=== PATIENT | female | born 1990 | race Caucasian/White ===

== ENCOUNTER → 2017-11-30 15:21 | Outpatient (CLI) | payer OTHER, SELFPAY | PROVIDERS: Family Provider Family Medicine; PCP Family Medicine; Visit Provider Otolaryngology Otolaryngology/Facial Plastic Surgery | DX: J02.9 Acute pharyngitis, unspecified (principal) | CPT/HCPCS: 87070 ==

== ENCOUNTER → 2017-12-07 08:04 | Outpatient (CLI) | payer BC, OTHER, SELFPAY ==
--- NOTE | 2017-12-07 08:15 | RAD_ITS ---
STUDY: X-RAY - ESOPHAGUS (BARIUM SWALLOW) WITH FLUOROSCOPY REASON FOR EXAM: Female, 27 years old. 2 month history of dysphagia. TECHNIQUE: 17 view(s) of the esophagus were obtained following swallowing of barium. FLUOROSCOPY TIME (if supplied): (0:18) minutes/seconds COMPARISON: None. FINDINGS: There is no demonstrated esophageal foreign body. There is no demonstrated stricture or mucosal abnormality. Normal gastroesophageal junction, without a demonstrated hiatal hernia. The patient ingested a 12 mm tablet of barium without any difficulty. Normal visualized aortic arch and descending thoracic aorta. Normal visualized pulmonary parenchyma. Normal visualized osseous structures of the thorax. RAD/Esophagus Only IMPRESSION: Normal plain film x-ray examination (barium swallow) of the esophagus. Electronically Signed: Adelso Kessler MD at 9:23 EDT Tel [phone], Service support ,
== END ==
PROVIDERS: Family Provider Family Medicine; PCP Family Medicine; Visit Provider Otolaryngology Otolaryngology/Facial Plastic Surgery
DX: R13.10 Dysphagia, unspecified (principal); K21.9 Gastro-esophageal reflux disease without esophagitis
CPT/HCPCS: 74220

== ENCOUNTER 2018-07-09 08:29 | Emergency (ER) | payer BC, SELFPAY ==
[2018-07-09 08:30] VITALS: BP 166/114; PULSE 92; RESP 18; TEMP 37; O2SAT 100; BMI 42.3
--- NOTE | 2018-07-09 08:48 | US_ITS ---
STUDY: FIRST TRIMESTER OBSTETRICAL ULTRASOUND REASON FOR EXAM: Female, 28 years old. Bleeding with . LMP: 05/25/2018 TECHNIQUE: Transvaginal TECHNICAL QUALITY: Adequate. PRIOR ULTRASOUND: None. FINDINGS: There is visualization of a single gestational sac demonstrates irregular shape and borders. Fluid is noted within the endometrium. There is no demonstrated yolk sac. The placenta is non-visualized. There is visualization of an embryo with no cardiac activity, consistent with intrauterine demise. [place]-rump length measures 0.2 cm corresponding to 4 weeks and 5 days gestation. The estimated gestation age (EGA) by LMP is 6 weeks, 3 days. The estimated date of delivery (JANEY) by LMP is 03/01/2019. The estimated gestation age (EGA) by US is 4 weeks, 5 days. The estimated date of delivery (JANEY) by US is 03/13/2019. The uterus measures 5.7 x 3.5 x 2.9. There is no demonstrated uterine fibroid. The cervix is closed. The right ovary measures 3.7 x 1.8 x 2.5. There is no right ovarian cyst. There is no visualized right adnexal mass or complex lesion. The left ovary measures 3.6 x 2.7 x 1.6. There is no left ovarian cyst. There is no visualized left adnexal mass or complex lesion. There is no fluid in the cul de sac. US/Transvaginal w/Preg US IMPRESSION: 1. Findings consistent with no heart rate activity consistent with demise. Recommend beta hCG correlation and gynecologic consultation for further assessment and management. Electronically Signed: Adrian Sauceda DO at 11:14 EDT , Service support ,
[2018-07-09 09:39] LABS: hCG Titer Quant., Serum 9 mIU/mL (<9 non-preg)
--- NOTE | 2018-07-09 11:36 | ED.VISSUMM ---
- ER Visit Summary Date of Service: 07/09/18 Chief Complaint: Vaginal bleeding History of Present Illness: The patient is a [address] Briceno. She reports she has vaginal bleeding that began yesterday. 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 She complains of cramping suprapubic pain is 6 out of 10 at worst and 4-10 currently. Is worsened by nothing and relieved by movement. She is a at 6 weeks 3 days by her last menstrual period. She has not had an ultrasound. Physical Examination: Vitals: Stable. Afebrile. General: Well-nourished and well-developed. Head: Normocephalic atraumatic. Neck: Supple, no lymphadenopathy. No JVD. Nontender. Cardiovascular: Regular rate and rhythm. No murmurs. Respiratory: No respiratory distress. Clear to auscultation bilaterally. Abdominal: Soft, nontender, nondistended, normal bowel sounds. No guarding, rebound, or peritoneal signs. Back: Nontender. Extremities: Nontender, no edema. Skin: Normal color, no rash. Neurologic: Alert and oriented ?3. Cranial nerves II through XII are intact. Normal strength and sensation. Psych: Normal affect. Test Results: Ultrasound shows intrauterine demise with a fetus that is 4 weeks 5 days with no heartbeat. Quantitative hCG was 9. Blood type is B+. Emergency Department Course and Treatment: Patient refused nausea pain medications. She is resting comfortably. Treatment Plan: Patient was discussed with Dr. Briceno. She will be discharged instructions to follow-up with her tomorrow for another exam. She is instructed that if she is bleeding through more than 1 pad an hour for more than 4 hours that she should return to the emergency department. Disposition: To home in improved and stable condition. Impression: 1. Intrauterine demise. This note was generated with [employer] dictation software. It may contain incorrect words, spelling, and punctuation that were not noted in review of the chart prior to signing ED Disposition - Plan for ED Patient: Disposition: Home or Assisted Living Instructions: ED Miscarriage Incom Referrals: Reyna Birceno DO [STAFF PHYSICIAN] - 1 Day
[2018-07-09 12:06] VITALS: PULSE 88; RESP 16; O2SAT 98
[2018-07-09 13:10] VITALS: BP 138/101; PULSE 88; RESP 16; O2SAT 100
== END 2018-07-09 13:10 | disposition home or self-care (01) ==
PROVIDERS: Emergency Provider Emergency Medicine; Family Provider Family Medicine; PCP Family Medicine
DX: O02.1 Missed abortion (principal)
CPT/HCPCS: 76817; 84702; 86900; 99282; A4216

== ENCOUNTER 2019-08-02 21:43 | Emergency (ER) | payer BC, SELFPAY ==
[2019-08-02 21:44] VITALS: BP 168/94; PULSE 74; RESP 18; TEMP 36.2; O2SAT 98; BMI 43.0
--- NOTE | 2019-08-02 22:11 | EKG12_ITS ---
Test Reason : CP Blood Pressure : / mmHG Vent. Rate : 075 BPM Atrial Rate : 075 BPM P-R Int : 126 ms QRS Dur : 094 ms QT Int : 384 ms P-R-T Axes : 064 023 027 degrees QTc Int : 428 ms Sinus rhythm with marked sinus arrhythmia Otherwise normal ECG Confirmed by AZEEM MOODY ([id number]), visual effects editor OLIVER WHEELER ([id number]) on 08/06/2019 1:16:47 PM Referred By: MR Confirmed By:AZEEM MOODY
--- NOTE | 2019-08-02 22:17 | ED.VIS.CHEST ---
History of Present Illness Chief Complaint: Chest Pain Informant: Patient Onset: Weeks Timing: Continuous - all day today, once it started seemingly randomly this AM, more than 8 hrs ago, Intermittent - throughout the week, Lasts - brief, less than 1 minute w/ episodes before today Quality: Heaviness, Pressure Location: Substernal - w/ radiation to lower jaw/teeth Current Severity: Moderate Maximum Severity: Moderate Worsened By: Exertion - maybe, - - no change w/ lying supine. Not Worsened By: Movement of Arm, Movement of Torso, Eating, Palpation, Breathing, Coughing Relieved By: Nothing - hasn't tried any medications Associated Symptoms: Dyspnea - occasionally, mild, Palpitations - occasional skips; has felt in past week, today, but not prior. Negative for: Nausea, Vomiting, Diaphoresis, Cough, Fever, Lightheadedness, Acid Reflux Narrative: Hx of PCOS and GERD, for which she takes daily OTC famotidine. No abd symptoms. No tearing sensation, back discomfort, pleuritic sx, leg pain/swelling, recent immobilization, hx of DVT/PE. Prior Similar Symptoms: No Recent Illness/Hospitalization: No PE Risk Factors: Negative for: Recent Travel/Surgery, Recenet Immobilization, Prior DVT or PE, Cancer, OCP + Smoking + >/=35 TAD Risk Factors: Negative for: Marfan's Syndrome, Hypertension, Family History - Past Medical History (1) PCOS (polycystic ovarian syndrome) Status: Chronic (2) GERD (gastroesophageal reflux disease) Status: Chronic Past Medical History - Allergies and Home Meds Allergies/Adverse Reactions: Allergies No Known Allergies Allergy (Verified 08/02/19 21:47) Primary Care Physician: Laila Lima MD [Primary Care Provider] - 3-5 Days Smoking Status: Never smoker Drugs: None Review of Systems General: Denies: Chills, Fever, Sweats Eyes: Denies: Visual changes - bilaterally, Diplopia ENT: Reports: - - lower jaw toothache w/o pain w/ eating. Denies: Bilateral ear pain, Rhinorrhea, Sore throat Cardiovascular: Reports: Chest pain, Palpitations. Denies: Heart racing Respiratory: Reports: Dyspnea. Denies: Cough, Dyspnea on exertion Gastrointestinal: Denies: Abdominal pain, Nausea, Vomiting, Diarrhea, Melena, Hematochezia Genitourinary: Denies: Dysuria, Hematuria, Frequency Musculoskeletal: Denies: Neck pain, Back pain, Swelling, Extremity Pain Skin: Denies: Rash, Wounds Neurological: Denies: Headache, Weakness, Numbness Physical Exam Vital Signs/Narrative: Vital Signs Temp Pulse Resp BP Pulse Ox 08/02/19 21:44 97.1 F L 74 18 168/94 H 98 Inital Vital Signs reviewed: Yes General: Well nourished, Well developed, Obese, No Acute Distress - well-appearing, conversive in full sentences Head: Normocephalic, Atraumatic Eyes: Perrl, EOMI ENT: Moist mucous membranes, No rhinorrhea Neck: Supple, Nontender, No lymphadenopathy Cardiovascular: Regular rate, Regular rhythm, No murmurs, Normal S1, Normal S2, - - equal bilat 2+/4 radial pulses. Negative for: Tachycardia Respiratory: No distress, CTA bilaterally, Chest nontender Abdomen: Soft, Nontender, Nondistended, Normal bowel sounds Back: Nontender, Normal Inspection Extremities: Nontender, No edema. Negative for: Calf Tenderness Skin: Normal color, No rash, No Trauma Neurological: Alert, Oriented x3, Cranial nerves II-XII grossly intact, Normal Strength, Normal Sensation, Normal Gait Psychological: Normal affect, Normal Mood Diagnostic/Tx/Re-eval Impressions Chest X-Ray 08/02/19 22:35 IMPRESSION: Normal x-ray examination of the chest. Electronically Signed: Kevin Welsh MD at 23:01 EDT Tel , Service support , Chest CTA 08/02/19 23:19 IMPRESSION: Normal CTA chest examination, without a demonstrated pulmonary embolism or aortic dissection. Electronically Signed: Kevin Welsh MD at 0:03 EDT Tel , Service support , 08/02/19 22:35 Chest 1 View (Portable) [RAD] Stat 08/02/19 23:19 CTA Chest W/WO Contrast [CT] Stat Laboratory Results 08/02/19 08/02/19 22:30 22:30 WBC 13.9 H RBC 4.99 Hgb 14.0 Hct 43.3 MCV 86.8 MCH 28.1 MCHC 32.3 RDW Std Deviation 41.5 RDW Coeff of Roge 13.3 Plt Count 353 MPV 9.5 Immature Gran % (Auto) 0.400 Neut % (Auto) 56.9 Lymph % (Auto) 32.7 [place] % (Auto) 7.3 Eos % (Auto) 2.4 Baso % (Auto) 0.3 Absolute Neuts (auto) 7.9 H Absolute Lymphs (auto) 4.55 H Nucleated RBC % 0 Sodium 140 Potassium 3.8 Chloride 107 Carbon Dioxide 28.0 Anion Gap 5 BUN 9 Creatinine 0.73 Estim Creat Clear Calc 112.57 Est GFR (MDRD) Af Amer 122 Est GFR (MDRD) Non-Af 101 BUN/Creatinine Ratio 12.3 Glucose 105 Calcium 9.5 Troponin I < 0.015 - Rhythm Strip Rhythm Strip: Sinus Rhythm Rate: 75 Ectopy: None - EKG Initial EKG Interpretation: Sinus Rhythm, No Acute Injury Pattern - normal EKG. No S1Q3T3 pattern. Prior: Unchanged Treatment: GI Cocktail - Brief interval improvement, sx persist ABDELRAHMAN Risk: No Positive ABDELRAHMAN Elements Score: 0 - Medical Decision Making PERC score = 0. EKG is unremarkable, her perc score 0 as above. Chest x-ray shows a narrow mediastinum. A G.I. cocktail did not resolve symptoms. She thinks it resulted in transient improvement it but it was relatively brief. Given her symptoms, I think it is reasonable to perform CT angiography to rule out dissection, given her toothache with no evidence of dental etiology. This was performed and negative, I discussed the pros and cons with the patient she was comfortable with the scan and logic of it. Given all this and with a negative work up otherwise except for a mild non-specific leukocytosis, I suspect this is related to her esophagus. Will give her a dose of Bentyl, advised that she take the H2 mika b.i.d. and follow up with her doctor. She?s comfortable with that plan. Prior to discharge, prior to receiving the dose of oral Bentyl, her symptoms resolved. She states they seem to have gradually gone away. ED Disposition - Plan for ED Patient: Disposition: Home or Assisted Living Diagnosis: Chest pain, unspecified Instructions: ED Chest Pain Atypical Unkn Cause Prescriptions: Dicyclomine HCl [Bentyl] 1 - 2 tab PO Q4H PRN #15 cap PRN Reason: discomfort in chest or abdomen Prescription Printed Referrals: Laila Lima MD [Primary Care Provider] - 3-5 Days Additional Instructions: Take your pepcid twice daily until you follow up, for now.
--- NOTE | 2019-08-02 22:35 | RAD_ITS ---
STUDY: X-RAY CHEST REASON FOR EXAM: Female, 29 years old. chest pain x 1 week TECHNIQUE: Single frontal view of the chest. COMPARISON: None. FINDINGS: The lungs are clear and expanded. There is no demonstrated pleural abnormality. Normal size heart. Normal mediastinum and laura. Normal visualized pulmonary arteries. Normal visualized aortic arch and descending thoracic aorta. Normal visualized thoracic spine. Normal visualized ribs, clavicles, and shoulders. There is no demonstrated abnormality of the visualized soft tissue structures of the upper abdomen. RAD/Chest 1 View (Portable) IMPRESSION: Normal x-ray examination of the chest. Electronically Signed: Kevin Welsh MD at 23:01 EDT Tel , Service support ,
[2019-08-02] MEDS: Mag Hydrox/Al Hydrox/Simeth 30 ML UDC PO (22:38)
[2019-08-02 22:43] LABS: Absolute Lymphocyte Count 4.55 X10^3/uL (0.83-4.51); Absolute Neutrophil Count 7.9 X10^3/uL (2.0-7.7); Basophil# 0.04 X10^3/uL; Basophil% 0.3 % (0-1); Eosinophil# 0.34 X10^3/uL; Eosinophils% 2.4 % (0-5); Hematocrit 43.3 % (37-47); Lymphocyte # 4.55 X10^3/ul (4.0); Lymphocyte % 32.7 % (19-41); Mean Corp Hgb Conc 32.3 g/dL (32-36); Mean Corpuscular Hgb 28.1 pg (27.0-32.0); Mean Corpuscular Volume 86.8 fL (81-99); Mean Platelet Vol. 9.5 fl (6.2-12.0); Monocyte# 1.02 X10^3/uL; Monocyte% 7.3 % (0-10); NRBC Flagged by Analyzer 0 % (0-5); Neutrophil # 7.91 X10^3/uL (2.7-7.7); Neutrophil % 56.9 % (47-70); Platelet Count 353 K/mm3 (150-450); RBC Distribution Width CV 13.3 % (11.6-14.6); RBC Distribution Width SD 41.5 fl (35.1-43.9); Red Blood Count 4.99 M/mm3 (4.2-5.4); White Blood Count 13.9 K/mm3 (4.4-11.0)
[2019-08-02 23:04] VITALS: PULSE 76; RESP 16; O2SAT 96
[2019-08-02 23:04] LABS: Anion Gap 5 (5-15); BUN 9 mg/dL (7-18); BUN/Creat Ratio 12.3 RATIO (10-20); Calcium,Total 9.5 mg/dL (8.5-10.1); Chloride 107 mmol/L (98-107); Creatinine, Serum 0.73 mg/dL (0.55-1.02); EST Glomerular Filtration Rate 101 mL/min (>60); Est Glom Filt Rate - Afr Amer 122 mL/min (>60); Estimated Creatinine Clearance 112.57 ml/min; Glucose 105 mg/dL (74-106); Potassium 3.8 mmol/L (3.5-5.1); Sodium Level 140 mmol/L (136-145)
--- NOTE | 2019-08-02 23:19 | CT_ITS ---
STUDY: CTA CHEST REASON FOR EXAM: Female, 29 years old. CP X 1 WEEK, CONCERN FOR DISSECTION RADIATION DOSAGE (If Supplied By Facility): CTDIvol = ( 21.26 ) mGy, DLP = ( 760.30 ) mGycm TECHNIQUE: The examination was performed with the intravenous administration of IV 100mL Isovue-370. Post-processing of the angiographic images was performed, with multiplanar reformation and 3D reconstruction. Individualized dose optimization techniques were used for this CT. COMPARISON: None. FINDINGS: Normal enhancement of the main pulmonary artery and right and left pulmonary arteries. Normal enhancement of the bilateral peripheral pulmonary arteries. There is no demonstrated pulmonary embolism. Normal thoracic aorta and visualized great vessels. There is no demonstrated aortic dissection. Normal heart and pericardium. Normal mediastinum. Normal hilar regions. Normal visualized trachea and bronchi. The lungs are well expanded. Normal pulmonary parenchyma. Normal pleura. Normal chest wall structures. Normal osseous structures. Normal visualized upper abdomen. CT/CTA Chest W/WO Contrast IMPRESSION: Normal CTA chest examination, without a demonstrated pulmonary embolism or aortic dissection. Electronically Signed: Kevin Welsh MD at 0:03 EDT Tel , Service support ,
[2019-08-03] MEDS: 0.9% Normal Saline 1,000 ML 999 ML IV
[2019-08-03 00:38] VITALS: BP 143/98; PULSE 84; RESP 18; O2SAT 98
[2019-08-03] MEDS: Dicyclomine 10 MG Capsule 20 MG PO (00:44)
== END 2019-08-03 00:53 | disposition home or self-care (01) ==
LOC: ED 08-03 00:48
PROVIDERS: Emergency Provider Emergency Medicine; PCP Family Medicine
DX: R07.9 Chest pain, unspecified (principal); R06.00 Dyspnea, unspecified; K21.9 Gastro-esophageal reflux disease without esophagitis; R00.2 Palpitations; E28.2 Polycystic ovarian syndrome; K08.89 Other specified disorders of teeth and supporting structures; E66.9 Obesity, unspecified
CPT/HCPCS: 71045; 71275; 80048; 84484; 85025; 93005; 96360; 99284; J7030; Q9967; A4216

== ENCOUNTER → 2019-12-13 10:57 | Outpatient (CLI) | payer BC, SELFPAY ==
[2019-12-13 11:31] LABS: Absolute Lymphocyte Count 3.32 X10^3/uL (0.83-4.51); Absolute Neutrophil Count 6.8 X10^3/uL (2.0-7.7); Basophil# 0.04 X10^3/uL; Basophil% 0.4 % (0-1); Eosinophil# 0.27 X10^3/uL; Eosinophils% 2.4 % (0-5); Hematocrit 43.3 % (37-47); Hemoglobin 13.8 g/dL (12.0-15.0); Lymphocyte # 3.32 X10^3/ul (4.0); Lymphocyte % 29.5 % (19-41); Mean Corp Hgb Conc 31.9 g/dL (32-36); Mean Corpuscular Hgb 27.4 pg (27.0-32.0); Mean Corpuscular Volume 85.9 fL (81-99); Mean Platelet Vol. 9.9 fl (6.2-12.0); Monocyte# 0.84 X10^3/uL; Monocyte% 7.5 % (0-10); NRBC Flagged by Analyzer 0 % (0-5); Neutrophil # 6.77 X10^3/uL (2.7-7.7); Neutrophil % 59.9 % (47-70); Platelet Count 411 K/mm3 (150-450); RBC Distribution Width CV 13.6 % (11.6-14.6); RBC Distribution Width SD 42.1 fl (35.1-43.9); Red Blood Count 5.04 M/mm3 (4.2-5.4); White Blood Count 11.3 K/mm3 (4.4-11.0)
[2019-12-13 11:56] LABS: AST(SGOT) 38 U/L (15-37); Alanine Aminotransfer ALT/SGPT 82 U/L (13-56); Albumin, Serum 3.8 g/dL (3.2-5.0); Alkaline Phosphatase 33 U/L (45-117); Bilirubin, Direct 0.22 mg/dL (0.00-0.30); Globulin 3.8 g/dL (2.2-4.2); Protein, Total 7.6 g/dL (6.4-8.2)
[2019-12-13 12:01] LABS: hCG Titer Quant., Serum 777 mIU/mL (1-3)
== END ==
PROVIDERS: PCP Family Medicine; Referring Provider Obstetrics & Gynecology; Visit Provider Obstetrics & Gynecology
DX: O00.90 Unspecified ectopic pregnancy without intrauterine pregnancy (principal); Z3A.00 Weeks of gestation of pregnancy not specified
CPT/HCPCS: 36415; 80076; 84702; 85025

== ENCOUNTER → 2020-02-28 09:14 | Outpatient (CLI) | payer BC, SELFPAY ==
--- NOTE | 2020-02-28 09:30 | RAD_ITS ---
STUDY: HYSTEROSALPINGOGRAM. REASON FOR EXAM: Female, 30 years old. HSG FOR INFERTILITY. HX RECENT ECTOPIC RIGHT SIDE. -- 21 FLUORO SEC, 3 FLUORO IMAGES, 18.81mGy FLUOROSCOPY TIME (if supplied): ( 21 seconds ) minutes/seconds. 3 images were obtained. 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 Imaging was provided. COMPARISON: None. FINDINGS: The uterus is unremarkable. Both fallopian tubes are visualized and are widely patent. RAD/Salpingogram IMPRESSION: Normal hysterosalpingogram. Electronically Signed: Adelso Kessler, at 10:31 EST , Service support ,
== END ==
PROVIDERS: PCP Family Medicine; Referring Provider Obstetrics & Gynecology; Visit Provider Obstetrics & Gynecology
DX: Z31.41 Encounter for fertility testing (principal)
CPT/HCPCS: 58340; 74740; Q9967

== ENCOUNTER 2020-05-30 21:17 | Emergency (ER) | payer BC, SELFPAY ==
[2020-05-30 21:19] VITALS: BP 150/105; PULSE 70; RESP 18; TEMP 35.9; O2SAT 98; BMI 44.6
--- NOTE | 2020-05-30 22:09 | US_ITS ---
STUDY: FIRST TRIMESTER OBSTETRICAL ULTRASOUND REASON FOR EXAM: Female, 30 years old RLQ pain, 5 weeks preg, quant 660 today LMP: 04/25/2020 TECHNIQUE: Transvaginal TECHNICAL QUALITY: Adequate. PRIOR ULTRASOUND: None. FINDINGS: Small amount of fluid in the endometrial cavity. A very early gestational sac is not excluded. There is no demonstrated yolk sac. The placenta is non-visualized. There is no demonstrated embryo ( pole). The estimated gestation age (EGA) by LMP is 5 weeks, 0 days. The estimated date of delivery (JANEY) by LMP is 01/30/2021. The uterus measures 6.6 x 5.6 x 3.4 cm. There is no demonstrated uterine fibroid. The cervix is closed. The right ovary measures 5.0 x 4.3 x 2.9 cm. 1.7 cm hyperechoic structure adjacent to or within the right ovary of uncertain significance, possibly fibroma. The left ovary measures 3.5 x 3.3 x 2.6. There is no left ovarian cyst. There is no visualized left adnexal mass or complex lesion. There is a moderate amount of fluid in the cul de sac. US/Transvaginal w/Preg US IMPRESSION: Small amount of fluid in the endometrial cavity. A very early intrauterine gestation is not excluded. Ectopic however is not excluded either. Recommend follow-up quantitative beta hCGs and short-term interval follow-up ultrasound. Electronically Signed: Troy Dao MD at 23:21 EST , Service support ,
[2020-05-30 22:19] LABS: Absolute Neutrophil Count 10.1 X10^3/uL (2.0-7.7); Basophil# 0.06 X10^3/uL; Basophil% 0.4 % (0-1); Eosinophil# 0.31 X10^3/uL; Eosinophils% 1.9 % (0-5); Hematocrit 44.1 % (37-47); Hemoglobin 14.2 g/dL (12.0-15.0); Lymphocyte % 28.7 % (19-41); Mean Corp Hgb Conc 32.2 g/dL (32-36); Mean Corpuscular Hgb 27.9 pg (27.0-32.0); Mean Corpuscular Volume 86.6 fL (81-99); Mean Platelet Vol. 9.9 fl (6.2-12.0); Monocyte# 1.11 X10^3/uL; Monocyte% 6.8 % (0-10); NRBC Flagged by Analyzer 0 % (0-5); Neutrophil # 10.13 X10^3/uL (2.7-7.7); Neutrophil % 61.9 % (47-70); Platelet Count 433 K/mm3 (150-450); RBC Distribution Width SD 43.9 fl (35.1-43.9); Red Blood Count 5.09 M/mm3 (4.2-5.4); White Blood Count 16.4 K/mm3 (4.4-11.0)
[2020-05-30 22:23] LABS: Internal QC Validated? YES +Cl - CLEAR BKGD; Pregnancy, Serum, hCG Quali. POSITIVE Negative
[2020-05-30] MEDS: Morphine 4 MG/ML Syringe IV (22:25)
[2020-05-30] MEDS: 0.9% Normal Saline 1,000 ML 1000 ML IV (22:25)
[2020-05-30 22:33] LABS: Mucous, Urine 0 SEEN /hpf (<or=2+)
[2020-05-30 22:34] LABS: Color, Urine Yellow (Yellow); Glucose, Dipstick Normal (Normal); Ketone-Dipstick 50 mg/dl (Negative); Leukocyte Esterase-Dipstick 100 /ul (Negative); Nitrite-Dipstick Negative (Negative); Occult Blood-Urine 250 /ul (Negative); Protein-Dipstick 15 mg/dl (Negative); Specific Gravity, Urine 1.025 (1.002-1.030); Urine Bilirubin Dipstick Negative (Negative); Urine Clarity Clear (Clear); Urine Urobilinogen Normal (Normal)
[2020-05-30 22:40] LABS: Red Blood Cells-Urine 10-25 SEEN /hpf (0-5); Squamous Epithelial Cells - UA 0-5 SEEN /hpf (5-10); White Blood Cells 0-5 SEEN /hpf (0-5)
[2020-05-30 22:41] LABS: Bacteria RARE /hpf (None Seen)
[2020-05-30 23:03] VITALS: BP 123/78; PULSE 71; RESP 16; O2SAT 100
--- NOTE | 2020-05-30 23:16 | ED.DCSUM_ITS ---
History of Present Illness Chief Complaint: Vag Bld, Preg Informant: Patient Pain: Pelvic Pain Narrative: Patient is G4, P0 currently 5 weeks with last menstrual period April 25 presenting with pelvic cramping and spotting. Patient started having cramping today that worsened this evening. Also had a small amount of bright red blood around lunchtime with wiping and then more brown spotting this evening. Patient is currently following with fertility at [facility]. She does have a prior right ectopic . It was treated medically. Patient was on oral fertility medications for this . She states she had a quant today with outpatient blood work that was 664.8. She notes her quant has been doubling appropriately. Patient states her blood type is positive. She has no other complaints at this time. Past Medical History - Allergies and Home Meds Allergies/Adverse Reactions: Allergies No Known Allergies Allergy (Verified 05/30/20 21:18) Primary Care Physician: Laila Lima MD [Primary Care Provider] - Past Medical History: - - PCOS Surgical History: noncontributory Lives: Spouse/ Significant Other Smoking Status: Never smoker Review of Systems General: Denies: Chills, Fever, Sweats Eyes: Denies: Visual changes - bilaterally, Diplopia ENT: Denies: Rhinorrhea, Sore throat Cardiovascular: Denies: Chest pain, Palpitations Respiratory: Denies: Dyspnea, Cough, Dyspnea on exertion Gastrointestinal: Reports: Abdominal pain. Denies: Nausea, Vomiting, Diarrhea, Melena, Hematochezia Genitourinary: Reports: - - Vaginal bleeding. Denies: Dysuria, Hematuria, Frequency Musculoskeletal: Denies: Back pain, Extremity Pain Skin: Denies: Rash, Wounds Neurological: Denies: Headache, Weakness, Numbness Physical Exam Vital Signs/Narrative: Vital Signs Temp Pulse Resp BP Pulse Ox 05/30/20 23:03 71 16 123/78 H 100 05/30/20 21:19 96.7 F L 70 18 150/105 H 98 Inital Vital Signs reviewed: Yes General: Well nourished, Well developed Head: Normocephalic, Atraumatic Eyes: Perrl, EOMI ENT: Moist mucous membranes, No rhinorrhea Neck: Supple, Nontender Cardiovascular: Regular rate, Regular rhythm, No murmurs Respiratory: No distress, CTA bilaterally, Chest nontender Abdomen: Soft, Nontender, Nondistended, Normal bowel sounds. Negative for: Guarding, Rebound tenderness Back: Nontender, Normal Inspection Extremities: Nontender, No edema Skin: Normal color, No rash Neurological: Alert, Oriented x3, Cranial nerves II-XII grossly intact, Normal Strength, Normal Sensation Psychological: Normal affect Diagnostic/Tx/Re-eval Clinical Impression(s) from Imaging Studies Obstetrics Ultrasound 05/30/20 22:09 IMPRESSION: Small amount of fluid in the endometrial cavity. A very early intrauterine gestation is not excluded. Ectopic however is not excluded either. Recommend follow-up quantitative beta hCGs and short-term interval follow-up ultrasound. Electronically Signed: Troy Dao MD at 23:21 EST , Service support , Laboratory Data 05/30/20 05/30/20 05/30/20 21:53 21:53 21:53 WBC 16.4 H RBC 5.09 Hgb 14.2 Hct 44.1 MCV 86.6 MCH 27.9 MCHC 32.2 RDW Std Deviation 43.9 RDW Coeff of Roge 14.0 Plt Count 433 MPV 9.9 Immature Gran % (Auto) 0.300 Neut % (Auto) 61.9 Lymph % (Auto) 28.7 [place] % (Auto) 6.8 Eos % (Auto) 1.9 Baso % (Auto) 0.4 Absolute Neuts (auto) 10.1 H Absolute Lymphs (auto) 4.70 H Nucleated RBC % 0 HCG, Quant Serum , Qual POSITIVE H Urine Color Urine Clarity Urine pH Ur Specific [place] Urine Protein Urine Glucose (UA) Urine Ketones Urine Occult Blood Urine Nitrite Urine Bilirubin Urine Urobilinogen Ur Leukocyte Esterase Urine RBC Urine WBC Ur Squamous Epith Cells Urine Bacteria Urine Mucus Blood Type B POSITIVE 05/30/20 05/30/20 21:53 22:25 WBC RBC Hgb Hct MCV MCH MCHC RDW Std Deviation RDW Coeff of Roge Plt Count MPV Immature Gran % (Auto) Neut % (Auto) Lymph % (Auto) [place] % (Auto) Eos % (Auto) Baso % (Auto) Absolute Neuts (auto) Absolute Lymphs (auto) Nucleated RBC % HCG, Quant 562 H Serum , Qual Urine Color Yellow Urine Clarity Clear Urine pH 5.0 Ur Specific [place] 1.025 Urine Protein 15 H Urine Glucose (UA) Normal Urine Ketones 50 H Urine Occult Blood 250 H Urine Nitrite Negative Urine Bilirubin Negative Urine Urobilinogen Normal Ur Leukocyte Esterase 100 H Urine RBC 10-25 SEEN Urine WBC 0-5 SEEN Ur Squamous Epith Cells 0-5 SEEN Urine Bacteria RARE Urine Mucus 0 SEEN Blood Type - Medical Decision/Diagnostic Studies Patient is evaluated for 1 day of vaginal spotting and pelvic discomfort. Patient is proximally 5 weeks by last menstrual period. She is not had a ultrasound to confirm intrauterine gestation secondary to early gestational age. Patient's quant is below the discriminatory zone. She has a leukocytosis however there is no obvious source of infection. Her hemoglobin is normal. She is hemodynamically stable in the emergency room. She is not have a surgical or peritoneal abdomen. Transvaginal ultrasound of obtained which shows some free fluid but no obvious ectopic . There is also possible gestational sac in the uterus. Results including ultrasound reviewed with gynecology on-call, Dr. Ruiz, who is familiar with this patient. Given that this is a desired she does not want to preemptively treat with methotrexate in case this is not an ectopic. She will follow closely outpatient. Patient is given return precautions. She is instructed to follow-up on Tuesday at the office. Patient verbalizes given understand this plan. Counseled to return should she have worsening bleeding, pain or lightheadedness. ED Disposition - Plan for ED Patient: Disposition: Home or Assisted Living Diagnosis: Threatened miscarriage Instructions: ED Possible Miscarriage ... Referrals: Reyna Briceno DO [STAFF PHYSICIAN] - Additional Instructions: Please call your fertility office on Tuesday. Call the on-call line for Dr. Briceno, you have further pain or change in her symptoms. They are not completely able to rule out ectopic today.
[2020-05-30 23:17] LABS: hCG Titer Quant., Serum 562 mIU/mL (1-3)
--- NOTE | 2020-05-31 00:53 | ED.RN ---
pt did not receive all of IV fluids but states she feels good to drink water.
== END 2020-05-31 00:55 | disposition home or self-care (01) ==
PROVIDERS: Emergency Provider Emergency Medicine; PCP Family Medicine
DX: O20.0 Threatened abortion (principal); Z3A.01 Less than 8 weeks gestation of pregnancy
CPT/HCPCS: 76817; 81001; 84702; 84703; 85025; 86900; 86901; 96361; 96374; 99285; J7030; A4216

== ENCOUNTER 2022-04-28 12:00 | Outpatient (RCR) | payer BC, SELFPAY ==
--- NOTE | 2022-04-05 16:30 | HP.PTEVAL_ITS ---
Patient's Visit Information CLAY CRISTINA is a 32 year old F referred to Physical Therapy by Dr. Laila Lima MD with a diagnosis of Cervical- Bilateral neck shoulder pain/stiffness. Date of Evaluation: 04/05/22 Physical Therapist: Estefany Alexander DPT - Visit Plan Frequency: 2x /Week Duration: 4 Weeks Plan: Focus on Scapular strength/stabilization- posture and manual for cervical spine. HEP Given IE: Posture, scapular retractions, chin tucks, levator and UT stretching and contract/relax - Subjective She started having neck pain the day after Julisa- the pain has not gone away. She saw Dr. Lima who gave her muscle relaxers and that did not help and then sent her to PT. Better but not great. She has pain that comes and and goes. The pain is along the left side- starts at the base of the skull 4 fingers down and then sometimes radiates to the shoulder blade. Worst in the last week 09/27 Agg: turning her head mostly to the right but left isn't great, trying to get comfortable. Side sleeper hard to get comfortable but does not wake her up. Eases: Ibuprofen, heat and Biofreeze Best: 0/10. No radiating pain. Describes the pain as constant dull and achy- but every now and then it will have a sharp pain. With movement its sharp and shoot down. No N/T in the fingers- no dec in jukebox coin collector strength. Has had some TRISTAN from it but no blurred vision or dizziness. 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 Hobby: sowing and quilting (mostly on weekends- a few hours) She has never had neck issues before- no trauma to report. Right hand dominate- No imaging. PMHx/Meds: no changes since saw . - Objective Posture: FH, RS- does correct with change of position but does not maintain when stationary in sitting or standing. Gait: no deviation noted- good arm swing and trunk rotation. Palpation: tender along levator from origin to insertion- tender upper trap to AC joint and along medial border of the scapula- suboccipitals. Sensation: WNL. ROM: UE: WNL, Cervical Spine: WFL with the exception of rotation to the right is diminished by 25%- SB to the right also reports mild increase in pain but no restriction. Strength: UE: 5/5 Scap: fair minus. Cervical: 4+/5 with discomfort. Flex: Levator: moderate, Upper Trap: moderate. Special Test: Suboccipital release increase discomfort, Distraction: no change in s/s, Contract/Relax levator and UT: increased ROM - Balance/Special Test Scores Oswestry Neck Score: 15 - Goals Goal 1:: Patient will be I with HEP and progression Goal Time Frame: 4-6 Weeks Goal 2:: Patient will maintain proper posture t/o tx session to increased scap s/s Goal Time Frame: 4-6 Weeks Goal 3:: Patient will report 80% improvement Goal Time Frame: 4-6 Weeks - Rehabilitation Potential Physical Therapy Diagnosis: Patient presents with hypomobility- she has decreased scapular s/s leading, dec rotation of the cervical spine and muscular endurance leading to to poor posture and increased pain with ADL's. Rehabilitation Potential: Good - Anticipated Interventions Patient/Client Instruction: Educate patient on: Benefits of Fitness Program Therapeutic Exercise to Include: Strength training, Endurance training, Coordination, Agility training, Body mechanics, Postural training, Flexibilty training, Neuromotor development, Passive ROM, Active ROM, Dynamic Lumbar Stabilization, Scapular Strength/Stabilization For the Purpose of:: To improve muscle performance and motor function TENS: Yes Cryotherapy (ice pack, ice massage): Yes Thermo therapy (hot pack): Yes Ultrasound (thermal/non thermal): Yes Thank you for the opportunity to evaluate your patient. For Medicare and Medicare HMO plans, please review the plan of care and approve it. It will need to be FAXED BACK to us at [phone] for Medicare purposes. For Medicare only, by signing this I certify the plan of care. Please let me know if there are questions or concerns regarding this plan of care. Physician Signature: Date:
--- NOTE | 2022-04-28 12:51 | HP.PTREVAL ---
Dr. Laila Lima MD, It has been my pleasure to treat CLAY CRISTINA over the last 8 visits for Cervical- Bilateral neck shoulder pain/stiffness. Please see the progress note below for an update on the physical therapy plan of care! Subjective: Patient reports that she is having a good week this week- now if its flared and angry she can figure out why. She feels that she is 80% better and is looking more at ergonomics. She has full ROM and does not hurt to drive and is able to do her work as full. Objective/Function: Posture: fair in sitting and standing Gait: no deviation noted- good arm swing and trunk rotation. Palpation: not tender but does have trigger points throughout. Sensation: WNL. ROM: UE: WNL, Cervical Spine: WFL in all planes Strength: UE: 5/5 Scap: fair . Flex: Levator: mild, Upper Trap: mild Plan Plan: 04/28/22: Discharge to I HEP. Focus on Scapular strength/stabilization- posture and manual for cervical spine. HEP Given IE: Posture, scapular retractions, chin tucks, levator and UT stretching and contract/relax Balance/Gait/Functional tests - Balance/Special Test Scores Oswestry Neck Score: 7 Goals Goal 1:: Patient will be I with HEP and progression Goal Time Frame: 4-6 Weeks Goal Progress: Goal Met Goal 2:: Patient will maintain proper posture t/o tx session to increased scap s/s Goal Time Frame: 4-6 Weeks Goal Progress: Goal Met Goal 3:: Patient will report 80% improvement Goal Time Frame: 4-6 Weeks Goal Progress: Goal Met Anticipated Interventions Patient/Client Instruction: Educate patient on: Benefits of Fitness Program Therapeutic Exercise to Include: Strength training, Endurance training, Coordination, Agility training, Body mechanics, Postural training, Flexibilty training, Neuromotor development, Passive ROM, Active ROM, Dynamic Lumbar Stabilization, Scapular Strength/Stabilization For the Purpose of:: To improve muscle performance and motor function TENS: Yes Cryotherapy (ice pack, ice massage): Yes Thermo therapy (hot pack): Yes Ultrasound (thermal/non thermal): Yes Please do not hesitate to contact me at [phone] by phone or if you have questions or concerns regarding this new plan of care! Sincerely, Estefany Alexander, DPT
--- NOTE | 2022-04-28 12:52 | HP.PTDCSUM ---
It has been my pleasure to treat CLAY CRISTINA referred by Dr. Laila Lima MD, with the diagnosis of Cervical- Bilateral neck shoulder pain/stiffness for a total of 8 visit(s). Discharge Date: Please see the following information for a summary of their discharge status. Subjective: Patient reports that she is having a good week this week- now if its flared and angry she can figure out why. She feels that she is 80% better and is looking more at ergonomics. She has full ROM and does not hurt to drive and is able to do her work as full. Bilateral Shoulder Pain Intensity (Out of 10): 4 % Improvement: 80 Objective/Function: Posture: fair in sitting and standing Gait: no deviation noted- good arm swing and trunk rotation. Palpation: not tender but does have trigger points throughout. Sensation: WNL. ROM: UE: WNL, Cervical Spine: WFL in all planes Strength: UE: 5/5 Scap: fair . Flex: Levator: mild, Upper Trap: mild Goal 1:: Patient will be I with HEP and progression Goal Progress: Goal Met Goal 2:: Patient will maintain proper posture t/o tx session to increased scap s/s Goal Progress: Goal Met Goal 3:: Patient will report 80% improvement Goal Progress: Goal Met Plan: 04/28/22: Discharge to I HEP. Focus on Scapular strength/stabilization- posture and manual for cervical spine. HEP Given IE: Posture, scapular retractions, chin tucks, levator and UT stretching and contract/relax If there are questions or concerns regarding this patient's physical therapy, please feel free to call me at [phone]. Thank you for the referral of this patient. Sincerely, Estefany Alexander, DPT Balance/Gait/Functional tests - Balance/Special Test Scores Oswestry Neck Score: 7
== END 2022-04-28 14:31 | disposition home or self-care (01) ==
LOC: PT 12:00
PROVIDERS: PCP Family Medicine; Referring Provider Family Medicine; Visit Provider Family Medicine
DX: M25.519 Pain in unspecified shoulder (principal); M54.2 Cervicalgia
CPT/HCPCS: 97110; 97140; 97162; 97164

== ENCOUNTER 2023-09-27 07:00 | Outpatient (RCR) | payer BC, SELFPAY ==
--- NOTE | 2023-09-09 07:49 | HP.PTEVAL ---
Patient's Visit Information Visit Information Visit Information: CLAY CRISTINA is a 33 year old F referred to Physical Therapy by Dr. Laila Lima MD with a diagnosis of R knee derangement. Date of Evaluation: 09/09/23 Physical Therapist: ARNULFO Correia Visit Plan Frequency: 2x /Week Duration: 6 Weeks Plan: 2X/ week for 6-8 weeks for R hip and knee strength, core strength, Ice with HEP. Pt has hyperextension of B knees. HEP: SLR, S/L hip abd, Prone hip ext, bridges with green band Subjective Subjective: She has been working on being healthy. She has been doing short bouts of walking and jogging and knee hurt bad. She took a week off and then went to a week of walking. It still hurts but not as bad. It hurts at night while she sleeps. She does not remember if it hurts on stairs. Sitting too long increases pain. No N&T and no back pain. It did swell. It is still swollen. No catching, locking or popping. Pain R knee pain: Pain Intensity (Out of 10): 0 Pain Intensity Range: 7 Objective Objective: Gait: decreased stance time on the R side. Pt has decreased toe raise on the R LE MMT: R hip flex 12.1 and L 13.9 R knee ext 18.3 and L 17.9 R knee flex 14.3 and L 13.3 R hip abd 13.1 and L 12.1 R hip ext 9.8 and L 10.5 Patellar DTR's 2+/3 B R knee AROM -1 to 120 L knee AROM -1 to 130 R tib tib 39.1, Infrapatella 42,2 and supra patella 47.2 L 39, 42.2, 46.6 + pain with valgus Balance/Special Test Scores Lower Extremity Functional Score: 66 Goals Goal 1:: I HEP Goal Time Frame: 6-8 Weeks Goal 2:: Increase B hip strength (at the time of the eval: R hip abd 13.1 and L 12.1 R hip ext 9.8 and L 10.5) Goal Time Frame: 6-8 Weeks Goal 3:: Increase R knee AROM (at the time of the eval: R knee AROM -1 to 120 L knee AROM -1 to 130) Goal Time Frame: 6-8 Weeks Rehabilitation Potential Rehabilitation Potential: Good Anticipated Interventions Patient/Client Instruction: Educate patient on: Condition and Plan of Care For the Purpose of:: To decrease pain, To decrease swelling/inflammation, To increase ROM, To improve nutrient delivery to tissue, To improve muscle performance and motor function, To improve ability to perform ADL's, To increase tolerance to activity/condition/position, To improve performance and independence with ADL's, To decrease level of supervision to perform tasks, To improve ability of physical actions for home/community/work/leisure, To improve gait and locomotor functions, To improve health of tissue and To increase flexibility/ROM Therapeutic Exercise to Include: Strength training, Endurance training, Flexibilty training, Gait and locomotor training, Neuromotor development, Passive ROM and Active ROM For the Purpose of:: To decrease pain, To decrease swelling/inflammation, To increase ROM, To improve nutrient delivery to tissue, To improve muscle performance and motor function, To improve ability to perform ADL's, To increase tolerance to activity/condition/position, To improve performance and independence with ADL's, To decrease level of supervision to perform tasks, To improve ability of physical actions for home/community/work/leisure, To improve gait and locomotor functions, To improve health of tissue, To decrease soft tissue restriction and To increase flexibility/ROM Functional Training to Include: Gait training For the Purpose of:: To improve gait and locomotor functions Text: Thank you for the opportunity to evaluate your patient. For Medicare and Medicare HMO plans, please review the plan of care and approve it. It will need to be FAXED BACK to us at [phone] for Medicare purposes. For Medicare only, by signing this I certify the plan of care. Please let me know if there are questions or concerns regarding this plan of care. Physician Signature: Date:
--- NOTE | 2023-09-27 07:45 | HP.PTDCSUM ---
Discharge Summary D/C summary: It has been my pleasure to treat CLAY CRISTINA referred by Dr. Laila Lima MD, with the diagnosis of R knee derangement for a total of 6 visit(s). Discharge Date: 09/27/23 Please see the following information for a summary of their discharge status. Subjective Subjective: Feels better but has not been running. For the most part it does not hurt but if twists wrong it will hurt. No pain on the stairs. Pain R knee pain: Pain Intensity (Out of 10): 0 Overall Improvement % Improvement: 90 Objective Objective/Function: 0-139 degrees R knee AROM R hip abd 15.3, R hip ext 13.8 R hip flex 15.6 and R knee ext 23.6, and R knee flex 16.5 Goals Goal 1:: I HEP Goal Progress: Goal Met Goal 2:: Increase B hip strength (at the time of the eval: R hip abd 13.1 and L 12.1 R hip ext 9.8 and L 10.5) Goal 3:: Increase R knee AROM (at the time of the eval: R knee AROM -1 to 120 L knee AROM -1 to 130) Plan Plan: DC PT to HEP D/C Information Discharge Comments: DC PT to HEP d/c sentence: If there are questions or concerns regarding this patient's physical therapy, please feel free to call me at [phone]. Thank you for the referral of this patient. Sincerely, Denisse Amezcua, MPT Balance/Gait/Functional tests Balance/Special Test Scores Lower Extremity Functional Score: 76 Improvement % Improvement: 90
== END 2023-09-27 19:00 | disposition home or self-care (01) ==
LOC: PT 07:00
PROVIDERS: PCP Family Medicine; Referring Provider Family Medicine; Visit Provider Family Medicine
DX: M23.91 Unspecified internal derangement of right knee (principal)
CPT/HCPCS: 97110; 97161; 97530

== ENCOUNTER 2024-01-09 09:52 | Emergency (ER) | payer BC, SELFPAY ==
[2024-01-09 09:52] VITALS: BP 164/114; PULSE 80; RESP 16; TEMP 36.7; O2SAT 100; BMI 41.5
--- NOTE | 2024-01-09 11:29 | US_ITS ---
We are attempting to reach an attending provider to discuss findings. An addendum with communication details will be sent when the communication is complete. EXAM: US , TRANSVAGINAL CLINICAL INDICATION: threatened miscarriage vs ectopic (R) TECHNIQUE: Real-time endovaginal obstetrical ultrasound of the maternal pelvis and a first trimester with image documentation. Transvaginal imaging was used for better evaluation of the fetus and adnexa. COMPARISON: No relevant prior studies available. FINDINGS: GESTATION: Uterus measures 6.7 x 5.1 x 3.6 cm with endometrial thickness of 7 mm. No evidence of an intrauterine gestational sac. PLACENTA/AMNIOTIC FLUID: Cannot be adequately evaluated due to the early gestational age. UTERUS/CERVIX: Normal. Anteverted. No uterine mass. OVARIES: Right ovary measures 2.9 x 2.9 x 2.8 cm. There appears to be a rounded 2 cm complex structure adjacent to the right ovary which could represent residuals of tubal ectopic or an exophytic corpus luteum. No identifiable gestational sac or embryo. Left ovary measures 3.2 x 2.8 x 2.1 cm. No evidence of ovarian torsion. FREE FLUID: Small amount of free fluid noted adjacent to the right ovary. US/Transvaginal w/Preg US IMPRESSION: No discrete evidence of an intra or extrauterine gestational sac. Possibility of a right-sided ectopic to BE considered. Electronically Signed: Jean-Claude Desai MD at 13:19 EDT ,
--- NOTE | 2024-01-09 11:34 | ED.VIS.FEGU ---
HPI HPI - Female History of Present Illness Chief Complaint: Vag Bld, Preg Informant: patient and spouse/S.O. Narrative Narrative: 34-year-old female presenting to the emergency room with a chief complaint of possible miscarriage. Patient states that she is G5, P0. She states she has had 2 ectopics and 2 miscarriages. She states she has not required surgery for these. She was working with [facility]. She has a history of PCOS. She shows me her MyChart and I see that that on 01/02 her hCG level was 99.2. 01/04 250.9, 01/06 389. Patient states that she had some very intermittent spotting over the weekend and is now developed some pain in the right pelvis. She is worried that she may have a ectopic. She attempted to reach her fertility doctor today as she has not yet been released to her local community health worker Dr. Briceno. She states that she was on hold and the pain got worse so she came to emergency based on prior recommendations. She believes that she has be positive blood type. PFSH PFSH Home Medications ?Medication ?Instructions ?Recorded ?Last Taken ?Type vit 122-ferrous fumarate 1 ea PO DAILY 05/30/20 Unknown History 27 mg iron-folic acid 800 mcg tablet metformin 500 mg tablet,extended mg PO 01/09/24 Unknown History release 24 hr Allergy/AdvReac Type Severity Reaction Status Date / Time No Known Allergies Allergy Verified 01/09/24 09:52 Social History Smoking Status: Never smoker ROS ROS ED Constitutional Constitutional ED: Denies chills or weight loss Eyes Eyes: Denies change in vision or diplopia ENT ENT ED: Denies ear pain, rhinorrhea or sore throat Cardiovascular Cardiovascular: Denies chest pain, orthopnea, palpitations or racing heartbeat Respiratory/Chest Respiratory/Chest: Denies cough, dyspnea or orthopnea Gastrointestinal Gastrointestinal: Denies abdominal pain, diarrhea, nausea or vomiting Genitourinary Genitourinary ED: Reports other Details: See history of present illness ; Denies dysuria, hematuria or urinary frequency Musculoskeletal Musculoskeletal: Denies arthralgias or myalgias Integumentary Denies abscess or rash Neurologic Neurologic: Denies headache(s) or weakness Psychiatric Psychiatric: Denies anxiety, depression, suicidal ideation or suicidal thoughts Endocrine Endocrinology: Denies polydipsia, polyphagia or polyuria Allergic/Immunologic Allergic/Immunologic ED: Denies mouth swelling, tongue swelling or urticaria EXAM Physical Exam Const Vital Signs: 01/09/24 09:52 01/09/24 11:52 01/09/24 13:28 Temperature 98.0 F Temperature Source Oral Pulse Rate 80 86 Respiratory Rate 16 Blood Pressure 164/114 H 154/94 H 143/78 H Blood Pressure Mean 130 114 99 Pulse Ox 100 99 Oxygen Delivery Method Room Air Room Air 01/09/24 15:00 Temperature Temperature Source Pulse Rate Respiratory Rate Blood Pressure 147/86 H Blood Pressure Mean 106 Pulse Ox 98 Oxygen Delivery Method Room Air Positive well nourished, well developed and obese General Appearance ED: well developed and NAD Nutritional Appearance: obese HEENT Reports normocephalic, head/scalp atraumatic and moist mucous membranes Eyes PERRL and EOMs intact bilaterally Neck no lymphadenopathy, supple and no JVD Resp normal respiratory effort and clear to auscultation bilaterally Cardio regular rate, regular rhythm and no murmurs GI normal to inspection, nondistended, normoactive bowel sounds Auscultation: normoactive bowel sounds Palpation: soft and tender RLQ and suprapubic Narrative: Right pelvis tender to palpation Back/Spine no CVA tenderness and normal ROM Extremity normal to inspection General Extremety ED: Negative for edema General Extremity: Negative for edema Neuro oriented x3 and CN's II-XII intact bilaterally Sensorium / Orientation: alert Motor Exam: strength 5/5 throughout Psych mental status grossly normal Mood & Affect: Negative for depressed or tearful Skin no rashes or lesions noted and no wounds MDM MDM MDM Narrative Medical decision making narrative: Differential diagnosis includes but not limited to miscarriage incomplete miscarriage miscarriage ectopic heterotopic anemia White count 11.7 hemoglobin 13.8 platelet count is 457 she is B+ quantitative hCG is 576. Pelvic ultrasound was obtained read by radiology reviewed by myself. There is no obvious intrauterine sac or extrauterine sac. There is a 2 cm complex structure in the right side of the ovary measuring about 2 cm. There is some mild free fluid. An ectopic cannot be fully ruled out. Please see the radiologist discussion for full details. school attendance secretary was unable to reach anybody at the patient's fertility clinic. I personally tried for over an hour calling multiple numbers and being on hold at times for 40 minutes waiting to see if I can get somebody to fish bait picker and was unsuccessful. Locally the patient has seen Dr. Floyd but not specifically for this yet. She is going to be coming to the hospital and would like to review the patient's images herself. I spoke with the patient and her appreciated their patients in this matter and explained the above results and what has been going on today. They are comfortable waiting for obstetric evaluation. History & Record Review Discussion w/independent historian: Patient Lab Data Attestation: I reviewed the patient's lab results. Labs: Laboratory Results - last 24 hr 01/09/24 10:38 WBC 11.7 H RBC 5.04 Hgb 13.8 Hct 43.4 MCV 86.1 MCH 27.4 MCHC 31.8 L RDW Std Deviation 42.1 RDW Coeff of Roge 13.4 Plt Count 457 H MPV 10.0 Immature Gran % (Auto) 0.500 Neut % (Auto) 60.1 Lymph % (Auto) 31.1 [place] % (Auto) 6.7 Eos % (Auto) 1.3 Baso % (Auto) 0.3 Absolute Neuts (auto) 7.1 Absolute Lymphs (auto) 3.65 Nucleated RBC % 0 HCG, Quant 576 H Blood Type B POSITIVE Radiography Diagnostic Testing: Clinical Impression(s) from Imaging Studies Obstetrics Ultrasound 01/09/24 11:29 IMPRESSION: No discrete evidence of an intra or extrauterine gestational sac. Possibility of a right-sided ectopic to BE considered. Electronically Signed: Jean-Claude Desai MD at 13:19 EDT , ADDENDUM: 01/09/24 1333 IMPRESSION: No discrete evidence of an intra or extrauterine gestational sac. Possibility of a right-sided ectopic to BE considered. N.B. : The above Results were Read Back by Jean-Claude Desai MD to Prashant Sorto DO, and understanding confirmed on 01/09/2024 13:27:03 (ET). Electronically Signed: Jean-Claude Desai MD at 13:19 EDT , Management Discussion w/another healthcare provider: Behavioral Sciences Instructor (Dr Briceno) and Radiologist (Dr. Desai) Discharge Plan Triage Chief Complaint: Vag Bld, Preg ED Provider: Prashant Sorto Dx/Rx/DC Orders Clinical Impression: , Pelvic pain, Vaginal bleeding Prescriptions: No Action [id number] 1 EACH tablet 1 ea PO DAILY metformin 500 mg tablet extended release 24 hr PO Primary Care Provider: Laila Lima Referrals: Laila Lima MD [Primary Care Provider] - Print Language: Jordanian
[2024-01-09 11:44] LABS: Absolute Lymphocyte Count 3.65 X10^3/uL (0.83-4.51); Absolute Neutrophil Count 7.1 X10^3/uL (2.0-7.7); Basophil# 0.03 X10^3/uL; Basophil% 0.3 % (0-1); Eosinophil# 0.15 X10^3/uL; Eosinophils% 1.3 % (0-5); Hematocrit 43.4 % (37-47); Hemoglobin 13.8 g/dL (12.0-15.0); Lymphocyte # 3.65 X10^3/ul (0.83-4.51); Lymphocyte % 31.1 % (19-41); Mean Corp Hgb Conc 31.8 g/dL (32-36); Mean Corpuscular Hgb 27.4 pg (27.0-32.0); Mean Corpuscular Volume 86.1 fL (81-99); Monocyte# 0.79 X10^3/uL; Monocyte% 6.7 % (0-10); NRBC Flagged by Analyzer 0 % (0-5); Neutrophil # 7.05 X10^3/uL (2.7-7.7); Neutrophil % 60.1 % (47-70); Platelet Count 457 K/mm3 (150-450); RBC Distribution Width CV 13.4 % (11.6-14.6); RBC Distribution Width SD 42.1 fl (35.1-43.9); Red Blood Count 5.04 M/mm3 (4.2-5.4); White Blood Count 11.7 K/mm3 (4.4-11.0)
[2024-01-09] MEDS: Ondansetron 4 MG/2 ML Vial IV (11:44)
[2024-01-09] MEDS: Morphine 4 MG/ML Syringe IV (11:44)
[2024-01-09 11:52] VITALS: BP 154/94
[2024-01-09 12:07] LABS: hCG Titer Quant., Serum 576 mIU/mL (1-3)
--- OUTSIDE RECORDS SUMMARY | 2024-01-09 12:24 | XMS RPT_ITS | CCD ---
Author Organization [facility] Care Team Providers Care Salesforce Business Analyst Name Role Phone Clarence, Laila Cole Primary Care Provider [phone] TORI LIANG Referring Unavailable No Family, Physician Primary Care Unavailable Unavailable Primary Care Provider Unavailabl e No Family, Physician Primary Care Unavailable Jolliff, Laila Cole Primary Care Provider Clarence, Laila Cole Primary Care Provider SHAW MONZON Attending Unavailable No Family, Physician Primary Care Unavailable ABED ALWAHAB, DENIS Attending Unavailable JOLLIFF, LAILA COLE Primary Care Unavailable ABED ALWAHAB, DENIS Referring Unavailable JOLLIFF, LAILA COLE Primary Care Unavailable ABED ALWAHAB, DENIS Attending Unavailable JOLLIFF, LAILA COLE Primary Care Unavailable ABED ALWAHAB, DENIS Referring Unavailable JOLLIFF, LAILA COLE Primary Care Unavailable ABED ALWAHAB, DENIS Attending Unavailable JOLLIFF, LAILA COLE Primary Care Unavailable JOLLIFF, LAILA COLE Primary Care Unavailable MINDZORA, PATTIE Referring Unavailable JOLLIFF, LAILA COLE Primary Care Unavailable MINDZORA, PATTIE Referring Unavailable JOLLIFF, LAILA COLE Primary Care Unavailable MINDZORA, PATTIE Referring Unavailable JOLLIFF, LAILA COLE Primary Care Unavailable DIANA EASTMAN Attending Unavailable ANTONIA BRICENO Attending Unavailable JOLLIFF, LAILA COLE Primary Care Unavailable JOLLIFF, LAILA COLE Primary Care Unavailable ABED ALWAHAB, DENIS Attending Unavailable JOLLIFF, LAILA CLOE Primary Care Unavailable ABED ALWAHAB, DENIS Attending Unavailable Allergies Allergy Classification Reported Allergen(s) Allergy Type Date of Onset Reaction(s) Facility (20 sources) Seasonal allergy; Translations: [SEASONAL ALLERGIES] Allergy to substance 07-10-2014 Intolerance [facility] Medications Current Medications Medication Drug Class(es) Dates Sig (Normalized) Sig (Original) Cetirizine (20 sources) Histamine-1 Receptor Antagonist cetirizine HCl (ZYRT EC ORAL) Take by mouth. Active cetirizine HCl ( ZYRTEC ORAL) Take by mouth. 0 Active Comment on above: Take by mouth. Famotidine (20 sources) Histamine-2 Receptor Antagonist famotidine (PEPCID ORAL) Take by mouth. Active famotidine (PEPC ID ORAL) Take by mouth. 0 Active Comment on above: Take by mouth. letrozole 2.5 mg oral tablet (20 sources) Aromatase Inhibitor Start: 10-07-2023 End: 04-04-2024 take 2 tablets by mouth once daily letrozole (FEMARA) 2.5 mg tablet Take 2 tablets by mouth once daily. Take on cycle days 3-7. 10 tablet 5 10/07/2023 04/04/2024 Active Start: 04-13-2021 End: 04-20-2023 take 3 tablets by mouth once daily letrozole (FEMARA) 2.5 mg tablet Take 3 tablets by mouth once daily. Take on cycle days 3-7. 15 tablet 4 10/22/2022 02/08/2023 Discontinued Comment on above: Take 3 tablets by mo uth once daily. Take day 3-7 Take 3 tablets by mo uth once daily for 5 days. Take on cycle days 3-7. Take 3 tablets by mo uth once daily. Take on cycle days 3-7. medroxyPROGESTERone acetate 10 mg oral tablet (20 sources) Progestin Start: 2021 End: 2022 take 1 tablet by mouth once daily medroxyPROGESTERone (PROVERA) 10 mg tablet Indications: PCOS (polycystic ovarian syndrome) Take 1 tablet by mouth once daily. Take if no period for 60 days 7 tablet 3 02/08/2023 Active Comment on above: Take 1 tablet by kira th once daily. Take 1 tablet by kira th once daily. Take if no period for 60 days 24 hr metFORMIN hydrochloride 500 mg extended release oral tablet (20 sources) Biguanide Start: 2023 End: 2024 take 3 tablets by mouth once daily at dinner, then take 1 tablet by mouth once metFORMIN ER (GLUCOPHAGE XR) 500 mg 24 hr tablet Take 3 tablets by mouth daily with dinner. Start with 1 tablet and increase per instructions. 270 tablet 3 10/07/2023 10/06/2024 Active Start: 07-21-2023 End: 10-07-2023 take 1 tablet by mouth once daily at dinner, then take 1 tablet by mouth once daily metFORMIN (GLUCOPHAGE) 500 mg tablet Take 1 tablet by mouth daily with dinner. Start with 1 tablet daily and increase as instructed to tolerance. 180 tablet 3 07/21/2023 10/07/2023 Discontinued Start: 03-08-2023 End: 07-19-2023 take 1 tablet by mouth once daily at dinner, then take 1 tablet by mouth once daily metFORMIN (GLUCOPHAGE) 500 mg tablet Take 1 tablet by mouth daily with dinner. Start with 1 tablet daily and increase as instructed to tolerance. 180 tablet 3 03/08/2023 07/19/2023 Discontinued Start: 10-22-2022 End: 03-08-2023 take 1 tablet by mouth four times daily, then take 1 tablet by mouth once daily metFORMIN (GLUCOPHAGE) 500 mg tablet Take 1 tablet by mouth four times daily. Start with 1 tablet daily and increase as instructed to tolerance. 120 tablet 2 10/22/2022 03/08/2023 Discontinued Comment on above: Take 1 tablet by kira th four times daily. Start with 1 tablet daily and increase as instructed to tolerance. Take 1 tablet by kira th daily with dinner. Start with 1 tablet daily and increase as instructed to tolerance. phentermine hydrochloride 37.5 mg oral tablet (8 sources) Sympathomimetic Amine Anorectic Start: 07-05-2023 End: 08-30-2023 Phentermine HCl 37.5 mg tablet Indications: Obesity, Class III, BMI 40-49.9 (morbid obesity) ([facility]) 1/2 tab daily for 8 weeks 15 tablet 1 07/05/2023 08/30/2023 Active Start: 12-24-2022 End: 06-06-2023 take 1 tablet by mouth once daily Phentermine HCl 37.5 mg tablet Indications: Obesity, Class III, BMI 40-49.9 (morbid obesity) ([facility]) Take 1 tablet by mouth once daily for 90 days. 30 tablet 2 03/08/2023 06/06/2023 Comment on above: Take 1 tablet by kira th once daily for 90 days. Completed/Discontinued Medications Medication Drug Class(es) Dates Sig (Normalized) Sig (Original) progesterone 200 mg oral capsule (8 sources) Progesterone Start: 02-19-2022 End: 02-08-2023 progesterone micronized (PROMETRIUM) 200 mg capsule Use 1 capsule vaginally twice daily for 14 days. Start 3 days after LH surge. 28 capsule 5 02/19/2022 02/08/2023 Discontinued Comment on above: Use 1 capsule vagina lly twice daily for 14 days. Start 3 days after LH surge. Problems Active Problems Problem Classification Problem Date Documented Date Episodic/Chronic Administrative/social admission (2 sources) Treatment plan given; Translations: [Counseling, unspecified] 12-02-2022 Episodic Contraceptive and procreative management (1 source) Fertility problem; Translations: [Encounter for other procreative investigation and testing] 01-06-2024 Episodic Female infertility (3 sources) Anovulation; Translations: [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 Immunizations and screening for infectious disease (5 sources) Patient encounter status; Translations: [Encounter for screening for human papillomavirus (HPV)] Episodic Menstrual disorders (20 sources) Oligomenorrhea; Translations: [Oligomenorrhea, unspecified] Onset: 07-23-2009 07-23-2009 Chronic Other endocrine disorders (20 sources) Polycystic ovary syndrome; Translations: [Polycystic ovarian syndrome] Onset: 07-23-2009 07-23-2009 Chronic Other endocrine disorders (1 source) Polycystic ovarian syndrome; Translations: [PCOS (polycystic ovarian syndrome)] Onset: 07-23-2009 Chronic Other female genital disorders (2 sources) History of recurrent miscarriage - not ; Translations: [Recurrent loss] Episodic Other nutritional; endocrine; and metabolic disorders (11 sources) Severe obesity; Translations: [Morbid (severe) obesity due to excess calories] Onset: 12-09-2022 Chronic Other nutritional; endocrine; and metabolic disorders (13 sources) Body mass index 40+ - severely obese; Translations: [Body mass index (BMI) 45.0-49.9, adult] Onset: 12-09-2022 10-22-2022 Chronic Other nutritional; endocrine; and metabolic disorders (1 source) Morbid (severe) obesity due to excess calories; Translations: [Obesity, Class III, BMI 40-49.9 (morbid obesity) (HCC)] Onset: 12-09-2022 Chronic Other and delivery including normal (9 sources) with uncertain dates; Translations: [Encounter for supervision of normal , unspecified, first trimester] Onset: 10-19-2018 Resolved: 11-27-2018 11-27-2018 Episodic Other screening for suspected conditions (not mental disorders or infectious disease) (2 sources) Cancer cervix screening status; Translations: [Encounter for screening for malignant neoplasm of cervix] Episodic Past or Other Problems Problem Classification Problem Date Documented Da te Episodic/Chronic Ectopic (20 sources) Ectopic ; Translations: [Unspecified ectopic without intrauterine ] Onset: 12-13-2019 12-13-2019 Episodic Other complications of (7 sources) Obesity; Translations: [Obesity complicating , unspecified trimester] Onset: 06-29-2018 Resolved: 11-27-2018 11-27-2018 Chronic Other complications of (7 sources) Uterine leiomyoma; Translations: [Maternal care for benign tumor of corpus uteri, unspecified trimester] Onset: 11-14-2018 Resolved: 11-27-2018 11-27-2018 Episodic Other skin disorders (20 sources) H/O: breast problem; Translations: [Personal history of diseases of the skin and subcutaneous tissue] Onset: 06-29-2018 06-29-2018 Episodic Residual codes; unclassified (20 sources) Family history of cystic fibrosis; Translations: [Family history of other endocrine, nutritional and metabolic diseases] Onset: 06-29-2018 10-19-2018 Episodic Residual codes; unclassified (7 sources) Gestation period, 5 weeks; Translations: [Less than 8 weeks gestation of ] Onset: 06-29-2018 Resolved: 11-27-2018 11-27-2018 Episodic Residual codes; unclassified (2 sources) Bone marrow donor; Translations: [Bone marrow donor] Onset: 05-30-2023 Episodic Results Test Name Value Interpretation Reference Range Facility [facility] HCG.beta subunit Qn 389.0 m[IU]/mL High <5.0 C [facility] Comment on above: Order Comment: Speci men Type: BLOOD SPECIMENOrdering Facility: [facility] Address: [address] [place] [address] Result Comment: ANDREW TITATIVE HCG NORMAL RANGES Weeks of Gestation (Weeks Since LMP) 3 Weeks (5.8-71.2 mIU/mL) 4 Weeks (9.5-750 mIU/mL) 5 Weeks (217-7138 mIU/mL) 6 Weeks (158-88819 mIU/mL) 7 Weeks (3697-693753 mIU/mL) 8 Weeks (75956-800141 mIU/mL) 9 Weeks (11063-903598 mIU/mL) 10 Weeks (47147-481414 mIU/mL) 12 Weeks (56432-646820 mIU/mL) Referenced to 4th IS of NIBSC Performed By: #### 2 1198-7 ####[facility] LABCLIA [id number] [place] [address] [place] B-HCG SerPl-aCncon 4 HCG.beta subunit Qn 250.9 m[IU]/mL High <5.0 C [facility] Comment on above: Order Comment: Speci men Type: BLOOD SPECIMENOrdering Facility: [facility] Address: [address] [place] [address] Result Comment: ANDREW TITATIVE HCG NORMAL RANGES Weeks of Gestation (Weeks Since LMP) 3 Weeks (5.8-71.2 mIU/mL) 4 Weeks (9.5-750 mIU/mL) 5 Weeks (217-7138 mIU/mL) 6 Weeks (158-02136 mIU/mL) 7 Weeks (3697-708101 mIU/mL) 8 Weeks (84249-976674 mIU/mL) 9 Weeks (64920-430371 mIU/mL) 10 Weeks (00178-220063 mIU/mL) 12 Weeks (62430-074379 mIU/mL) Referenced to 4th IS of NIBSC Performed By: #### 2 1198-7 ####[facility] LABCLIA [id number] [place] [address] [place] B-HCG SerPl-aCncon HCG.beta subunit Qn 99.2 m[IU]/mL High <5.0 Cl [facility] Comment on above: Order Comment: Speci men Type: BLOOD SPECIMENOrdering Facility: [facility] Address: [address] [place] [address] Result Comment: ANDREW TITATIVE HCG NORMAL RANGES Weeks of Gestation (Weeks Since LMP) 3 Weeks (5.8-71.2 mIU/mL) 4 Weeks (9.5-750 mIU/mL) 5 Weeks (217-7138 mIU/mL) 6 Weeks (158-75964 mIU/mL) 7 Weeks (3697-116929 mIU/mL) 8 Weeks (52007-874095 mIU/mL) 9 Weeks (54488-816036 mIU/mL) 10 Weeks (23270-171140 mIU/mL) 12 Weeks (08683-760176 mIU/mL) Referenced to 4th IS of [facility] Performed By: #### 2 1198-7 ####[facility] LABCLIA [id number] [address] [place] CNPFlor 2024 CNPN Telephone (REIBD) CLAY CRISTINA ([id number]) 1990 F Date Time Provider Department 01/03/24 DIANA EASTMAN During your visit today, we recorded the following information about you: Rossy Miller 2024 8:27 AM Signed Pos preg test Precious Leone RN 2024 9:31 AM Signed Patient calls with positive urine test. History of ectopic: Yes History of SAB: Yes History of pelvic/abdominal surgeries: Yes LMP 12/07/23, fertility medications used this cycle letrozole, date of LH surge: Unsure, IUI done: No Blood type: B, POS, rubella Immune , varicella Immune Current medications: Current Outpatient Medications on File Prior to Visit Medication Sig metFORMIN ER (GLUCOPHAGE XR) 500 mg 24 hr tablet Take 3 tablets by mouth daily with dinner. Start with 1 tablet and increase per instructions. letrozole (FEMARA) 2.5 mg tablet Take 2 tablets by mouth once daily. Take on cycle days 3-7. medroxyPROGESTERone (PROVERA) 10 mg tablet Take 1 tablet by mouth once daily. Take if no period for 60 days famotidine (PEPCID ORAL) Take by mouth. cetirizine HCl (ZYRTEC ORAL) Take by mouth. No current facility-administered medications on file prior to visit. Advised normal symptoms of and s/s of need for follow up. Labs ordered: hcg Precious Leone RN 2024 9:31 AM Pattie Patino APRN.[facility] NURSE ONCOLOGY 2024 11:09 AM Signed Reviewed history, intake and most recent plan from primary [facility] provider. Plan: # of quants: standing (ectopic) additional meds needed: none schedule VV with [facility] Healthy Guide sent with plan. Pattie Patino APRN.[facility] REGISTERED NURSE ONCOLOGY 2024 11:06 AM Allergies As of Date: 2024 Noted Allergy Reaction SEASONAL ALLERGIES 07/10/2014 5 - Intolerance Date Reviewed: 10/07/2023 Reviewed by: Emiliana Koroma MA - Fully Assessed Reason for Visit: pos preg test [Other] Primary Visit Diagnosis:Positive test [Z32.01] Order(s):HCG QUANTITATIVE [SQHCGQT] Order #: [id number] STANDING Prescriptions as of 2024 - metFORMIN ER (GLUCOPHAGE XR) 500 mg 24 hr tablet Take 3 tablets by mouth daily with dinner. Start with 1 tablet and increase per instructions. - letrozole (FEMARA) 2.5 mg tablet Take 2 tablets by mouth once daily. Take on cycle days 3-7. - medroxyPROGESTERone (PROVERA) 10 mg tablet Take 1 tablet by mouth once daily. Take if no period for 60 days - famotidine (PEPCID ORAL) Take by mouth. - cetirizine HCl (ZYRTEC ORAL) Take by mouth. Problem List As Of Date 2024 Noted Resolved Oligomenorrhea [N91.5] 07/23/2009 PCOS (Polycystic Ovarian Syndrome) [E28.2] 07/23/2009 History of cyst of breast [Z87.2] 06/29/2018 Obesity in [O99.210] 06/29/2018 11/27/2018 Family history of cystic fibrosis [Z83.49] 06/29/2018 5 weeks gestation of [Z3A.01] 06/29/2018 11/27/2018 with uncertain dates in first trimest*10/19/2018 11/27/2018 Patient request for diagnostic testing [Z01.89] 10/19/2018 11/27/2018 Uterine fibroid during , antepartum [O*11/14/2018 11/27/2018 Ectopic [O00.90] 12/13/2019 Class 3 severe obesity due to excess calories w*12/09/2022 Encounter Status:Closed by PATTIE PATINO on 01/03/24 [facility] CNOVon 10-07-2023 CNOV Office Visit (REIBD) CLAY CRISTINA ([id number]) 1990 F Date Time Provider Department 10/07/23 11:30 AM DIANA EASTMAN During your visit today, we recorded the following information about you: Pulse Blood pressure Weight Height 53/minute 147/94 123.3 kg 1.676 m Last Period 10/05/23 Diana Eastman MD 10/17/2023 11:01 AM Signed REPRODUCTIVE ENDOCRINOLOGY AND INFERTILITY RETURN PATIENT CLINIC NOTE SERVICE DATE: 10/07/2023 SERVICE TIME: 12:05 AM NAME: Clay Cristina FERTILITY HISTORY Note copied from prior visit dated 02/19/[address] 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 Eastman Repeat HSG normal SA not done yet Letrozole 7.5 mg x6 month with regular ovulation, did not take it August-September cycle LMPs: 10/17, 09/09, 08/09, 07/09, 06/08 Here to discuss next steps Next Steps: - continue folate supplementation - continue inositols - metformin titrate to 2000 mg daily - weight loss, goal of 15-30 pounds, appointment with Dr. Denis Lagunas for weight loss - ovulation induction plus IUI x 4 cycles LABS/IMAGING: Latest Ref Rng 12/25/2022 Anti Mullerian Hormone 0.58 - 8.13 ng/mL 15.10 (H) Semen Analysis: 12/09/22 Latest Ref Rng 12/09/2022 Abstinence Time Days 2.0 Collection Time 9:13 Receipt Time 10:45 Semen Volume >=1.50 mL 0.40 (L) Concentration >=15.00 M/mL 2.50 (L) Total Count Sperm M 1.00 % Motile Sperm (%OH + %MARINE WATER TENDER) >=40 % 8 (L) Washing Solution Enhance W % Motile Sperm, Post >=50 % 31 (L) Undiff Round Cells Post Wash <1.00 M/mL 0.00 Final Volume mL 0.4 Total Sperm Count Post M 0.6 Total Motile Sperm M 0.2 Comment, Pre Wash Wash only. No gradient used Semen Comment 1 Clay Cristina Sperm Concentration Post M/mL 1.6 TREATMENT COURSE IUI #1: 200,000/31% prog=1-2 INTERVAL UPDATE/PROGRESS Pt completed IUI x 1 cycle so far with no . Letrozole 7.5mg, OPK. Pt then shifted focus to weight loss program with Dr. Bray, pt reports losing 30 pounds on phentermine, stopped taking. PCOS history previously on Metformin (stopped June). Reports 38-60 day cycles; Provera. LMP 10/05/23, 08/28/23 ASSESSMENT AND PLAN Clay Cristina is a 33 year old female Clay was seen today for infertility. Diagnoses and all orders for this visit: PCOS (polycystic ovarian syndrome) Other orders - metFORMIN ER (GLUCOPHAGE XR) 500 mg 24 hr tablet; Take 3 tablets by mouth daily with dinner. Start with 1 tablet and increase per instructions. - letrozole (FEMARA) 2.5 mg tablet; Take 2 tablets by mouth once daily. Take on cycle days 3-7. Counseling: - counseled on diagnosis, risks, and treatment options - counseled on risks and outcomes, including SAB and genetic anomaly rates - discussed restarting metformin to improve insulin resistance, egg quality benefits, and to prevent OHSS in setting of IVF - discussed repeating SA due to most recent SA being abnormal despite normal SA a month prior - discussed re-starting letrozole 7.5 mg plus timed intercourse in meantime until SA results, pt was informed plan will be determined once updated SA results - discussed if SA is normal, continue IUI x 4 cycles with letrozole - discussed if SA is abnormal, consider IVF Next Steps: - continue folate and vit D supplementation - restart letrozole 7.5 mg plus timed intercourse in meantime - restart metformin 500 mg daily for 1 week, increase weekly by 500 mg to reach total dose of 1500 mg daily - restart licha inositol - once SA results, will determine next steps (IUI vs IVF) Dr. Diana Eastman M.D. Reproductive Endocrinology and Infertility I spent 35 minutes in the visit, with more than 50% of the total [id number] time of the visit in counseling / coordination of care. I spent a total of 40 minutes on the date of the service which included preparing to see the patient, [id number] patient care, completing clinical documentation, obtaining and/or reviewing separately obtained history, counseling and educating the patient/family/caregiv er, ordering medications, tests, or procedures, independently interpreting results (not separately reported), communicating results to the patient/family/caregiv er, and care coordination (not separately reported). To patients reading this note: Please be advised the primary purpose of this note is for me to communicate with myself and other members of your medical team. Standard sentence structure is not always used. Medical terminology and medical abbreviati (more content not included)... Normal [facility] CNOVon 08-25-2023 CNOV Office Visit (OBGYWM ) CLAY CRISTINA ([id number]) 1990 F Date Time Provider Department 08/25/23 8:40 AM ANTONIA BRICENO OBGYWM During your visit today, we recorded the following information about you: Blood pressure Weight Height Last Period 120/80 120.9 kg 1.689 m 07/20/23 Antonia Briceno MD 08/25/2023 2:37 PM Signed Senior Project Engineer offered: Patient declinesGurinder Lopez is a 33 year old who presents for an annual gynecologic exam without complaints. Has been working on weight loss. Menses: Induced by Provera. History of PCOS. 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 History Comments: Sexual Activity: Yes; Male Contraception: No contraception data on record PAST MEDICAL HISTORY Diagnosis Date Abnormal Pap smear of cervix AScus breast cyst Cholelithiasis 07/15/14 Ectopic 11/2019 Ectopic 05/2020 Fibroid Hirsutism PCOS Miscarriage PCOS (polycystic ovarian syndrome) PAST SURGICAL HISTORY Procedure Laterality Date EXCISION GANGLION WRIST DORSAL/VOLAR PRIMARY Left EXTRACTION ERUPTED TOOTH wisdom teeth HSG N/A 02/28/2020 [facility], normal shape to uterus, bilateral tubal spill noted INSERTION OF IUD 05/07/2016 removed 04/2018 LAPAROSCOPY SURG CHOLECYSTECTOMY 07/15/2014 PAST SURGICAL HISTORY OF ganglion cyst removal left wrist TONSILLECTOMY AND ADENOIDECTOMY FAMILY HISTORY Problem Relation Age of Onset Hypertension Mother Hypertension Father Stroke Father other (PCOS) Sister other (hypocellular MDS) Sister Diabetes Maternal Grandmother Cancer Maternal Grandmother Diabetes Maternal Grandfather Hypertension Paternal Grandmother Heart Paternal Grandmother Stroke Paternal Grandmother Dementia Paternal Grandmother vascular Heart Attack Paternal Grandfather other (Other) Other SOCIAL HISTORY Social History Tobacco Use Smoking status: Never Smokeless tobacco: Never Vaping Use Vaping Use: Never used Substance Use Topics Alcohol use: No Drug use: No REVIEW OF SYSTEMS Abdomen: No abdominal pain, nausea, vomiting, diarrhea, or constipation. No bloating, early satiety, indigestion, or increased flatulence. Bladder: No dysuria, gross hematuria, urinary frequency, urinary urgency, or incontinence. Breast: No breast lumps, nipple d/c, overlying skin changes, redness or skin retraction. Allergies and current medication updated:Yes EXAM: BP 120/80 Ht 5' 6.5 (1.69m) Wt 266 lb 9.6 oz (120.9kg) LMP 07/20/2023 BMI 42.39 kg/(m2). GENERAL: pleasant, female in no apparent distress HEENT: Normocephalic and atraumatic NECK: full range of motion BREAST: soft, non-tender, symmetric, no dominant mass, normal nipple-areolar complex, no lymphadenopathy, and no nipple discharge CHEST: Normal inspiratory effort ABDOMEN: soft, non-tender, and no masses PELVIC: external genitalia normal, normal Bartholin's glands, urethra, Lisle's glands, no vulvar lesions, no cervical lesions, good vaginal support, physiologic discharge present, normal appearing perineal body and perianal region BIMANUAL: uterus normal size, shape and consistency, no adnexal masses, and non-tender RECTOVAGINAL: deferred. NEURO: exam grossly non-focal EXTREMITIES: normal ASSESSMENT/PLAN: 1) Health maintenance: Pap done with HPV. Nutrition, exercise and routine health maintenance exams reviewed. Has appointment scheduled with [facility]. Continue Provera to induce periods at this time with h/o PCOS. 2) Contraception: none. Contraceptive options reviewed and information provided. 3) STD screening: Declined STD check. 4) Follow up one year or sooner as needed DO Janak Jackman Sara, MD 08/25/2023 9:24 AM Signed Minimizing irritation of the vulva (area around the vagina) Wear white cotton underwear. Avoid synthetic fabrics and tight clothing. Sleep wearing shorts or pajama bottoms without underwear. Shower as soon as possible after exercise. Avoid clothing detergents and soaps with perfumes or dyes. Use warm (not hot) water to wash the vulva and if you use soap use a product designed for sensitive skin (like Dove or Cetaphil). Do not douche or use creams/powders in the vulvar area unless instructed by your physician. If you must douche, use only plain warm water. Make sure the vulva is dry before dressing by patting dry with a towel. Avoid vigorous rubbing with the towel. You may want to use the blow dryer (on the cool setting only!) on the vulva. The most i (more content not included)... Normal [facility] HIGH RISK HUMAN PAPILLOMA BELLA (HPV), PCR FOR DETECTION AND GENOTYPINGon 08-25-2023 HPV 16 Ag Ql (Unsp spec) Not detected Normal Not detec yao [facility] Comment on above: Order Comment: Speci men Type: FLUID SPECIMENOrdering Facility: [facility] Address: [address] [place] [address] Performed By: #### H PVHRT ####[facility] LABCLIA [id number] [place] [address] [place]#### [id number] ####[facility]INO LABORATORYCLIA [id number] [place] [address] [place] [facility] LABCLIA [id number] [place] [address] [place] HPV 18 Ag Ql (Unsp spec) Not detected Normal Not detec yao [facility] Comment on above: Order Comment: Speci men Type: FLUID SPECIMENOrdering Facility: [facility] Address: [address] [place] [address] Performed By: #### H PVHRT ####[facility] LABCLIA [id number] [place] [address] [place]#### [id number] ####NINO LABORATORYCLIA [id number] [place] [address] [place] [facility] LABCLIA [id number] [place] [address] [place] HPV 31+33+35+39+45+51+52+56+ 58+59+66+68 DNA PAULINA+probe Ql (Cvx) Not detected Normal Not detected [facility] Comment on above: Order Comment: Speci men Type: FLUID SPECIMENOrdering Facility: [facility] Address: [address] [place] [address] Performed By: #### H PVHRT ####[facility] LABCLIA [id number] [place] [address] [place]#### [id number] ####NINO LABORATORYCLIA [id number] [address] LABCLIA [id number] [place] [address] [place] PAP TESTon 08-25-2023 ADEQUACY Satisfactory for interpretation. Normal [facility] Comment on above: Order Comment: Speci men Type: FLUID SPECIMENOrdering Facility: [facility] Address: [address] [place] [address] Performed By: #### H PVHRT ####[facility] LABCLIA [id number] [place] [address] [place]#### [id number] ####DAYHOITMAGGI LABORATORYCLIA [id number] [place] [address] [place] [facility] LABCLIA [id number] [place] [address] [place] CASE REPORT Normal [facility] Comment on above: Order Comment: Speci men Type: FLUID SPECIMENOrdering Facility: [facility] Address: [address] [place] [address] Result Comment: Gyne cologic Cytology Report Case: [id number] Authorizing Provider: Antonia Briceno MD Collected: 08/25/2023 09:30 AM Ordering Location: OB/Gynecology Received: 08/25/2023 12:00 PM First Screen: [place], [place], [place], ASCP Specimen: Pap Test, ThinPrep, Cervix Performed By: #### H PVHRT ####[facility] LABCLIA [id number] [place] [address] [place]#### [id number] ####JERRYCRE LABORATORYCLIA [id number] [place] [address] [place] [facility] LABCLIA [id number] [place] [address] [place] CLINICAL HISTORY, CYTOLOGY, MICROBIOLOGY TEACHER Routine Exam Normal [facility] Comment on above: Order Comment: Speci men Type: FLUID SPECIMENOrdering Facility: [facility] Address: [address] [place] [address] Performed By: #### H PVHRT ####[facility] LABCLIA [id number] [place] [address] [place]#### [id number] ####DAYHOITCREST LABORATORYCLIA [id number] [place] [address] [place] [facility] LABCLIA [id number] [place] [address] [place] FINAL PERFORMING LAB Normal [facility] Comment on above: Order Comment: Speci men Type: FLUID SPECIMENOrdering Facility: [facility] Address: [address] [place] [address] Result Comment: Tech nical component, counter waitress/waiter screening performed at [facility], [address] [facility], [place] [address] CLIA# [id number] Diagnostic interpretation performed at [facility], [address] [facility], [place] [id number] CLIA# [id number] Pie Cutter: Alice Arango M.D. Performed By: #### H PVHRT ####[facility] LABCLIA [id number] [place] [address] [place]#### [id number] ####[facility] LABORATORYCLIA [id number] [place] [address] [place] [facility] LABCLIA [id number] [place] [address] [place] HPV REFLEX Yes HPV Normal [facility] Comment on above: Order Comment: Speci men Type: FLUID SPECIMENOrdering Facility: [facility] Address: [address] [place] [address] Performed By: #### H PVHRT ####[facility] LABCLIA [id number] [place] [address] [place]#### [id number] ####[facility] LABORATORYCLIA [id number] [place] [address] [place] [facility] LABCLIA [id number] [place] [address] [place] INTERPRETATION, CYTOLOGY, MICROBIOLOGY TEACHER Normal [facility] Comment on above: Order Comment: Speci men Type: FLUID SPECIMENOrdering Facility: [facility] Address: [address] [place] [address] Result Comment: Nega tive for intraepithelial lesion or malignancy. Performed By: #### H PVHRT ####[facility] LABCLIA [id number] [place] [address] [place]#### [id number] ####JERRYCREST LABORATORYCLIA [id number] [place] [address] [place] [facility] LABCLIA [id number] [place] [address] [place] LMP 07/20/2023 Normal [facility] Comment on above: Order Comment: Speci men Type: FLUID SPECIMENOrdering Facility: [facility] Address: [address] [place] [address] Performed By: #### H PVHRT ####[facility] LABCLIA [id number] [place] [address] [place]#### [id number] ####JERRYCREST LABORATORYIA [id number] [address] STATES [facility] LABCLIA [id number] [place] [address] [place] PAP DISCLAIMER COMMENT The Pap Smear is a screening test for cervical cancer. False negative results occur with all screening tests, emphasizing the need for rescreening at recommended intervals, and clinical correlation. Normal [facility] Comment on above: Order Comment: Speci men Type: FLUID SPECIMENOrdering Facility: [facility] Address: [address] [place] [address] Performed By: #### H PVHRT ####[facility] LABCLIA [id number] [place] [address] [place]#### [id number] ####JERRYCRE LABORATORYCLIA [id number] [place] [address] [place] [facility] LABCLIA [id number] [place] [address] [place] PAP LEARNING AND DEVELOPMENT OFFICER COMMENT This specimen has be en analyzed by the ThinPrep Imaging System, an automated imaging and review system, which assists the laboratory in evaluating cells on ThinPrep Pap tests. Following automated imaging, selected munguia from every slide are reviewed by a counter waitress/waiter. Normal [facility] Comment on above: Order Comment: Speci men Type: FLUID SPECIMENOrdering Facility: [facility] Address: [address] [place] [address] Performed By: #### H PVHRT ####[facility] LABCLIA [id number] [address] [place]#### [id number] ####[facility] LABORATORYCLIA [id number] [address] STATES [facility] LABCLIA [id number] [address] Rejection Notificationon Reason see below [facility] Comment on above: Result Comment: Unab le to perform testing; no specimen received. To perform testing the specimen will need to be recollected. No spec Performed By: #### P TT #### MD JANETH TURNER ([id number]) [facility] [address] [place] [address] Rejected Test sicsc Normal [facility] Comment on above: Performed By: #### P TT #### MD JANETH TURNER ([id number]) [facility] ([facility] [address] [place] [address] Cytomegalovirus Antibody, Ig Mon 06-01-2023 CMV Ab IgM <8.0 Normal <=29.9 [facility] Comment on above: Result Comment: INTE RPRETIVE INFORMATION: Cytomegalovirus Antibody, IgM 29.9 AU/mL or Less ....... Not Detected 30.0-34.9 AU/mL........... Indeterminate-Repeat testing in 10-14 days may be helpful. 35.0 AU/mL or Greater .... Detected-IgM antibody to CMV detected which may indicate a current or recent infection. However, low levels of IgM antibodies may occasionally persist for more than 12 months post-infection. A negative result does not rule out primary infection, please correlate clinically. CMV serology is not useful for the evaluation of active or reactivated infection in immunocompromised patients. Molecular diagnostic tests (i.e. PCR)are preferred in these cases. This test should not be used for blood donor screening, associated re-entry protocols, or for screening Human Cell, Tissues and Cellular and Tissue-Based Products (HCT/P). Performed By: [facility] [address] [place] [address] Pie Cutter: Ray Kennedy MD, PhD CLIA Number: [id number] Performed By: #### P TT #### MD JANETH TURNER ([id number]) [facility] ([facility]) [address] [place] [address] Gwen-Whalen Virus Antibody Panel 06-01-2023 EBV Ab To Early (D) Ag IgG <5.0 Normal 0.0-10.9 [facility] Comment on above: Result Comment: INTE RPRETIVE INFORMATION: Gwen-Whalen Virus Antibody to Early D Antigen (EA-D), IgG 8.9 U/mL or less........Not Detected 9.0-10.9 U/mL...........Indeterminate - Repeat testing in 10-14 days may be helpful. 11.0 U/mL or greater....Detected Performed By: [facility] [address] [place] [address] Pie Cutter: Ray Kennedy MD, PhD CLIA Number: [id number] Performed By: #### P TT #### MD JANETH TURNER ([id number]) [facility] ([facility]) [address] [place] [address] EBV Ab To Nuclear Ag IgG 297.0 U/mL High 0.0-21.9 [facility] Comment on above: Result Comment: INTE RPRETIVE INFORMATION: Gwen-Whalen Virus Antibody to Nuclear Antigen, IgG 17.9 U/mL or less.......Not Detected 18.0-21.9 U/mL..........Indeterminate - Repeat testing in 10-14 days may be helpful. 22.0 U/mL or greater....Detected Performed By: #### P TT #### MD JANETH TURNER ([id number]) [facility] ([facility]) [address] [place] [address] EBV Ab To Viral Capsid Ag IgG 135.0 U/mL High 0.0-21.9 [facility] Comment on above: Result Comment: INTE RPRETIVE INFORMATION: Gwen-Whalen Virus Antibody to Viral Capsid Antigen, IgG 17.9 U/mL or less.......Not Detected 18.0-21.9 U/mL..........Indeterminate - Repeat testing in 10-14 days may be helpful. 22.0 U/mL or greater....Detected Performed By: #### P TT #### MD JANETH TURNER ([id number]) [facility] ([facility]) [address] [place] [address] EBV Ab To Viral Capsid Ag IgM <10.0 Normal 0.0-43.9 [facility] Comment on above: Result Comment: INTE RPRETIVE INFORMATION: Gwen-Whalen Virus Antibody to Viral Capsid Antigen, IgM 35.9 U/mL or less.......Not Detected 36.0-43.9 U/mL..........Indeterminate - Repeat testing in 10-14 days may be helpful. 44.0 U/mL or greater....Detected Performed By: #### P TT #### MD JANETH TURNER ([id number]) [facility] ([facility]) [address] [place] [address] Toxoplasma gondii Ab, IgMon 06-01-2023 Toxoplasma gondii Ab, IgM <3.0 Normal <=7.9 [facility] Comment on above: Result Comment: INTE RPRETIVE INFORMATION: Toxoplasma Ab, IgM 7.9 AU/mL or less .... Not Detected. 8.0-9.9 AU/mL ........ Indeterminate - Repeat testing in 10-14 days may be helpful. 10.0 AU/mL or greater. Detected - Significant level of Toxoplasma gondii IgM antibody detected and may indicate a current or recent infection. However, low levels of IgM antibodies may occasionally persist for more than 12 months post-infection. This test is performed using the [employer] LIAISON. As suggested by the CDC, any indeterminate or detected Toxoplasma gondii IgM result should be retested in parallel with a specimen collected 1-3 weeks later. Further confirmation may be necessary using a different test from another reference laboratory specializing in toxoplasmosis testing where an IgM LISA should be ordered. Caution should be exercised in the use of IgM antibody levels in screening. Any Toxoplasma gondii IgM in patients that have also been confirmed by a second reference laboratory should be evaluated by amniocentesis and PCR testing for Toxoplasma gondii. For male and non- female patients with indeterminate or detected Toxoplasma gondii IgM results, PCR may also be useful if a specimen can be collected from an affected body site. This test should not be used for blood donor screening, associated re-entry protocols, or for screening Human Cell, Tissues and Cellular and Tissue-Based Products (HCT/P). For additional information, refer to the CDC website: www.cdc.gov/parasites/toxoplasmosis/health_professionals/inde x.html. The magnitude of the measured result is not indicative of the amount of antibody present. Performed By: [facility] [address] [place] [address] Pie Cutter: Ray Kennedy MD, PhD CLIA Number: [id number] Performed By: #### P TT #### MD JANETH TURNER ([id number]) [facility] ([facility]) [address] [place] [address] Varicella Zoster Virus Abs, IgG and IgMon 06-01-2023 Varicella-Zoster Virus Ab, IgG 297.5 IV [facility] Comment on above: Result Comment: INTE RPRETIVE INFORMATION: VZV Ab, IgG 134.9 IV or less ....... Negative - No significant level of detectable IgG varicella-zoster antibody. 135.0 - 164.9 IV ....... Equivocal - Repeat testing in 10-14 days may be helpful. 165.0 IV or greater .... Positive - IgG antibody to varicella-zoster detected, which may indicate a current or past varicella-zoster infection. The best evidence for current infection is a significant change on two appropriately timed specimens, where both tests are done in the same laboratory at the same time. Performed By: #### P TT #### MD JANETH TURNER ([id number]) [facility] ([facility]) [address] [place] [address] Varicella-Zoster Virus Ab, IgM 0.17 ISR Normal <=0.90 [facility] Comment on above: Result Comment: INTE RPRETIVE INFORMATION: Varicella-Zoster Virus Antibody, IgM 0.90 ISR or less ........ Negative - No significant level of detectable varicella-zoster virus IgM antibody. 0.91-1.09 ISR ........... Equivocal - Repeat testing in 10-14 days may be helpful. 1.10 ISR or greater ..... Positive - Significant level of detectable varicella-zoster virus IgM antibody. Indicative of current or recent infection. However, low levels of IgM antibodies may occasionally persist for more than 12 months post-infection or immunization. Performed By: [facility] [address] [place] [address] Pie Cutter: Ray Kennedy MD, PhD CLIA Number: [id number] Performed By: #### P TT #### MD JANETH TURNER ([id number]) [facility] ([facility]) [address] [place] [address] Cytomegalovirus Antibody, Ig Bowen 05-31-2023 CMV Ab IgG <0.20 Normal <=0.70 [facility] Comment on above: Result Comment: INTE RPRETIVE INFORMATION: Cytomegalovirus Antibody, IgG 0.59 U/mL or less......... Not Detected 0.6 - 0.69 U/mL........... Indeterminate-Repeat testing in 10-14 days may be helpful. 0.70 U/mL or greater...... Detected In immunocompromised patients, CMV serology (IgG or IgM antibody titers) may not be reliable and may be misleading in the diagnosis of acute or reactivation CMV disease. The preferred method for diagnosis is culture of virus and/or demonstration of viral antigen in peripheral white cells (buffy coat), bronchoalveolar lavage (BAL) cells, or tissue biopsies. This test should not be used for blood donor screening, associated re-entry protocols, or for screening Human Cell, Tissues and Cellular and Tissue-Based Products (HCT/P). The best evidence for current infection is a significant change on two appropriately timed specimens, where both tests are done in the same laboratory at the same time. Performed By: [facility] [address] [place] [id number] Pie Cutter: Ray Kennedy MD, PhD CLIA Number: [id number] Performed By: #### P T #### MD JANETH TURNER ([id number]) [facility] ([facility]) [address] [place] [address] HCV by Quant NAATon 05-31-19 HCV Qnt by NAAT Interp Not detected Normal Not Detecte d [facility] Comment on above: Result Comment: INTE RPRETIVE INFORMATION: HCV by Quantitative NAAT Normal range for this assay is Not Detected . The quantitative range of this assay is 10 - 100,000,000 IU/mL (1.0 - 8.0 log IU/mL). Lower limit of quantitation (LLoQ): 10 IU/mL (1.0 log IU/mL) LLoQ values do not apply to diluted specimens. A result of Not Detected does not rule out the presence of inhibitors in the patient specimen or hepatitis C virus RNA concentrations below the level of detection of the test. Care should be taken when interpreting any single viral load determination. This test should not be used for blood donor screening, associated re-entry protocols, or for screening Human Cell, Tissues and Cellular Tissue-Based Products (HCT/P). Performed By: [facility] [address] [place] [address] Pie Cutter: Ray Kennedy MD, PhD CLIA Number: [id number] Performed By: #### P T #### MD JANETH TURNER ([id number]) [facility] ([facility]) [address] [place] [address] HCV Qnt by NAAT IU/mL Not detected Normal [facility] Comment on above: Performed By: #### P T #### MD JANETH TURNER ([id number]) [facility] ([facility]) [address] [place] [address] HCV Qnt by NAAT log IU/mL Not detected [facility] Comment on above: Performed By: #### P T #### MD JANETH TURNER ([id number]) [facility] ([facility]) [address] HSV 1,2 Abs, IgG, IgMon 05-19 HSV Type 1/2 Combined Ab, IgG 0.27 IV Normal [facility] Comment on above: Result Comment: INTE RPRETIVE INFORMATION: HSV 1/2 COMBINED Ab SCREEN, IgG 0.89 IV or less.........Not Detected 0.90-1.09 IV............Indeterminate- Repeat testing in 10-14 days may be helpful. 1.10 IV or greater......Detected The best evidence for current infection is a significant change on two appropriately timed specimens, where both tests are done in the same laboratory at the same time. Performed By: #### P T #### MD JANETH TURNER ([id number]) [facility] ([facility]) [address] [place] [address] HSV Type 1/2 Combined Ab, IgM by LISA 0.99 IV High <=0.89 [facility] Comment on above: Result Comment: INTE RPRETIVE INFORMATION: Herpes Simplex Virus Type 1 and/or 2 Antibodies, IgM by LISA 0.89 IV or Less .......... Not Detected 0.90 - 1.09 IV ........... Indeterminate- Repeat testing in 10-14 days may be helpful. 1.10 IV or Greater ....... Detected-IgM antibody to HSV detected, which may indicate a current or recent infection. However, low levels of IgM antibodies may occasionally persist for more than 12 months post-infection. Performed By: [facility] [address] [place] [address] Pie Cutter: Ray Kennedy MD, PhD CLIA Number: [id number] Performed By: #### P T #### MD JANETH TURNER ([id number]) [facility] ([facility]) [address] [place] [address] Hepatitis Be Abon 05-31-2023 Hepatitis Be Ab Negative Normal Negative [facility] Comment on above: Result Comment: Perf ormed By: [facility] [address] [place] [address] Pie Cutter: Ray Kennedy MD, PhD CLIA Number: [id number] Performed By: #### P T #### MD JANETH TURNER ([id number]) [facility] ([facility]) [address] [place] [address] Toxoplasma gondii Ab, IgGon 05-31-2023 Toxoplasma gondii Ab, IgG <3.0 Normal <=8.8 [facility] Comment on above: Result Comment: INTE RPRETIVE INFORMATION: Toxoplasma Ab, IgG 7.1 IU/mL or less....... Not Detected 7.2-8.7 IU/mL .......... Indeterminate-Repeat testing in 10-14 days may be helpful. 8.8 IU/mL or greater ... Detected The best evidence for current infection is a significant change on two appropriately timed specimens, where both tests are done in the same laboratory at the same time. This test should not be used for blood donor screening, associated re-entry protocols, or for screening Human Cell, Tissues and Cellular and Tissue-Based Products (HCT/P). The magnitude of the measured result is not indicative of the amount of antibody present. Performed By: [facility] [address] [place] [address] Pie Cutter: Ray Kennedy MD, PhD CLIA Number: [id number] Performed By: #### P TT #### MD JANETH TURNER ([id number]) [facility] ([facility]) [address] [place] [address] APTTon 05-30-2023 aPTT Coag (Bld) [Time] 29.2 s [facility] Comment on above: Therapeutic range: 7 3.0 - 102.0 sec Effective 06-15-23 9:00am EST Please note reference ranges have changed for PTT Testing. Bilirubin Directon 4 Bilirubin.indirect [Mass/Vol] mg/dL Normal 0.0-0.3 [facility] Comment on above: Performed By: #### B ILID #### MD JANETH TURNER ([id number]) [facility] ([facility]) [address] [place] [address] Bilirubin Indirecton 024 Bilirubin Indirect see below Normal 0.0-1.0 [facility] Comment on above: Result Comment: Roxanna rect Bilirubin cannot be calculated since Total Bilirubin and/or Direct Bilirubin is below measurable range. Performed By: #### Joanie SMITH #### MD JANETH TURNER ([id number]) [facility] ([facility]) [address] [place] [address] Bilirubin, Directon 05-30-19 Bilirubin.direct [Mass/Vol] mg/dL 0.0 - 0.3 mg/dL [facility] CBC W Auto Differential pane l (Bld)on 05-30-2023 Basophils (Bld) [#/Vol] 0.1 10*3/uL 0.0 - 0.2 K/uL [facility] Basophils/100 WBC (Bld) 0.7 % [facility] Eosinophils (Bld) [#/Vol] 0.4 10*3/uL 0.0 - 0.6 K/uL [facility] Eosinophils/100 WBC (Bld) 3.3 % [facility] Erythrocyte distribution width (RBC) [Entitic vol] 14.1 % 12.4 - 15.4 % [facility] Hematocrit (Bld) [Volume fraction] 41.5 % 36.0 - 48.0 % [facility] Hemoglobin (Bld) [Mass/Vol] 14.2 g/dL 12.0 - 16.0 g/dL [facility] Lymphocytes (Bld) [#/Vol] 3.6 10*3/uL 1.0 - 5.1 K/uL [facility] Lymphocytes/100 WBC (Bld) 32.2 % [facility] MCH (RBC) [Entitic mass] 28.8 pg 26. 0 - 34.0 pg [facility] MCHC (RBC) [Mass/Vol] 34.1 g/dL 31.0 - 36.0 g/dL [facility] MCV (RBC) [Entitic vol] 84.4 fL 80.0 - 100.0 fL [facility] Monocytes (Bld) [#/Vol] 0.7 10*3/uL 0.0 - 1.3 K/uL [facility] Monocytes/100 WBC (Bld) 6.0 % B [facility] Neutrophils (Bld) [#/Vol] 6.4 10*3/uL 1.7 - 7.7 K/uL [facility] Neutrophils/100 WBC (Bld) 57.8 % [facility] Platelet mean volume (Bld) [Entitic vol] 8.3 fL 5.0 - 10.5 fL [facility] Platelets (Bld) [#/Vol] 342 10*3/uL 135 - 450 K/uL [facility] RBC (Bld) [#/Vol] 4.92 10*6/uL [facility] WBC (Bld) [#/Vol] 11.0 10*3/uL 4.0 - 11.0 K/uL [facility] CBC With Platelet and Differ entialon 05-30-2023 Basophils (Bld) [#/Vol] 0.1 10*3/uL Normal 0.0-0.2 [facility] Comment on above: Performed By: #### C YEISON #### MD JANETH TURNER ([id number]) [facility] ([facility]) [address] [place] [address] Basophils/100 WBC (Bld) 0.7 % Normal [facility] Comment on above: Performed By: #### C BCWD #### MD JANETH TURNER ([id number]) [facility] ([facility]) [address] [place] [address] [place] Eosinophils (Bld) [#/Vol] 0.4 10*3/uL Normal 0.0-0.6 [facility] Comment on above: Performed By: #### C BCWD #### MD JANETH TURNER ([id number]) [facility] ([facility]) [address] [place] [address] [place] Eosinophils/100 WBC (Bld) 3.3 % Normal [facility] Comment on above: Performed By: #### C BCWD #### MD JANETH TURNER ([id number]) [facility] ([address] Erythrocyte distribution width (RBC) [Ratio] 14.1 % Normal 12.4-15.4 [facility] Comment on above: Performed By: #### C BCWD #### MD JANETH TURNER ([id number]) [facility] ([facility]) [address] [place] [address] Hematocrit (Bld) [Volume fraction] 41.5 % Normal 36.0-48.0 [facility] Comment on above: Performed By: #### C BCWD #### MD JANETH TURNER ([id number]) [facility] ([facility]) [address] [place] [address] Hemoglobin (Bld) [Mass/Vol] 14.2 g/dL Normal 12.0-16.0 [facility] Comment on above: Performed By: #### C BCWD #### MD JANETH TURNER ([id number]) [facility] ([facility]) [address] [place] [address] Lymphocytes (Bld) [#/Vol] 3.6 10*3/uL Normal 1.0-5.1 [facility] Comment on above: Performed By: #### C BCWD #### MD JANETH TURNER ([id number]) [facility] ([facility]) [address] [place] [address] Lymphocytes/100 WBC (Bld) 32.2 % Normal [facility] Comment on above: Performed By: #### C BCWD #### MD JANETH TURNER ([id number]) [facility] ([facility]) [address] [place] [address] MCH (RBC) [Entitic mass] 28.8 pg Normal 26.0-34.0 [facility] Comment on above: Performed By: #### C BCWD #### MD JANETH TURNER ([id number]) [facility] ([facility]) [address] [place] [address] MCHC (RBC) [Mass/Vol] 34.1 g/dL Normal 31.0-36.0 [facility] Comment on above: Performed By: #### C BCWD #### MD JANETH TURNER ([id number]) [facility] ([facility]) [address] [place] [address] MCV (RBC) [Entitic vol] 84.4 fL Normal 80.0-100.0 [facility] Comment on above: Performed By: #### C BCWD #### MD JANETH TURNER ([id number]) [facility] ([facility]) [address] [place] [address] Monocytes (Bld) [#/Vol] 0.7 10*3/uL Normal 0.0-1.3 [facility] Comment on above: Performed By: #### C BCWD #### MD JANETH TURNER ([id number]) [facility] ([facility]) [address] [place] [address] Monocytes/100 WBC (Bld) 6.0 % Normal [facility] Comment on above: Performed By: #### C BCWD #### MD JANETH TURNER ([id number]) [facility] ([facility]) [address] [place] [address] Neutrophils (Bld) [#/Vol] 6.4 10*3/uL Normal 1.7-7.7 [facility] Comment on above: Performed By: #### C BCWD #### MD JANETH TURNER ([id number]) [facility] ([facility]) [address] [place] [address] Neutrophils/100 WBC (Bld) 57.8 % Normal [facility] Comment on above: Performed By: #### C BCWD #### MD JANETH TURNER ([id number]) [facility] ([facility]) [address] [place] [address] Platelet mean volume (Bld) [Entitic vol] 8.3 fL Normal 5.0-10.5 [facility] Comment on above: Performed By: #### C BCWD #### MD JANETH TURNER ([id number]) [facility] ([facility]) [address] [place] [address] Platelets (Bld) [#/Vol] 342 10*3/uL Normal 135-450 [facility] Comment on above: Performed By: #### C BCWD #### MD JANETH TURNER ([id number]) [facility] ([facility]) [address] [place] [address] RBC (Bld) [#/Vol] 4.92 10*6/uL Normal 4.00-5.20 [facility] Comment on above: Performed By: #### C BCWD #### MD JANETH TURNER ([id number]) [facility] ([facility]) [address] [place] [address] WBC (Bld) [#/Vol] 11.0 10*3/uL Normal 4.0-11.0 [facility] Comment on above: Performed By: #### C BCWD #### MD JANETH TURNER ([id number]) [facility] ([facility]) [address] [place] [address] Comprehensive Metabolic Pane l reflex Mgon 05-30-2023 Albumin [Mass/Vol] 4.2 g/dL Normal 3.4-5.0 [facility] Comment on above: Performed By: #### C MPX #### MD JANETH TURNER ([id number]) [facility] ([facility]) [address] [place] [address] Albumin/Globulin [Mass ratio] 1.7 {ratio} Normal 1.1-2.2 [facility] Comment on above: Performed By: #### C MPX #### MD JANETH TURNER ([id number]) [facility] ([facility]) [address] [place] [address] ALP [Catalytic activity/Vol] 49 U/L Normal 40-129 [facility] Comment on above: Performed By: #### C MPX #### MD JANETH TURNER ([id number]) [facility] ([facility]) [address] [place] [address] ALT [Catalytic activity/Vol] 38 U/L Normal 10-40 [facility] Comment on above: Performed By: #### C MPX #### MD JANETH TURNER ([id number]) [facility] ([facility] [address] [place], [place] [id number] [place] [address] Anion gap [Moles/Vol] 12 mmol/L Normal 3-16 [facility] Comment on above: Performed By: #### C MPX #### MD JANETH TURNER ([id number]) [facility] ([facility] [address] [place] [address] [place] AST [Catalytic activity/Vol] 21 U/L Normal 15-37 [facility] Comment on above: Performed By: #### C MPX #### MD JANETH TURNER ([id number]) [facility] ([facility]) [facility] [place] [id number] [place] [address] Bilirubin [Mass/Vol] 0.4 mg/dL Normal 0.0-1.0 [facility] Comment on above: Performed By: #### C MPX #### MD JANETH TURNER ([id number]) [facility] ([facility]) [facility] [place] [address] [place] Calcium [Mass/Vol] 9.3 mg/dL Normal 8.3-10.6 [facility] Comment on above: Performed By: #### C MPX #### MD JANETH TURNER ([id number]) [facility] ([facility]) [facility] [place] [address] [place] Chloride [Moles/Vol] 100 mmol/L Normal 99-110 [facility] Comment on above: Performed By: #### C MPX #### MD JANETH TURNER ([id number]) [facility] ([facility]) [address] [place] [address] [place] CO2 [Moles/Vol] 24 mmol/L Normal 21-32 [facility] Comment on above: Performed By: #### C MPX #### MD JANETH TURNER ([id number]) [facility] ([facility]) [address] [place] [address] [place] Creatinine [Mass/Vol] 0.7 mg/dL Normal 0.6-1.1 [facility] Comment on above: Performed By: #### C MPX #### MD JANETH TURNER ([id number]) [facility] ([facility]) [address] [place] [address] [place] GFR >60 Normal >60 [facility] Comment on above: Result Comment: Beena atric calculator link https://www.kidney.org/professionals/kdoqi/gfr_calculatorped Effective Dec 21, 2021 These results are not intended for use in patients <18 years of age. eGFR results are calculated without a race factor using the 2020 CKD-EPI equation. Careful clinical correlation is recommended, particularly when comparing to results calculated using previous equations. The CKD-EPI equation is less accurate in patients with extremes of muscle mass, extra-renal metabolism of creatinine, excessive creatinine ingestion, or following therapy that affects renal tubular secretion. Performed By: #### C MPX #### MD JANETH TURNER ([id number]) [facility] ([facility]) [address] [place] [address] Glucose [Mass/Vol] 120 mg/dL High 70-99 [facility] Comment on above: Performed By: #### C MPX #### MD JANETH TURNER ([id number]) [facility] ([facility]) [address] [place] [address] [place] Magnesium [Moles/Vol] 4.2 mmol/L Normal 3.5-5.1 [facility] Comment on above: Performed By: #### C MPX #### MD JANETH TURNER ([id number]) [facility] ([facility]) [address] [place] [address] [place] Protein [Mass/Vol] 6.7 g/dL Normal 6.4-8.2 [facility] Comment on above: Performed By: #### C MPX #### MD JANETH TURNER ([id number]) [facility] ([facility]) [address] [place] [address] [place] Sodium [Moles/Vol] 136 mmol/L Normal 136-145 [facility] Comment on above: Performed By: #### C MPX #### MD JANETH TURNER ([id number]) [facility] ([facility]) [address] [place] [address] Urea nitrogen [Mass/Vol] 12 mg/dL Normal 7-20 [facility] Comment on above: Performed By: #### C MPX #### MD JANETH TURNER ([id number]) [facility] ([facility]) [address] [place] [address] Comprehensive metabolic 2000 panelon 05-30-2023 Albumin [Mass/Vol] 4.2 g/dL 3.4 - 5.0 g/dL [facility] Albumin/Globulin [Mass ratio] 1.7 {ratio} 1.1 - 2.2 [facility] ALP [Catalytic activity/Vol] 49 U/L 40 - 129 U/L [facility] ALT [Catalytic activity/Vol] 38 U/L 10 - 40 U/L [facility] Anion gap [Moles/Vol] 12 mmol/L 3 - 16 [facility] AST [Catalytic activity/Vol] 21 U/L 15 - 37 U/L [facility] Bilirubin [Mass/Vol] 0.4 mg/dL 0.0 - 1 .0 mg/dL [facility] Calcium [Mass/Vol] 9.3 mg/dL 8.3 - 10. 6 mg/dL [facility] Chloride [Moles/Vol] 100 mmol/L 99 - 11 0 mmol/L [facility] CO2 [Moles/Vol] 24 mmol/L 21 - 32 mmol/L [facility] Creatinine [Mass/Vol] 0.7 mg/dL 0.6 - 1.1 mg/dL [facility] GFR/1.73 sq M.predicted CKD-EPI (S/P/Bld) [Vol rate/Area] 60 - PINF [facility] Comment on above: Pediatric calculator link https://www.kidney.org/professionals/kdoqi/gfr_calculatorped Effective Dec 21, 2021 These results are not intended for use in patients <18 years of age. eGFR results are calculated without a race factor using the 2020 CKD-EPI equation. Careful clinical correlation is recommended, particularly when comparing to results calculated using previous equations. The CKD-EPI equation is less accurate in patients with extremes of muscle mass, extra-renal metabolism of creatinine, excessive creatinine ingestion, or following therapy that affects renal tubular secretion. Glucose [Mass/Vol] 120 mg/dL High 70 - 99 mg/dL [facility] Potassium [Moles/Vol] 4.2 mmol/L 3.5 - 5.1 mmol/L [facility] Protein [Mass/Vol] 6.7 g/dL 6.4 - 8.2 g/dL [facility] Sodium [Moles/Vol] 136 mmol/L 136 - 145 mmol/L [facility] Urea nitrogen [Mass/Vol] 12 mg/dL 7 - 20 mg/d L [facility] HCG Quanton 05-30-2023 HCG Quant <5.0 Normal <5.0 [facility] Comment on above: Result Comment: Male : <5.0 mIU/ml : Note: HCG Interpretation is based on gestational age vs. LMP. Gestational Age Expected HCG values (mIU/ml) 0.2-1 week 5-50 1-2 weeks 50-500 2-3 weeks 100-5000 3-4 weeks 500-10,000 4-5 weeks 1000-50,000 5-6 weeks 10,000-100,000 6-8 weeks 15,000-200,000 2-3 months 10,000-100,000 Performed By: #### H CGQ #### MD JANETH TURNER ([id number]) [facility] ([facility]) [address] [place] [address] HCG.beta subunit IA 3rd IS Q non 05-30-2023 HCG.beta subunit Qn m[IU]/mL [facility] Comment on above: Male: <5.0 mIU/ml : Note: HCG Interpretation is based on gestational age vs. LMP. Gestational Age Expected HCG values (mIU/ml) 0.2-1 week 5-50 1-2 weeks 50-500 2-3 weeks 100-5000 3-4 weeks 500-10,000 4-5 weeks 1000-50,000 5-6 weeks 10,000-100,000 6-8 weeks 15,000-200,000 2-3 months 10,000-100,000 [facility] Hepatitis A Antibody IgMon 0 05-30-2023 Hepatitis A Antibody IgM Non-Reactive Normal Non-react dai [facility] Comment on above: Performed By: #### P T #### MD JANETH TURNER ([id number]) [facility] ([facility]) [address] [place] [address] Hepatitis A Antibody, IgMon 05-30-2023 HAV IgM IA Ql Non-Reactive Non-reactive [facility] Hepatitis B Surface Abon Hepatitis B Surface Ab 29.34 mIU/mL Normal [facility] Comment on above: Result Comment: <8.5 = Negative >=8.5 and <11.5 = Indeterminate >=11.5 = Positive (Immune) Performed By: #### P T #### MD JANETH TURNER ([id number]) [facility] ([facility]) [address] [place] [address] Hepatitis B Surface Antibody on 05-30-2023 HBV surface Ab IA Qn 29.34 m[IU]/mL mIU/mL [facility] Comment on above: <8.5 = Negative >=8.5 and <11.5 = Indeterminate >=11.5 = Positive (Immune) Hepatitis C Antibodyon 05-29 HCV Ab IA Ql Non-Reactive Non-reactive [facility] Hepatitis C Antibody Non-Reactive Normal Non-reactive [facility] Comment on above: Performed By: #### P T #### MD JANETH TURNER ([id number]) [facility] ([facility]) [address] [place] [address] Indirect Bilirubinon 024 Bilirubin.indirect [Mass/Vol] see below 0.0 - 1.0 mg/dL [facility] Comment on above: Indirect Bilirubin c annot be calculated since Total Bilirubin and/or Direct Bilirubin is below measurable range. Lactate Dehydrogenaseon 05-19 LDH Lactate to pyruvate reaction [Catalytic activity/Vol] 193 U/L High 100 - 190 U/L [facility] LDH [Catalytic activity/Vol] 193 U/L High 100-190 [facility] Comment on above: Performed By: #### L DH #### MD JANETH TURNER ([id number]) [facility] ([facility]) [address] [place] [address] No Panel Informationon 05-29 [facility] [employer] Interpretation and review of laboratory results Abnormal [facility] Interpretation and review of laboratory results Abnormal [facility] PT Coag (PPP) [Time]on 05-29 INR Coag (PPP) [Relative time] 0.92 {INR} 0.84 - 1.16 [facility] Comment on above: Effective 06/15/22 at 09:00am EST Normal: 0.84 - 1.16 Therapeutic: 2.0 - 3.0 Pros. Valve: 2.5 - 3.5 AMI: 2.0 - 3.0 Partial Thromboplastin Timeo n 05-30-2023 aPTT Coag (Bld) [Time] 29.2 s Normal 22.7-35.9 [facility] Comment on above: Result Comment: Ther apeutic range: 73.0 - 102.0 sec Effective 06-15-22 9:00am EST Please note reference ranges have changed for PTT Testing. Performed By: #### P TT #### MD JANETH TURNER ([id number]) [facility] ([facility]) [address] [place] [address] Phosphoruson 05-30-2023 Phosphate [Mass/Vol] 3.4 mg/dL 2.5 - 4 .9 mg/dL [facility] Phosphate [Mass/Vol] 3.4 mg/dL Normal 2.5-4.9 [facility] Comment on above: Performed By: #### P HOS #### MD JANETH TURNER ([id number]) [facility] ([facility]) [address] [place] [address] Prothrombin Timeon INR Coag (PPP) [Relative time] 0.92 {INR} Normal 0.84-1.16 [facility] Comment on above: Result Comment: Effe ctive 06/15/22 at 09:00am EST Normal: 0.84 - 1.16 Therapeutic: 2.0 - 3.0 Pros. Valve: 2.5 - 3.5 AMI: 2.0 - 3.0 Performed By: #### P T #### MD JANETH TURNER ([id number]) [facility] ([facility]) [address] [place] [address] PT Coag (PPP) [Time] 12.3 s Normal 11.5-14.8 [facility] Comment on above: Result Comment: Effe ctive 06-15-22 09:00am EST Please note reference ranges have changed for PT and INR Testing. Performed By: #### P T #### MD JANETH TURNER ([id number]) [facility] ([facility]) [address] [place] [address] Protime-INRon 05-30-2023 PT Coag (PPP) [Time] 12.3 s [facility] Comment on above: Effective 06-15-22 09 :00am EST Please note reference ranges have changed for PT and INR Testing. TYPE AND SCREENon 05-30-2023 Blood group antibody screen Ql Negative [facility] Type and Screen Capture 3 sc rn cellon 05-30-2023 ABO and Rh group Nom (Bld) Blood group B Rh(D) positive Normal [facility] Comment on above: Performed By: #### P T #### MD JANETH TURNER ([id number]) [facility] ([facility]) [address] [place] [address] Antibody 3 Cell Scrn Capture Negative Normal [facility] Comment on above: Performed By: #### P T #### MD JANETH TURNER ([id number]) [facility] ([facility]) [address] [place] [address] Uric Acidon 05-30-2023 Urate [Mass/Vol] 5.9 mg/dL 2.6 - 6.0 mg/dL [facility] Urate [Mass/Vol] 5.9 mg/dL Normal 2.6-6.0 [facility] Comment on above: Performed By: #### U GUERO #### MD JANETH TURNER ([id number]) [facility] ([facility]) [address] [place] [address] Urinalysis complete W Reflex Culture panel (U)on 05-30-2023 Bilirubin Ql (U) Negative Negative [facility] Clarity (U) Clear Clear [facility] Color (U) Yellow Straw/Yellow [facility] Glucose Auto test strip (U) [Mass/Vol] Negative Negative mg/dL [facility] Hemoglobin Auto test strip Ql (U) Negative Negative [facility] Ketones (U) [Mass/Vol] Negative Negat dai mg/dL [facility] Leukocyte esterase Auto test strip Ql (U) SMALL Abnormal Negative [facility] Nitrite Auto test strip Ql (U) Negative Negative [facility] pH (U) 6.5 [pH] 5.0 - 8.0 [facility] Protein (U) [Mass/Vol] Negative Negat dai mg/dL [facility] Specific gravity (U) [Rel density] 1.010 1.005 - 1.030 [facility] Urinalysis dipstick W Reflex Microscopic panel (U) YES [facility] Urinalysis specimen collection method Nom (U) Voided [facility] Urobilinogen Qn (U) 0.2 NINF [facility] Urinalysis microscopic panel (Urine sed)on 05-30-2023 Bacteria LM Ql (Urine sed) 3+ Abnormal None Seen /HPF [facility] RBC LM.HPF (Urine sed) [#/Area] 0-2 [facility] WBC LM.HPF (Urine sed) [#/Area] 3-[address] [address] Urinalysis with Reflex to Cu ltureon 05-30-2023 Urinalysis complete W Reflex Culture panel (U) Not Indicated [facility] Urinalysis, reflex to cultur rosemary 05-30-2023 Urine Reflexed to Culture Not Indicated Normal [facility] Comment on above: Performed By: #### P T #### MD JANETH TURNER ([id number]) [facility] ([facility]) [address] [place] [address] Bilirubin Ql (U) Negative Normal Negative [facility] Comment on above: Performed By: #### P T #### MD JANETH TURNER ([id number]) [facility] ([facility]) [address] [place] [address] Clarity (U) Clear Normal Clear [facility] Comment on above: Performed By: #### P T #### MD JANETH TURNER ([id number]) [facility] ([facility]) [address] [place] [address] Color (U) Yellow Normal Straw/Yellow [facility] Comment on above: Performed By: #### P T #### MD JANETH TURNER ([id number]) [facility] ([facility]) [address] [place] [address] Glucose Ql (U) Negative Normal Negative [facility] Comment on above: Performed By: #### P T #### MD JANETH TURNER ([id number]) [facility] ([facility]) [address] [place] [address] Hemoglobin Ql (U) Negative Normal Negative [facility] [facility] Comment on above: Performed By: #### P T #### MD JANETH TURNER ([id number]) [facility] ([facility]) [address] [place] [address] Ketones Ql (U) Negative Normal Negative [facility] Comment on above: Performed By: #### P T #### MD JANETH TURNER ([id number]) [facility] ([facility]) [address] [place] [address] Leukocyte esterase Test strip Ql (U) SMALL Abnormal Negative [facility] Comment on above: Performed By: #### P T #### MD JANETH TURNER ([id number]) [facility] ([facility]) [address] [place] [address] Microscopic Exam Performed YES Normal [facility] Comment on above: Performed By: #### P T #### MD JANETH TURNER ([id number]) [facility] ([facility]) [address] [place] [address] Nitrite Ql (U) Negative Normal Negative [facility] Comment on above: Performed By: #### P T #### MD JANETH TURNER ([id number]) [facility] ([facility]) [address] [place] [address] pH (U) 6.5 [pH] Normal 5.0 - 8.0 [facility] Comment on above: Performed By: #### P T #### MD JANETH TURNER ([id number]) [facility] ([facility]) [address] [place] [address] Protein Ql (U) Negative Normal Negative [facility] Comment on above: Performed By: #### P T #### MD JANETH TURNER ([id number]) [facility] ([facility]) [address] [place] [address] Specific gravity (U) [Rel density] 1.010 Normal 1.005 - 1.030 [facility] Comment on above: Performed By: #### P T #### MD JANETH TURNER ([id number]) [facility] ([facility]) [address] [place] [address] Urobilinogen Qn (U) 0.2 {Pamela'U}/dL Normal <2.0 [facility] Comment on above: Performed By: #### P T #### MD JANETH TURNER ([id number]) [facility] ([facility]) [address] [place] [address] Urine Type Voided Normal [facility] Comment on above: Performed By: #### P T #### MD JANETH TURNER ([id number]) [facility] ([facility]) [address] [place] [address] Urine Microscopicon 05-30-19 24 Urine Bacteria 3+ /HPF Abnormal None Seen [facility] Comment on above: Performed By: #### P T #### MD JANETH TURNER ([id number]) [facility] ([facility]) [address] [place] [address] Urine RBC 0-2 Normal 0-4 [facility] Comment on above: Performed By: #### P T #### MD JANETH TURNER ([id number]) [facility] [place], [place] [address] [place] [address] Urine WBC 3-5 Normal 0-5 [facility] Comment on above: Performed By: #### P T #### MD JANETH TURNER ([id number]) [facility] ([facility]) [address] [place] [address] Comprehensive metabolic 2000 panelon 04-04-2023 Albumin [Mass/Vol] 4.2 g/dL Normal 3.9-4.9 [facility] Comment on above: Order Comment: Speci men Type: BLOOD SPECIMENOrdering Facility: [facility] Address: [address] [place] [address] Performed By: #### 2 4323-8 ####[facility] LABCLIA [id number] [place] [address] [place] ALP [Catalytic activity/Vol] 41 U/L Normal 34-123 [facility] Comment on above: Order Comment: Speci men Type: BLOOD SPECIMENOrdering Facility: [facility] Address: [address] [place] [address] Performed By: #### 2 4323-8 ####[facility] LABCLIA [id number] [place] [address] [place] ALT [Catalytic activity/Vol] 59 U/L High 7-38 [facility] Comment on above: Order Comment: Speci men Type: BLOOD SPECIMENOrdering Facility: [facility] Address: [address] [place] [address] Performed By: #### 2 4323-8 ####[facility] LABCLIA [id number] [place] [address] [place] Anion gap [Moles/Vol] 10 mmol/L Normal 9-18 [facility] Comment on above: Order Comment: Speci men Type: BLOOD SPECIMENOrdering Facility: [facility] Address: [address] [place] [address] Performed By: #### 2 4323-8 ####[facility] LABCLIA [id number] [place] [address] [place] AST [Catalytic activity/Vol] 29 U/L Normal 13-35 [facility] Comment on above: Order Comment: Speci men Type: BLOOD SPECIMENOrdering Facility: [facility] Address: [address] [place] [address] Performed By: #### 2 4323-8 ####[facility] LABCLIA [id number] [place] [address] [place] Bilirubin [Mass/Vol] 0.4 mg/dL Normal 0.2-1.3 [facility] Comment on above: Order Comment: Speci men Type: BLOOD SPECIMENOrdering Facility: [facility] Address: [address] [place] [address] Performed By: #### 2 4323-8 ####[facility] LABCLIA [id number] [place] [address] [place] Calcium [Mass/Vol] 9.4 mg/dL Normal 8.5-10.2 [facility] Comment on above: Order Comment: Speci men Type: BLOOD SPECIMENOrdering Facility: [facility] Address: [address] [place] [address] Performed By: #### 2 4323-8 ####[facility] LABCLIA [id number] [place] [address] [place] Chloride [Moles/Vol] 105 mmol/L Normal 97-105 [facility] Comment on above: Order Comment: Speci men Type: BLOOD SPECIMENOrdering Facility: [facility] Address: [address] [place] [address] Performed By: #### 2 4323-8 ####[facility] LABCLIA [id number] [place] [address] [place] CO2 [Moles/Vol] 25 mmol/L Normal 22-30 [facility] Comment on above: Order Comment: Speci men Type: BLOOD SPECIMENOrdering Facility: [facility] Address: [address] [place] [address] Performed By: #### 2 4323-8 ####[facility] LABCLIA [id number] [place] [address] [place] Creatinine [Mass/Vol] 0.80 mg/dL Normal 0.58-0.96 [facility] Comment on above: Order Comment: Speci men Type: BLOOD SPECIMENOrdering Facility: [facility] Address: [address] [place] [address] Performed By: #### 2 4323-8 ####[facility] LABCLIA [id number] [place] [address] [place] Creatinine and Glomerular filtration rate.predicted panel (S/P/Bld) 101 mL/min/1.73m??? Normal >=60 [facility] Comment on above: Order Comment: Speci men Type: BLOOD SPECIMENOrdering Facility: [facility] Address: [address] [place] [address] Result Comment: Ligia mated Glomerular Filtration Rate (eGFR) is calculated using the 2020 CKD-EPI creatinine equation. This equation utilizes serum creatinine, sex, and age as parameters. The creatinine assay has traceable calibration to isotope dilution-mass spectrometry. Refer to KDIGO guidelines for clinical interpretation. In patients with unstable renal function, e.g. those with acute kidney injury, the eGFR may not accurately reflect actual GFR. Performed By: #### 2 4323-8 ####[facility] LABCLIA [id number] [place] [address] [place] Glucose [Mass/Vol] 102 mg/dL High 74-99 [facility] Comment on above: Order Comment: Speci men Type: BLOOD SPECIMENOrdering Facility: [facility] Address: [address] [place] [address] Result Comment: The [place] Diabetes Association (ADA) provides guidance for cutoff values for fasting glucose and random glucose. The ADA defines fasting as no caloric intake for at least 8 hours. Fasting plasma glucose results between 100 to 125 mg/dL indicate increased risk for diabetes (prediabetes). Fasting plasma glucose results greater than or equal to 126 mg/dL meet the criteria for diagnosis of diabetes. In the absence of unequivocal hyperglycemia, results should be confirmed by repeat testing. In a patient with classic symptoms of hyperglycemia or hyperglycemic crisis, random plasma glucose results greater than or equal to 200 mg/dL meet the criteria for diagnosis of diabetes. Reference: Standards of Medical Care in Diabetes 2016, [place] Diabetes Association. Diabetes Care. 2016.39(Suppl 1). Performed By: #### 2 4323-8 ####[facility] LABCLIA [id number] [place] [address] [place] Potassium [Moles/Vol] 4.2 mmol/L Normal 3.7-5.1 [facility] Comment on above: Order Comment: Speci men Type: BLOOD SPECIMENOrdering Facility: [facility] Address: [address] [place] [address] Performed By: #### 2 4323-8 ####[facility] LABCLIA [id number] [place] [address] [place] Protein [Mass/Vol] 6.8 g/dL Normal 6.3-8.0 [facility] Comment on above: Order Comment: Speci men Type: BLOOD SPECIMENOrdering Facility: [facility] Address: [address] [place] [address] Performed By: #### 2 4323-8 ####[facility] LABCLIA [id number] [place] [address] [place] Sodium [Moles/Vol] 140 mmol/L Normal 136-144 [facility] Comment on above: Order Comment: Speci men Type: BLOOD SPECIMENOrdering Facility: [facility] Address: [address] [place] [address] Performed By: #### 2 4323-8 ####[facility] LABCLIA [id number] [place] [id number] [place] Urea nitrogen [Mass/Vol] 12 mg/dL Normal 7-21 [facility] Comment on above: Order Comment: Speci men Type: BLOOD SPECIMENOrdering Facility: [facility] Address: [address] [place] [address] Performed By: #### 2 4323-8 ####[facility] LABIA [id number] [place] [address] [place] Comprehensive metabolic 2000 panelon 03-07-2023 Albumin [Mass/Vol] 4.2 g/dL Normal 3.9-4.9 [facility] Comment on above: Order Comment: Speci men Type: BLOOD SPECIMENOrdering Facility: [facility] Address: [address] [place] [address] Performed By: #### 2 4323-8 ####[facility] JOSE ANTONIO MILLTOWNCLIA [id number] [place] [address] [place] ALP [Catalytic activity/Vol] 42 U/L Normal 34-123 [facility] Comment on above: Order Comment: Speci men Type: BLOOD SPECIMENOrdering Facility: [facility] Address: [address] [place] [address] Performed By: #### 2 4323-8 ####[facility] JOSE ANTONIO MILLTOWNCLIA [id number] [place] [address] [place] ALT [Catalytic activity/Vol] 73 U/L High 7-38 [facility] Comment on above: Order Comment: Speci men Type: BLOOD SPECIMENOrdering Facility: [facility] Address: [address] [place] [address] Performed By: #### 2 4323-8 ####[facility] JOSE ANTONIO MILLTOWNCLIA [id number] [place] [address] [place] Anion gap [Moles/Vol] 9 mmol/L Normal 9-18 [facility] Comment on above: Order Comment: Speci men Type: BLOOD SPECIMENOrdering Facility: [facility] Address: [address] [place] [address] Performed By: #### 2 4323-8 ####[facility] MACI [id number] [place] [address] [place] AST [Catalytic activity/Vol] 29 U/L Normal 13-35 [facility] Comment on above: Order Comment: Speci men Type: BLOOD SPECIMENOrdering Facility: [facility] Address: [address] [place] [address] Performed By: #### 2 4323-8 ####[facility] DEBRAÁlvaroNCTRACEY [id number] [place] [address] [place] Bilirubin [Mass/Vol] 0.3 mg/dL Normal 0.2-1.3 [facility] Comment on above: Order Comment: Speci men Type: BLOOD SPECIMENOrdering Facility: [facility] Address: [address] [place] [address] Performed By: #### 2 4323-8 ####[facility] [id number] [place] [address] [place] Calcium [Mass/Vol] 9.7 mg/dL Normal 8.5-10.2 [facility] Comment on above: Order Comment: Speci men Type: BLOOD SPECIMENOrdering Facility: [facility] Address: [address] [place] [address] Performed By: #### 2 4323-8 ####[facility] [id number] [place] [address] [place] Chloride [Moles/Vol] 106 mmol/L High 97-105 [facility] Comment on above: Order Comment: Speci men Type: BLOOD SPECIMENOrdering Facility: [facility] Address: [address] [place] [address] Performed By: #### 2 4323-8 ####[facility] MILLTOWNCLIA [id number] [place] [address] [place] CO2 [Moles/Vol] 27 mmol/L Normal 22-30 [facility] Comment on above: Order Comment: Speci men Type: BLOOD SPECIMENOrdering Facility: [facility] Address: [address] [place] [address] Performed By: #### 2 4323-8 ####[facility]SON[facility] [id number] [place] [address] [place] Creatinine [Mass/Vol] 0.83 mg/dL Normal 0.58-0.96 [facility] Comment on above: Order Comment: Speci men Type: BLOOD SPECIMENOrdering Facility: [facility] Address: [address] [place] [address] Performed By: #### 2 4323-8 ####[facility] [id number] [place] [address] [place] Creatinine and Glomerular filtration rate.predicted panel (S/P/Bld) 97 mL/min/1.73m??? Normal >=60 [facility] Comment on above: Order Comment: Speci men Type: BLOOD SPECIMENOrdering Facility: [facility] Address: [address] [place] [address] Result Comment: Ligia mated Glomerular Filtration Rate (eGFR) is calculated using the 2020 CKD-EPI creatinine equation. This equation utilizes serum creatinine, sex, and age as parameters. The creatinine assay has traceable calibration to isotope dilution-mass spectrometry. Refer to KDIGO guidelines for clinical interpretation. In patients with unstable renal function, e.g. those with acute kidney injury, the eGFR may not accurately reflect actual GFR. Performed By: #### 2 4323-8 ####[facility] [id number] [place] [address] [place] Glucose [Mass/Vol] 81 mg/dL Normal 74-99 [facility] Comment on above: Order Comment: Speci men Type: BLOOD SPECIMENOrdering Facility: [facility] Address: [address] [place], [place] [address] Result Comment: The [place] Diabetes Association (ADA) provides guidance for cutoff values for fasting glucose and random glucose. The ADA defines fasting as no caloric intake for at least 8 hours. Fasting plasma glucose results between 100 to 125 mg/dL indicate increased risk for diabetes (prediabetes). Fasting plasma glucose results greater than or equal to 126 mg/dL meet the criteria for diagnosis of diabetes. In the absence of unequivocal hyperglycemia, results should be confirmed by repeat testing. In a patient with classic symptoms of hyperglycemia or hyperglycemic crisis, random plasma glucose results greater than or equal to 200 mg/dL meet the criteria for diagnosis of diabetes. Reference: Standards of Medical Care in Diabetes 2016, [place] Diabetes Association. Diabetes Care. 2016.39(Suppl 1). Performed By: #### 2 4323-8 ####[facility] [id number] [place] [address] [place] Potassium [Moles/Vol] 3.8 mmol/L Normal 3.7-5.1 [facility] Comment on above: Order Comment: Speci men Type: BLOOD SPECIMENOrdering Facility: [facility] Address: [address] [place] [address] Performed By: #### 2 4323-8 ####[facility] [id number] [place] [address] [place] Protein [Mass/Vol] 6.7 g/dL Normal 6.3-8.0 [facility] Comment on above: Order Comment: Speci men Type: BLOOD SPECIMENOrdering Facility: [facility] Address: [address] [place] [address] Performed By: #### 2 4323-8 ####[facility] [id number] [place] [address] [place] Sodium [Moles/Vol] 142 mmol/L Normal 136-144 [facility] Comment on above: Order Comment: Speci men Type: BLOOD SPECIMENOrdering Facility: [facility] Address: [place] [id number] Performed By: #### 2 4323-8 ####[facility] JOSE ANTONIO ASHFORDLIA [id number] [address] Urea nitrogen [Mass/Vol] 13 mg/dL Normal 7-21 [facility] Comment on above: Order Comment: Speci men Type: BLOOD SPECIMENOrdering Facility: [facility] Address: [place] [id number] Performed By: #### 2 4323-8 ####[facility] JOSE ANTONIOELEONORA ASHFORDLIA [id number] [address] [place] XR HYSTEROSALPINGOGRAMon [facility] CNOVon 07-24-2020 CNOV Office Visit (WHREBA ) CLAY CRISTINA ([id number]) 1990 F Date Time Provider Department 07/24/20 10:45 AM LOYDA VALENZUELA WHREBA During your visit today, we recorded the following information about you: Pulse Blood pressure Weight Last Period 74/minute 147/70 131.5 kg 04/25/20 Loyda Valenzuela MD 07/27/2020 12:02 PM Signed Clay Cristina is a 30 year old.G 4 P 0 Ab 4 with losses and one ectopic . Known to have PCOS. Has tried metformin before but is has caused sig stomach upset. SIS normal No evidence of antiphospholipid antibody syndrome 46XX HSG normal per report Ultrasound has shown 2 cm structure on the right not clear if ectopic or slways present. PRL 5.7 TSH is normal OB History 06/2018- SAB at 6 weeks, no DANDC (spontaenous preg) 11/2018- SAB at 9 weeks used misoprostal. Heart beat noted and then loss occurred. (Spon preg) 11/2019- ectopic in right tube and had methorexate X 2. --- highest hcg was 1000. with letrozol 06/2020- letrozol on 5 mg.-- treated as ectopic but location unknown. MENSTRUAL HISTORY: Menarche Age: 13 Length of Cycle: q 30-50 days Days: light Menstrual Flow: Menstrual Symptoms: LMP of 10/30/2019 Past Medical Hx: PAST MEDICAL HISTORY Diagnosis Date - Abnormal Pap smear of cervix AScus - breast cyst - Cholelithiasis 07/15/14 - Ectopic 11/2019 - Ectopic 05/2020 - Fibroid - Hirsutism PCOS - Miscarriage - PCOS (polycystic ovarian syndrome) Past Surgical Hx: PAST SURGICAL HISTORY Procedure Laterality Date - EXTRACTION ERUPTED TOOTH wisdom teeth - HSG N/A 02/28/2020 [facility], normal shape to uterus, bilateral tubal spill noted - INSERTION OF IUD 05/07/2016 removed 04/2018 - LAPAROSCOPIC CHOLEYCYSTECTOMY 07/15/2014 - PAST SURGICAL HISTORY OF ganglion cyst removal left wrist - REMOVE TONSILS/ADENOIDS,<12 Y/O @ 10yrs of age Social History Tobacco Use - Smoking status: Never Smoker - Smokeless tobacco: Never Used Vaping Use - Vaping Use: Never used Substance Use Topics - Alcohol use: No - Drug use: No Assessment- RPL Plan- will get pelvic ultrasound ot see if this 2 mc structure is seen when not . If not seen may need MRI. She is very sad and hopefully can see a counselor. In the mean time will likely see if can exercise and eat healthy. Will return to see me in 3 months and will assess if moving on to ovulation induction again. I spent a total of 30 minutes on the date of the service which included preparing to see the patient, vild-[id number] patient care, completing clinical documentation, counseling and educating the patient/family/caregiv er and ordering medications, tests, or procedures. Loyda Valenzuela MD Referring Provider: SELF [200] Allergies As of Date: 07/24/2020 Noted Allergy Reaction SEASONAL ALLERGIES 07/10/2014 5 - Intolerance Date Reviewed: 07/24/2020 Reviewed by: Rossy Clifford LPN - Fully Assessed Reason for Visit: Follow Up [171] Cmt: RPL Primary Visit Diagnosis:Recurrent loss without current [N96] Other Visit Diagnoses:Adnexal cyst [N94.9] Hirsutism [L68.0] Order(s):PELVIC US WHI [[id number]] Order #: [id number]: 1 TESTOSTERONE TOTAL [SQTESTO] Order #: [id number] FUTURE DHEA-S BLD [SQDHEAS] Order #: [id number] FUTURE Prescriptions as of 07/24/2020 Sig: PEPCID ORAL Take by mouth. ZYRTEC ORAL Take by mouth. MEDROXYPROGESTERONE 10 MG TAB* Take 1 tablet by mouth once d* Problem List As Of Date 07/24/2020 Noted Resolved Oligomenorrhea [N91.5] 07/23/2009 PCOS (Polycystic Ovarian Syndrome) [E28.2] 07/23/2009 History of cyst of breast [Z87.2] 06/29/2018 Obesity in [O99.210] 06/29/2018 11/27/2018 Family history of cystic fibrosis [Z83.49] 06/29/2018 5 weeks gestation of [Z3A.01] 06/29/2018 11/27/2018 with uncertain dates in first trimest*10/19/2018 11/27/2018 Patient request for diagnostic testing [Z01.89] 10/19/2018 11/27/2018 Uterine fibroid during , antepartum [O*11/14/2018 11/27/2018 Ectopic [O00.90] 12/13/2019 Medications Discontinued During This Encounter Prescriptions - letrozole (FEMARA) 2.5 mg tablet (Discontinued) Take 2 tablets by mouth once daily. Days 3-7 - progesterone micronized (PROMETRIUM) 200 mg capsule (Discontinued) Insert one capsule vaginally, twice daily - ranitidine (ZANTAC 75) 75 mg tablet (Discontinued) Take 150 mg by mouth twice daily. Encounter Status:Closed by LOYDA VALENZUELA on 07/27/20 [facility] [place] 06-09-2020 VICKI Telephone (WHREBA) CLAY CRISTINA ([id number]) 1990 F Date Time Provider Department 06/09/20 KATJA TIWARI (PA) During your visit today, we recorded the following information about you: Katja Tiwari PA-C 06/09/2020 8:57 AM Signed oi see desiree lthe different notes. I am in the OR tuesday am. I would recommend that she stop the progesterone as this is clearly an abnormal . if hcg is still in the same range I would recommend methotrexate therapy. i can discuss with pt on Tuesday but not likely before . thanks Called the pt to provide feedback from Dr. Valenzuela. There is 11:30 slot available for MTX injection, with Dr. Avila today at . The Pt is not willing to drive to , as she lives in [place]. Will call the patient back once the labs are resulted, and will go from there. Katja Tiwari PA-C June 09, 2020 8:56 AM Katja Tiwari PA-C 06/09/2020 4:14 PM Signed it does not look like the hcg level is going to return today. ideally I would love to get an endometrial sample from her and send to pathology for chorionic villi. she seemed hesitant about this as she is so sad about this prengnancy. if the hcg has increased I recommend the ipas and then methotrexate injection tomorrow. she wanted methotrexate as opposed to surgery at this time. so if resistant to coming in for ipas then can just get the methotrexate. I ran this by Dr Avila also as we need a second doc to confirm that this is not a viable . ------ Note: Jocelyn, please follow up with this pt. Katja Tiwari PA-C June 09, 2020 3:56 PM Ankita Chaudhari APRN.JALEEL 06/09/2020 5:08 PM Signed Component hCG Quantitative, Blood Latest Ref Rng AND Units <5.0 mU/mL 05/26/2020 134.5 (H) 05/28/2020 303.7 (H) 05/30/2020 664.8 (H) 06/02/2020 413.5 (H) 06/04/2020 501.6 (H) 06/06/2020 668.8 (H) 06/09/2020 565.7 (H) Dr. Valenzuela - confirm MTX for tomorrow? ALT is elevated. Ankita Chaudhari APRN.JALEEL June 09, 2020 5:08 PM Ankita Chaudhari APRN.JALEEL 06/10/2020 9:33 AM Addendum spoke with Dr. Valenzuela - recommendation is for IPAS, then MTX if no chorionic villi found OR MTX. Dr. Valenzuela said she could also go straight to MTX. Patient prefers MTX. Called Kaitlynn at [place] - [phone] - no answer due to the late hour. I will call first thing tomorrow to see if they can arrange for MTX for patient closer to home. Ankita Chaudhari APRN.JALEEL June 09, 2020 5:31 PM Ankita Chaudhari APRN.CNP 06/10/2020 9:33 AM Signed spoke with Merly at [place], she will see if MD there is able to see this patient to administer MTX today. Await further response. Ankita Chaudhari APRN.CNP June 10, 2020 9:33 AM Ankita Chaudhari APRN.CNP 06/10/2020 10:33 AM Signed spoke with Merly, she is working on logistics of timing for mtx today spoke with Clay, she is aware. she can make herself available whenever it's ready. Ankitajaymie Chaudhari APRN.CNP June 10, 2020 10:33 AM Ankita Chaudhari APRN.CNP 06/10/2020 6:43 PM Signed spoke with Clay, she received mtx today will go for labs 06/14, 06/17 Please schedule the patient for the following- Location: [facility] Visit type: televisit with Jocelyn Reason for visit/appointment notes: post mtx hcg test results Date: 06/17 Time (if discussed): pm slot Call to patient needed: no Allergies As of Date: 06/09/2020 Noted Allergy Reaction SEASONAL ALLERGIES 07/10/2014 5 - Intolerance Date Reviewed: 01/25/2020 Reviewed by: Cherelle Laird - Fully Assessed Reason for Visit: MTX plan [Other] Prescriptions as of 06/09/2020 Sig: PROGESTERONE MICRONIZED 200 M* Insert one capsule vaginally,* MEDROXYPROGESTERONE 10 MG TAB* Take 1 tablet by mouth once d* LETROZOLE 2.5 MG TABLET Take 2 tablets by mouth once * PEPCID ORAL Take by mouth. ZYRTEC ORAL Take by mouth. RANITIDINE 75 MG TABLET Take 150 mg by mouth twice da* Problem List As Of Date 06/09/2020 Noted Resolved Oligomenorrhea [N91.5] 07/23/2009 PCOS (Polycystic Ovarian Syndrome) [E28.2] 07/23/2009 History of cyst of breast [Z87.2] 06/29/2018 Obesity in [O99.210] 06/29/2018 11/27/2018 Family history of cystic fibrosis [Z83.49] 06/29/2018 5 weeks gestation of [Z3A.01] 06/29/2018 11/27/2018 with uncertain dates in first trimest*10/19/2018 11/27/2018 Patient request for diagnostic testing [Z01.89] 10/19/2018 11/27/2018 Uterine fibroid during , antepartum [O*11/14/2018 11/27/2018 Ectopic [O00.90] 12/13/2019 Encounter Status:Closed by ANKITA CHAUDHARI CNP on 06/30/20 [facility] [place] 06-05-2020 VICKI Telephone (WHREBA) CLAY CRISTINA ([id number]) 1990 F Date Time Provider Department 06/05/20 KATJA TIWARI (PA) During your visit today, we recorded the following information about you: Katja Tiwari PA-C 06/05/2020 8:20 AM Signed Component Latest Ref Rng AND Units 05/26/2020 05/28/2020 05/30/2020 06/02/2020 06/04/2020 hCG Quantitative, Blood <5.0 mU/mL 134.5 (H) 303.7 (H) 664.8 (H) 413.5 (H) 501.6 (H) Note: Dr. Valenzuela, please review and let me know if she needs an Ultrasound at this point. According to the note from 06/02: Pt went to ED 05/30 due to pelvic pain and spotting. Ultrasound report ad ED showed a possible gestational sac in the uterus as well as something questionable (possible fibroma) near her right ovary. Katja Tiwari PA-C June 05, 2020 8:16 AM Katja Tiwari PA-C 06/05/2020 11:46 AM Signed Clay Briceno; Katja Murrell (Pa), I just had a telephonic visit with the patient. ?She has a history of right ectopic in November of last year and you saw her over the weekend with right lower quadrant pain and a possible gestational sac inside the uterus. ?I think she might have another right ectopic . ?I ordered another ultrasound to follow-up of the 1 performed last Tuesday. ?She would prefer to have it done locally. ?Could you have it uploaded to her chart? Katja Tiwari will also follow-up with the results. Thank you, Clay Called the pt and informed that she has a letter order for a stat OB scan. Since she is going to get it at [facility], they will see the US order from her chart. Katja Tiwari PA-C June 05, 2020 11:45 AM Merly Carcamo RN 06/05/2020 12:19 PM Signed Patient scheduled today at 1:20pm in [place]. Merly Carcamo RN Allergies As of Date: 06/05/2020 Noted Allergy Reaction SEASONAL ALLERGIES 07/10/2014 5 - Intolerance Date Reviewed: 01/25/2020 Reviewed by: Cherelle Laird - Fully Assessed Reason for Visit: Abnormal labs [Other] Visit Diagnoses:Abnormal laboratory test [R89.9] in first trimester with history of ectopic [O09.11] Order(s):OBSTETRIC ULTRASOUND [facility] [[id number]] Order #: [id number]: 1 Prescriptions as of 06/05/2020 Sig: PROGESTERONE MICRONIZED 200 M* Insert one capsule vaginally,* MEDROXYPROGESTERONE 10 MG TAB* Take 1 tablet by mouth once d* LETROZOLE 2.5 MG TABLET Take 2 tablets by mouth once * PEPCID ORAL Take by mouth. ZYRTEC ORAL Take by mouth. RANITIDINE 75 MG TABLET Take 150 mg by mouth twice da* Problem List As Of Date 06/05/2020 Noted Resolved Oligomenorrhea [N91.5] 07/23/2009 PCOS (Polycystic Ovarian Syndrome) [E28.2] 07/23/2009 History of cyst of breast [Z87.2] 06/29/2018 More... Obesity in [O99.210] 06/29/2018 11/27/2018 More... Family history of cystic fibrosis [Z83.49] 06/29/2018 More... 5 weeks gestation of [Z3A.01] 06/29/2018 11/27/2018 More... with uncertain dates in first trimest*10/19/2018 11/27/2018 More... Patient request for diagnostic testing [Z01.89] 10/19/2018 11/27/2018 More... Uterine fibroid during , antepartum [O*11/14/2018 11/27/2018 More... Ectopic [O00.90] 12/13/2019 Letter Text Encounter Status:Closed by KATJA TIWARI PA-C on 06/05/20 [facility] Vital Signs Date Time Vital Sign Value Performing Clinician Clark hook 10-07-2023 11:29-0400 Body height 167.6 cm Diana Eastman MD Work Phone: [facility] 10-07-2023 11:29-0400 Body mass index (BMI) [Ratio] 43.87 kg/m2 Diana Eastman MD Work Phone: [facility] 10-07-2023 11:29-0400 Body weight 123.3 kg Diana Eastman MD Work Phone: [facility] 10-07-2023 11:29-0400 Diastolic blood pressure 94 mm[Hg] Diana Eastman MD Work Phone: [facility] 10-07-2023 11:29-0400 Heart rate 53 /min Diana Eastman MD Work Phone: [facility] 10-07-2023 11:29-0400 Systolic blood pressure 147 mm[Hg] Diana Eastman MD Work Phone: [facility] 08-25-2023 08:55-0400 Body height 168.9 cm Antonia Briceno MD Work Phone: [facility] 08-25-2023 08:55-0400 Body mass index (BMI) [Ratio] 42.39 kg/m2 Antonia Briceno MD Work Phone: [facility] 08-25-2023 08:55-0400 Body weight 120.93 kg Antonia Briceno MD Work Phone: [facility] 08-25-2023 08:55-0400 Diastolic blood pressure 80 mm[Hg] Antonia Briceno MD Work Phone: [facility] 08-25-2023 08:55-0400 Systolic blood pressure 120 mm[Hg] Antonia Briceno MD Work Phone: [facility] 07-05-2023 11:07-0400 Body mass index (BMI) [Ratio] 41.97 kg/m2 Denis Lagunas MD Work Phone: [facility] 07-05-2023 11:07-0400 Body weight 117.94 kg Denis Lagunas MD Work Phone: [facility] 06-07-2023 10:55-0400 Body weight 119.3 kg Denis Lagunas MD Work Phone: [facility] 05-30-2023 10:35-0400 Body height 168.9 cm [facility] 05-30-2023 10:35-0400 Body mass index (BMI) [Ratio] 43.57 kg/m2 [facility] 05-30-2023 10:35-0400 Body temperature 98.1 [degF] [facility] 05-30-2023 10:35-0400 Body weight 124.3 kg [facility] 1 [facility] 05-30-2023 10:35-0400 Diastolic blood pressure 74 mm[Hg] [facility] 05-30-2023 10:35-0400 Heart rate 77 /min [facility] 05-30-2023 10:35-0400 Respiratory rate 18 /min [facility] 05-30-2023 10:35-0400 SaO2% (BldA) [Mass fraction] 100 % [facility]cz [facility] 05-30-2023 10:35-0400 Systolic blood pressure 131 mm[Hg] [facility] 04-05-2023 10:50-0500 Body weight 122.02 kg Denis Lagunas MD Work Phone: [facility] 03-08-2023 10:50-0500 Body weight 124.74 kg Denis Lagunas MD Work Phone: [facility] 02-08-2023 11:00-0500 Body weight 128.82 kg Denis Lagunas MD Work Phone: [facility] 10-22-2022 14:28-0400 Body height 167.6 cm Diana Eastman MD Work Phone: [facility] 10-22-2022 14:28-0400 Body weight 133.81 kg Diana Eastman MD Work Phone: [facility] 10-21-2021 09:52-0400 Body height 172.7 cm Antonia Briceno MD Work Phone: [facility] 10-21-2021 09:52-0400 Body weight 132.72 kg Antonia Briceno MD Work Phone: [facility] 10-21-2021 09:52-0400 Diastolic blood pressure 80 mm[Hg] Antonia Briceno MD Work Phone: [facility] 10-21-2021 09:52-0400 Systolic blood pressure 118 mm[Hg] Antonia Briceno MD Work Phone: [facility] Encounters Encounter Date Encounter Type Care Provider Facility Start: 01-07-2024 End: 01-07-2024 ambulatory LAILA LIMA Facility:[facility] Start: 01-05-2024 End: 01-05-2024 ambulatory LAILA LIMA Facility:[facility] Start: 2024 End: 01-06-2024 ambulatory Diana Eastman MD Work Phone: [facility] Comment on above: Medications and preg bernice Start: 2024 End: 2024 Telephone encounter Diana Eastman MD Work Phone: [facility] Comment on above: pos preg test Start: 01-01-2024 End: 2024 ambulatory Diana Eastman MD Work Phone: [facility] Comment on above: Positive t est Start: 10-07-2023 End: 10-07-2023 ambulatory LAILA ACKERMANDAVID Facility:[facility] Start: 10-07-2023 End: 10-07-2023 Patient encounter procedure Diana Eastman MD Work Phone: [facility] Comment on above: PCOS (polycystic ova giovanni syndrome) (Primary Dx) Start: 08-25-2023 End: 08-25-2023 ambulatory ANTONIA BRICENO Facility:[facility] Start: 08-25-2023 End: 08-25-2023 Patient encounter procedure Antonia Briceno MD Work Phone: OB/Gynecology Comment on above: Encounter for gyneco logical examination (general) (routine) without abnormal findings (Primary Dx); Screening for cervical cancer; Encounter for screening for human papillomavirus (HPV) Start: 08-25-2023 End: 08-25-2023 Patient encounter status Antonia Briceno MD Work Phone: [facility] Start: 07-19-2023 Refill Denis buchanan MD Work Phone: Endocrinology Comment on above: Refill Request Start: 07-05-2023 End: 07-05-2023 Telemedicine consultation with patient Denis Lagunas MD Work Phone: Endocrinology Start: 07-05-2023 End: 07-05-2023 ambulatory Denis Lagunas MD Work Phone: Endocrinology Comment on above: Obesity, Class III, BMI >= 40 Start: 06-07-2023 End: 06-07-2023 ambulatory Denis Lagunas MD Work Phone: Endocrinology Comment on above: PCOS (polycystic ova giovanni syndrome) (Primary Dx); Class 3 severe obesity due to excess calories with body mass index (BMI) of 45.0 to 49.9 in adult, unspecified whether serious comorbidity present (HCC) Start: 06-07-2023 End: 06-07-2023 Telemedicine consultation with patient Denis Lagunas MD Work Phone: [facility] Start: 05-30-2023 End: 05-31-2023 ambulatory Physician Jaki Vázquez [facility] Start: 05-30-2023 End: 05-30-2023 Subsequent hospital visit by physician Leo Cespedes [facility] Start: 05-30-2023 End: 05-30-2023 ambulatory SHAW Márquez [facility] Start: 05-05-2023 End: 05-06-2023 ambulatory TORI LIANG [facility] Start: 04-05-2023 End: 04-05-2023 Telemedicine consultation with patient Denis Lagunas MD Work Phone: [facility] Start: 04-05-2023 End: 04-05-2023 ambulatory Denis Lagunas MD Work Phone: Endocrinology Comment on above: PCOS (polycystic ova giovanni syndrome) (Primary Dx); Obesity, Class III, BMI >= 40 Start: 04-04-2023 End: 04-04-2023 ambulatory DENIS LAGUNAS Facility:[facility] Start: 03-08-2023 End: 03-08-2023 ambulatory Denis Lagunas MD Work Phone: Endocrinology Comment on above: Obesity, Class III, BMI >= 40 Start: 03-08-2023 End: 03-08-2023 Telemedicine consultation with patient Denis Lagunas MD Work Phone: [facility] Start: 03-07-2023 End: 03-07-2023 ambulatory DENIS LAGUNAS Facility:[facility] Start: 02-08-2023 End: 02-08-2023 ambulatory Denis Lagunas MD Work Phone: Endocrinology Comment on above: Obesity, Class III, BMI >= 40 (Primary Dx); PCOS (polycystic ovarian syndrome) Start: 02-08-2023 End: 02-08-2023 Telemedicine consultation with patient Denis Lagunsa MD Work Phone: [facility] Start: 12-24-2022 ambulatory Diana Barakat Work Phone: [facility] Comment on above: IUI hold Endocrine PCOS SMA liza cabrera Start: 12-24-2022 E-mail encounter fro m caregiver [facility] Provider [facility] Start: 12-23-2022 End: 12-23-2022 ambulatory Denis Lagunas MD Work Phone: [facility] Comment on above: PCOS (polycystic ova giovanni syndrome) (Primary Dx); Obesity, Class III, BMI >= 40 Start: 12-23-2022 End: 12-23-2022 Telemedicine consultation with patient Denis Lagunas MD Work Phone: [facility] Start: 12-09-2022 End: 12-09-2022 Patient encounter procedure Jenni Laurent APRN.CNP Work Phone: [facility] Comment on above: Encounter for artifi cial insemination (Primary Dx); Obesity, Class III, BMI >= 40 Start: 12-02-2022 ambulatory Diana Barakat Work Phone: [facility] Comment on above: OPK Testing Start: 10-22-2022 End: 10-22-2022 Patient encounter procedure Diana Eastman MD Work Phone: [facility] Comment on above: PCOS (polycystic ova giovanni syndrome) (Primary Dx); Secondary amenorrhea; BMI 45.0-49.9, adult ([facility]) Start: 03-16-2022 End: 03-16-2022 Patient encounter procedure Jose Luis Avila MD Work Phone: [facility] Comment on above: Encounter for fertil ity testing (Primary Dx); Recurrent loss without current Start: 02-19-2022 End: 02-19-2022 ambulatory Diana Eastman MD Work Phone: [facility] Comment on above: Encounter for fertil ity testing (Primary Dx); Anovulation; Recurrent loss without current ; PCOS (polycystic ovarian syndrome) Start: 02-19-2022 End: 02-19-2022 Telemedicine consultation with patient Diana Eastman MD Work Phone: [facility] Start: 10-21-2021 End: 10-21-2021 Patient encounter procedure Antonia Briceno MD Work Phone: OB/Gynecology Comment on above: Encounter for gyneco logical examination (general) (routine) without abnormal findings (Primary Dx); Screening for cervical cancer; Encounter for screening for human papillomavirus (HPV); Class 3 severe obesity with body mass index (BMI) of 40.0 to 44.9 in adult, unspecified obesity type, unspecified whether serious comorbidity present (HCC); PCOS (polycystic ovarian syndrome); Anovulation Start: 10-21-2021 End: 10-21-2021 Patient encounter status Antonia Briceno MD Work Phone: OB/Gynecology Start: 07-30-2021 Telephone encounter Loyda tripathi MD Work Phone: [facility] Comment on above: Rx Refills Start: 10-19-2018 End: 11-27-2018 Patient requested procedure Denis Lagunas MD Work Phone: [facility] Procedures Date Procedure Procedure Detail Performing Clinician Start: 05-30-2023 Urinalysis microscop ic only Shaw Monzon MD Work Phone: Start: 05-30-2023 Urnls dip stick/tabl et rgnt auto w/o microscopy Shaw Monzon MD Work Phone: Start: 05-30-2023 Bilirubin direct Shaw Monzon MD Work Phone: Start: 05-30-2023 Bilirubin.indirect [Mass/volume] in Serum or Plasma Shaw Monzon MD Work Phone: Start: 05-30-2023 Blood typing serologic abo Shaw Monzon MD Work Phone: Start: 03-16-2022 Cath & saline/contra st sonohyster/hysterosalpi Diana Eastman MD Work Phone: Plan of Treatment Date Care Activity Detail Author Start: 08-24-2028 Screening for malignant neoplasm of cervix Cervical Cancer Screening [facility] Start: 10-21-2026 HPV TESTING HPV TESTING [facility] Start: 10-21-2026 PAP TESTING PAP TESTING [facility] Start: 10-21-2026 Screening for malignant neoplasm of cervix [facility] Start: 08-24-2024 End: 08-24-2024 Patient encounter procedure 08/24/2024 1:40 PM EDT Office Visit OB/Gynecology [address] [place] [address] Antonia Briceno MD [address] [place] [address] Annual OB/Gynecology Comment on above: Annual Start: 03-01-2024 End: 03-01-2024 Patient encounter procedure 03/01/2024 10:20 AM EST Routine Office Visit OB/Gynecology [address] [place] [address] Antonia Briceno MD [address] [place] [address] 1st OB OB/Gynecology Comment on above: 1st OB Start: 02-01-2024 End: 02-01-2024 Patient encounter procedure 02/01/2024 8:15 AM EST Initial Office Visit OB/Gynecology [address] [place] [address] Isis Raines APRN.[facility] NURSE ONCOLOGY [address] [place] [address] 1st OB (Dr. Eastman recommended first appointment be 8 weeks out from LMP) OB/Gynecology Comment on above: 1st OB (Dr. Eastman recommended first hernan ointment be 8 weeks out from LMP) Start: 01-10-2024 End: 01-10-2024 Patient encounter procedure 01/10/2024 8:30 AM EDT [facility] [address] [place] [address] Pattie Patino APRN.[facility] REGISTERED NURSE ONCOLOGY [address] [place] [address] new preg visit [facility] Comment on above: new preg visit Start: 01-07-2024 End: 01-07-2024 ambulatory Jose Antonio [facility] Station Start: 01-05-2024 End: 01-05-2024 ambulatory 01/05/2024 7:30 AM EDT Results Only Jose Antonio [facility] Draw Station [address] [place] [address] Jose Antonio [facility] Draw Station Start: 11-20-2023 Covid-19 Vaccine () Covid-19 Vaccine () [facility] Start: 11-20-2023 Influenza vaccination [facility] Start: 10-07-2023 End: 10-07-2023 Patient encounter procedure [facility] Comment on above: DISCUSS NEW PLAN DISCUSS NEW PLAN lm and sent my chart time changed/js Start: 08-25-2023 End: 08-25-2023 Patient encounter procedure 08/25/2023 8:40 AM EDT Office Visit OB/Gynecology [address] [place] [address] Antonia Briceno MD [address] [place] [address] Annual exam OB/Gynecology Comment on above: Annual exam Start: 03-21-2023 Behavioral Health Screening Behavioral Health Screening [facility] Start: 03-21-2023 Depression Assessment Depression Assessment [facility] Start: 03-08-2023 End: 06-07-2023 Comprehensive metabolic 2000 panel - Serum or Plasma COMP METABOLIC PANEL Lab Routine Obesity, Class III, BMI >= 40 Expected: 03/08/2023, Expires: 06/07/2023 [facility] Work Phone: Comment on above: Expected: 03/08/2023, Expires: Start: 02-08-2023 End: 05-10-2023 Comprehensive metabolic 2000 panel - Serum or Plasma COMP METABOLIC PANEL Lab Routine Obesity, Class III, BMI >= 40 Expected: 02/08/2023, Expires: 05/10/2023 [facility] Work Phone: Comment on above: Expected: 02/08/2023, Expires: 4 Start: 12-23-2022 End: 02-22-2023 ANTI MULLERIAN HORMONE ANTI MULLERIAN HORMONE Lab Routine PCOS (polycystic ovarian syndrome) Expected: 12/23/2022, Expires: 02/22/2023 [facility] Work Phone: Comment on above: Expected: 12/23/2022, Expires: 3 Start: 12-23-2022 End: 02-22-2023 Comprehensive metabolic 2000 panel - Serum or Plasma COMP METABOLIC PANEL Lab Routine PCOS (polycystic ovarian syndrome) Expected: 12/23/2022, Expires: 02/22/2023 [facility] Work Phone: Comment on above: Expected: 12/23/2022, Expires: 3 Start: 12-23-2022 End: 02-22-2023 DHEA-S BLD DHEA-S BLD Lab Routine PCOS (polycystic ovarian syndrome) Expected: 12/23/2022, Expires: 02/22/2023 [facility] Work Phone: Comment on above: Expected: 12/23/2022, Expires: 3 Start: 12-23-2022 End: 02-22-2023 Estradiol (E2) [Mass/volume] in Serum or Plasma ESTRADIOL-17B BLD Lab Routine PCOS (polycystic ovarian syndrome) Expected: 12/23/2022, Expires: 02/22/2023 [facility] Work Phone: Comment on above: Expected: 12/23/2022, Expires: 3 Start: 12-23-2022 End: 02-22-2023 Follitropin [Units/volume] in Serum or Plasma FSH BLD Lab Routine PCOS (polycystic ovarian syndrome) Expected: 12/23/2022, Expires: 02/22/2023 [facility] Work Phone: Comment on above: Expected: 12/23/2022, Expires: 3 Start: 12-23-2022 End: 02-22-2023 Hemoglobin A1c in Blood HGB A1C Lab Routine PCOS (polycystic ovarian syndrome) Expected: 12/23/2022, Expires: 02/22/2023 [facility] Work Phone: Comment on above: Expected: 12/23/2022, Expires: 3 Start: 12-23-2022 End: 02-22-2023 Lipid 1996 panel - Serum or Plasma LIPID PANEL BASIC Lab Routine PCOS (polycystic ovarian syndrome) Expected: 12/23/2022, Expires: 02/22/2023 [facility] Work Phone: Comment on above: Expected: 12/23/2022, Expires: 3 Start: 12-23-2022 End: 02-22-2023 Lutropin [Units/volume] in Serum or Plasma LUTEINIZING HORMONE Lab Routine PCOS (polycystic ovarian syndrome) Expected: 12/23/2022, Expires: 02/22/2023 [facility] Work Phone: Comment on above: Expected: 12/23/2022, Expires: 3 Start: 12-23-2022 End: 02-22-2023 Prolactin [Mass/volume] in Serum or Plasma PROLACTIN BLD Lab Routine PCOS (polycystic ovarian syndrome) Expected: 12/23/2022, Expires: 02/22/2023 [facility] Work Phone: Comment on above: Expected: 12/23/2022, Expires: 3 Start: 12-23-2022 End: 02-22-2023 Thyrotropin [Units/volume] in Serum or Plasma TSH BLD Lab Routine PCOS (polycystic ovarian syndrome) Expected: 12/23/2022, Expires: 02/22/2023 [facility] Work Phone: Comment on above: Expected: 12/23/2022, Expires: 3 Start: 12-23-2022 End: 02-22-2023 Thyroxine (T4) free [Mass/volume] in Serum or Plasma T4 FREE/FREE THYROX Lab Routine PCOS (polycystic ovarian syndrome) Expected: 12/23/2022, Expires: 02/22/2023 [facility] Work Phone: Comment on above: Expected: 12/23/2022, Expires: 3 Start: 11-19-2022 Covid-19 Vaccine ( season) Covid-19 Vaccine () [facility] Start: 11-19-2022 COVID-19 Vaccine () COVID-19 Vaccine () [facility] Start: 11-19-2022 Influenza vaccination [facility] Start: 10-19-2022 Influenza vaccination Flu vaccine (#1) [facility] Start: 03-22-2022 End: 02-19-2023 Cath & saline/contrast sonohyster/hysterosalpi XR HYSTEROSALPINGOGRAM Radiology Routine Encounter for fertility testing Expected: 03/22/2022, Expires: 02/19/2023 [facility] Work Phone: Comment on above: Expected: 03/22/2022, Expires: 3 Start: 03-21-2022 DEPRESSION ASSESSMENT DEPRESSION ASSESSMENT [facility] Start: 01-02-2022 HPV TESTING HPV TESTING [facility] Start: 01-02-2022 Screening for malignant neoplasm of cervix [facility] Start: 11-19-2021 Influenza vaccination [facility] Start: 10-21-2021 End: 12-21-2021 Fasting glucose [Mass/volume] in Serum or Plasma GLUCOSE FASTING BLD Lab Routine Class 3 severe obesity with body mass index (BMI) of 40.0 to 44.9 in adult, unspecified obesity type, unspecified whether serious comorbidity present (HCC) PCOS (polycystic ovarian syndrome) Expected: 10/21/2021, Expires: 12/21/2021 [facility] Work Phone: Comment on above: Expected: 10/21/2021, Expires: 2 Start: 10-21-2021 End: 12-21-2021 Hemoglobin A1c in Blood HGB A1C Lab Routine Class 3 severe obesity with body mass index (BMI) of 40.0 to 44.9 in adult, unspecified obesity type, unspecified whether serious comorbidity present (HCC) PCOS (polycystic ovarian syndrome) Expected: 10/21/2021, Expires: 12/21/2021 [facility] [facility] Work Phone: Comment on above: Expected: 10/21/2021, Expires: 2 Start: 10-21-2021 End: 12-21-2021 Lipid 1996 panel - Serum or Plasma LIPID PANEL BASIC Lab Routine Class 3 severe obesity with body mass index (BMI) of 40.0 to 44.9 in adult, unspecified obesity type, unspecified whether serious comorbidity present (HCC) PCOS (polycystic ovarian syndrome) Expected: 10/21/2021, Expires: 12/21/2021 [facility] Work Phone: Comment on above: Expected: 10/21/2021, Expires: 2 Start: 03-21-2021 DEPRESSION ASSESSMENT DEPRESSION ASSESSMENT [facility] Start: 07-08-2020 COVID-19 VACCINE (4 - Booster) COVID-19 VACCINE (4 - Booster) [facility] Start: 06-04-2020 COVID-19 VACCINE (4 - Booster) COVID-19 VACCINE (4 - Booster) [facility] Start: 06-04-2020 COVID-19 VACCINE (4 - Pfizer series) COVID-19 VACCINE (4 - Pfizer series) [facility] Start: 04-23-2019 PAP TESTING PAP TESTING [facility] Start: 01-02-2013 Screening for malignant neoplasm of cervix Pap smear [facility] Start: 01-02-2011 DTaP/Tdap/Td vaccine (1 - Tdap) DTaP/Tdap/Td vaccine (1 - Tdap) [facility] Start: 01-02-2011 Hepatitis B Vaccine (1 of 3 - 19+ 3-dose series) Hepatitis B Vaccine (1 of 3 - 19+ 3-dose series) [facility] Start: 01-02-2011 SHINGRIX VACCINE (1 of 2) SHINGRIX VACCINE (1 of 2) [facility] Start: 01-02-2011 Urine microalbumin profile [facility] Start: 01-02-2010 Anxiety Screening Anxiety Screening [facility] Start: 01-02-2010 Depression Screening Depression Screening [facility] Start: 01-02-2010 HEPATITIS C SCREENING HEPATITIS C SCREENING [facility] Start: 01-02-2010 Hepatitis C screening [facility] Start: 01-02-2010 HIV SCREENING HIV SCREENING [facility] Start: 01-02-2010 HIV screening HIV Screening [facility] Start: 01-02-2007 [facility]: 2004 Adult depression screening assessment DEPRESSION SCREENING [facility] Start: 2004 Depression Screen Depression Screen [employer] Start: 01-02-1998 PNEUMOCOCCAL (1 - PCV) PNEUMOCOCCAL (1 - PCV) [facility] Start: 01-02-1993 Varicella vaccine (1 of 2 - 2-dose childhood series) Varicella vaccine (1 of 2 - 2-dose childhood series) [facility] [employer] Start: 1992 HEPATITIS B (1 of 3 - 3-dose series) HEPATITIS B (1 of 3 - 3-dose series) [facility] Start: 1992 Hepatitis B Vaccine (1 of 3 - 3-dose series) Hepatitis B Vaccine (1 of 3 - 3-dose series) [facility] End: 01-02-2025 Choriogonadotropin.beta subunit [Units/volume] in Serum or Plasma HCG QUANTITATIVE Lab STAT Positive test 3 Occurrences starting 2024 until 01/02/2025 [facility] Work Phone: Comment on above: 3 Occurrences starting 2024 until 01/02/2025 Choriogonadotropin.b eta subunit [Units/volume] in Serum or Plasma HCG QUANTITATIVE Lab STAT Positive test 2024 4:33 PM EDT [facility] End: 05-30-2023 Cytomegalovirus Antibody, IgG [employer] Comment on above: One Time for 1 Occurrences starting 05/19 until 05/30/2023 End: 05-30-2023 Cytomegalovirus antibody, IgM [employer] Comment on above: One Time for 1 Occurrences starting 05/19 until 05/30/2023 End: 05-30-2023 Gwen whalen virus (EBV) antibody panel I [employer] Comment on above: One Time for 1 Occurrences starting 05/19 until 05/30/2023 End: 05-30-2023 Hepatitis B e antibody [employer] Comment on above: One Time for 1 Occurrences starting 05/19 until 05/30/2023 End: 05-30-2023 Hepatitis C RNA, quantitative, PCR [employer] Comment on above: One Time for 1 Occurrences starting 05/19 until 05/30/2023 End: 05-30-2023 Herpes simplex virus (HSV) I/II antibodies IgG & IgM [employer] Comment on above: One Time for 1 Occurrences starting 05/19 until 05/30/2023 End: 05-30-2023 MISCELLANEOUS SENDOUT 2 lavender and one red top tube. for HLA/CMV and antibody testing at [facility] MISCELLANEOUS SENDOUT 2 lavender and one red top tube. for HLA/CMV and antibody testing at [facility] Lab Routine One Time for 1 Occurrences starting 05/30/2023 until 05/30/2023 [employer] Work Phone: Comment on above: One Time for 1 Occurrences starting 05/19 until 05/30/2023 PAP FLUID CERVICAL SCREENING PAP FLUID CERVICAL SCREENING Lab Routine Encounter for gynecological examination (general) (routine) without abnormal findings Screening for cervical cancer Encounter for screening for human papillomavirus (HPV) 10/21/2021 10:27 AM EDT [facility] Work Phone: PAP TEST PAP TEST Lab Rou emma Encounter for gynecological examination (general) (routine) without abnormal findings Screening for cervical cancer Encounter for screening for human papillomavirus (HPV) 08/25/2023 9:30 AM EDT [facility] Work Phone: End: 05-30-2023 Sickle Cell Screen [employer] Comment on above: One Time for 1 Occurrences starting 05/19 until 05/30/2023 End: 05-30-2023 Toxoplasma gondii antibody, IgG [employer] Comment on above: One Time for 1 Occurrences starting 05/19 until 05/30/2023 End: 05-30-2023 Toxoplasma gondii antibody, IgM [employer] Comment on above: One Time for 1 Occurrences starting 05/19 until 05/30/2023 End: 05-30-2023 Varicella-Zoster virus (VZV) antibodies IgG & IgM [facility] Comment on above: One Time for 1 Occurrences starting 05/19 until 05/30/2023 [facility] Payers Date Payer Category Payer Unknown [id number] 2023 Unknown [id number] 2022 Unknown [id number] 2019 Unknown [employer] PPO OOS [id number] 2019-Present [phone] [address] [place] [address] PPO [id number] 2019 Unknown [id number] 1995 Unknown [id number] 1995 Unknown [id number] 1995 Unknown [id number] Social History Date Type Detail Facility Start: 12-27-2011 End: 08-25-2023 Tobacco smoking status PRIS Never smoked tobacco [facility] Start: 10-31-2020 End: 10-07-2023 Alcohol intake Current non-drinker of alcohol (finding) [facility] Start: 1990 Sex Assigned At Female [facility] Start: 09-19-2021 End: 09-29-2021 Exposure to SARS-CoV-2 (event) Yes [facility] Start: 12-27-2011 End: 08-25-2023 Tobacco use and exposure Smokeless tobacco non-user [facility] Start: 10-22-2022 End: 10-07-2023 History of Social function [facility] Start: 10-22-2022 End: 10-07-2023 Tobacco use panel [facility] National Score (1-10 0), lower number is lower risk 69 [facility] Start: 07-23-2020 Gender identity Identifies as female gender (finding) [facility] Start: 07-23-2020 Sexual orientation Heterosexual (gregg ramsey) [facility] Tobacco smoking stat us NHIS Tobacco smoking consumption unknown [facility] Start: 1990 Sex Assigned At Not on file [facility] Clinical Notes 11-14-2018 to 2024 Telephone Encounter - Pattie Patino APRN.CNP - 2024 11:06 AM EDTTelephone Encounter - Pattie Patino APRN.CNP - 2024 11:06 AM Diana Martinez MD - 10/07/2023 11:30 AM EDT Note Date & Type Note Facility 2024 Telephone encounter Note Reviewed history, intake and most recent plan from primary [facility] provider. Plan: # of quants: standing (ectopic) additional meds needed: none schedule VV with [facility] sent with henrietta. Pattie Patino APRN.CNP 2024 11:06 AM [facility] Work Phone: 2024 Miscellaneous Notes Reviewed history, intake and most recent plan from primary [facility] provider. Plan: # of quants: standing (ectopic) additional meds needed: none schedule VV with [facility] sent with henrietta. Pattie Patino APRN.CNP 2024 11:06 AM Patient calls with positive urine test. History of ectopic: Yes History of SAB: Yes History of pelvic/abdominal surgeries: Yes LMP 9/18/24, fertility medications used this cycle letrozole, date of LH surge: Unsure, IUI done: No Blood type: B, POS, rubella Immune , varicella Immune Current medications: Current Outpatient Medications on File Prior to Visit Medication Sig metFORMIN ER (GLUCOPHAGE XR) 500 mg 24 hr tablet Take 3 tablets by mouth daily with dinner. Start with 1 tablet and increase per instructions. letrozole (FEMARA) 2.5 mg tablet Take 2 tablets by mouth once daily. Take on cycle days 3-7. medroxyPROGESTERone (PROVERA) 10 mg tablet Take 1 tablet by mouth once daily. Take if no period for 60 days famotidine (PEPCID ORAL) Take by mouth. cetirizine HCl (ZYRTEC ORAL) Take by mouth. No current facility-administered medications on file prior to visit. Advised normal symptoms of and s/s of need for follow up. Labs ordered: hcg Precious Leone RN 2024 9:31 AM Pos preg test documented in this encounter [facility] 2024 Telephone encounter Note See TE for 01/02 Precious Leone RN 2024 9:31 AM [facility] 2024 Miscellaneous Notes See TE for 01/02 Precious Leone RN 2024 9:31 AM documented in this encounter [facility] 2024 Telephone encounter Note Patient calls with positive urine test. History of ectopic: Yes History of SAB: Yes History of pelvic/abdominal surgeries: Yes LMP 12/07/23, fertility medications used this cycle letrozole, date of LH surge: Unsure, IUI done: No Blood type: B, POS, rubella Immune , varicella Immune Current medications: Current Outpatient Medications on File Prior to Visit Medication Sig metFORMIN ER (GLUCOPHAGE XR) 500 mg 24 hr tablet Take 3 tablets by mouth daily with dinner. Start with 1 tablet and increase per instructions. letrozole (FEMARA) 2.5 mg tablet Take 2 tablets by mouth once daily. Take on cycle days 3-7. medroxyPROGESTERone (PROVERA) 10 mg tablet Take 1 tablet by mouth once daily. Take if no period for 60 days famotidine (PEPCID ORAL) Take by mouth. cetirizine HCl (ZYRTEC ORAL) Take by mouth. No current facility-administered medications on file prior to visit. Advised normal symptoms of and s/s of need for follow up. Labs ordered: hcg Precious Leone RN 2024 9:31 AM T [facility] 2024 Telephone encounter Note Pos preg test [facility] 10-07-2023 History of Presen t illness Narrative Images from the original note were not included. REPRODUCTIVE ENDOCRINOLOGY AND INFERTILITY RETURN PATIENT CLINIC NOTE SERVICE DATE: 10/07/2023 SERVICE TIME: 12:05 AM NAME: Clay Cristina FERTILITY HISTORY Note copied from prior visit dated 02/19/[address] 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 Eastman Repeat HSG normal SA not done yet Letrozole 7.5 mg x6 month with regular ovulation, did not take it August-September cycle LMPs: 10/17, 09/09, 08/09, 07/09, 06/08 Here to discuss next steps Next Steps: - continue folate supplementation - continue inositols - metformin titrate to 2000 mg daily - weight loss, goal of 15-30 pounds, appointment with Dr. Denis Lagunas for weight loss - ovulation induction plus IUI x 4 cycles LABS/IMAGING: Latest Ref Rng 12/25/2022 Anti Mullerian Hormone 0.58 - 8.13 ng/mL 15.10 (H) Semen Analysis: 12/09/22 Latest Ref Rng 12/09/2022 Abstinence Time Days 2.0 Collection Time 9:13 Receipt Time 10:45 Semen Volume >=1.50 mL 0.40 (L) Concentration >=15.00 M/mL 2.50 (L) Total Count Sperm M 1.00 % Motile Sperm (%OH + %MARINE WATER TENDER) >=40 % 8 (L) Washing Solution Enhance W % Motile Sperm, Post >=50 % 31 (L) Undiff Round Cells Post Wash <1.00 M/mL 0.00 Final Volume mL 0.4 Total Sperm Count Post M 0.6 Total Motile Sperm M 0.2 Comment, Pre Wash Wash only. No gradient used Semen Comment 1 Clay Cristina Sperm Concentration Post M/mL 1.6 TREATMENT COURSE IUI #1: 200,000/31% prog=1-2 INTERVAL UPDATE/PROGRESS Pt completed IUI x 1 cycle so far with no . Letrozole 7.5mg, OPK. Pt then shifted focus to weight loss program with Dr. Bray, pt reports losing 30 pounds on phentermine, stopped taking. PCOS history previously on Metformin (stopped June). Reports 38-60 day cycles; Provera. LMP 10/05/23, 08/28/23 ASSESSMENT AND PLAN Clay Cristina is a 33 year old female Clay was seen today for infertility. Diagnoses and all orders for this visit: PCOS (polycystic ovarian syndrome) Other orders - metFORMIN ER (GLUCOPHAGE XR) 500 mg 24 hr tablet; Take 3 tablets by mouth daily with dinner. Start with 1 tablet and increase per instructions. - letrozole (FEMARA) 2.5 mg tablet; Take 2 tablets by mouth once daily. Take on cycle days 3-7. Counseling: - counseled on diagnosis, risks, and treatment options - counseled on risks and outcomes, including SAB and genetic anomaly rates - discussed restarting metformin to improve insulin resistance, egg quality benefits, and to prevent OHSS in setting of IVF - discussed repeating SA due to most recent SA being abnormal despite normal SA a month prior - discussed re-starting letrozole 7.5 mg plus timed intercourse in meantime until SA results, pt was informed plan will be determined once updated SA results - discussed if SA is normal, continue IUI x 4 cycles with letrozole - discussed if SA is abnormal, consider IVF Next Steps: - continue folate and vit D supplementation - restart letrozole 7.5 mg plus timed intercourse in meantime - restart metformin 500 mg daily for 1 week, increase weekly by 500 mg to reach total dose of 1500 mg daily - restart licha inositol - once SA results, will determine next steps (IUI vs IVF) Dr. Diana Eastman M.D. Reproductive Endocrinology and Infertility I spent 35 minutes in the visit, with more than 50% of the total [id number] time of the visit in counseling / coordination of care. I spent a total of 40 minutes on the date of the service which included preparing to see the patient, [id number] patient care, completing clinical documentation, obtaining and/or reviewing separately obtained history, counseling and educating the patient/family/caregiver, ordering medications, tests, or procedures, independently interpreting results (not separately reported), communicating results to the patient/family/caregiver, and care coordination (not separately reported). To patients reading this note: Please be advised the primary purpose of this note is for me to communicate with myself and other members of your medical team. Standard sentence structure is not always used. Medical terminology and medical abbreviations may be used. There may be grammatical and typographical errors missed in proofreading. By signing my name below, I, Francine De Los Santos, attest that this documentation has been prepared under the direction and in the presence of Dr. Diana Eastman. Electronically signedFrancine Scribe October 07, 2023 12:20 PM documented in this encounter [facility] 10-07-2023 Note HNO ID: [id number] Author: DIANA EASTMAN MD Service: ? Author Type: Physician Type: Progress Notes Filed: 10/17/2023 11:01 Note Text: REPRODUCTIVE ENDOCRINOLOGY AND INFERTILITY RETURN PATIENT CLINIC NOTE SERVICE DATE: 10/07/2023 SERVICE TIME: 12:05 AM NAME: Clay Cristina FERTILITY HISTORY Note copied from prior visit dated 02/19/[address] 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 Eastman Repeat HSG normal SA not done yet Letrozole 7.5 mg x6 month with regular ovulation, did not take it August-September cycle LMPs: 10/17, 09/09, 08/09, 07/09, 06/08 Here to discuss next steps Next Steps: - continue folate supplementation - continue inositols - metformin titrate to 2000 mg daily - weight loss, goal of 15-30 pounds, appointment with Dr. Denis Lagunas for weight loss - ovulation induction plus IUI x 4 cycles LABS/IMAGING: Latest Ref Rng 12/25/2022 Anti Mullerian Hormone 0.58 - 8.13 ng/mL 15.10 (H) Semen Analysis: 12/09/22 Latest Ref Rng 12/09/2022 Abstinence Time Days 2.0 Collection Time 9:13 Receipt Time 10:45 Semen Volume >=1.50 mL 0.40 (L) Concentration >=15.00 M/mL 2.50 (L) Total Count Sperm M 1.00 % Motile Sperm (%OH + %MARINE WATER TENDER) >=40 % 8 (L) Washing Solution Enhance W % Motile Sperm, Post >=50 % 31 (L) Undiff Round Cells Post Wash <1.00 M/mL 0.00 Final Volume mL 0.4 Total Sperm Count Post M 0.6 Total Motile Sperm M 0.2 Comment, Pre Wash Wash only. No gradient used Semen Comment 1 Clay Cristina Sperm Concentration Post M/mL 1.6 TREATMENT COURSE IUI #1: 200,000/31% prog=1-2 INTERVAL UPDATE/PROGRESS Pt completed IUI x 1 cycle so far with no . Letrozole 7.5mg, OPK. Pt then shifted focus to weight loss program with Dr. Bray, pt reports losing 30 pounds on phentermine, stopped taking. PCOS history previously on Metformin (stopped June). Reports 38-60 day cycles; Provera. LMP 10/05/23, 08/28/23 ASSESSMENT AND PLAN Clay Cristina is a 33 year old female Clay was seen today for infertility. Diagnoses and all orders for this visit: PCOS (polycystic ovarian syndrome) Other orders - metFORMIN ER (GLUCOPHAGE XR) 500 mg 24 hr tablet; Take 3 tablets by mouth daily with dinner. Start with 1 tablet and increase per instructions. - letrozole (FEMARA) 2.5 mg tablet; Take 2 tablets by mouth once daily. Take on cycle days 3-7. Counseling: - counseled on diagnosis, risks, and treatment options - counseled on risks and outcomes, including SAB and genetic anomaly rates - discussed restarting metformin to improve insulin resistance, egg quality benefits, and to prevent OHSS in setting of IVF - discussed repeating SA due to most recent SA being abnormal despite normal SA a month prior - discussed re-starting letrozole 7.5 mg plus timed intercourse in meantime until SA results, pt was informed plan will be determined once updated SA results - discussed if SA is normal, continue IUI x 4 cycles with letrozole - discussed if SA is abnormal, consider IVF Next Steps: - continue folate and vit D supplementation - restart letrozole 7.5 mg plus timed intercourse in meantime - restart metformin 500 mg daily for 1 week, increase weekly by 500 mg to reach total dose of 1500 mg daily - restart licha inositol - once SA results, will determine next steps (IUI vs IVF) Dr. Diana Eastman M.D. Reproductive Endocrinology and Infertility I spent 35 minutes in the visit, with more than 50% of the total [id number] time of the visit in counseling / coordination of care. I spent a total of 40 minutes on the date of the service which included preparing to see the patient, [id number] patient care, completing clinical documentation, obtaining and/or reviewing separately obtained history, counseling and educating the patient/family/caregiver, ordering medications, tests, or procedures, independently interpreting results (not separately reported), communicating results to the patient/family/caregiver, and care coordination (not separately reported). To patients reading this note: Please be advised the primary purpose of this note is for me to communicate with myself and other members of your medical team. Standard sentence structure is not always used. Medical terminology and medical abbreviations may be used. There may be grammatical and typographical errors missed in proofreading. By signing my name below, I, Francine Gui De Los Santos, attest that this documentation has been prepared under the direction and in the presence of Dr. Diana Eastman. Electronically signed, (more content not included)... [facility] 08-25-2023 Instructions Antonia Briceno MD - 08/25/2023 9:24 AM EDT Minimizing irritation of the vulva (area around the vagina) Wear white cotton underwear. Avoid synthetic fabrics and tight clothing. Sleep wearing shorts or pajama bottoms without underwear. Shower as soon as possible after exercise. Avoid clothing detergents and soaps with perfumes or dyes. Use warm (not hot) water to wash the vulva and if you use soap use a product designed for sensitive skin (like Dove or Cetaphil). Do not douche or use creams/powders in the vulvar area unless instructed by your physician. If you must douche, use only plain warm water. Make sure the vulva is dry before dressing by patting dry with a towel. Avoid vigorous rubbing with the towel. You may want to use the blow dryer (on the cool setting only!) on the vulva. The most important way to let your body heal is by avoiding scratching. Many patients find it difficult to avoid scratching at night when they are most aware of the itchiness. You can try taking Benadryl just before bedtime. Some women find it helpful to wear cotton gloves to bed to avoid scratching at night. documented in this encounter [facility] 08-25-2023 Note HNO ID: [id number] Author: ANTONIA BRICENO MD Service: ? Author Type: Physician Type: Progress Notes Filed: 08/25/2023 14:37 Note Text: Senior Project Engineer offered: Patient declines. Clay is a 33 year old who presents for an annual gynecologic exam without complaints. Has been working on weight loss. Menses: Induced by Provera. History of PCOS. 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 History Comments: Sexual Activity: Yes; Male Contraception: No contraception data on record PAST MEDICAL HISTORY Diagnosis Date Abnormal Pap smear of cervix AScus breast cyst Cholelithiasis 07/15/14 Ectopic 11/2019 Ectopic 05/2020 Fibroid Hirsutism PCOS Miscarriage PCOS (polycystic ovarian syndrome) PAST SURGICAL HISTORY Procedure Laterality Date EXCISION GANGLION WRIST DORSAL/VOLAR PRIMARY Left EXTRACTION ERUPTED TOOTH wisdom teeth HSG N/A 02/28/2020 [facility], normal shape to uterus, bilateral tubal spill noted INSERTION OF IUD 05/07/2016 removed 04/2018 LAPAROSCOPY SURG CHOLECYSTECTOMY 07/15/2014 PAST SURGICAL HISTORY OF ganglion cyst removal left wrist TONSILLECTOMY AND ADENOIDECTOMY FAMILY HISTORY Problem Relation Age of Onset Hypertension Mother Hypertension Father Stroke Father other (PCOS) Sister other (hypocellular MDS) Sister Diabetes Maternal Grandmother Cancer Maternal Grandmother Diabetes Maternal Grandfather Hypertension Paternal Grandmother Heart Paternal Grandmother Stroke Paternal Grandmother Dementia Paternal Grandmother vascular Heart Attack Paternal Grandfather other (Other) Other SOCIAL HISTORY Social History Tobacco Use Smoking status: Never Smokeless tobacco: Never Vaping Use Vaping Use: Never used Substance Use Topics Alcohol use: No Drug use: No REVIEW OF SYSTEMS Abdomen: No abdominal pain, nausea, vomiting, diarrhea, or constipation. No bloating, early satiety, indigestion, or increased flatulence. Bladder: No dysuria, gross hematuria, urinary frequency, urinary urgency, or incontinence. Breast: No breast lumps, nipple d/c, overlying skin changes, redness or skin retraction. Allergies and current medication updated:Yes EXAM: BP 120/80 Ht 5' 6.5 (1.69m) Wt 266 lb 9.6 oz (120.9kg) LMP 07/20/2023 BMI 42.39 kg/(m2). GENERAL: pleasant, female in no apparent distress HEENT: Normocephalic and atraumatic NECK: full range of motion BREAST: soft, non-tender, symmetric, no dominant mass, normal nipple-areolar complex, no lymphadenopathy, and no nipple discharge CHEST: Normal inspiratory effort ABDOMEN: soft, non-tender, and no masses PELVIC: external genitalia normal, normal Bartholin's glands, urethra, Lisle's glands, no vulvar lesions, no cervical lesions, good vaginal support, physiologic discharge present, normal appearing perineal body and perianal region BIMANUAL: uterus normal size, shape and consistency, no adnexal masses, and non-tender RECTOVAGINAL: deferred. NEURO: exam grossly non-focal EXTREMITIES: normal ASSESSMENT/PLAN: 1) Health maintenance: Pap done with HPV. Nutrition, exercise and routine health maintenance exams reviewed. Has appointment scheduled with [facility]. Continue Provera to induce periods at this time with h/o PCOS. 2) Contraception: none. Contraceptive options reviewed and information provided. 3) STD screening: Declined STD check. 4) Follow up one year or sooner as needed Antonia Briceno DO [facility] 08-25-2023 History of Presen t illness Narrative Senior Project Engineer offered: Patient declines. Clay is a 33 year old who presents for an annual gynecologic exam without complaints. Has been working on weight loss. Menses: Induced by Provera. History of PCOS. 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 [employer] History Comments: Sexual Activity: Yes; Male Contraception: No contraception data on record PAST MEDICAL HISTORY Diagnosis Date Abnormal Pap smear of cervix AScus breast cyst Cholelithiasis 07/15/14 Ectopic 11/2019 Ectopic 05/2020 Fibroid Hirsutism PCOS Miscarriage PCOS (polycystic ovarian syndrome) PAST SURGICAL HISTORY Procedure Laterality Date EXCISION GANGLION WRIST DORSAL/VOLAR PRIMARY Left EXTRACTION ERUPTED TOOTH wisdom teeth [facility]G N/A 02/28/2020 [facility], normal shape to uterus, bilateral tubal spill noted INSERTION OF IUD 05/07/2016 removed 04/2018 LAPAROSCOPY SURG CHOLECYSTECTOMY 07/15/2014 PAST SURGICAL HISTORY OF ganglion cyst removal left wrist TONSILLECTOMY & ADENOIDECTOMY <AGE 14 @ 10yrs of age FAMILY HISTORY Problem Relation Age of Onset Hypertension Mother Hypertension Father Stroke Father other (PCOS) Sister other (hypocellular MDS) Sister Diabetes Maternal Grandmother Cancer Maternal Grandmother Diabetes Maternal Grandfather Hypertension Paternal Grandmother Heart Paternal Grandmother Stroke Paternal Grandmother Dementia Paternal Grandmother vascular Heart Attack Paternal Grandfather other (Other) Other SOCIAL HISTORY Social History Tobacco Use Smoking status: Never Smokeless tobacco: Never Vaping Use Vaping Use: Never used Substance Use Topics Alcohol use: No Drug use: No REVIEW OF SYSTEMS Abdomen: No abdominal pain, nausea, vomiting, diarrhea, or constipation. No bloating, early satiety, indigestion, or increased flatulence. Bladder: No dysuria, gross hematuria, urinary frequency, urinary urgency, or incontinence. Breast: No breast lumps, nipple d/c, overlying skin changes, redness or skin retraction. Allergies and current medication updated:Yes EXAM: BP 120/80 Ht 5' 6.5 (1.69m) Wt 266 lb 9.6 oz (120.9kg) LMP 07/20/2023 BMI 42.39 kg/(m^2). GENERAL: pleasant, female in no apparent distress HEENT: Normocephalic and atraumatic NECK: full range of motion BREAST: soft, non-tender, symmetric, no dominant mass, normal nipple-areolar complex, no lymphadenopathy, and no nipple discharge CHEST: Normal inspiratory effort ABDOMEN: soft, non-tender, and no masses PELVIC: external genitalia normal, normal Bartholin's glands, urethra, Lisle's glands, no vulvar lesions, no cervical lesions, good vaginal support, physiologic discharge present, normal appearing perineal body and perianal region BIMANUAL: uterus normal size, shape and consistency, no adnexal masses, and non-tender RECTOVAGINAL: deferred. NEURO: exam grossly non-focal EXTREMITIES: normal ASSESSMENT/PLAN: 1) Health maintenance: Pap done with HPV. Nutrition, exercise and routine health maintenance exams reviewed. Has appointment scheduled with [facility]. Continue Provera to induce periods at this time with h/o PCOS. 2) Contraception: none. Contraceptive options reviewed and information provided. 3) STD screening: Declined STD check. 4) Follow up one year or sooner as needed Antonia Briceno DO documented in this encounter [facility] 07-20-2023 Telephone encounter Note Patient comment: I assume this message goes to my doctor? The pharmacist said the way the script was written, insurance will not cover my refill until the . Tonight (07/18) is the last dose I have left. I am currently taking 2 pills daily and should increase to start 3 pills daily on Tuesday. Can you change it so insurance doesn't think I only need one pill a day? Requester: Patient Patients last Endocrinology visit occurred 07/05/2023 Follow-up evaluation has been established n/a. Requested Prescriptions Pending Prescriptions Disp Refills metFORMIN (GLUCOPHAGE) 500 mg tablet 180 tablet 3 Sig: Take 1 tablet by mouth daily with dinner. Start with 1 tablet daily and increase as instructed to tolerance. If patient is due for an appointment please route to provider for refill consideration and also to the endo scheduling pool. PSS NOTE: Patient needs scheduled appointment No [facility] 07-20-2023 Miscellaneous Notes Patient comment: I assume this message goes to my doctor? The pharmacist said the way the script was written, insurance will not cover my refill until the . Tonight (07/18) is the last dose I have left. I am currently taking 2 pills daily and should increase to start 3 pills daily on Tuesday. Can you change it so insurance doesn't think I only need one pill a day? Requester: Patient Patients last Endocrinology visit occurred 07/05/2023 Follow-up evaluation has been established n/a. Requested Prescriptions Pending Prescriptions Disp Refills metFORMIN (GLUCOPHAGE) 500 mg tablet 180 tablet 3 Sig: Take 1 tablet by mouth daily with dinner. Start with 1 tablet daily and increase as instructed to tolerance. If patient is due for an appointment please route to provider for refill consideration and also to the endo scheduling pool. PSS NOTE: Patient needs scheduled appointment No documented in this encounter [facility] 07-05-2023 Note HNO ID: [id number] Author: ELOY NORRIS RD Service: ? Author Type: Registered Dietitian Type: Progress Notes Filed: 08/09/2023 13:48 Note Text: Patient attended a Weight Management [facility] and is currently using the Mediterranean nutrition plan. Topics discussed in group session include: Metabolic Adaptation/ Set Point therory Handouts provided: Set Point Theory Comments: -phentermine -500 mg Metformin Last 1 Encounter Wt Readings: Date: Wt: 10/31/2020 128.8 kg (284 lb) 10/21/2021 132.7 kg (292 lb 9.6 oz) 10/22/2022 133.8 kg (295 lb) 02/08/2023 128.8 kg (284 lb) 04/05/2023 122 kg (269 lb) 06/07/2023 119.3 kg (263 lb) 07/05/2023 117.9 kg (260 lb) BMI 41.96 kg/(m2) Weight Loss to Date: 24 lbs (8.4% weight loss) Lab Results Component Value Date HBA1C 5.6 12/25/2022 HBA1C 5.3 08/11/[address] [facility] 07-05-2023 History of Presen t illness Narrative Patient attended a Weight Management [facility] and is currently using the Mediterranean nutrition plan. Topics discussed in group session include: Metabolic Adaptation/ Set Point therory Handouts provided: Set Point Theory Comments: -phentermine -500 mg Metformin Last 1 Encounter Wt Readings: Date: Wt: 10/31/2020 128.8 kg (284 lb) 10/21/2021 132.7 kg (292 lb 9.6 oz) 10/22/2022 133.8 kg (295 lb) 02/08/2023 128.8 kg (284 lb) 04/05/2023 122 kg (269 lb) 06/07/2023 119.3 kg (263 lb) 07/05/2023 117.9 kg (260 lb) BMI 41.96 kg/(m^2) Weight Loss to Date: 24 lbs (8.4% weight loss) Lab Results Component Value Date HBA1C 5.6 12/25/2022 HBA1C 5.3 08/11/[address] Images from the original note were not included. Endocrinology Virtual Visit Follow up note: CC: PCOS/FERTILTIY/Keto PROGRAM Virtual SMA #6 out of 6. Current Outpatient Medications Medication Sig metFORMIN (GLUCOPHAGE) 500 mg tablet Take 1 tablet by mouth daily with dinner. Start with 1 tablet daily and increase as instructed to tolerance. medroxyPROGESTERone (PROVERA) 10 mg tablet Take 1 tablet by mouth once daily. Take if no period for 60 days famotidine (PEPCID ORAL) Take by mouth. cetirizine HCl (ZYRTEC ORAL) Take by mouth. No current facility-administered medications for this visit. History of Present Illness Clay Cristina is a 33 year old female with h/o PCOS, Obesity BMI 41.96 kg/(m^2) and coming for follow up on PCOS Program. - Diet : No specific plan - Physical activity: walking, strength and other cardio, 4 days/week for 30-45 minutes. - Appetite: controlled - metformin, 500mg, 1 tab daily. - phentermine, 37.5mg daily. She got off schedule, so she has about 1/2 month left of her current prescription. - Periods/Ovulation: they don't exist . She is on day 52 of her cycle, so she will take provera. - weight: 260lbs - goal weight is 250-260lbs Additional comments: - experiencing a lot of stress because her sister is ill and is in the hospital. - she plans to make an appointment with her wood experimental mechanic. Patient Entered Data 02/07/2023 03/07/2023 06/06/2023 PROMIS 10 Health, in general Good Good Good Quality of life, in general Very good Good Good Physical health, in general Good Good Good Mental health, in general Fair Fair Fair Social activities satisfaction Good Good Good Performing ADL's Completely Completely Completely Social role satisfaction Good Good Good Pain, on average 0 - No Pain 2 2 Fatigue, on average Mild Moderate Moderate Emotional problems Often Sometimes Sometimes PHYSICAL Score 54.1 (Very Good) 47.7 (Good) 47.7 (Good) MENTAL Score 41.1 (Good) 41.1 (Good) 41.1 (Good) No data to display 02/07/2023 06/06/2023 Hypoglycemia Questionnaire Do you have diabetes? No No 02/07/2023 Sleep Apnea Questionnaire Snore Loudly Yes Tired, fatigued or sleepy in daytime No Stop breathing or choking/gasping during sleep No High blood pressure No Probability of moderate-severe sleep apnea (%) SAPS V2 15 (Sleep study not recommended) 04/04/2023 06/06/2023 07/05/2023 Obesity Questionnaire Difficulties following advice of nurse practitioner home assessments No No No My appetite is well controlled Yes Yes Yes Taking prescribed meds for appetite control Yes Yes Yes Hours of sleep per night 6 6 6 Level of stress 8 6 5 04/04/2023 06/06/2023 07/05/2023 Exercise Questionnaire Do you exercise Yes Yes Yes Type of exercise Walk Walk Strength Other Cardiovascular Walk Strength Other Cardiovascular Exercise time (minutes) 30-45 minutes 30-45 minutes 30-45 minutes Physical Limitations No No No No data to display Past Medical & Social History PAST MEDICAL HISTORY Diagnosis Date Abnormal Pap smear of cervix AScus breast cyst Cholelithiasis 07/15/14 Ectopic 11/2019 Ectopic 05/2020 Fibroid Hirsutism PCOS Miscarriage PCOS (polycystic ovarian syndrome) PAST SURGICAL HISTORY Procedure Laterality Date EXCISION GANGLION WRIST DORSAL/VOLAR PRIMARY Left EXTRACTION ERUPTED TOOTH wisdom teeth HSG N/A 02/28/2020 [facility], normal shape to uterus, bilateral tubal spill noted INSERTION OF IUD 05/07/2016 removed 04/2018 LAPAROSCOPY SURG CHOLECYSTECTOMY 07/15/2014 PAST SURGICAL HISTORY OF ganglion cyst removal left wrist TONSILLECTOMY & ADENOIDECTOMY <AGE 14 @ 10yrs of age FAMILY HISTORY Problem Relation Age of Onset Hypertension Mother Hypertension Father Stroke Father other (PCOS) Sister Diabetes Maternal Grandmother Cancer Maternal Grandmother Diabetes Maternal Grandfather Hypertension Paternal Grandmother Heart Paternal Grandmother Stroke Paternal Grandmother Heart Attack Paternal Grandfather other (Other) Other Social History Tobacco Use Smoking status: Never Smokeless tobacco: Never Vaping Use Vaping Use: Never used Substance Use Topics Alcohol use: No Drug use: No Review of Systems Skin: no rashes, pruritis or dry skin Cardiac: denies chest pain, heart palpitations or orthopnea Pulmonary: denies wheezing, productive cough or exertional dyspnea GI: denies nausea, vomiting, diarrhea or constipation Musc: denies history of upper or lower extremity weakness Endocrine: denies polyuria, polydipsia, nocturia, blurry vision or excessive fatigue Physical examination No video exam done today Impression/Medical Problems Clay Cristina is a 33 year old female is here for PCOS Virtual [facility] program Recommendations - decrease phentermine, 37.5mg, to 1/2 tab daily. - take provera to start period. = continue current diet and exercise = continue current meds/OCP I agree with the Chief Complaint, ROS, and Past Histories independently gathered by the clinical desktop support manager and the remaining scribed note accurately describes my personal service to the patient. I have communicated my name and active licensure. The patient's identity and physical location were verified at the time of this visit. Either the patient or their legal branch customer service representative has been informed of the risks and benefits of -- and alternatives to -- treatment through a remote evaluation and consents to proceed with the evaluation remotely. Denis Lagunas MD Endocrinology staff Pager: [phone] July 05, 2023 The documentation for this note was completed by Tessy Wyatt RD acting as scribe for Denis Lagunas MD. July 05, 2023 10:[address] documented in this encounter [facility] 07-05-2023 Note HNO ID: [id number] Author: DENIS MACHADO MD Service: ? Author Type: Physician Type: Progress Notes Filed: 08/09/2023 13:48 Note Text: Endocrinology Virtual Visit Follow up note: CC: PCOS/FERTILTIY/Keto PROGRAM Virtual [facility] #6 out of 6. Current Outpatient Medications Medication Sig metFORMIN (GLUCOPHAGE) 500 mg tablet Take 1 tablet by mouth daily with dinner. Start with 1 tablet daily and increase as instructed to tolerance. medroxyPROGESTERone (PROVERA) 10 mg tablet Take 1 tablet by mouth once daily. Take if no period for 60 days famotidine (PEPCID ORAL) Take by mouth. cetirizine HCl (ZYRTEC ORAL) Take by mouth. No current facility-administered medications for this visit. History of Present Illness Clay Cristina is a 33 year old female with h/o PCOS, Obesity BMI 41.96 kg/(m2) and coming for follow up on PCOS Program. - Diet : No specific plan - Physical activity: walking, strength and other cardio, 4 days/week for 30-45 minutes. - Appetite: controlled - metformin, 500mg, 1 tab daily. - phentermine, 37.5mg daily. She got off schedule, so she has about 1/2 month left of her current prescription. - Periods/Ovulation: they don't exist . She is on day 52 of her cycle, so she will take provera. - weight: 260lbs - goal weight is 250-260lbs Additional comments: - experiencing a lot of stress because her sister is ill and is in the hospital. - she plans to make an appointment with her wood experimental mechanic. Patient Entered Data 02/07/2023 03/07/2023 06/06/2023 PROMIS 10 Health, in general Good Good Good Quality of life, in general Very good Good Good Physical health, in general Good Good Good Mental health, in general Fair Fair Fair Social activities satisfaction Good Good Good Performing ADL's Completely Completely Completely Social role satisfaction Good Good Good Pain, on average 0 - No Pain 2 2 Fatigue, on average Mild Moderate Moderate Emotional problems Often Sometimes Sometimes PHYSICAL Score 54.1 (Very Good) 47.7 (Good) 47.7 (Good) MENTAL Score 41.1 (Good) 41.1 (Good) 41.1 (Good) No data to display 02/07/2023 06/06/2023 Hypoglycemia Questionnaire Do you have diabetes? No No 02/07/2023 Sleep Apnea Questionnaire Snore Loudly Yes Tired, fatigued or sleepy in daytime No Stop breathing or choking/gasping during sleep No High blood pressure No Probability of moderate-severe sleep apnea (%) SAPS V2 15 (Sleep study not recommended) 04/04/2023 06/06/2023 07/05/2023 Obesity Questionnaire Difficulties following advice of nurse practitioner home assessments No No No My appetite is well controlled Yes Yes Yes Taking prescribed meds for appetite control Yes Yes Yes Hours of sleep per night 6 6 6 Level of stress 8 6 5 04/04/2023 06/06/2023 07/05/2023 Exercise Questionnaire Do you exercise Yes Yes Yes Type of exercise Walk Walk Strength Other Cardiovascular Walk Strength Other Cardiovascular Exercise time (minutes) 30-45 minutes 30-45 minutes 30-45 minutes Physical Limitations No No No No data to display Past Medical AND Social History PAST MEDICAL HISTORY Diagnosis Date Abnormal Pap smear of cervix AScus breast cyst Cholelithiasis 07/15/14 Ectopic 11/2019 Ectopic 05/2020 Fibroid Hirsutism PCOS Miscarriage PCOS (polycystic ovarian syndrome) PAST SURGICAL HISTORY Procedure Laterality Date EXCISION GANGLION WRIST DORSAL/VOLAR PRIMARY Left EXTRACTION ERUPTED TOOTH wisdom teeth HSG N/A 02/28/2020 [facility], normal shape to uterus, bilateral tubal spill noted INSERTION OF IUD 05/07/2016 removed 04/2018 LAPAROSCOPY SURG CHOLECYSTECTOMY 07/15/2014 PAST SURGICAL HISTORY OF ganglion cyst removal left wrist TONSILLECTOMY AND ADENOIDECTOMY FAMILY HISTORY Problem Relation Age of Onset Hypertension Mother Hypertension Father Stroke Father other (PCOS) Sister Diabetes Maternal Grandmother Cancer Maternal Grandmother Diabetes Maternal Grandfather Hypertension Paternal Grandmother Heart Paternal Grandmother Stroke Paternal Grandmother Heart Attack Paternal Grandfather other (Other) Other Social History Tobacco Use Smoking status: Never Smokeless tobacco: Never Vaping Use Vaping Use: Never used Substance Use Topics Alcohol use: No Drug use: No Review of Systems Skin: no rashes, pruritis or dry skin Cardiac: denies chest pain, heart palpitations or orthopnea Pulmonary: denies wheezing, productive cough or exertional dyspnea GI: denies nausea, vomiting, diarrhea or constipation Musc: denies history of upper or lower extremity weakness Endocrine: denies polyuria, polydipsia, nocturia, blurry vision or excessive fatigue Physical examination No video exam done today Impression/Medical Problems Clay Cristina is a 33 year old female is here for PCOS Virtual [facility] program Recommendations - decrease phentermine, 37.5mg, to 1/2 tab daily. - take provera to start period (more content not included)... [facility] 07-01-[address] - 07/01/2023 1:53 PM EDT Thank you for choosing the [facility] Department of Endocrinology, Diabetes and Metabolism. Did you know that you need to call 48 hours in advance of your scheduled visit, if you are unable to make your appointment? The Endocrinology and Metabolism [facility] thanks you for your commitment, because patients not showing to their appointment results in a lost opportunity for patients to receive [facility] health care at the [facility]. To Cancel an appointment, please choose one of the following: - Call the Appointment Call Center at [phone] - From [facility], Go to Appointments - Cancel Appts If cancelling, consider your need to reschedule to prevent further delays in your care. Today is your last scheduled visit in the initial phase of the PCOS SMA program. Dr. Bray offers a maintenance VSMA (mVSMA) on the Tuesday of every month at 11 am. You will not automatically be scheduled for a VSMA in the maintenance phase as you were in the initial phase. Please either call me at [phone] or message me, to schedule your next mVSMA. documented in this encounter [facility] 06-07-2023 Note HNO ID: [id number] Author: ELOY NORRIS RD Service: ? Author Type: Registered Dietitian Type: Progress Notes Filed: 06/07/2023 13:56 Note Text: Patient attended a Weight Management [facility] and is currently using the Mediterranean nutrition plan. Topics discussed in group session include: Weight Plateau Handouts provided: Weight Maintenance Comments: -reports improved liver enzymes -continues with phentermine Last 1 Encounter Wt Readings: Date: Wt: 10/31/2020 128.8 kg (284 lb) 10/21/2021 132.7 kg (292 lb 9.6 oz) 10/22/2022 133.8 kg (295 lb) 02/08/2023 128.8 kg (284 lb) 04/05/2023 122 kg (269 lb) 06/07/2023 119.3 kg (263 lb) BMI 42.45 kg/(m2) Weight Loss to Date: 21 lbs (7.4% weight loss) Lab Results Component Value Date HBA1C 5.6 12/25/2022 HBA1C 5.3 08/11/[address] [facility] 06-07-2023 History of Presen t illness Narrative Patient attended a Weight Management [facility] and is currently using the Mediterranean nutrition plan. Topics discussed in group session include: Weight Plateau Handouts provided: Weight Maintenance Comments: -reports improved liver enzymes -continues with phentermine Last 1 Encounter Wt Readings: Date: Wt: 10/31/2020 128.8 kg (284 lb) 10/21/2021 132.7 kg (292 lb 9.6 oz) 10/22/2022 133.8 kg (295 lb) 02/08/2023 128.8 kg (284 lb) 04/05/2023 122 kg (269 lb) 06/07/2023 119.3 kg (263 lb) BMI 42.45 kg/(m^2) Weight Loss to Date: 21 lbs (7.4% weight loss) Lab Results Component Value Date HBA1C 5.6 12/25/2022 HBA1C 5.3 08/11/[address] Images from the original note were not included. Endocrinology Virtual Visit Follow up note: CC: PCOS/FERTILTIY/Keto PROGRAM Virtual SMA #5 out of 6. Current Outpatient Medications Medication Sig metFORMIN (GLUCOPHAGE) 500 mg tablet Take 1 tablet by mouth daily with dinner. Start with 1 tablet daily and increase as instructed to tolerance. medroxyPROGESTERone (PROVERA) 10 mg tablet Take 1 tablet by mouth once daily. Take if no period for 60 days famotidine (PEPCID ORAL) Take by mouth. cetirizine HCl (ZYRTEC ORAL) Take by mouth. No current facility-administered medications for this visit. History of Present Illness Clay Cristina is a 33 year old female with h/o PCOS, Obesity BMI 42.45 kg/(m^2) and coming for follow up on PCOS Program. - Diet : no specific plan - Physical activity: walking, strength and other cardio, 4 days/week for 30-45 minutes. - she has made a home gym and started exercising. - Appetite: controlled - phentermine, 37.5mg daily. She has 1 more month of full dose. - metformin. - Periods/Ovulation: she got a period this month with the help of provera. - provera - weight: 263 lbs - goal weight is 250-260 lbs - things have slowed down since the beginning in terms of progress, but she is not gaining. - her liver enzymes are WNL. Patient Entered Data 02/07/2023 03/07/2023 06/06/2023 PROMIS 10 Health, in general Good Good Good Quality of life, in general Very good Good Good Physical health, in general Good Good Good Mental health, in general Fair Fair Fair Social activities satisfaction Good Good Good Performing ADL's Completely Completely Completely Social role satisfaction Good Good Good Pain, on average 0 - No Pain 2 2 Fatigue, on average Mild Moderate Moderate Emotional problems Often Sometimes Sometimes PHYSICAL Score 54.1 (Very Good) 47.7 (Good) 47.7 (Good) MENTAL Score 41.1 (Good) 41.1 (Good) 41.1 (Good) No data to display 02/07/2023 06/06/2023 Hypoglycemia Questionnaire Do you have diabetes? No No 02/07/2023 Sleep Apnea Questionnaire Snore Loudly Yes Tired, fatigued or sleepy in daytime No Stop breathing or choking/gasping during sleep No High blood pressure No Probability of moderate-severe sleep apnea (%) SAPS V2 15 (Sleep study not recommended) 03/07/2023 04/04/2023 06/06/2023 Obesity Questionnaire Difficulties following advice of nurse practitioner home assessments No No No My appetite is well controlled Yes Yes Yes Taking prescribed meds for appetite control Yes Yes Yes Hours of sleep per night 7 6 6 Level of stress 8 8 6 03/07/2023 04/04/2023 06/06/2023 Exercise Questionnaire Do you exercise No Yes Yes Type of exercise Walk Walk Strength Other Cardiovascular Exercise time (minutes) 30-45 minutes 30-45 minutes Physical Limitations No No No No data to display Past Medical & Social History PAST MEDICAL HISTORY Diagnosis Date Abnormal Pap smear of cervix AScus breast cyst Cholelithiasis 07/15/14 Ectopic 11/2019 Ectopic 05/2020 Fibroid Hirsutism PCOS Miscarriage PCOS (polycystic ovarian syndrome) PAST SURGICAL HISTORY Procedure Laterality Date EXCISION GANGLION WRIST DORSAL/VOLAR PRIMARY Left EXTRACTION ERUPTED TOOTH wisdom teeth [facility]G N/A 02/28/2020 [facility], normal shape to uterus, bilateral tubal spill noted INSERTION OF IUD 05/07/2016 removed 04/2018 LAPAROSCOPY SURG CHOLECYSTECTOMY 07/15/2014 PAST SURGICAL HISTORY OF ganglion cyst removal left wrist TONSILLECTOMY & ADENOIDECTOMY <AGE 14 @ 10yrs of age FAMILY HISTORY Problem Relation Age of Onset Hypertension Mother Hypertension Father Stroke Father other (PCOS) Sister Diabetes Maternal Grandmother Cancer Maternal Grandmother Diabetes Maternal Grandfather Hypertension Paternal Grandmother Heart Paternal Grandmother Stroke Paternal Grandmother Heart Attack Paternal Grandfather other (Other) Other Social History Tobacco Use Smoking status: Never Smokeless tobacco: Never Vaping Use Vaping Use: Never used Substance Use Topics Alcohol use: No Drug use: No Review of Systems Skin: no rashes, pruritis or dry skin Cardiac: denies chest pain, heart palpitations or orthopnea Pulmonary: denies wheezing, productive cough or exertional dyspnea GI: denies nausea, vomiting, diarrhea or constipation Musc: denies history of upper or lower extremity weakness Endocrine: denies polyuria, polydipsia, nocturia, blurry vision or excessive fatigue Physical examination No video exam done today Impression/Medical Problems Clay Cristina is a 33 year old female is here for PCOS Virtual SMA program Recommendations - continue phentermine. = continue current diet and exercise = continue current meds/OCP I agree with the Chief Complaint, ROS, and Past Histories independently gathered by the clinical desktop support manager and the remaining scribed note accurately describes my personal service to the patient. I have communicated my name and active licensure. The patient's identity and physical location were verified at the time of this visit. Either the patient or their legal branch customer service representative has been informed of the risks and benefits of -- and alternatives to -- treatment through a remote evaluation and consents to proceed with the evaluation remotely. Denis Lagunas MD Endocrinology staff Pager: [phone] June 07, 2023 The documentation for this note was completed by Tessy Wyatt RD acting as scribe for Denis Lagunas MD. June 07, 2023 10:[address] Answers submitted by the patient for this visit: Core Review of Systems (Submitted on 06/06/2023) Fever : No Night sweats: No Recent unintentional weight change: No Nasal Congestion: No Hearing Loss: No Vision Disturbance: No A cough: No Difficulty Breathing?: No Chest pain: No Irregular heartbeat: No Leg Swelling: No Nausea: No Diarrhea: No Black tarry stools: No Difficulty Urinating?: No Awaken at Night More Than Once to Urinate?: No Joint pain or stiffness: No Muscle aches: No Leg or Foot Discomfort at Night?: No A rash: No Dizziness: No Headaches: No Memory Loss: No Seizures: No documented in this encounter [facility] 06-07-2023 Note HNO ID: [id number] Author: DENIS MACHADO MD Service: ? Author Type: Physician Type: Progress Notes Filed: 06/07/2023 13:56 Note Text: Endocrinology Virtual Visit Follow up note: CC: PCOS/FERTILTIY/Keto PROGRAM Virtual SMA #5 out of 6. Current Outpatient Medications Medication Sig metFORMIN (GLUCOPHAGE) 500 mg tablet Take 1 tablet by mouth daily with dinner. Start with 1 tablet daily and increase as instructed to tolerance. medroxyPROGESTERone (PROVERA) 10 mg tablet Take 1 tablet by mouth once daily. Take if no period for 60 days famotidine (PEPCID ORAL) Take by mouth. cetirizine HCl (ZYRTEC ORAL) Take by mouth. No current facility-administered medications for this visit. History of Present Illness Clay Cristina is a 33 year old female with h/o PCOS, Obesity BMI 42.45 kg/(m2) and coming for follow up on PCOS Program. - Diet : no specific plan - Physical activity: walking, strength and other cardio, 4 days/week for 30-45 minutes. - she has made a home gym and started exercising. - Appetite: controlled - phentermine, 37.5mg daily. She has 1 more month of full dose. - metformin. - Periods/Ovulation: she got a period this month with the help of provera. - provera - weight: 263 lbs - goal weight is 250-260 lbs - things have slowed down since the beginning in terms of progress, but she is not gaining. - her liver enzymes are WNL. Patient Entered Data 02/07/2023 03/07/2023 06/06/2023 PROMIS 10 Health, in general Good Good Good Quality of life, in general Very good Good Good Physical health, in general Good Good Good Mental health, in general Fair Fair Fair Social activities satisfaction Good Good Good Performing ADL's Completely Completely Completely Social role satisfaction Good Good Good Pain, on average 0 - No Pain 2 2 Fatigue, on average Mild Moderate Moderate Emotional problems Often Sometimes Sometimes PHYSICAL Score 54.1 (Very Good) 47.7 (Good) 47.7 (Good) MENTAL Score 41.1 (Good) 41.1 (Good) 41.1 (Good) No data to display 02/07/2023 06/06/2023 Hypoglycemia Questionnaire Do you have diabetes? No No 02/07/2023 Sleep Apnea Questionnaire Snore Loudly Yes Tired, fatigued or sleepy in daytime No Stop breathing or choking/gasping during sleep No High blood pressure No Probability of moderate-severe sleep apnea (%) SAPS V2 15 (Sleep study not recommended) 03/07/2023 04/04/2023 06/06/2023 Obesity Questionnaire Difficulties following advice of nurse practitioner home assessments No No No My appetite is well controlled Yes Yes Yes Taking prescribed meds for appetite control Yes Yes Yes Hours of sleep per night 7 6 6 Level of stress 8 8 6 03/07/2023 04/04/2023 06/06/2023 Exercise Questionnaire Do you exercise No Yes Yes Type of exercise Walk Walk Strength Other Cardiovascular Exercise time (minutes) 30-45 minutes 30-45 minutes Physical Limitations No No No No data to display Past Medical AND Social History PAST MEDICAL HISTORY Diagnosis Date Abnormal Pap smear of cervix AScus breast cyst Cholelithiasis 07/15/14 Ectopic 11/2019 Ectopic 05/2020 Fibroid Hirsutism PCOS Miscarriage PCOS (polycystic ovarian syndrome) PAST SURGICAL HISTORY Procedure Laterality Date EXCISION GANGLION WRIST DORSAL/VOLAR PRIMARY Left EXTRACTION ERUPTED TOOTH wisdom teeth HSG N/A 02/28/2020 [facility], normal shape to uterus, bilateral tubal spill noted INSERTION OF IUD 05/07/2016 removed 04/2018 LAPAROSCOPY SURG CHOLECYSTECTOMY 07/15/2014 PAST SURGICAL HISTORY OF ganglion cyst removal left wrist TONSILLECTOMY AND ADENOIDECTOMY FAMILY HISTORY Problem Relation Age of Onset Hypertension Mother Hypertension Father Stroke Father other (PCOS) Sister Diabetes Maternal Grandmother Cancer Maternal Grandmother Diabetes Maternal Grandfather Hypertension Paternal Grandmother Heart Paternal Grandmother Stroke Paternal Grandmother Heart Attack Paternal Grandfather other (Other) Other Social History Tobacco Use Smoking status: Never Smokeless tobacco: Never Vaping Use Vaping Use: Never used Substance Use Topics Alcohol use: No Drug use: No Review of Systems Skin: no rashes, pruritis or dry skin Cardiac: denies chest pain, heart palpitations or orthopnea Pulmonary: denies wheezing, productive cough or exertional dyspnea GI: denies nausea, vomiting, diarrhea or constipation Musc: denies history of upper or lower extremity weakness Endocrine: denies polyuria, polydipsia, nocturia, blurry vision or excessive fatigue Physical examination No video exam done today Impression/Medical Problems Clay Cristina is a 33 year old female is here for PCOS Virtual [facility] program Recommendations - continue phentermine. = continue current diet and exercise = continue current meds/OCP I agree with the Chief Complaint, ROS, and Past Histories independently gathered by the clinical desktop support manager and the re (more content not included)... [facility] 06-07-2023 Instructions Tessy Wyatt, MARIO - 06/07/2023 8:03 AM EDT Thank you for choosing the [facility] Department of Endocrinology, Diabetes and Metabolism. Our goal is to provide excellent health care. Virtual SMA #5 out of 6. In an effort to improve the virtual SMA experience for everyone, we respectfully ask the followin.) Please keep camera on throughout the entire visit. 2.) Please support your peer group by logging on for the entire visit. This is a group visit, and the patients who go later in the visit should have the benefit of everyone being on the call as those who go early in the visit. 3.) Please be mindful of your time with the provider, and others in the group, so everyone gets equal time. 4.) Please maintain a cordial relationship with your peers and the provider on the SMA platform. 5.) Please complete the questionnaire 48 hours prior to each visit. If the SMA equilibrium is disrupted by any patient, we will request that he/she follow individually with their provider with one-on-one visits. If you are unable to make your appointment, please be courteous and cancel your appointment. If you are unable to attend your SMA for 2 consecutive months, your name will be placed back on the waiting list. To schedule an appointment for an InBody analysis scan, please call [phone]. Looking for additional support? Join us for our monthly support group on the tuesday of every month from 6pm-7pm. 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 Participants will receive support from other group members and providers. Email to be put on our mailing list and receive links to join the group. documented in this encounter [facility] 04-05-2023 Note HNO ID: [id number] Author: ELOY NORRIS RD Service: ? Author Type: Registered Dietitian Type: Progress Notes Filed: 06/07/2023 12:37 Note Text: Patient attended a Weight Management SMA and is currently using the Mediterranean nutrition plan. Topics discussed in group session include: Sleep Hygiene Handouts provided: Sleep Diary Comments: -Metformin and phentermine -reports she is having trouble sleeping which is unusual Last 1 Encounter Wt Readings: Date: Wt: 10/31/2020 128.8 kg (284 lb) 10/21/2021 132.7 kg (292 lb 9.6 oz) 10/22/2022 133.8 kg (295 lb) 02/08/2023 128.8 kg (284 lb) 04/05/2023 122 kg (269 lb) BMI 43.42 kg/(m2) Weight Loss to Date: 15 lbs (5.3% weight loss) Lab Results Component Value Date HBA1C 5.6 12/25/2022 HBA1C 5.3 08/11/[address] [facility] 04-05-2023 History of Presen t illness Narrative Patient attended a Weight Management SMA and is currently using the Mediterranean nutrition plan. Topics discussed in group session include: Sleep Hygiene Handouts provided: Sleep Diary Comments: -Metformin and phentermine -reports she is having trouble sleeping which is unusual Last 1 Encounter Wt Readings: Date: Wt: 10/31/2020 128.8 kg (284 lb) 10/21/2021 132.7 kg (292 lb 9.6 oz) 10/22/2022 133.8 kg (295 lb) 02/08/2023 128.8 kg (284 lb) 04/05/2023 122 kg (269 lb) BMI 43.42 kg/(m^2) Weight Loss to Date: 15 lbs (5.3% weight loss) Lab Results Component Value Date HBA1C 5.6 12/25/2022 HBA1C 5.3 08/11/[address] Images from the original note were not included. Endocrinology Virtual Visit Follow up note: CC: PCOS/FERTILTIY/Keto PROGRAM Virtual SMA #3 out of 6. Current Outpatient Medications Medication Sig metFORMIN (GLUCOPHAGE) 500 mg tablet Take 1 tablet by mouth daily with dinner. Start with 1 tablet daily and increase as instructed to tolerance. Phentermine HCl 37.5 mg tablet Take 1 tablet by mouth once daily for 90 days. medroxyPROGESTERone (PROVERA) 10 mg tablet Take 1 tablet by mouth once daily. Take if no period for 60 days famotidine (PEPCID ORAL) Take by mouth. cetirizine HCl (ZYRTEC ORAL) Take by mouth. No current facility-administered medications for this visit. History of Present Illness Clay Cristina is a 33 year old female with h/o PCOS, Obesity BMI 43.42 kg/(m^2) and coming for follow up on PCOS Program. - Diet : no specific diet - Physical activity: walking 3 days/week for 30-45 minutes. - Appetite: controlled - phentermine, 37.5 mg/day. - metformin, 500 mg x 4/day. - Periods/Ovulation: she has not gotten a period in 45 days. She will take provera if she has not gotten a period by day 60. - provera - weight: 269 lbs - goal weight is 250-260 lbs Patient Entered Data PROMIS 10 02/07/2023 03/07/2023 In general, would you say your health is: Good Good In general, would you say your quality of life is: Very good Good In general, how would you rate your physical health? Good Good In general, how would you rate your mental health, including your mood and your ability to think? Fair Fair In general, how would you rate your satisfaction with your social activities and relationships? Good Good To what extent are you able to carry out your everyday physical activities such as walking, climbing stairs, carrying groceries, or moving a chair? Completely Completely In general, please rate how well you carry out your usual social activities and roles. (This includes activities at home, at work and in your community, and responsibilities as a parent, child, spouse, employee, friend, etc.) Good Good How would you rate your pain on average? 0 - No Pain 2 How would you rate your fatigue on average? Mild Moderate How often have you been bothered by emotional problems such as feeling anxious, depressed or irritable? Often Sometimes PROMIS Adult Short Form-Global Health Score (Physical) 54.1 (Very Good) 47.7 (Good) PROMIS Adult Short Form-Global Health Score (Mental) 41.1 (Good) 41.1 (Good) No flowsheet data found. Hypoglycemia Questionnaire 02/07/2023 Do you have diabetes? No Sleep Apnea Questionnaire 02/07/2023 Do you snore loudly? Yes Do you often feel sleepy, tired, or fatigued during the day? No Have you been told that you stop breathing during sleep? No Have you been told or are you being treated for high blood pressure? No Probability of moderate-severe sleep apnea (%) SAPS V2 15 (Sleep study not recommended) Obesity Questionnaire 02/07/2023 03/07/2023 04/04/2023 Are you having any difficulties following the advice of our nurse practitioner home assessments? Yes No No Is your appetite well-controlled at this time? Yes Yes Yes Are you currently taking over the counter or prescribed medication for appetite control? Yes Yes Yes How many hours of sleep do you get per night? 7 7 6 Please rate your stress level on a scale of 0 to 10, where 10 is the worst. 7 8 8 Exercise Questionnaire 02/07/2023 03/07/2023 04/04/2023 Do you exercise? No No Yes What type of exercise do you do? - - Walk How long do you usually exercise? - - 30-45 minutes Do you have physical limitations to exercise? - No No No flowsheet data found. Past Medical & Social History PAST MEDICAL HISTORY Diagnosis Date Abnormal Pap smear of cervix AScus breast cyst Cholelithiasis 07/15/14 Ectopic 11/2019 Ectopic 05/2020 Fibroid Hirsutism PCOS Miscarriage PCOS (polycystic ovarian syndrome) PAST SURGICAL HISTORY Procedure Laterality Date EXCISION GANGLION WRIST DORSAL/VOLAR PRIMARY Left EXTRACTION ERUPTED TOOTH wisdom teeth HSG N/A 02/28/2020 [facility], normal shape to uterus, bilateral tubal spill noted INSERTION OF IUD 05/07/2016 removed 04/2018 LAPAROSCOPY SURG CHOLECYSTECTOMY 07/15/2014 PAST SURGICAL HISTORY OF ganglion cyst removal left wrist TONSILLECTOMY & ADENOIDECTOMY <AGE 14 @ 10yrs of age FAMILY HISTORY Problem Relation Age of Onset Hypertension Mother Hypertension Father Stroke Father other (PCOS) Sister Diabetes Maternal Grandmother Cancer Maternal Grandmother Diabetes Maternal Grandfather Hypertension Paternal Grandmother Heart Paternal Grandmother Stroke Paternal Grandmother Heart Attack Paternal Grandfather other (Other) Other Social History Tobacco Use Smoking status: Never Smokeless tobacco: Never Vaping Use Vaping Use: Never used Substance Use Topics Alcohol use: No Drug use: No Review of Systems Skin: no rashes, pruritis or dry skin Cardiac: denies chest pain, heart palpitations or orthopnea Pulmonary: denies wheezing, productive cough or exertional dyspnea GI: denies nausea, vomiting, diarrhea or constipation Musc: denies history of upper or lower extremity weakness Endocrine: denies polyuria, polydipsia, nocturia, blurry vision or excessive fatigue Physical examination No video exam done today Impression/Medical Problems Clay Cristina is a 33 year old female is here for PCOS Virtual SMA program Recommendations - she did not have as successful a month as previous months. - she is starting a new job this week so she is experiencing some additional stress. - she has not gotten a period in 45 days. She will take provera if she does not get a period by day 60. - she is taking phentermine, and this is her 4th month. - she had blood work yesterday, and her liver enzymes are improving. - she has an appointment with an MARINE WATER TENDER tomorrow in her PCP's office. She was instructed to ask the MARINE WATER TENDER about having an US of her liver. - she is having trouble falling asleep, which is new for her. She confirms that she is taking phentermine first thing in the morning. She was instructed to alternate between 1/2 tablet and 1 tablet each day to see if this helps. = continue current diet and exercise = continue current meds/OCP I agree with the Chief Complaint, ROS, and Past Histories independently gathered by the clinical desktop support manager and the remaining scribed note accurately describes my personal service to the patient. I have communicated my name and active licensure. The patient's identity and physical location were verified at the time of this visit. Either the patient or their legal branch customer service representative has been informed of the risks and benefits of -- and alternatives to -- treatment through a remote evaluation and consents to proceed with the evaluation remotely. Denis Lagunas MD Endocrinology staff Pager: [phone] April 05, 2023 The documentation for this note was completed by Tessy Wyatt RD acting as scribe for Denis Lagunas MD. April 05, 2023 10:[address] documented in this encounter [facility] 04-05-2023 Note HNO ID: [id number] Author: DENIS MACHADO MD Service: ? Author Type: Physician Type: Progress Notes Filed: 06/07/2023 12:37 Note Text: Endocrinology Virtual Visit Follow up note: CC: PCOS/FERTILTIY/Keto PROGRAM Virtual SMA #3 out of 6. Current Outpatient Medications Medication Sig metFORMIN (GLUCOPHAGE) 500 mg tablet Take 1 tablet by mouth daily with dinner. Start with 1 tablet daily and increase as instructed to tolerance. Phentermine HCl 37.5 mg tablet Take 1 tablet by mouth once daily for 90 days. medroxyPROGESTERone (PROVERA) 10 mg tablet Take 1 tablet by mouth once daily. Take if no period for 60 days famotidine (PEPCID ORAL) Take by mouth. cetirizine HCl (ZYRTEC ORAL) Take by mouth. No current facility-administered medications for this visit. History of Present Illness Clay Cristina is a 33 year old female with h/o PCOS, Obesity BMI 43.42 kg/(m2) and coming for follow up on PCOS Program. - Diet : no specific diet - Physical activity: walking 3 days/week for 30-45 minutes. - Appetite: controlled - phentermine, 37.5 mg/day. - metformin, 500 mg x 4/day. - Periods/Ovulation: she has not gotten a period in 45 days. She will take provera if she has not gotten a period by day 60. - provera - weight: 269 lbs - goal weight is 250-260 lbs Patient Entered Data PROMIS 10 02/07/2023 03/07/2023 In general, would you say your health is: Good Good In general, would you say your quality of life is: Very good Good In general, how would you rate your physical health? Good Good In general, how would you rate your mental health, including your mood and your ability to think? Fair Fair In general, how would you rate your satisfaction with your social activities and relationships? Good Good To what extent are you able to carry out your everyday physical activities such as walking, climbing stairs, carrying groceries, or moving a chair? Completely Completely In general, please rate how well you carry out your usual social activities and roles. (This includes activities at home, at work and in your community, and responsibilities as a parent, child, spouse, employee, friend, etc.) Good Good How would you rate your pain on average? 0 - No Pain 2 How would you rate your fatigue on average? Mild Moderate How often have you been bothered by emotional problems such as feeling anxious, depressed or irritable? Often Sometimes PROMIS Adult Short Form-Global Health Score (Physical) 54.1 (Very Good) 47.7 (Good) PROMIS Adult Short Form-Global Health Score (Mental) 41.1 (Good) 41.1 (Good) No flowsheet data found. Hypoglycemia Questionnaire 02/07/2023 Do you have diabetes? No Sleep Apnea Questionnaire 02/07/2023 Do you snore loudly? Yes Do you often feel sleepy, tired, or fatigued during the day? No Have you been told that you stop breathing during sleep? No Have you been told or are you being treated for high blood pressure? No Probability of moderate-severe sleep apnea (%) SAPS V2 15 (Sleep study not recommended) Obesity Questionnaire 02/07/2023 03/07/2023 04/04/2023 Are you having any difficulties following the advice of our nurse practitioner home assessments? Yes No No Is your appetite well-controlled at this time? Yes Yes Yes Are you currently taking over the counter or prescribed medication for appetite control? Yes Yes Yes How many hours of sleep do you get per night? 7 7 6 Please rate your stress level on a scale of 0 to 10, where 10 is the worst. 7 8 8 Exercise Questionnaire 02/07/2023 03/07/2023 04/04/2023 Do you exercise? No No Yes What type of exercise do you do? - - Walk How long do you usually exercise? - - 30-45 minutes Do you have physical limitations to exercise? - No No No flowsheet data found. Past Medical AND Social History PAST MEDICAL HISTORY Diagnosis Date Abnormal Pap smear of cervix AScus breast cyst Cholelithiasis 07/15/14 Ectopic 11/2019 Ectopic 05/2020 Fibroid Hirsutism PCOS Miscarriage PCOS (polycystic ovarian syndrome) PAST SURGICAL HISTORY Procedure Laterality Date EXCISION GANGLION WRIST DORSAL/VOLAR PRIMARY Left EXTRACTION ERUPTED TOOTH wisdom teeth HSG N/A 02/28/2020 [facility], normal shape to uterus, bilateral tubal spill noted INSERTION OF IUD 05/07/2016 removed 04/2018 LAPAROSCOPY SURG CHOLECYSTECTOMY 07/15/2014 PAST SURGICAL HISTORY OF ganglion cyst removal left wrist TONSILLECTOMY AND ADENOIDECTOMY FAMILY HISTORY Problem Relation Age of Onset Hypertension Mother Hypertension Father Stroke Father other (PCOS) Sister Diabetes Maternal Grandmother Cancer Maternal Grandmother Diabetes Maternal Grandfather Hypertension Paternal Grandmother Heart Paternal Grandmother Stroke Paternal Grandmother Heart Attack Paternal Grandfather other (Other) Other Social History Tobacco Use Smoking status: Never Smokeless tobacco: Never Vaping Use Vaping Use: Never used Substanc (more content not included)... [facility] 04-01-2023 Instructions Tessy Wyatt, MARIO - 04/01/2023 4:23 PM EST Thank you for choosing the [facility] Department of Endocrinology, Diabetes and Metabolism. Our goal is to provide excellent health care. Virtual SMA #3 out of 6. In an effort to improve the virtual SMA experience for everyone, we respectfully ask the followin.) Avoid distractions and do not engage in other activities so you can be fully present. 2.) Stay on the call for the entire 60 minute visit. Please ensure you allow enough time in your schedule for the visit. This is a group visit, and the patients who go last deserve to have everyone on the call as well. 2.) Camera is on for the entire visit. 3.) No driving during the visit. Virtual visits will not be conducted if you are driving. 4.) Complete the questionnaire 24-48 hours prior to each visit. If you are unable to make your appointment, please be courteous and cancel your appointment. If you are unable to attend your SMA for 2 consecutive months, your name will be placed back on the waiting list. To schedule an appointment for an InBody analysis scan, please call [phone]. Looking for additional support? Join us for our monthly support group on the tuesday of every month from 6pm-7pm. This virtual group is for patients who would benefit from additional information from our providers to support their jail physical and mental health goals. Participants will receive support from other group members and providers. Email to be put on our mailing list and receive links to join the group. documented in this encounter [facility] 03-08-2023 History of Presen t illness Narrative Images from the original note were not included. Endocrinology Virtual Visit Follow up note: CC: PCOS/FERTILTIY/Keto PROGRAM Virtual SMA #2 out of 6. Current Outpatient Medications Medication Sig medroxyPROGESTERone (PROVERA) 10 mg tablet Take 1 tablet by mouth once daily. Take if no period for 60 days Phentermine HCl 37.5 mg tablet Take 1 tablet by mouth once daily for 90 days. metFORMIN (GLUCOPHAGE) 500 mg tablet Take 1 tablet by mouth four times daily. Start with 1 tablet daily and increase as instructed to tolerance. famotidine (PEPCID ORAL) Take by mouth. cetirizine HCl (ZYRTEC ORAL) Take by mouth. No current facility-administered medications for this visit. History of Present Illness Clay Cristina is a 33 year old female with h/o PCOS, Obesity BMI 44.39 kg/(m^2) and coming for follow up on PCOS Program. - Diet : no specific diet - RD visit with Yuly, 12/2022. - Physical activity: not exercising - appointment scheduled with Ariana, 07/2023. - Appetite: controlled - phentermine, 37.5 mg/day. - metformin, 500 mg x 4/day. - Periods/Ovulation: she got her period on her own on day 60. - provera - weight: 275 lbs - goal weight is 250-260 lbs Patient Entered Data PROMIS 10 02/07/2023 03/07/2023 In general, would you say your health is: Good Good In general, would you say your quality of life is: Very good Good In general, how would you rate your physical health? Good Good In general, how would you rate your mental health, including your mood and your ability to think? Fair Fair In general, how would you rate your satisfaction with your social activities and relationships? Good Good To what extent are you able to carry out your everyday physical activities such as walking, climbing stairs, carrying groceries, or moving a chair? Completely Completely In general, please rate how well you carry out your usual social activities and roles. (This includes activities at home, at work and in your community, and responsibilities as a parent, child, spouse, employee, friend, etc.) Good Good How would you rate your pain on average? 0 - No Pain 2 How would you rate your fatigue on average? Mild Moderate How often have you been bothered by emotional problems such as feeling anxious, depressed or irritable? Often Sometimes PROMIS Adult Short Form-Global Health Score (Physical) 54.1 (Very Good) 47.7 (Good) PROMIS Adult Short Form-Global Health Score (Mental) 41.1 (Good) 41.1 (Good) No flowsheet data found. Hypoglycemia Questionnaire 02/07/2023 Do you have diabetes? No Sleep Apnea Questionnaire 02/07/2023 Do you snore loudly? Yes Do you often feel sleepy, tired, or fatigued during the day? No Have you been told that you stop breathing during sleep? No Have you been told or are you being treated for high blood pressure? No Probability of moderate-severe sleep apnea (%) SAPS V2 15 (Sleep study not recommended) Obesity Questionnaire 02/07/2023 03/07/2023 Are you having any difficulties following the advice of our nurse practitioner home assessments? Yes No Is your appetite well-controlled at this time? Yes Yes Are you currently taking over the counter or prescribed medication for appetite control? Yes Yes How many hours of sleep do you get per night? 7 7 Please rate your stress level on a scale of 0 to 10, where 10 is the worst. 7 8 Exercise Questionnaire 02/07/2023 03/07/2023 Do you exercise? No No Do you have physical limitations to exercise? - No No flowsheet data found. Past Medical & Social History PAST MEDICAL HISTORY Diagnosis Date Abnormal Pap smear of cervix AScus breast cyst Cholelithiasis 07/15/14 Ectopic 11/2019 Ectopic 05/2020 Fibroid Hirsutism PCOS Miscarriage PCOS (polycystic ovarian syndrome) PAST SURGICAL HISTORY Procedure Laterality Date EXCISION GANGLION WRIST DORSAL/VOLAR PRIMARY Left EXTRACTION ERUPTED TOOTH wisdom teeth [facility] N/A 02/28/2020 [facility], normal shape to uterus, bilateral tubal spill noted INSERTION OF IUD 05/07/2016 removed 04/2018 LAPAROSCOPY SURG CHOLECYSTECTOMY 07/15/2014 PAST SURGICAL HISTORY OF ganglion cyst removal left wrist TONSILLECTOMY & ADENOIDECTOMY <AGE 14 @ 10yrs of age FAMILY HISTORY Problem Relation Age of Onset Hypertension Mother Hypertension Father Stroke Father other (PCOS) Sister Diabetes Maternal Grandmother Cancer Maternal Grandmother Diabetes Maternal Grandfather Hypertension Paternal Grandmother Heart Paternal Grandmother Stroke Paternal Grandmother Heart Attack Paternal Grandfather other (Other) Other Social History Tobacco Use Smoking status: Never Smokeless tobacco: Never Vaping Use Vaping Use: Never used Substance Use Topics Alcohol use: No Drug use: No Review of Systems Skin: no rashes, pruritis or dry skin Cardiac: denies chest pain, heart palpitations or orthopnea Pulmonary: denies wheezing, productive cough or exertional dyspnea GI: denies nausea, vomiting, diarrhea or constipation Musc: denies history of upper or lower extremity weakness Endocrine: denies polyuria, polydipsia, nocturia, blurry vision or excessive fatigue Physical examination No video exam done today Impression/Medical Problems Clay Cristina is a 33 year old female is here for PCOS Virtual SMA program Recommendations - she lost a little weight. - she is drinking a protein shake in the morning instead of skipping breakfast. - she is not exercising because life gets in the way of scheduling it out . - she has been out of metformin for 2 weeks. A refill will be sent to the pharmacy today. - she got her period on day 60, so she did not need provera. - liver function improved, but it is not normal, so she needs to have them repeated. - blood sugar lab is better too. = continue current diet and exercise = continue current meds/OCP I agree with the Chief Complaint, ROS, and Past Histories independently gathered by the clinical desktop support manager and the remaining scribed note accurately describes my personal service to the patient. I have communicated my name and active licensure. The patient's identity and physical location were verified at the time of this visit. Either the patient or their legal branch customer service representative has been informed of the risks and benefits of -- and alternatives to -- treatment through a remote evaluation and consents to proceed with the evaluation remotely. Denis Lagunas MD Endocrinology staff Pager: [phone] March 08, 2023 The documentation for this note was completed by Tessy Wyatt RD acting as scribe for Denis Lagunas MD. March 08, 2023 10:[address] documented in this encounter [facility] 03-08-2023 Note HNO ID: [id number] Author: Denis Machado MD Service: ? Author Type: Physician Type: Progress Notes Filed: 03/08/2023 11:42 AM Note Text: Endocrinology Virtual Visit Follow up note: CC: PCOS/FERTILTIY/Keto PROGRAM Virtual SMA #2 out of 6. Current Outpatient Medications Medication Sig medroxyPROGESTERone (PROVERA) 10 mg tablet Take 1 tablet by mouth once daily. Take if no period for 60 days Phentermine HCl 37.5 mg tablet Take 1 tablet by mouth once daily for 90 days. metFORMIN (GLUCOPHAGE) 500 mg tablet Take 1 tablet by mouth four times daily. Start with 1 tablet daily and increase as instructed to tolerance. famotidine (PEPCID ORAL) Take by mouth. cetirizine HCl (ZYRTEC ORAL) Take by mouth. No current facility-administered medications for this visit. History of Present Illness Clay Cristina is a 33 year old female with h/o PCOS, Obesity BMI 44.39 kg/(m2) and coming for follow up on PCOS Program. - Diet : no specific diet - RD visit with Yuly, 12/2022. - Physical activity: not exercising - appointment scheduled with Ariana, 07/2023. - Appetite: controlled - phentermine, 37.5 mg/day. - metformin, 500 mg x 4/day. - Periods/Ovulation: she got her period on her own on day 60. - provera - weight: 275 lbs - goal weight is 250-260 lbs Patient Entered Data PROMIS 10 02/07/2023 03/07/2023 In general, would you say your health is: Good Good In general, would you say your quality of life is: Very good Good In general, how would you rate your physical health? Good Good In general, how would you rate your mental health, including your mood and your ability to think? Fair Fair In general, how would you rate your satisfaction with your social activities and relationships? Good Good To what extent are you able to carry out your everyday physical activities such as walking, climbing stairs, carrying groceries, or moving a chair? Completely Completely In general, please rate how well you carry out your usual social activities and roles. (This includes activities at home, at work and in your community, and responsibilities as a parent, child, spouse, employee, friend, etc.) Good Good How would you rate your pain on average? 0 - No Pain 2 How would you rate your fatigue on average? Mild Moderate How often have you been bothered by emotional problems such as feeling anxious, depressed or irritable? Often Sometimes PROMIS Adult Short Form-Global Health Score (Physical) 54.1 (Very Good) 47.7 (Good) PROMIS Adult Short Form-Global Health Score (Mental) 41.1 (Good) 41.1 (Good) No flowsheet data found. Hypoglycemia Questionnaire 02/07/2023 Do you have diabetes? No Sleep Apnea Questionnaire 02/07/2023 Do you snore loudly? Yes Do you often feel sleepy, tired, or fatigued during the day? No Have you been told that you stop breathing during sleep? No Have you been told or are you being treated for high blood pressure? No Probability of moderate-severe sleep apnea (%) SAPS V2 15 (Sleep study not recommended) Obesity Questionnaire 02/07/2023 03/07/2023 Are you having any difficulties following the advice of our nurse practitioner home assessments? Yes No Is your appetite well-controlled at this time? Yes Yes Are you currently taking over the counter or prescribed medication for appetite control? Yes Yes How many hours of sleep do you get per night? 7 7 Please rate your stress level on a scale of 0 to 10, where 10 is the worst. 7 8 Exercise Questionnaire 02/07/2023 03/07/2023 Do you exercise? No No Do you have physical limitations to exercise? - No No flowsheet data found. Past Medical AND Social History PAST MEDICAL HISTORY Diagnosis Date Abnormal Pap smear of cervix AScus breast cyst Cholelithiasis 07/15/14 Ectopic 11/2019 Ectopic 05/2020 Fibroid Hirsutism PCOS Miscarriage PCOS (polycystic ovarian syndrome) PAST SURGICAL HISTORY Procedure Laterality Date EXCISION GANGLION WRIST DORSAL/VOLAR PRIMARY Left EXTRACTION ERUPTED TOOTH wisdom teeth [facility] N/A 02/28/2020 [facility], normal shape to uterus, bilateral tubal spill noted INSERTION OF IUD 05/07/2016 removed 04/2018 LAPAROSCOPY SURG CHOLECYSTECTOMY 07/15/2014 PAST SURGICAL HISTORY OF ganglion cyst removal left wrist TONSILLECTOMY AND ADENOIDECTOMY FAMILY HISTORY Problem Relation Age of Onset Hypertension Mother Hypertension Father Stroke Father other (PCOS) Sister Diabetes Maternal Grandmother Cancer Maternal Grandmother Diabetes Maternal Grandfather Hypertension Paternal Grandmother Heart Paternal Grandmother Stroke Paternal Grandmother Heart Attack Paternal Grandfather other (Other) Other Social History Tobacco Use Smoking status: Never Smokeless tobacco: Never Vaping Use Vaping Use: Never used Substance Use Topics Alcohol use: No Drug use: No Review of Systems Skin: no rashes, pruritis or dry skin Cardiac: denies chest pain, h (more content not included)... [facility] 03-07-2023 Instructions Tessy Wyatt, MARIO - 03/07/2023 1:14 PM EST Thank you for choosing the [facility] Department of Endocrinology, Diabetes and Metabolism. Our goal is to provide excellent health care. Virtual SMA #2 out of 6. In an effort to improve the virtual SMA experience for everyone, we respectfully ask the followin.) Avoid distractions and do not engage in other activities so you can be fully present. 2.) Stay on the call for the entire 60 minute visit. Please ensure you allow enough time in your schedule for the visit. This is a group visit, and the patients who go last deserve to have everyone on the call as well. 2.) Camera is on for the entire visit. 3.) No driving during the visit. Virtual visits will not be conducted if you are driving. 4.) Complete the questionnaire 24-48 hours prior to each visit. If you are unable to make your appointment, please be courteous and cancel your appointment. If you are unable to attend your SMA for 2 consecutive months, your name will be placed back on the waiting list. To schedule an appointment for an InBody analysis scan, please call [phone]. Looking for additional support? Join us for our monthly support group on the tuesday of every month from 6pm-7pm. 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 Participants will receive support from other group members and providers. Email to be put on our mailing list and receive links to join the group. documented in this encounter [facility] 02-08-2023 Note HNO ID: [id number] Author: Eloy Norris RD Service: ? Author Type: Registered Dietitian Type: Progress Notes Filed: 02/08/2023 11:59 AM Note Text: Patient attended a Weight Management SMA and is currently using the mediterranean nutrition plan. Topics discussed in group session include: Nutrition Basics Handouts provided: Basics of the Mediterranean Meal Plan Mediterranean Grocery List Comments: -met with RD 12/28/2022 -trying to eliminate pop and eat less [employer] -metformin 1,000 mg twice a day -phentermine Last 1 Encounter Wt Readings: Date: Wt: 10/31/2020 128.8 kg (284 lb) 10/21/2021 132.7 kg (292 lb 9.6 oz) 10/22/2022 133.8 kg (295 lb) 02/08/2023 128.8 kg (284 lb) BMI 45.84 kg/(m2) Weight Loss since 10/22/2022: 11 lbs (3.7% weight loss) Lab Results Component Value Date HBA1C 5.6 12/25/2022 HBA1C 5.3 08/11/[address] [facility] 02-08-2023 History of Presen t illness Narrative Patient attended a Weight Management SMA and is currently using the mediterranean nutrition plan. Topics discussed in group session include: Nutrition Basics Handouts provided: Basics of the Mediterranean Meal Plan Mediterranean Grocery List Comments: -met with RD 12/28/2022 -trying to eliminate pop and eat less [employer] -metformin 1,000 mg twice a day -phentermine Last 1 Encounter Wt Readings: Date: Wt: 10/31/2020 128.8 kg (284 lb) 10/21/2021 132.7 kg (292 lb 9.6 oz) 10/22/2022 133.8 kg (295 lb) 02/08/2023 128.8 kg (284 lb) BMI 45.84 kg/(m^2) Weight Loss since 10/22/2022: 11 lbs (3.7% weight loss) Lab Results Component Value Date HBA1C 5.6 12/25/2022 HBA1C 5.3 08/11/[address] Images from the original note were not included. Endocrinology Virtual Visit Follow up note: CC: PCOS/FERTILTIY/Keto PROGRAM Virtual SMA #1 out of 6. Current Outpatient Medications Medication Sig Phentermine HCl 37.5 mg tablet Take 1 tablet by mouth once daily for 90 days. metFORMIN (GLUCOPHAGE) 500 mg tablet Take 1 tablet by mouth four times daily. Start with 1 tablet daily and increase as instructed to tolerance. letrozole (FEMARA) 2.5 mg tablet Take 3 tablets by mouth once daily. Take on cycle days 3-7. progesterone micronized (PROMETRIUM) 200 mg capsule Use 1 capsule vaginally twice daily for 14 days. Start 3 days after LH surge. medroxyPROGESTERone (PROVERA) 10 mg tablet Take 1 tablet by mouth once daily. famotidine (PEPCID ORAL) Take by mouth. cetirizine HCl (ZYRTEC ORAL) Take by mouth. No current facility-administered medications for this visit. History of Present Illness Clay Cristina is a 33 year old female with h/o PCOS, Obesity BMI 45.84 kg/(m^2) and coming for follow up on PCOS Program. - Diet : Low carb, better choices. - RD visit, 12/2022. - cutting out pop and working on breakfast. - Physical activity: not active - visit with EP scheduled 07/2023. She will call to see if she can get in sooner. - Appetite: controlled - phentermine, 37.5 mg/day - it is helping control cravings, and only side effect is dry mouth. - metformin, 500 mg x 4/day. - Periods/Ovulation: she has not had a period in 47 days. - provera, 10 mg/day. She should take provera if she does not get her period in 60 days total. - weight: 284 lbs - goal weight is 250-260 lbs Patient Entered Data PROMIS 10 02/07/2023 In general, would you say your health is: Good In general, would you say your quality of life is: Very good In general, how would you rate your physical health? Good In general, how would you rate your mental health, including your mood and your ability to think? Fair In general, how would you rate your satisfaction with your social activities and relationships? Good To what extent are you able to carry out your everyday physical activities such as walking, climbing stairs, carrying groceries, or moving a chair? Completely In general, please rate how well you carry out your usual social activities and roles. (This includes activities at home, at work and in your community, and responsibilities as a parent, child, spouse, employee, friend, etc.) Good How would you rate your pain on average? 0 - No Pain How would you rate your fatigue on average? Mild How often have you been bothered by emotional problems such as feeling anxious, depressed or irritable? Often PROMIS Adult Short Form-Global Health Score (Physical) 54.1 (Very Good) PROMIS Adult Short Form-Global Health Score (Mental) 41.1 (Good) No flowsheet data found. Hypoglycemia Questionnaire 02/07/2023 Do you have diabetes? No Sleep Apnea Questionnaire 02/07/2023 Do you snore loudly? Yes Do you often feel sleepy, tired, or fatigued during the day? No Have you been told that you stop breathing during sleep? No Have you been told or are you being treated for high blood pressure? No Probability of moderate-severe sleep apnea (%) SAPS V2 15 (Sleep study not recommended) Obesity Questionnaire 02/07/2023 Are you having any difficulties following the advice of our nurse practitioner home assessments? Yes Is your appetite well-controlled at this time? Yes Are you currently taking over the counter or prescribed medication for appetite control? Yes How many hours of sleep do you get per night? 7 Please rate your stress level on a scale of 0 to 10, where 10 is the worst. 7 Exercise Questionnaire 02/07/2023 Do you exercise? No No flowsheet data found. Past Medical & Social History PAST MEDICAL HISTORY Diagnosis Date Abnormal Pap smear of cervix AScus breast cyst Cholelithiasis 07/15/14 Ectopic 11/2019 Ectopic 05/2020 Fibroid Hirsutism PCOS Miscarriage PCOS (polycystic ovarian syndrome) PAST SURGICAL HISTORY Procedure Laterality Date EXCISION GANGLION WRIST DORSAL/VOLAR PRIMARY Left EXTRACTION ERUPTED TOOTH wisdom teeth HSG N/A 02/28/2020 [facility], normal shape to uterus, bilateral tubal spill noted INSERTION OF IUD 05/07/2016 removed 04/2018 LAPAROSCOPY SURG CHOLECYSTECTOMY 07/15/2014 PAST SURGICAL HISTORY OF ganglion cyst removal left wrist TONSILLECTOMY & ADENOIDECTOMY <AGE 14 @ 10yrs of age FAMILY HISTORY Problem Relation Age of Onset Hypertension Mother Hypertension Father Stroke Father other (PCOS) Sister Diabetes Maternal Grandmother Cancer Maternal Grandmother Diabetes Maternal Grandfather Hypertension Paternal Grandmother Heart Paternal Grandmother Stroke Paternal Grandmother Heart Attack Paternal Grandfather other (Other) Other Social History Tobacco Use Smoking status: Never Smokeless tobacco: Never Vaping Use Vaping Use: Never used Substance Use Topics Alcohol use: No Drug use: No Review of Systems Skin: no rashes, pruritis or dry skin Cardiac: denies chest pain, heart palpitations or orthopnea Pulmonary: denies wheezing, productive cough or exertional dyspnea GI: denies nausea, vomiting, diarrhea or constipation Musc: denies history of upper or lower extremity weakness Endocrine: denies polyuria, polydipsia, nocturia, blurry vision or excessive fatigue Physical examination No video exam done today Impression/Medical Problems Clay Cristina is a 33 year old female is here for PCOS Virtual SMA program Recommendations = she is not doing letrozole right now. She was taking it, but stopped it when she started phentermine. = she is losing weight. = liver function reordered. = continue current diet and exercise. = continue current meds. I agree with the Chief Complaint, ROS, and Past Histories independently gathered by the clinical desktop support manager and the remaining scribed note accurately describes my personal service to the patient. I have communicated my name and active licensure. The patient's identity and physical location were verified at the time of this visit. Either the patient or their legal branch customer service representative has been informed of the risks and benefits of -- and alternatives to -- treatment through a remote evaluation and consents to proceed with the evaluation remotely. Denis Lagunas MD Endocrinology staff Pager: [phone] February 08, 2023 The documentation for this note was completed by Tessy Wyatt RD acting as scribe for Denis Lagunas MD. February 08, 2023 11:[address] Answers submitted by the patient for this visit: Core Review of Systems (Submitted on 02/07/2023) Fever : No Night sweats: No Recent unintentional weight change: No Nasal Congestion: No Hearing Loss: No Vision Disturbance: No A cough: No Difficulty Breathing?: No Chest pain: No Irregular heartbeat: No Leg Swelling: No Nausea: No Diarrhea: Yes Black tarry stools: No Difficulty Urinating?: No Awaken at Night More Than Once to Urinate?: No Joint pain or stiffness: No Muscle aches: No Leg or Foot Discomfort at Night?: No A rash: No Dizziness: No Headaches: No Memory Loss: No Seizures: No documented in this encounter [facility] 02-08-2023 Note HNO ID: [id number] Author: Denis Machado MD Service: ? Author Type: Physician Type: Progress Notes Filed: 02/08/2023 11:59 AM Note Text: Endocrinology Virtual Visit Follow up note: CC: PCOS/FERTILTIY/Keto PROGRAM Virtual SMA #1 out of 6. Current Outpatient Medications Medication Sig Phentermine HCl 37.5 mg tablet Take 1 tablet by mouth once daily for 90 days. metFORMIN (GLUCOPHAGE) 500 mg tablet Take 1 tablet by mouth four times daily. Start with 1 tablet daily and increase as instructed to tolerance. letrozole (FEMARA) 2.5 mg tablet Take 3 tablets by mouth once daily. Take on cycle days 3-7. progesterone micronized (PROMETRIUM) 200 mg capsule Use 1 capsule vaginally twice daily for 14 days. Start 3 days after LH surge. medroxyPROGESTERone (PROVERA) 10 mg tablet Take 1 tablet by mouth once daily. famotidine (PEPCID ORAL) Take by mouth. cetirizine HCl (ZYRTEC ORAL) Take by mouth. No current facility-administered medications for this visit. History of Present Illness Clay Cristina is a 33 year old female with h/o PCOS, Obesity BMI 45.84 kg/(m2) and coming for follow up on PCOS Program. - Diet : Low carb, better choices. - RD visit, 12/2022. - cutting out pop and working on breakfast. - Physical activity: not active - visit with EP scheduled 07/2023. She will call to see if she can get in sooner. - Appetite: controlled - phentermine, 37.5 mg/day - it is helping control cravings, and only side effect is dry mouth. - metformin, 500 mg x 4/day. - Periods/Ovulation: she has not had a period in 47 days. - provera, 10 mg/day. She should take provera if she does not get her period in 60 days total. - weight: 284 lbs - goal weight is 250-260 lbs Patient Entered Data PROMIS 10 02/07/2023 In general, would you say your health is: Good In general, would you say your quality of life is: Very good In general, how would you rate your physical health? Good In general, how would you rate your mental health, including your mood and your ability to think? Fair In general, how would you rate your satisfaction with your social activities and relationships? Good To what extent are you able to carry out your everyday physical activities such as walking, climbing stairs, carrying groceries, or moving a chair? Completely In general, please rate how well you carry out your usual social activities and roles. (This includes activities at home, at work and in your community, and responsibilities as a parent, child, spouse, employee, friend, etc.) Good How would you rate your pain on average? 0 - No Pain How would you rate your fatigue on average? Mild How often have you been bothered by emotional problems such as feeling anxious, depressed or irritable? Often PROMIS Adult Short Form-Global Health Score (Physical) 54.1 (Very Good) PROMIS Adult Short Form-Global Health Score (Mental) 41.1 (Good) No flowsheet data found. Hypoglycemia Questionnaire 02/07/2023 Do you have diabetes? No Sleep Apnea Questionnaire 02/07/2023 Do you snore loudly? Yes Do you often feel sleepy, tired, or fatigued during the day? No Have you been told that you stop breathing during sleep? No Have you been told or are you being treated for high blood pressure? No Probability of moderate-severe sleep apnea (%) SAPS V2 15 (Sleep study not recommended) Obesity Questionnaire 02/07/2023 Are you having any difficulties following the advice of our nurse practitioner home assessments? Yes Is your appetite well-controlled at this time? Yes Are you currently taking over the counter or prescribed medication for appetite control? Yes How many hours of sleep do you get per night? 7 Please rate your stress level on a scale of 0 to 10, where 10 is the worst. 7 Exercise Questionnaire 02/07/2023 Do you exercise? No No flowsheet data found. Past Medical AND Social History PAST MEDICAL HISTORY Diagnosis Date Abnormal Pap smear of cervix AScus breast cyst Cholelithiasis 07/15/14 Ectopic 11/2019 Ectopic 05/2020 Fibroid Hirsutism PCOS Miscarriage PCOS (polycystic ovarian syndrome) PAST SURGICAL HISTORY Procedure Laterality Date EXCISION GANGLION WRIST DORSAL/VOLAR PRIMARY Left EXTRACTION ERUPTED TOOTH wisdom teeth HSG N/A 02/28/2020 [facility], normal shape to uterus, bilateral tubal spill noted INSERTION OF IUD 05/07/2016 removed 04/2018 LAPAROSCOPY SURG CHOLECYSTECTOMY 07/15/2014 PAST SURGICAL HISTORY OF ganglion cyst removal left wrist TONSILLECTOMY AND ADENOIDECTOMY FAMILY HISTORY Problem Relation Age of Onset Hypertension Mother Hypertension Father Stroke Father other (PCOS) Sister Diabetes Maternal Grandmother Cancer Maternal Grandmother Diabetes Maternal Grandfather Hypertension Paternal Grandmother Heart Paternal Grandmother Stroke Paternal Grandmother Heart Attack Paternal Grandfather other (Other) Other Social History Tobacco Use (more content not included)... [facility] 02-08-2023 Instructions Tessy Wyatt, RD - 02/08/2023 8:47 AM EST Thank you for choosing the [facility] Department of Endocrinology, Diabetes and Metabolism. Our goal is to provide excellent health care. Virtual SMA #1 out of 6. As we make changes to the program, and in an effort to improve the virtual SMA experience for everyone, we respectfully ask the followin.) Avoid distractions and do not engage in other activities so you can be fully present. 2.) Stay on the call for the entire 60 minute visit. Please ensure you allow enough time in your schedule for the visit. This is a group visit, and the patients who go last deserve to have everyone on the call as well. 2.) Camera is on for the entire visit. 3.) No driving during the visit. Virtual visits will not be conducted if you are driving. 4.) Complete the questionnaire 24-48 hours prior to each visit. If you are unable to make your appointment, please be courteous and cancel your appointment. If you are unable to attend your SMA for 2 consecutive months, your name will be placed back on the waiting list. A referral has been placed for you to see the Binitrotoluene Operator. Please call [phone], to schedule your Free Exercise Consult . To schedule an appointment for an InBody analysis scan, please call [phone]. Looking for additional support? Join us for our monthly support group on the tuesday of every month from 6pm-7pm. 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 Participants will receive support from other group members and providers. Email [email or web address] to be put on our mailing list and receive links to join the group. documented in this encounter [facility] 12-23-2022 History of Presen t illness Narrative Endocrinology Virtual Note: Clay Cristina is here for a consultation upon the request of Dr. Diana Eastman MD regarding: PCOS My final recommendations will be communicated back to the requesting physician by way of shared Medical record or letter via US mail. Current Outpatient Medications Medication Sig metFORMIN (GLUCOPHAGE) 500 mg tablet Take 1 tablet by mouth four times daily. Start with 1 tablet daily and increase as instructed to tolerance. letrozole (FEMARA) 2.5 mg tablet Take 3 tablets by mouth once daily. Take on cycle days 3-7. progesterone micronized (PROMETRIUM) 200 mg capsule Use 1 capsule vaginally twice daily for 14 days. Start 3 days after LH surge. medroxyPROGESTERone (PROVERA) 10 mg tablet Take 1 tablet by mouth once daily. famotidine (PEPCID ORAL) Take by mouth. cetirizine HCl (ZYRTEC ORAL) Take by mouth. No current facility-administered medications for this visit. History of Present Illness Clay Cristina is a 32 year old female is coming for PCOS evaluation. = PCOS was diagnosed in at age of 15-16 = PCOS symptoms: acne Yes , Hirsutism Yes, irregular periods Yes, missing periods: Yes = LMP: Nov 24. Had an IUI cycle this month. = Metformin use: 2000 mg daily = history of : 4 pregnancies, 2 ectopic, 2 miscarriages. = interested in Fertility: Yes = weight history: , current weight: 295 lbs, goal weight: 250-260 lbs. = Diet history: breakfast: bagel sandwich, lunch: left overs, dinner: meat, veggies, pasta. Snacks: sweets. = Physical activity: walking at work, no exercise. = Sleep: good = FHx of PCOS: sister , DMII: grand mother Past Medical & Social History PAST MEDICAL HISTORY Diagnosis Date Abnormal Pap smear of cervix AScus breast cyst Cholelithiasis 07/15/14 Ectopic 11/2019 Ectopic 05/2020 Fibroid Hirsutism PCOS Miscarriage PCOS (polycystic ovarian syndrome) PAST SURGICAL HISTORY Procedure Laterality Date EXCISION GANGLION WRIST DORSAL/VOLAR PRIMARY Left EXTRACTION ERUPTED TOOTH wisdom teeth HSG N/A 02/28/2020 [facility], normal shape to uterus, bilateral tubal spill noted INSERTION OF IUD 05/07/2016 removed 04/2018 LAPAROSCOPY SURG CHOLECYSTECTOMY 07/15/2014 PAST SURGICAL HISTORY OF ganglion cyst removal left wrist TONSILLECTOMY & ADENOIDECTOMY <AGE 14 @ 10yrs of age FAMILY HISTORY Problem Relation Age of Onset Hypertension Mother Hypertension Father Stroke Father other (PCOS) Sister Diabetes Maternal Grandmother Cancer Maternal Grandmother Diabetes Maternal Grandfather Hypertension Paternal Grandmother Heart Paternal Grandmother Stroke Paternal Grandmother Heart Attack Paternal Grandfather other (Other) Other Social History Tobacco Use Smoking status: Never Smokeless tobacco: Never Vaping Use Vaping Use: Never used Substance Use Topics Alcohol use: No Drug use: No Review of Systems General: no fever, chills or acute changes in weight in the last 6 months Skin: no rashes, pruritis or dry skin Eyes: no blurred or double vision or eye pain Cardiac: denies chest pain, heart palpitations or orthopnea Pulmonary: denies wheezing, productive cough or exertional dyspnea GI: denies nausea, vomiting, diarrhea or constipation Neuro: denies numbnes/tingling in hands or feet and denies seizures Musc: denies history of upper or lower extremity weakness Endocrine: denies polyuria, polydipsia, nocturia, blurry vision or excessive fatigue Hematology: Negative for anemia, easy bleeding and bruising. Physical examination LMP 11/24/2022 Impression/Medical Problems Clay Cristina is a 32 year old female is coming for PCOS evaluation. Recommendations = went over the PCOS low carb program, she is interested will refer her to [facility]. = Exercise: REFER TO EXERCISE PHYSIOLOGY = PCOS labs ordered. = Metformin: continue 1000 mg bid. = discussed weight loss meds, she will think about it and let me know. = OCP: doing letrozole now with Provera Will see her in follow up in 1 month in [facility]. = a copy of this consultation was sent to consulting provider via EMR I spent 40 minutes in the visit, with more than 50% of the total [id number] time of the visit in counseling / coordination of care. I have communicated my name and active licensure. The patient's identity and physical location were verified at the time of this visit. Either the patient or their legal branch customer service representative has been informed of the risks and benefits of -- and alternatives to -- treatment through a remote evaluation and consents to proceed with the evaluation remotely. Denis Lagunas MD Endocrinology staff Pager: [phone] December 23, 2022 documented in this encounter [facility] 12-09-2022 Procedure note I MAGEN IUI PROCEDURE NOTE Date: 12/09/2022 Primary Proceduralist: Jenni Laurent APRN.TRAVEL REGISTERED NURSE ONCOLOGY Consents and Labels Consent Signed: Informed Consent obtained and on the chart, See Comment (Comment: eviewed and signed consent for IUI today in epic,verbal conset also, declined director dietetics department) Labels Verified With Patient: Yes, See Comment (Comment: confirmed allpatient partner and specimen identifers with patient and lab) Indications: Clay Cristina, is a 32 year old female here today for intrauterine insemination. IUI # 1. Cycle Day: 16 Last menstrual period: 11/24/2022 [place] Protocol: UNIVERSAL PROTOCOL / SAFETY CHECKLIST Procedure to be Performed: intrauterine insemination speimen out of lab at 12:25pm Sign In: A Moment of CARE was completed. Personnel directly involved with the procedure wore the appropriate PPE (Personal Protective Equipment). Special equipment: iui supplies Patient/Surrogate Stated/Verified: PATIENT VERIFIED(optional for EMERGENT procedures): Patient name, Date of , Relevant allergies, and The intended procedure Time Out Communication: Intended patient and procedure match the source documents. Consent documented and matches the intended procedure. Relevant labs, photos, and/or imaging studies have been reviewed. No correct side/site applicable for marking and visibility. No medications required for procedure. No fire risk assessment and interventions applicable. No implant(s) inserted. Sign Out: SIGN OUT (optional for EMERGENT procedures): No specimen collected. All instruments, equipment, possible retained foreign bodies accounted for. No instruments, equipment or retained foreign bodies applicable. Post-procedure follow-up management communicated and Plan of Care Visit completed when applicable. Jenni Laurent APRN.CNP IUI IUI Date: 12/09/22 IUI Time: 12:25 PM EDT IUI #: 1 Pre-Procedure Diagnosis: Infertility Post-Procedure Diagnosis: Infertility Cycle Meds: Letrozole 7.5mg Comments: cd 3-7 tolerated Trigger: LH Surge Date (Comment: 2 dark lines on cd 15) Catheter Type: Curve catheter Tenaculum: No Catheter passed: Easy Complications: None Sperm Information: Source of Sperm: Partner Ejaculated: Yes Fresh/Frozen: Fresh TMC (total motile count of sperm after wash): 200,000/31% prog= 1-2 Cycle reviewed, all questions answered. Pt instructed to take a test in 17 days if no menses and call with results. will send ,message to Dr. eastman re: low count. SIGNATURE: Jenni Laurent APRN.CNP PATIENT NAME: Clay Cristina DATE: December 09, 2022 TIME: 11:04 PM documented in this encounter [facility] 12-09-2022 History of Presen t illness Narrative IUI Pre: 2.5 m/ml, 8% Post: 1.6 m/ml, 31% Insem#: 0.2 million IUI specimen released to provider Emilie Reyes December 09, 2022 12:25 PM documented in this encounter [facility] 12-02-2022 Miscellaneous Notes This patient gave consent to this Medical Advice Message and is aware that it may result in a bill to their insurance, as well as the possibility of receiving a bill for a copay and/or deductible. They are an established patient, but are not seeking information exclusively about a problem treated during an in person or video visit in the last seven days. I did not recommend an in person or video visit within seven days of my reply. See the [employer] message reply for my assessment and plan. I spent a total of 5 minutes reviewing the patient's prior medical records and current request for medical advice, prescribing medications or ordering tests (if applicable), replying to the patient, and documenting the encounter. documented in this encounter [facility] 10-22-2022 History of Presen t illness Narrative Images from the original note were not included. REPRODUCTIVE ENDOCRINOLOGY AND INFERTILITY RETURN PATIENT CLINIC NOTE SERVICE DATE: 10/22/2022 SERVICE TIME: 2:57 PM NAME: Clay Cristina FERTILITY HISTORY Note copied from prior visit dated 02/19/2022 by myself IUD removed Apr 2018 Irregular cycles secondary to PCOS, every 30-60+ Arcuate uterus, <0.5 cm 2 miscarriages 2 ectopic pregnancies HSG at outside facility says widely patent so uncertain if they are dilated or what widely means Component Latest Ref Rng & Units 02/23/2020 05/24/2020 10/23/2020 Rubella IgG, Qual Negative Positive (A) Rubella Antibody, IgG Index Value 5.09 V.zoster IgG, Qual Negative Positive (A) Varicella zoster, IgG Index Value 383.6 Chromosome Analysis-Perip BLD See below FSH mU/mL 4.4 LH mU/mL 4.5 Testosterone <40 ng/dL 78 (H) DHEA-S 98.8 - 340.0 ug/dL 284.1 INTERVAL UPDATE/PROGRESS Repeat HSG normal SA not done yet Letrozole 7.5 mg x6 month with regular ovulation, did not take it August-September cycle LMPs: 10/17, 09/09, 08/09, 07/09, 06/08 Here to discuss next steps ASSESSMENT AND PLAN Clay Cristina is a 32 year old female Clay was seen today for establish care. Diagnoses and all orders for this visit: PCOS (polycystic ovarian syndrome) Secondary amenorrhea BMI 45.0-49.9, adult (HCC) Other orders - metFORMIN (GLUCOPHAGE) 500 mg tablet; Take 1 tablet by mouth four times daily. Start with 1 tablet daily and increase as instructed to tolerance. - letrozole (FEMARA) 2.5 mg tablet; Take 3 tablets by mouth once daily. Take on cycle days 3-7. Counseling: - counseled on diagnosis, risks, and treatment options - counseled on risks and outcomes, including SAB and genetic anomaly rates - recommended ovulation induction plus IUI as next steps x4 cycles, reviewed rates as 15-18% per cycle and 50% after 4 tries - discussed letrozole usage and risks/benefits - reviewed relation of BMI to fertility and our centers cut off of BMI <45 to do IVF - discussed starting metformin for weight loss and for egg quality related to PCOS Next Steps: - continue folate supplementation - continue inositols - metformin titrate to 2000 mg daily - weight loss, goal of 15-30 pounds, appointment with Dr. Denis Lagunas for weight loss - ovulation induction plus IUI x [address] Diana Eastman M.D. Reproductive Endocrinology and Infertility I spent 30 minutes in the visit, with more than 50% of the total [id number] time of the visit in counseling / coordination of care. I spent a total of 40 minutes on the date of the service which included preparing to see the patient, [id number] patient care, completing clinical documentation, obtaining and/or reviewing separately obtained history, counseling and educating the patient/family/caregiver, ordering medications, tests, or procedures, communicating with other HCPs (not separately reported), and care coordination (not separately reported). To patients reading this note: Please be advised the primary purpose of this note is for me to communicate with myself and other members of your medical team. Standard sentence structure is not always used. Medical terminology and medical abbreviations may be used. There may be grammatical and typographical errors missed in proofreading. documented in this encounter [facility] 03-16-2022 History of Presen t illness Narrative HSG risks, benefits, alternatives, and personnel discussed with patient who agreed to proceed. Procedural time out Done in room where procedure done: YES Done just before starting procedure: YES All members of procedural team involved in time-out: YES Active communication used: YES All team members agreed on procedure: YES Patient correctly identified by two identifiers: YES Correct side and site identified YES All needed special equipment/instruments available: YES UNIVERSAL PROTOCOL / SAFETY CHECKLIST Procedure to be performed: HSG Sign in Communication: Completed Time Out: Team Confirms the Correct Patient, Correct Procedure, Correct Site and Site Marking, Correct Position (if applicable). Time: 1332 Affirmation of Time Out: N/A Sign Out Discussion: Completed The cervix was prepped and grasped with a tenaculum. The canula was inserted into the cervix and contrast injected under fluoroscopic control. The procedure was performed without difficulty. Pt tolerated it well. Uterus: normal cavity Tubes: patent bilaterally Jose Luis Avila MD documented in this encounter [facility] 02-19-2022 History of Presen t illness Narrative Images from the original note were not included. REPRODUCTIVE ENDOCRINOLOGY AND INFERTILITY RETURN PATIENT CLINIC NOTE SERVICE DATE: 02/19/2022 SERVICE TIME: 12:27 PM NAME: Clay Cristina This is a virtual visit using Zoom. It required patient-provider interaction for the medical decision making as documented below. FERTILITY HISTORY Note copied from prior visit dated 10/31/[address] Loyda Valenzuela at [facility] Clay Cristina is a 30 year old.G 4 P 0 Ab 4 She presents with complaint of follow up. Known ot have PCOS and has had one possible ectopic pregnacy At the time of her scan at that time a vague structure noted in the right adnexa but the images are usually of poor quality. She has done 6 cycles of letrozol and got two times. The first two pregnancies were on her own. SIS normal No evidence of antiphospholipid antibody syndrome 46XX HSG normal per report Ultrasound has shown 2 cm structure on the right not clear if ectopic or slways present. PRL 5.7 TSH is normal OB History 06/2018- SAB at 6 weeks, no D&C (spontaenous preg) 11/2018- SAB at 9 weeks used misoprostal. Heart beat noted and then loss occurred. (Spon preg) 11/2019- ectopic in right tube and had methorexate x2 --- highest hcg was 1000. with letrozol 06/2020- letrozol on 5 mg.-- treated as ectopic but location unknown Menstrual Hx: Menarche: 13 Cycle length: 30-50 days Duration: 3-4 days Flow: medium Other: cramps Patient's last menstrual period was 09/25/2020. Assessment- PCOS, recurrent loss. Plan- we discussed possible use of metrfomrin startng at lower dose than before. She will see Dr Bray in her weight managment clinic. When she is ready she will call and take letrozol 5 mg days 3-7. INTERVAL UPDATE/PROGRESS IUD removed Apr 2018 Irregular cycles secondary to PCOS, every 30-60+ Arcuate uterus, <0.5 cm 2 miscarriages 2 ectopic pregnancies HSG at outside facility says widely patent so uncertain if they are dilated or what widely means Component Latest Ref Rng & Units 02/23/2020 05/24/2020 10/23/2020 Rubella IgG, Qual Negative Positive (A) Rubella Antibody, IgG Index Value 5.09 V.zoster IgG, Qual Negative Positive (A) Varicella zoster, IgG Index Value 383.6 Chromosome Analysis-Perip BLD See below FSH mU/mL 4.4 LH mU/mL 4.5 Testosterone <40 ng/dL 78 (H) DHEA-S 98.8 - 340.0 ug/dL 284.1 ASSESSMENT AND PLAN Clay Cristina is a 32 year old female Diagnoses and all orders for this visit: Encounter for fertility testing - XR HYSTEROSALPINGOGRAM; Future Anovulation Recurrent loss without current PCOS (polycystic ovarian syndrome) Other orders - letrozole (FEMARA) 2.5 mg tablet; Take 3 tablets by mouth once daily for 5 days. Take on cycle days 3-7. - progesterone micronized (PROMETRIUM) 200 mg capsule; Use 1 capsule vaginally twice daily for 14 days. Start 3 days after LH surge. Counseling and Next Steps: - counseled on diagnosis, risks, and treatment options - counseled on risks and outcomes, including SAB and genetic anomaly rates - discussed my concerns regarding widely patent tubes and her history of RPL and 2 ectopics/PULs that she may have hydrosalpinx, recommend repeat HSG done at our facility as last was 2 years ago at outside facility not done by fertility team - discussed karyotype on partner as this is the 1 remaining RPL test that has not been done - recommended myoinositol for PCOS, instructions sent via [employer] - ovulation induction plus timed intercourse x6 cycles - discussed IVF as a possible pathway for RPL or tubal factor Dr. Diana Eastman M.D. Reproductive Endocrinology and Infertility Medical Decision Making: Problems: Low: Stable chronic illness Data: Unique test result(s) reviewed: 3+ Unique test(s) ordered: 2 Risk: Minimal: Minimal risk from testing/treatment Moderate: Drug management Medical Decision Making Level: 4 - Moderate To patients reading this note: Please be advised the primary purpose of this note is for me to communicate with myself and other members of your medical team. Standard sentence structure is not always used. Medical terminology and medical abbreviations may be used. There may be grammatical and typographical errors missed in proofreading. documented in this encounter [facility] 10-21-2021 History of Presen t illness Narrative Senior Project Engineer offered: Patient declines. Clay is a 31 year old who presents for an annual gynecologic exam without complaints. Menses: Regular on Femara. Otherwise 42+ day cycles given known PCOS. Has used Provera in past Contraception: none HPV vaccine: Yes Last Pap: 04/23/2016 normal HPV: 03/22/2014 negative History of abnormal pap: Yes - ASCUS pap 2014 with negative HPV Last mammogram: never Sexually active: Yes Patient concerns for STD exposure: No. 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 [employer] History LMP: 10/13/2021, Recent Age at Menarche: Age at First : Age at Menopause: [employer] History Comments: Sexual Activity: Yes; Male Contraception: No contraception data on record PAST MEDICAL HISTORY Diagnosis Date Abnormal Pap smear of cervix AScus breast cyst Cholelithiasis 07/15/14 Ectopic 11/2019 Ectopic 05/2020 Fibroid Hirsutism PCOS Miscarriage PCOS (polycystic ovarian syndrome) PAST SURGICAL HISTORY Procedure Laterality Date EXCISION GANGLION WRIST DORSAL/VOLAR PRIMARY Left EXTRACTION ERUPTED TOOTH wisdom teeth HSG N/A 02/28/2020 [facility], normal shape to uterus, bilateral tubal spill noted INSERTION OF IUD 05/07/2016 removed 04/2018 LAPAROSCOPY SURG CHOLECYSTECTOMY 07/15/2014 PAST SURGICAL HISTORY OF ganglion cyst removal left wrist TONSILLECTOMY & ADENOIDECTOMY <AGE 14 @ 10yrs of age FAMILY HISTORY Problem Relation Age of Onset Hypertension Mother Hypertension Father Stroke Father other (PCOS) Sister Diabetes Maternal Grandmother Cancer Maternal Grandmother Diabetes Maternal Grandfather Hypertension Paternal Grandmother Heart Paternal Grandmother Stroke Paternal Grandmother Heart Attack Paternal Grandfather other (Other) Other SOCIAL HISTORY Social History Tobacco Use Smoking status: Never Smoker Smokeless tobacco: Never Used Vaping Use Vaping Use: Never used Substance Use Topics Alcohol use: No Drug use: No REVIEW OF SYSTEMS Abdomen: No abdominal pain, nausea, vomiting, diarrhea, or constipation. No bloating, early satiety, indigestion, or increased flatulence. Bladder: No dysuria, gross hematuria, urinary frequency, urinary urgency, or incontinence. Breast: No breast lumps, nipple d/c, overlying skin changes, redness or skin retraction. Allergies and current medication updated:Yes EXAM: BP 118/80 Ht 5' 8 (1.73m) Wt 292 lb 9.6 oz (132.7kg) LMP 10/13/2021 BMI 44.50 kg/(m^2). GENERAL: pleasant, female in no apparent distress HEENT: Normocephalic, atraumatic, mucus membranes moist and no lesions NECK: Supple, full range of motion, no adenopathy and thyroid normal DERMATOLOGY: Normal, without lesions, non-icteric and non-hirsute BREAST: soft, non-tender, symmetric, no dominant mass, normal nipple-areolar complex, no lymphadenopathy and no nipple discharge CHEST: Normal inspiratory effort ABDOMEN: soft, non-tender and no masses PELVIC: external genitalia normal, normal Bartholin's glands, urethra, Lisle's glands, no vulvar lesions, no cervical lesions, good vaginal support, physiologic discharge present, normal appearing perineal body and perianal region BIMANUAL: uterus normal size, shape and consistency, no adnexal masses and non-tender RECTOVAGINAL: deferred. NEURO: exam grossly non-focal EXTREMITIES: normal ASSESSMENT/PLAN: 1) Health maintenance: Pap done with reflex HPV. Nutrition, exercise and routine health maintenance exams reviewed. HPV vaccine: completed series. PCOS: Discussed PCOS and questions answered. Provera for endometrial protection and regulation of menses. Discussed proper use. Fasting blood work ordered. She plans to follow up with [facility] again. Took a break due to +covid. 2) Contraception: none. Contraceptive options reviewed and information provided. 3) STD screening: Declined STD check. 4) Follow up one year or sooner as needed Antonia Briceno DO documented in this encounter [facility] 07-30-2021 Miscellaneous Notes The following approved medication requests have been transmitted electronically. Signed Prescriptions Disp Refills letrozole (FEMARA) 2.5 mg tablet 15 tablet 0 Sig: Take 3 tablets by mouth once daily. Take day 3-7 JOE: No Authorizing Provider: PATTIE PATINO APRN.CNP July 30, 2021 1:13 PM Patient wants 1 more refill of letrozole Patient is ovulating on letrozole Patient was advised to make a follow up Routing to Non Magen ivf Pool Lanette Sebastian RN July 30, 2021 12:35 PM documented in this encounter [facility] 07-24-2020 Note HNO ID: [id number] Author: Loyda Valenzuela MD Service: ? Author Type: Physician Type: Progress Notes Filed: 07/27/2020 12:02 PM Note Text: Clay Cristina is a 30 year old.G 4 P 0 Ab 4 with losses and one ectopic . Known to have PCOS. Has tried metformin before but is has caused sig stomach upset. SIS normal No evidence of antiphospholipid antibody syndrome 46XX HSG normal per report Ultrasound has shown 2 cm structure on the right not clear if ectopic or slways present. PRL 5.7 TSH is normal OB History 06/2018- SAB at 6 weeks, no DANDC (spontaenous preg) 11/2018- SAB at 9 weeks used misoprostal. Heart beat noted and then loss occurred. (Spon preg) 11/2019- ectopic in right tube and had methorexate X 2. --- highest hcg was 1000. with letrozol 06/2020- letrozol on 5 mg.-- treated as ectopic but location unknown. MENSTRUAL HISTORY: Menarche Age: 13 Length of Cycle: q 30-50 days Days: light Menstrual Flow: Menstrual Symptoms: LMP of 10/30/2019 Past Medical Hx: PAST MEDICAL HISTORY Diagnosis Date - Abnormal Pap smear of cervix AScus - breast cyst - Cholelithiasis 07/15/14 - Ectopic 11/2019 - Ectopic 05/2020 - Fibroid - Hirsutism PCOS - Miscarriage - PCOS (polycystic ovarian syndrome) Past Surgical Hx: PAST SURGICAL HISTORY Procedure Laterality Date - EXTRACTION ERUPTED TOOTH wisdom teeth - HSG N/A 02/28/2020 [facility], normal shape to uterus, bilateral tubal spill noted - INSERTION OF IUD 05/07/2016 removed 04/2018 - LAPAROSCOPIC CHOLEYCYSTECTOMY 07/15/2014 - PAST SURGICAL HISTORY OF ganglion cyst removal left wrist - REMOVE TONSILS/ADENOIDS,<12 Y/O @ 10yrs of age Social History Tobacco Use - Smoking status: Never Smoker - Smokeless tobacco: Never Used Vaping Use - Vaping Use: Never used Substance Use Topics - Alcohol use: No - Drug use: No Assessment- RPL Plan- will get pelvic ultrasound ot see if this 2 structure is seen when not . If not seen may need MRI. She is very sad and hopefully can see a counselor. In the mean time will likely see if can exercise and eat healthy. Will return to see me in 3 months and will assess if moving on to ovulation induction again. I spent a total of 30 minutes on the date of the service which included preparing to see the patient, [id number] patient care, completing clinical documentation, counseling and educating the patient/family/caregiver and ordering medications, tests, or procedures. Loyda Valenzuela MD [facility] 06-04-2020 Note HNO ID: [id number] Author: Katja Tiwari (Pa) Service: ? Author Type: Physician Precision Thread Grinder Operator Type: Progress Notes Filed: 06/04/2020 5:02 PM Note Text: AMBULATORY TELEPHONE VISIT Clay Cristina has consented to this telephone encounter. Persons Present: patient Chief Complaint/Reason: hCG result HPI: hCG result is not back yet Data Reviewed: Most recent lab Assessment: Plan: F/u via Total Time Spent: 5 minutes Katja Tiwari PA-C June 04, 2020 5:00 PM [facility] 11-14-2018 History of Past i llness Narrative Problem Noted Date Resolved Date Uterine fibroid during , antepartum 11/27/2018 Overview: 11/09/18-There is a small intramural fibroid located in the fundal aspect that is 2.4 cm in greatest dimension. Seen on 7w0d US. Bekah Alcazar APRN.DOROTHEAM with uncertain dates in first trimeste r 10/19/2018 11/27/2018 Overview: 11/09/18-JANEY 06/28/19 by 7w0d US. Bekah Alcazar APRN.MORENO 10/19/2018Patient had LMP 08/25/2018. History of irregular menses. Positive test at home 10/10. Negative at home test one week prior to that. History of miscarriage 06/2018. Denies any bleeding or pain. Discussed with Isis Raines. Quantitative HCG's ordered. TKRN Patient request for diagnostic testing 9 11/27/2018 Overview: 10/19/2018Patient desires nuchal ultrasound. TKRN Obesity in 06/29/2018 11/27/2018 Overview: 06/29/2018 Patient is obese. Will need GCT after viable determined. SW 5 weeks gestation of 06/29/2018 0 11/27/2018 Overview: 06/29/2018 NOB at 5 wk gestation. Pt declines HCG quants at this time and will call if she has any symptoms. To return in 2-3 weeks for OB visit and first US for dating. SW documented as of this encounter (statuses as of 07/30/2021) [facility] History of Past illness Narrative* Problem Noted Date Resolved Date Uterine fibroid during , antepartum 11/27/2018 Overview: 11/09/18-There is a small intramural fibroid located in the fundal aspect that is 2.4 cm in greatest dimension. Seen on 7w0d US. Bekah Alcazar APRN.MORENO with uncertain dates in first trimeste r 10/19/2018 11/27/2018 Overview: 11/09/18-JANEY 06/28/19 by 7w0d US. Bekah Alcazar APRN.MORENO 10/19/2018Patient had LMP 08/25/2018. History of irregular menses. Positive test at home 10/10. Negative at home test one week prior to that. History of miscarriage 06/2018. Denies any bleeding or pain. Discussed with Isis Raines. Quantitative HCG's ordered. TKRN Patient request for diagnostic testing 9 11/27/2018 Overview: 10/19/2018Patient desires nuchal ultrasound. TKRN Obesity in 06/29/2018 11/27/2018 Overview: 06/29/2018 Patient is obese. Will need GCT after viable determined. SW 5 weeks gestation of 06/29/2018 0 11/27/2018 Overview: 06/29/2018 NOB at 5 wk gestation. Pt declines HCG quants at this time and will call if she has any symptoms. To return in 2-3 weeks for OB visit and first US for dating. SW documented as of this encounter (statuses as of 10/21/2021) [facility] History of Past illness Narrative* Problem Noted Date Resolved Date Uterine fibroid during , antepartum 11/27/2018 Overview: 11/09/18-There is a small intramural fibroid located in the fundal aspect that is 2.4 cm in greatest dimension. Seen on 7w0d US. Bekah Alcazar APRN.CNM with uncertain dates in first trimeste r 10/19/2018 11/27/2018 Overview: 11/09/18-JANEY 06/28/19 by 7w0d US. Bekah Alcazar APRN.MORENO 10/19/2018Patient had LMP 08/25/2018. History of irregular menses. Positive test at home 10/10. Negative at home test one week prior to that. History of miscarriage 06/2018. Denies any bleeding or pain. Discussed with Isis Raines. Quantitative HCG's ordered. TKRN Patient request for diagnostic testing 9 11/27/2018 Overview: 10/19/2018Patient desires nuchal ultrasound. TKRN Obesity in 06/29/2018 11/27/2018 Overview: 06/29/2018 Patient is obese. Will need GCT after viable determined. SW 5 weeks gestation of 06/29/2018 0 11/27/2018 Overview: 06/29/2018 NOB at 5 wk gestation. Pt declines HCG quants at this time and will call if she has any symptoms. To return in 2-3 weeks for OB visit and first US for dating. SW documented as of this encounter (statuses as of 02/19/2022) [facility] History of Past illness Narrative* Problem Noted Date Resolved Date Uterine fibroid during , antepartum 11/27/2018 Overview: 11/09/18-There is a small intramural fibroid located in the fundal aspect that is 2.4 cm in greatest dimension. Seen on 7w0d US. Bekah Alcazar APRN.DOROTHEAM with uncertain dates in first trimeste r 10/19/2018 11/27/2018 Overview: 11/09/18-JANEY 06/28/19 by 7w0d US. Bekah Alcazar APRN.MORENO 10/19/2018Patient had LMP 08/25/2018. History of irregular menses. Positive test at home 10/10. Negative at home test one week prior to that. History of miscarriage 06/2018. Denies any bleeding or pain. Discussed with Isis Raines. Quantitative HCG's ordered. TKRN Patient request for diagnostic testing 9 11/27/2018 Overview: 10/19/2018Patient desires nuchal ultrasound. TKRN Obesity in 06/29/2018 11/27/2018 Overview: 06/29/2018 Patient is obese. Will need GCT after viable determined. SW 5 weeks gestation of 06/29/2018 0 11/27/2018 Overview: 06/29/2018 NOB at 5 wk gestation. Pt declines HCG quants at this time and will call if she has any symptoms. To return in 2-3 weeks for OB visit and first US for dating. SW documented as of this encounter (statuses as of 03/22/2022) [facility] History of Past illness Narrative* Problem Noted Date Diagnosed Date Resolved Date Uterine fibroid during , antepartum 9 11/27/2018 Overview: 11/09/18-There is a small intramural fibroid located in the fundal aspect that is 2.4 cm in greatest dimension. Seen on 7w0d US. Bekah Alcazar APRN.MORENO with uncertain mya es in first trimester 10/19/2018 11/27/2018 Overview: 11/09/18-JANEY 06/28/19 by 7w0d US. Bekah Alcazar APRN.MORENO 10/19/2018Patient had LMP 08/25/2018. History of irregular menses. Positive test at home 10/10. Negative at home test one week prior to that. History of miscarriage 06/2018. Denies any bleeding or pain. Discussed with Isis Raines. Quantitative HCG's ordered. TKRN Patient request for diagnostic testing 10/19/2018 11/27/2018 Overview: 10/19/2018Patient desires nuchal ultrasound. TKRN Obesity in 06/29/2018 019 Overview: 06/29/2018 Patient is obese. Will need GCT after viable determined. SW 5 weeks gestation of 06/29/2018 11/27/2018 Overview: 06/29/2018 NOB at 5 wk gestation. Pt declines HCG quants at this time and will call if she has any symptoms. To return in 2-3 weeks for OB visit and first US for dating. SW documented as of this encounter (statuses as of 10/22/2022) [facility] History of Past illness Narrative* Problem Noted Date Diagnosed Date Resolved Date Uterine fibroid during , antepartum 9 11/27/2018 Overview: 11/09/18-There is a small intramural fibroid located in the fundal aspect that is 2.4 cm in greatest dimension. Seen on 7w0d US. Bekah Alcazar APRN.CNM with uncertain mya es in first trimester 10/19/2018 11/27/2018 Overview: 11/09/18-JANEY 06/28/19 by 7w0d US. Bekah Alcazar APRN.CNM 10/19/2018Patient had LMP 08/25/2018. History of irregular menses. Positive test at home 10/10. Negative at home test one week prior to that. History of miscarriage 06/2018. Denies any bleeding or pain. Discussed with Isis Raines. Quantitative HCG's ordered. TKRN Patient request for diagnostic testing 10/19/2018 11/27/2018 Overview: 10/19/2018Patient desires nuchal ultrasound. TKRN Obesity in 06/29/2018 019 Overview: 06/29/2018 Patient is obese. Will need GCT after viable determined. SW 5 weeks gestation of 06/29/2018 11/27/2018 Overview: 06/29/2018 NOB at 5 wk gestation. Pt declines HCG quants at this time and will call if she has any symptoms. To return in 2-3 weeks for OB visit and first US for dating. SW documented as of this encounter (statuses as of 12/02/2022) [facility] History of Past illness Narrative* Problem Noted Date Diagnosed Date Resolved Date Uterine fibroid during , antepartum 9 11/27/2018 Overview: 11/09/18-There is a small intramural fibroid located in the fundal aspect that is 2.4 cm in greatest dimension. Seen on 7w0d US. Bekah Alcazar APRN.CNM with uncertain mya es in first trimester 10/19/2018 11/27/2018 Overview: 11/09/18-JANEY 06/28/19 by 7w0d US. Bekah Alcazar APRN.MORENO 10/19/2018Patient had LMP 08/25/2018. History of irregular menses. Positive test at home 10/10. Negative at home test one week prior to that. History of miscarriage 06/2018. Denies any bleeding or pain. Discussed with Isis Raines. Quantitative HCG's ordered. TKRN Patient request for diagnostic testing 10/19/2018 11/27/2018 Overview: 10/19/2018Patient desires nuchal ultrasound. TKRN Obesity in 06/29/2018 019 Overview: 06/29/2018 Patient is obese. Will need GCT after viable determined. SW 5 weeks gestation of 06/29/2018 11/27/2018 Overview: 06/29/2018 NOB at 5 wk gestation. Pt declines HCG quants at this time and will call if she has any symptoms. To return in 2-3 weeks for OB visit and first US for dating. SW documented as of this encounter (statuses as of 12/10/2022) [facility] History of Past illness Narrative* Problem Noted Date Diagnosed Date Resolved Date Uterine fibroid during , antepartum 9 11/27/2018 Overview: 11/09/18-There is a small intramural fibroid located in the fundal aspect that is 2.4 cm in greatest dimension. Seen on 7w0d US. Bekah Alcazar APRN.CNYoana with uncertain mya es in first trimester 10/19/2018 11/27/2018 Overview: 11/09/18-JANEY 06/28/19 by 7w0d US. Bekah Alcazar APRN.MORENO 10/19/2018Patient had LMP 08/25/2018. History of irregular menses. Positive test at home 10/10. Negative at home test one week prior to that. History of miscarriage 06/2018. Denies any bleeding or pain. Discussed with Isis Raines. Quantitative HCG's ordered. TKRN Patient request for diagnostic testing 10/19/2018 11/27/2018 Overview: 10/19/2018Patient desires nuchal ultrasound. TKRN Obesity in 06/29/2018 019 Overview: 06/29/2018 Patient is obese. Will need GCT after viable determined. SW 5 weeks gestation of 06/29/2018 11/27/2018 Overview: 06/29/2018 NOB at 5 wk gestation. Pt declines HCG quants at this time and will call if she has any symptoms. To return in 2-3 weeks for OB visit and first US for dating. SW documented as of this encounter (statuses as of 12/25/2022) [facility] History of Past illness Narrative* Problem Noted Date Diagnosed Date Resolved Date Uterine fibroid during , antepartum 9 11/27/2018 Overview: 11/09/18-There is a small intramural fibroid located in the fundal aspect that is 2.4 cm in greatest dimension. Seen on 7w0d US. Bekah Alcazar APRN.CNM with uncertain mya es in first trimester 10/19/2018 11/27/2018 Overview: 11/09/18-JANEY 06/28/19 by 7w0d US. Bekah Alcazar APRN.MORENO 10/19/2018Patient had LMP 08/25/2018. History of irregular menses. Positive test at home 10/10. Negative at home test one week prior to that. History of miscarriage 06/2018. Denies any bleeding or pain. Discussed with Isis Raines. Quantitative HCG's ordered. TKRN Patient request for diagnostic testing 10/19/2018 11/27/2018 Overview: 10/19/2018Patient desires nuchal ultrasound. TKRN Obesity in 06/29/2018 019 Overview: 06/29/2018 Patient is obese. Will need GCT after viable determined. SW 5 weeks gestation of 06/29/2018 11/27/2018 Overview: 06/29/2018 NOB at 5 wk gestation. Pt declines HCG quants at this time and will call if she has any symptoms. To return in 2-3 weeks for OB visit and first US for dating. SW documented as of this encounter (statuses as of 12/25/2022) [facility] History of Past illness Narrative* Problem Noted Date Diagnosed Date Resolved Date Uterine fibroid during , antepartum 9 11/27/2018 Overview: 11/09/18-There is a small intramural fibroid located in the fundal aspect that is 2.4 cm in greatest dimension. Seen on 7w0d US. Bekah Alcazar APRN.CNM with uncertain mya es in first trimester 10/19/2018 11/27/2018 Overview: 11/09/18-JANEY 06/28/19 by 7w0d US. Bekah Alcazar APRN.MORENO 10/19/2018Patient had LMP 08/25/2018. History of irregular menses. Positive test at home 10/10. Negative at home test one week prior to that. History of miscarriage 06/2018. Denies any bleeding or pain. Discussed with Isis Raines. Quantitative HCG's ordered. TKRN Patient request for diagnostic testing 10/19/2018 11/27/2018 Overview: 10/19/2018Patient desires nuchal ultrasound. TKRN Obesity in 06/29/2018 019 Overview: 06/29/2018 Patient is obese. Will need GCT after viable determined. SW 5 weeks gestation of 06/29/2018 11/27/2018 Overview: 06/29/2018 NOB at 5 wk gestation. Pt declines HCG quants at this time and will call if she has any symptoms. To return in 2-3 weeks for OB visit and first US for dating. SW documented as of this encounter (statuses as of 12/29/2022) [facility] of Past illness Narrative* Problem Noted Date Diagnosed Date Resolved Date Uterine fibroid during , antepartum 9 11/27/2018 Overview: 11/09/18-There is a small intramural fibroid located in the fundal aspect that is 2.4 cm in greatest dimension. Seen on 7w0d US. Bekah Alcazar APRN.CNM with uncertain mya es in first trimester 10/19/2018 11/27/2018 Overview: 11/09/18-JANEY 06/28/19 by 7w0d US. Bekah Alcazar APRN.MORENO 10/19/2018Patient had LMP 08/25/2018. History of irregular menses. Positive test at home 10/10. Negative at home test one week prior to that. History of miscarriage 06/2018. Denies any bleeding or pain. Discussed with Isis Raines. Quantitative HCG's ordered. TKRN Patient request for diagnostic testing 10/19/2018 11/27/2018 Overview: 10/19/2018Patient desires nuchal ultrasound. TKRN Obesity in 06/29/2018 019 Overview: 06/29/2018 Patient is obese. Will need GCT after viable determined. SW 5 weeks gestation of 06/29/2018 11/27/2018 Overview: 06/29/2018 NOB at 5 wk gestation. Pt declines HCG quants at this time and will call if she has any symptoms. To return in 2-3 weeks for OB visit and first US for dating. SW documented as of this encounter (statuses as of 02/08/2023) [facility] of Past illness Narrative* Problem Noted Date Diagnosed Date Resolved Date Uterine fibroid during , antepartum 9 11/27/2018 Overview: 11/09/18-There is a small intramural fibroid located in the fundal aspect that is 2.4 cm in greatest dimension. Seen on 7w0d US. Bekah Alcazar APRN.CNM with uncertain mya es in first trimester 10/19/2018 11/27/2018 Overview: 11/09/18-JANEY 06/28/19 by 7w0d US. Bekah Alcazar APRN.CNM 10/19/2018Patient had LMP 08/25/2018. History of irregular menses. Positive test at home 10/10. Negative at home test one week prior to that. History of miscarriage 06/2018. Denies any bleeding or pain. Discussed with Isis Raines. Quantitative HCG's ordered. TKRN Patient request for diagnostic testing 10/19/2018 11/27/2018 Overview: 10/19/2018Patient desires nuchal ultrasound. TKRN Obesity in 06/29/2018 019 Overview: 06/29/2018 Patient is obese. Will need GCT after viable determined. SW 5 weeks gestation of 06/29/2018 11/27/2018 Overview: 06/29/2018 NOB at 5 wk gestation. Pt declines HCG quants at this time and will call if she has any symptoms. To return in 2-3 weeks for OB visit and first US for dating. SW documented as of this encounter (statuses as of 03/09/2023) [facility] of Past illness Narrative* Problem Noted Date Diagnosed Date Resolved Date Uterine fibroid during , antepartum 9 11/27/2018 Overview: 11/09/18-There is a small intramural fibroid located in the fundal aspect that is 2.4 cm in greatest dimension. Seen on 7w0d US. Bekah Alcazar APRN.CNM with uncertain mya es in first trimester 10/19/2018 11/27/2018 Overview: 11/09/18-JANEY 06/28/19 by 7w0d US. Bekah Alcazar APRN.MORENO 10/19/2018Patient had LMP 08/25/2018. History of irregular menses. Positive test at home 10/10. Negative at home test one week prior to that. History of miscarriage 06/2018. Denies any bleeding or pain. Discussed with Isis Raines. Quantitative HCG's ordered. TKRN Patient request for diagnostic testing 10/19/2018 11/27/2018 Overview: 10/19/2018Patient desires nuchal ultrasound. TKRN Obesity in 06/29/2018 019 Overview: 06/29/2018 Patient is obese. Will need GCT after viable determined. SW 5 weeks gestation of 06/29/2018 11/27/2018 Overview: 06/29/2018 NOB at 5 wk gestation. Pt declines HCG quants at this time and will call if she has any symptoms. To return in 2-3 weeks for OB visit and first US for dating. SW documented as of this encounter (statuses as of 06/07/2023) [facility] of Past illness Narrative* Problem Noted Date Diagnosed Date Resolved Date Uterine fibroid during , antepartum 9 11/27/2018 Overview: 11/09/18-There is a small intramural fibroid located in the fundal aspect that is 2.4 cm in greatest dimension. Seen on 7w0d US. Bekah Alcazar APRN.MORENO with uncertain mya es in first trimester 10/19/2018 11/27/2018 Overview: 11/09/18-JANEY 06/28/19 by 7w0d US. Bekah Alcazar APRN.MORENO 10/19/2018Patient had LMP 08/25/2018. History of irregular menses. Positive test at home 07/23. Negative at home test one week prior to that. History of miscarriage 06/2018. Denies any bleeding or pain. Discussed with Isis Raines. Quantitative HCG's ordered. TKRN Patient request for diagnostic testing 10/19/2018 11/27/2018 Overview: 10/19/2018Patient desires nuchal ultrasound. TKRN Obesity in 06/29/2018 019 Overview: 06/29/2018 Patient is obese. Will need GCT after viable determined. SW 5 weeks gestation of 06/29/2018 11/27/2018 Overview: 06/29/2018 NOB at 5 wk gestation. Pt declines HCG quants at this time and will call if she has any symptoms. To return in 2-3 weeks for OB visit and first US for dating. SW documented as of this encounter (statuses as of 06/07/2023) [facility] associated with [facility] Encounter for gynecological examination (general) (routine) without abnormal findings- Primary Screening for cervical cancer Screening for malignant neoplasm of the cervix Encounter for screening for human papillomavirus (HPV) Special screening examination for human papillomavirus (HPV) Class 3 severe obesity with body mass index (BMI) of 40.0 to 44.9 in adult, unspecified obesity type, unspecified whether serious comorbidity present (HCC) PCOS (polycystic ovarian syndrome) Polycystic ovaries Anovulation Female infertility associated with [facility]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 [facility] Diagnosis Encounter for fertility testing- Primary Fertility testing Anovulation Female infertility associated with anovulation Recurrent loss without current PCOS (polycystic ovarian syndrome) Polycystic ovaries [facility] Diagnosis Encounter for fertility testing- Primary Fertility testing Recurrent loss without current [facility] PCOS (polycystic ovarian syndrome)- Primary Polycystic ovaries Secondary amenorrhea Absence of menstruation BMI 45.0-49.9, adult (HCC) Body Mass Index 45.0-49.9, adult [facility] Diagnosis Treatment plan provided- Primary documented in this encounter [facility]* Diagnosis Encounter for artificial insemination- Primary Artificial insemination Obesity, Class III, BMI >= 40 Morbid obesity documented in this encounter [facility] note* Diagnosis PCOS (polycystic ovarian syndrome)- Primary Polycystic ovaries Obesity, Class III, BMI >= 40 Morbid obesity documented in this encounter [facility] note* Diagnosis Treatment plan provided- Primary documented in this encounter [facility] note* Diagnosis Obesity, Class III, BMI >= 40- Primary Morbid obesity PCOS (polycystic ovarian syndrome) Polycystic ovaries documented in this encounter [facility] note* Diagnosis Obesity, Class III, BMI >= 40 Morbid obesity documented in this encounter [facility] note* Diagnosis PCOS (polycystic ovarian syndrome)- Primary Polycystic ovaries Obesity, Class III, BMI >= 40 Morbid obesity documented in this encounter [facility] note* Diagnosis PCOS (polycystic ovarian syndrome)- Primary Polycystic ovaries Class 3 severe obesity due to excess calories with body mass index (BMI) of 45.0 to 49.9 in adult, unspecified whether serious comorbidity present (HCC) documented in this encounter [facility] note* Diagnosis Obesity, Class III, BMI >= 40 Morbid obesity documented in this encounter [facility] note* Diagnosis Encounter for gynecological examination (general) (routine) without abnormal findings- Primary Screening for cervical cancer Screening for malignant neoplasm of the cervix Encounter for screening for human papillomavirus (HPV) Special screening examination for human papillomavirus (HPV) documented in this encounter [facility] note* Diagnosis PCOS (polycystic ovarian syndrome)- Primary Polycystic ovaries documented in this encounter [facility] note* Diagnosis Positive test- Primary examination or test, positive result documented in this encounter [facility] note* Diagnosis Procreation management investigation and testing- Primary Other investigation and testing for procreative management documented in this encounter [facility] [place] for referral (narrative)* Diagnostic Procedure Only (Routine) - Pending Review Specialty Diagnoses / Procedures Referred By Arabella wilcox Referred To Contact XR IMAGING Diagnoses Encounter for fertility testing Procedures XR HYSTEROSALPINGOGRAM CATH & SALINE/CONTRAST SONOHYSTER/HYSTEROSALPI Diana Eastman MD [address] [place] [address] Xr Imaging Referral ID Status Reason Start Date Expiration Date Visits Requested Visits Authorized [id number] Pending Review Auto-Generat ed Referral 03/22/2022 03/21/2023 1 1 [facility] Summary Purpose Family History No Family History Records FoundNo Family History Records FoundNo Family History Records FoundNo Family History Records FoundNo Family History Records Found Advance Directives No Advanced Directives Records FoundNo Advanced Directives Records FoundNo Advanced Directives Records FoundNo Advanced Directives Records FoundNo Advanced Directives Records Found Reason for Referral Specialty Diagnoses / Procedures Referred By Contac t Referred To Contact Diagnoses PCOS (polycystic ovarian syndrome) Procedures ENDOCRINOLOGY DIETITIAN VISIT (MNT) MEDICAL NUTRITION ASSMT&IVNTJ INDIV EACH 15 RI MEDICAL NUTRITION ASSMT&IVNTJ INDIV EACH 15 RI MEDICAL NUTRITION ASSMT&IVNTJ INDIV EACH 15 RI MEDICAL NUTRITION ASSMT&IVNTJ INDIV EACH 15 RI Abed Denis Lagunas MD [address] [place] [id number] Referral ID Status Reason Start Date Expiration Date Visits Requested Visits Authorized [id number] Authorized PCP Requested Referral 12/23/2022 12/23/2023 1 1 Additional Source Comments INFORMATION SOURCE (unrecogn ized section and content) DATE CREATED AUTHOR 07/29/2020 [facility] DATE CREATED AUTHOR AUTHOR'S ORGANIZ ATION 05/22/2023 [facility] DATE CREATED AUTHOR AUTHOR'S ORGANIZ ATION 06/04/2023 [facility] DATE CREATED AUTHOR AUTHOR'S ORGANIZ ATION 10/19/2023 [facility] DATE CREATED AUTHOR AUTHOR'S ORGANIZ ATION 01/08/2024 [facility] Source Comments (unrecognize d section and content) In the event this informatio n is protected by the Federal Confidentiality of Alcohol and Drug Abuse Patient Records regulations: The Federal rules restrict any use of the information to criminally investigate or prosecute any alcohol or drug abuse patient.[facility] the event this information is protected by the Federal Confidentiality of Alcohol and Drug Abuse Patient Records regulations: The Federal rules restrict any use of the information to criminally investigate or prosecute any alcohol or drug abuse patient.[facility] Hospital[facility] the event this information is protected by the Federal Confidentiality of Alcohol and Drug Abuse Patient Records regulations: The Federal rules restrict any use of the information to criminally investigate or prosecute any alcohol or drug abuse patient.[facility] the event this information is protected by the Federal Confidentiality of Alcohol and Drug Abuse Patient Records regulations: The Federal rules restrict any use of the information to criminally investigate or prosecute any alcohol or drug abuse patient.[facility] the event this information is protected by the Federal Confidentiality of Alcohol and Drug Abuse Patient Records regulations: The Federal rules restrict any use of the information to criminally investigate or prosecute any alcohol or drug abuse patient.[facility] Hospital[facility] the event this information is protected by the Federal Confidentiality of Alcohol and Drug Abuse Patient Records regulations: The Federal rules restrict any use of the information to criminally investigate or prosecute any alcohol or drug abuse patient.[facility] Hospital[facility] the event this information is protected by the Federal Confidentiality of Alcohol and Drug Abuse Patient Records regulations: The Federal rules restrict any use of the information to criminally investigate or prosecute any alcohol or drug abuse patient.[facility] Hospital[facility] the event this information is protected by the Federal Confidentiality of Alcohol and Drug Abuse Patient Records regulations: The Federal rules restrict any use of the information to criminally investigate or prosecute any alcohol or drug abuse patient.[facility] the event this information is protected by the Federal Confidentiality of Alcohol and Drug Abuse Patient Records regulations: The Federal rules restrict any use of the information to criminally investigate or prosecute any alcohol or drug abuse patient.[facility] Hospital[facility] the event this information is protected by the Federal Confidentiality of Alcohol and Drug Abuse Patient Records regulations: The Federal rules restrict any use of the information to criminally investigate or prosecute any alcohol or drug abuse patient.[facility] HospitalIn the event this information is protected by the Federal Confidentiality of Alcohol and Drug Abuse Patient Records regulations: The Federal rules restrict any use of the information to criminally investigate or prosecute any alcohol or drug abuse patient.[facility] HospitalIn the event this information is protected by the Federal Confidentiality of Alcohol and Drug Abuse Patient Records regulations: The Federal rules restrict any use of the information to criminally investigate or prosecute any alcohol or drug abuse patient.[facility] HospitalIn the event this information is protected by the Federal Confidentiality of Alcohol and Drug Abuse Patient Records regulations: The Federal rules restrict any use of the information to criminally investigate or prosecute any alcohol or drug abuse patient.[facility] HospitalIn the event this information is protected by the Federal Confidentiality of Alcohol and Drug Abuse Patient Records regulations: The Federal rules restrict any use of the information to criminally investigate or prosecute any alcohol or drug abuse patient.[facility] HospitalIn the event this information is protected by the Federal Confidentiality of Alcohol and Drug Abuse Patient Records regulations: The Federal rules restrict any use of the information to criminally investigate or prosecute any alcohol or drug abuse patient.[facility] HospitalIn the event this information is protected by the Federal Confidentiality of Alcohol and Drug Abuse Patient Records regulations: The Federal rules restrict any use of the information to criminally investigate or prosecute any alcohol or drug abuse patient.[facility] HospitalIn the event this information is protected by the Federal Confidentiality of Alcohol and Drug Abuse Patient Records regulations: The Federal rules restrict any use of the information to criminally investigate or prosecute any alcohol or drug abuse patient.[facility] HospitalIn the event this information is protected by the Federal Confidentiality of Alcohol and Drug Abuse Patient Records regulations: The Federal rules restrict any use of the information to criminally investigate or prosecute any alcohol or drug abuse patient.[facility] HospitalIn the event this information is protected by the Federal Confidentiality of Alcohol and Drug Abuse Patient Records regulations: The Federal rules restrict any use of the information to criminally investigate or prosecute any alcohol or drug abuse patient.[facility] HospitalIn the event this information is protected by the Federal Confidentiality of Alcohol and Drug Abuse Patient Records regulations: The Federal rules restrict any use of the information to criminally investigate or prosecute any alcohol or drug abuse patient.[facility] HospitalIn the event this information is protected by the Federal Confidentiality of Alcohol and Drug Abuse Patient Records regulations: The Federal rules restrict any use of the information to criminally investigate or prosecute any alcohol or drug abuse patient.[facility] Reason for Visit (unrecogniz ed section and content) Reason Comments Rx Refills Reason Comments Well Woman Reason Comments Infertility Specialty Diagnoses / Procedures Referred By Arabella wilcox Referred To Contact REPRODUCTIVE ENDOCRINOLOGY & FERTILITY Diagnoses Infertility counseling infertility consult Procedures OFFICE CONSULTATION NEW/ESTAB PATIENT 40 MIN infertility consult Diana Eastman [address] [place] [address] [facility] [address] [place] [id number] Referral ID Status Reason Start Date Expiration Date Visits Requested Visits Authorized [id number] Authorized Benefit Check 01/22/2022 03/20/2022 99 99 Specialty Diagnoses / Procedures Referred By Arabella wilcox Referred To Contact XR IMAGING Diagnoses Encounter for fertility testing Procedures XR HYSTEROSALPINGOGRAM CATH & SALINE/CONTRAST SONOHYSTER/HYSTEROSALPI HYSTEROSALPINGOGRAPHY RS&I URINE TEST Diana Eastman MD [address] [place] [address] Xr Imaging Referral ID Status Reason Start Date Expiration Date Visits Requested Visits Authorized [id number] Authorized Benefit Check 03/22/2022 03/21/2023 4 4 Reason Comments Establish Care Specialty Diagnoses / Procedures Referred By Arabella wilcox Referred To Contact REPRODUCTIVE ENDOCRINOLOGY & FERTILITY Diagnoses Encounter for other procreative management Procedures ARTIFIC INSEMINATION INTRAUTERIN OFFICE/OUTPATIENT ESTABLISHED MOD MDM 30-[place] [address] [place] [address] [facility] [address] [place] [address] Referral ID Status Reason Start Date Expiration Date V isits Requested Visits Authorized [id number] Closed Benefit Check 10/22/2022 01/20/2023 4 1 Reason Comments Weight Problem Reason Comments Medical Weight Management Reason Onset Date Comments Refill Request 07/19/2023 Reason Comments Infertility Reason Comments pos preg test Care Teams (unrecognized sec tion and content) [employer] Business [employer]st Relationship Specialty Start Date End Date Laila Lima PCP - General Family Practice 04/20/11 [employer] Business [employer]st Relationship Specialty Start Date End Date Laila Lima PCP - General Family Practice 04/20/11 [employer] Business [employer]st Relationship Specialty Start Date End Date Laila Lima PCP - General Family Medicine 04/20/11 [employer] Business Analyst Relationship Specialty Start Date End Date Laila Lima PCP - General Family Medicine 04/20/11 [employer] Business Analyst Relationship Specialty Start Date End Date Laila Lima PCP - General Family Medicine 04/20/11 [employer] Business Analyst Relationship Specialty Start Date End Date Laila Lima PCP - General Family Medicine 04/20/11 [employer] Business Analyst Relationship Specialty Start Date End Date Laila Lima PCP - General Family Medicine 04/20/11 [employer] Business Analyst Relationship Specialty Start Date End Date Laila Lima PCP - General Family Medicine 04/20/11 [employer] Business Analyst Relationship Specialty Start Date End Date Laila Lima PCP - General Family Medicine 04/20/11 [employer] Business Analyst Relationship Specialty Start Date End Date Laila Lima PCP - General Family Medicine 04/20/11 [employer] Business Analyst Relationship Specialty Start Date End Date Laila Lima PCP - [facility] 04/20/11 [employer] Business Analyst Relationship Specialty Start Date End Date Laila Lima PCP - General Family [facility] 04/20/11 [employer] Business Analyst Relationship Specialty Start Date End Date Laila Lima PCP [facility] 04/20/11 [employer] Business Analyst Relationship Specialty Start Date End Date Laila Lima PCP - General Family Medicine 04/20/11 [employer] Business Analyst Relationship Specialty Start Date End Date Laila Lima PCP General Family Medicine 04/20/11 [employer] Business Analyst Relationship Specialty Start Date End Date Laila Lima PCP General Family Medicine 04/20/11 [employer] Business [employer]st Relationship Specialty Start Date End Date Laila Lima PCP General Family Medicine 04/20/11 FOR RECORDS PERTAINING TO PATIENTS WHO ARE OR HAVE BEEN ENROLLED IN A CHEMICAL DEPENDENCY/SUBSTANCEABUSE PROGRAM, SOME INFORMATION MAY BE OMITTED. This clinical summary was aggregated from multiple sources. Caution should be exercised in using it in the provision of clinical care. This summary normalizes information from multiple sources, and as a consequence, information in this document may materially change the coding, format and clinical context of patient data. In addition, data may be omitted in some cases. CLINICAL DECISIONS SHOULD BE BASED ON THE PRIMARY CLINICAL RECORDS. [facility] [employer] [facility]. provides no warranty or guarantee of the accuracy or completeness of information in this document.
[2024-01-09 13:28] VITALS: BP 143/78; PULSE 86; O2SAT 99
--- NOTE | 2024-01-09 13:33 | ED.RN ---
Patient states she sees Diana Eastman at [facility] [phone]
[2024-01-09 15:00] VITALS: BP 147/86; O2SAT 98
[2024-01-09 17:00] VITALS: BP 127/90; PULSE 81; RESP 16; O2SAT 98
--- NOTE | 2024-01-09 18:08 | PCM.CONS.GEN ---
Assessment & Plan Assessment/Plan (1) RLQ abdominal pain: PLAN: Reviewed HCG levels and pelvic ultrasound results with patient and her partner at bedside. Discussed cannot rule out ectopic or miscarriage. This is a highly desired and she is seeing [facility]. HCG levels are increasing by 44-59%. The pelvic US report states cannot rule out ectopic . No moderate to large amounts of free fluid on pelvic ultrasound. Abdomen is non acute. Patient has not received any pain medication recently, and she is having minimal pain. No evidence of anemia and vitals are stable. Images reviewed. Reviewed case with partner Dr. Delcid for a second opinion who agrees with follow up in office tomorrow with [facility] pelvic ultrasound. Offered patient MTX or a diagnostic laparoscopy. Discussed r/b/a MTX vs diagnostic laparoscopy vs observation with close follow up tomorrow. Patient declines MTX or surgery at this time. The patient elects for follow up tomorrow. Discussed strict return precautions and reasons to return to the ER which she understands. Patient is reliable for follow up. (2) Early stage of : (3) Vaginal bleeding: HPI Consult Data Date of Consult: 01/09/24 HPI Narrative HPI Narrative: CLAY CRISTINA, is a 34 F who presents for rule out ectopic . Has been seeing [facility] for infertility. HCG 99 to 250 to 398 to 576. History of ectopic treated with MTX. She noticed RLQ pain today that has improved since being in the ER. Has been having spotting for several days. Strongly desired . PFSH Home Medications ?Medication ?Instructions ?Recorded ?Last Taken ?Type vit 122-ferrous fumarate 1 ea PO DAILY 05/30/20 Unknown History 27 mg iron-folic acid 800 mcg tablet metformin 500 mg tablet,extended mg PO 01/09/24 Unknown History release 24 hr Allergy/AdvReac Type Severity Reaction Status Date / Time No Known Allergies Allergy Verified 01/09/24 09:52 Social History Smoking Status: Never smoker Physical Exam Const alert and no apparent distress General Appearance: comfortable HEENT normocephalic Resp normal respiratory effort GI soft to palpation and non-distended GI Narrative: Minimal tenderness in lower pelvis centrally and over RLQ, no rebounding, no guarding, no rigidity Lab / Micro Data 10/21/24 10:38 Labs: Laboratory Results - last 24 hr 01/09/24 10:38: WBC 11.7 H, RBC 5.04, Hgb 13.8, Hct 43.4, MCV 86.1, MCH 27.4, MCHC 31.8 L, RDW Std Deviation 42.1, RDW Coeff of Roge 13.4, Plt Count 457 H, MPV 10.0, Immature Gran % (Auto) 0.500, Neut % (Auto) 60.1, Lymph % (Auto) 31.1, Loup % (Auto) 6.7, Eos % (Auto) 1.3, Baso % (Auto) 0.3, Absolute Neuts (auto) 7.1, Absolute Lymphs (auto) 3.65, Nucleated RBC % 0, HCG, Quant 576 H, Blood Type B POSITIVE Imaging Radiology Impression Obstetrics Ultrasound 01/09/24 11:29 IMPRESSION: No discrete evidence of an intra or extrauterine gestational sac. Possibility of a right-sided ectopic to BE considered. Electronically Signed: Jean-Claude Desai MD at 13:19 EDT , ADDENDUM: 01/09/24 1333 IMPRESSION: No discrete evidence of an intra or extrauterine gestational sac. Possibility of a right-sided ectopic to BE considered. N.B. : The above Results were Read Back by Jean-Claude Desai MD to Prashant Sorto DO, and understanding confirmed on 01/09/2024 13:27:03 (ET). Electronically Signed: Jean-Claude Desai MD at 13:19 EDT ,
[2024-01-09 18:36] VITALS: BP 121/78; PULSE 83; RESP 16; TEMP 36.8; O2SAT 99
== END 2024-01-09 18:36 | disposition home or self-care (01) ==
PROVIDERS: Emergency Provider Emergency Medicine; PCP Family Medicine; Visit Provider Emergency Medicine
DX: O26.851 Spotting complicating pregnancy, first trimester (principal); O26.891 Other specified pregnancy related conditions, first trimester; R10.2 Pelvic and perineal pain; Z3A.00 Weeks of gestation of pregnancy not specified
CPT/HCPCS: 76817; 84702; 85025; 86900; 86901; 96374; 96375; 99282; A4216; J2405

== ENCOUNTER 2024-01-13 15:19 | Day surgery (SDC) | payer BC, SELFPAY ==
[2024-01-13] VITALS (14 sets, daily range): BP systolic 118–148; BP diastolic 70–107; PULSE 65–99; RESP 14–19; TEMP 36.1–36.6; O2SAT 92–100; BMI 43.7
--- NOTE | 2024-01-13 16:27 | US_ITS ---
ACR Level 3 findings have been noted. An addendum which confirms receipt of the report will follow. INDICATION: pain -- r/o ectopic EXAMINATION: US OB Transvaginal TECHNIQUE: Transvaginal (for optimal evaluation of the adnexa) pelvic ultrasound was performed. Grayscale, spectral waveform, and color flow Doppler evaluation of the adnexa. COMPARISON: None. FINDINGS: UTERUS: Measures 7.5 x 3.9 x 3.3 cm. RIGHT OVARY: Measures 2.1 x 2.8 x 5.2 cm. Normal. LEFT OVARY: Measures 3 x 2.7 x 2 cm. Normal. FREE FLUID: Large amount of complex free fluid in the midline pelvis and right adnexa.. INTRAUTERINE GESTATIONAL SAC(s) (size/shape): Not visualized. There is a complex structure adjacent to the right ovary measuring 2.5 x 2.4 x 1.6 cm. US/Transvaginal w/Preg US IMPRESSION: Findings concerning for ruptured right adnexal ectopic. Electronically Signed: Anton Mccurdy MD at 18:11 EDT ,
[2024-01-13 16:54] LABS: Hematocrit 41.1 % (37-47); Hemoglobin 13.3 g/dL (12.0-15.0)
--- NOTE | 2024-01-13 17:17 | ED.VIS.FEGU ---
HPI HPI - Female History of Present Illness Chief Complaint: Vag Bld, Preg Informant: patient and spouse/S.O. Narrative Narrative: 2 miscarriages, 2 ectopics with no surgical interventions in the past. 5-week gestation by dates. Seen 4 days in the ED questional ectopic right side she is seen for vaginal bleeding. hCG was 500s, she was seen by OB doctor Janak, in the ED. She has been following up as an outpatient. She states last hormone levels was 1200 yesterday she had 1 drawn this morning. She had additional ultrasound in office this past Tuesday reported to me possible hemorrhagic corpus luteum. Today increasing pain at 1 PM she still having vaginal spotting. No clots. No urinary symptoms. She is blood type B+. Denies any allergies. She states she contacted her fertility clinic was not getting an answer until she checked in due to pain. Prior similar symptoms: Yes PFSH PFSH Home Medications ?Medication ?Instructions ?Recorded ?Last Taken ?Type vit 122-ferrous fumarate 1 ea PO DAILY 05/30/20 Unknown History 27 mg iron-folic acid 800 mcg tablet metformin 500 mg tablet,extended mg PO 01/09/24 Unknown History release 24 hr Allergy/AdvReac Type Severity Reaction Status Date / Time No Known Allergies Allergy Verified 01/13/24 15:20 Social History Smoking Status: Never smoker ROS ROS ED Constitutional Constitutional ED: Denies chills, fever(s) or sweats Eyes Eyes: Denies change in vision ENT ENT ED: Denies dysphagia or sore throat Cardiovascular Cardiovascular: Denies chest pain, leg edema, palpitations or racing heartbeat Respiratory/Chest Respiratory/Chest: Denies cough, dyspnea or dyspnea on exertion Gastrointestinal Gastrointestinal: Denies abdominal pain, diarrhea, nausea or vomiting Genitourinary Genitourinary ED: Reports other Details: Pelvic pain, vaginal bleed ; Denies dysuria, hematuria or urinary frequency Musculoskeletal Musculoskeletal: Denies back pain, extremity pain or neck pain Integumentary Denies rash or wounds Neurologic Neurologic: Denies headache(s), paresthesias or weakness EXAM Physical Exam Const Vital Signs: 01/13/24 15:21 01/13/24 17:20 01/13/24 18:54 Temperature 97 F L 97.6 F L Temperature Source Temporal Pulse Rate 76 99 99 Respiratory Rate 16 18 18 Respiratory Pattern Blood Pressure 148/107 H 143/84 H 143/84 H Blood Pressure Mean 120 103 103 Blood Pressure Source Blood Pressure Position Blood Pressure Location Baseline BP Pulse Ox 100 96 96 Oxygen Delivery Method Room Air 01/13/24 19:31 01/13/24 20:25 01/13/24 20:30 Temperature 97.6 F L 97.2 F L Temperature Source Temporal Pulse Rate 99 72 66 Respiratory Rate 18 16 16 Respiratory Pattern Normal Blood Pressure 143/84 H 134/75 H 119/71 Blood Pressure Mean 94 87 Blood Pressure Source Monitor Monitor Blood Pressure Position Semi-Fowlers Semi-Fowlers Blood Pressure Location Right Arm Right Arm Baseline BP 143/84 143/84 Pulse Ox 96 92 93 Oxygen Delivery Method Room Air Room Air 01/13/24 20:30 01/13/24 20:35 01/13/24 20:40 Temperature 97.2 F L Temperature Source Pulse Rate 75 65 70 Respiratory Rate 19 H 16 16 Respiratory Pattern Blood Pressure 134/75 H 121/77 H 126/80 H Blood Pressure Mean 91 95 Blood Pressure Source Monitor Monitor Blood Pressure Position Semi-Fowlers Semi-Fowlers Blood Pressure Location Right Arm Right Arm Baseline BP 143/84 143/84 Pulse Ox 100 95 94 Oxygen Delivery Method Room Air Room Air 01/13/24 20:44 01/13/24 21:00 01/13/24 21:15 Temperature Temperature Source Pulse Rate 73 94 73 Respiratory Rate 16 16 16 Respiratory Pattern Blood Pressure 123/75 H 122/76 H 127/78 H Blood Pressure Mean 91 91 94 Blood Pressure Source Monitor Monitor Monitor Blood Pressure Position Semi-Fowlers Semi-Fowlers Semi-Fowlers Blood Pressure Location Right Arm Right Arm Right Arm Baseline BP 143/84 143/84 143/84 Pulse Ox 95 98 98 Oxygen Delivery Method Room Air Room Air Room Air 01/13/24 21:23 01/13/24 21:25 01/13/24 22:37 Temperature 97.8 F 97.9 F Temperature Source Temporal Temporal Pulse Rate 89 81 Respiratory Rate 16 14 Respiratory Pattern Normal Blood Pressure 120/75 118/70 Blood Pressure Mean 90 86 Blood Pressure Source Monitor Monitor Blood Pressure Position Semi-Fowlers Semi-Fowlers Blood Pressure Location Right Arm Left Arm Baseline BP 143/84 143/84 Pulse Ox 98 95 Oxygen Delivery Method Room Air Room Air Positive well nourished and well developed Constitutional Narrative: Uncomfortable, nontoxic General Appearance ED: well developed HEENT Reports moist mucous membranes normocephalic and atraumatic Eyes EOMs intact bilaterally and conjunctivae normal General Eye ED: Yes normal appearance of both eyes Neck no lymphadenopathy and supple General: Negative for tenderness Chest Wall Chest: Negative for tenderness Resp normal respiratory effort and normal air movement Effort and Inspection: symmetric chest movement; Negative for respiratory distress Cardio regular rate, regular rhythm and no murmurs Peripheral Pulses: pulses 2+ throughout GI normal to inspection, nondistended, normoactive bowel sounds and non-tender Palpation: Negative for guarding or rebound tenderness present Narrative: Tender palpation pelvic region without guarding or rebound. Back/Spine no CVA tenderness and no thoracic nor lumbar tenderness Extremity normal to inspection General Extremety ED: Negative for edema or tenderness General Extremity: Negative for edema Neuro oriented x3 and no sensory deficits noted Sensorium / Orientation: awake and alert Skin no rashes or lesions noted and no wounds MDM MDM MDM Narrative Medical decision making narrative: Interventions / MDM: Differential diagnosis: Ectopic , pelvic pain in Diagnosis considered but do not suspect: N/A My EKG interpretation: N/A Imaging independently reviewed and interpreted by myself: Transvaginal ultrasound: Discussion with network operations center technician, concerns for ruptured ectopic increasing free fluids with concerns for clots in the pelvis. External documents reviewed: N/A Test considered but not ordered:N/A ED course: Patient increasing pain positive says had recent concerns for ectopic however reported close follow-up with OB in the office. Pain increased today. Blood pressure stable. Will check hCG quant will check hemoglobin. Morphine ordered for pain control. Reultrasound ordered. 1725: Discussion with network operations center technician concerns for ruptured ectopic . hCG at 1976. Blood pressure stable. Final read is pending. I will reach out discussed with SECURITY SERGEANT team for Dr. Briceno. 1735: I spoke with Dr. Delcid who is on-call, discussed patient's findings and concerns. She will review and call me back. Received call back from Dr. Delcid, she will see the patient and plan to take her to the OR. This was discussed with the patient. Blood pressure remained stable. Re-evaluation: stable Disposition discussed with patient/family/significant other: Patient and significant other Case discussed with consulting clinician: SECURITY SERGEANT This note was generated with [employer] dictation software. It may contain incorrect words, spelling, and punctuation that were not noted in checking the note before signing. Lab Data Attestation: I reviewed the patient's lab results. Labs: Laboratory Results - last 24 hr 01/13/24 16:47 Hgb 13.3 Hct 41.1 HCG, Quant 1977 H Radiography Diagnostic Testing: Clinical Impression(s) from Imaging Studies Obstetrics Ultrasound 01/13/24 16:27 IMPRESSION: Findings concerning for ruptured right adnexal ectopic. Electronically Signed: Anton Mccurdy MD at 18:11 EDT , ADDENDUM: 01/13/24 1825 IMPRESSION: Findings concerning for ruptured right adnexal ectopic. N.B. : Benjamin Henry DO, confirmed on 01/13/2024 18:19:03 (ET) that the healthcare facility has received the radiology report. Electronically Signed: Anton Mccurdy MD at 18:11 EDT , Critical Care Time Critical Care Time: Yes Critical care time (excluding procedures): 30-74 minutes, Discussing w/Patient &/or Family/International Marketing Intern, Discussing w/Consultants, Arranging Admission or Transfer, Performing Direct Patient Care at Bedside and - (30 minutes) Discharge Plan Triage Chief Complaint: Vag Bld, Preg ED Provider: Benjamin Henry Dx/Rx/DC Orders Clinical Impression: Ruptured ectopic , Pelvic pain Primary Care Provider: Laila Lima
[2024-01-13] MEDS: Morphine 4 MG/ML Syringe IV (17:31)
[2024-01-13 17:39] LABS: hCG Titer Quant., Serum 1977 mIU/mL (1-3)
--- OUTSIDE RECORDS SUMMARY | 2024-01-13 17:50 | XMS RPT_ITS | CCD ---
Author Organization [facility] Care Team Providers Care Document Management Analyst Name Role Phone Jose Alejandroiff, Laila Cole Primary Care Provider TORI LIANG Referring Unavailable No Family, Physician Primary Care Unavailable Unavailable Primary Care Provider Unavailabl e No Family, Physician Primary Care Unavailable Jolliff, Laila Cole Primary Care Provider Jose Alejandroiff, Laila Cole Primary Care Provider SHAW MONZON Attending Unavailable No Family, Physician Primary Care Unavailable JOLLIFF, LAILA COLE Primary Care Unavailable JOLLIFF, LAILA COLE Primary Care Unavailable MINDZORA, PATTIE Referring Unavailable JOLLIFF, LAILA COLE Primary Care Unavailable ABED ALWAHAB, DENIS Attending Unavailable ABED ALWAHAB, DENIS Referring Unavailable JOLLIFF, LAILA COLE Primary Care Unavailable ABED ALWAHAB, DENIS Attending Unavailable JOLLIFF, LAILA COLE Primary Care Unavailable ABED ALWAHAB, DENIS Referring Unavailable JOLLIFF, LAILA COLE Primary Care Unavailable JOLLIFF, LAILA COLE Primary Care Unavailable ABED ALWAHAB, DENIS Attending Unavailable ABED ALWAHAB, DENIS Attending Unavailable JOLLIFF, LAILA COLE Primary Care Unavailable ABED ALWAHAB, DENIS Attending Unavailable JOLLIFF, LAILA COLE Primary Care Unavailable JOLLIFF, LAILA COLE Primary Care Unavailable ANTONIA BRICENO Attending Unavailable JOLLIFF, LAILA COLE Primary Care Unavailable DIANA EASTMAN Attending Unavailable JOLLIFF, LAILA COLE Primary Care Unavailable MINDZORA, PATTIE Referring Unavailable MINDZORA, PATTIE Referring Unavailable JOLLIFF, LAILA COLE Primary Care Unavailable JOLLIFF, LAILA COLE Primary Care Unavailable MINDZORA, PATTIE Referring Unavailable Allergies Allergy Classification Reported Allergen(s) Allergy Type Date of Onset Reaction(s) Facility (20 sources) Seasonal allergy; Translations: [SEASONAL ALLERGIES] Allergy to substance 07-10-2014 Intolerance [facility] Medications Current Medications Medication Drug Class(es) [...] Obesity, Class III, BMI 40-49.9 (morbid obesity) ([facility]) 1/2 tab daily for 8 weeks 15 tablet 1 07/05/2023 08/30/2023 Active Start: 12-24-2022 End: 06-06-2023 take 1 tablet by mouth once daily Phentermine HCl 37.5 mg tablet Indications: Obesity, Class III, BMI 40-49.9 (morbid obesity) (HCC) Take 1 tablet by mouth once daily [...] Translations: [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 Hemorrhage during ; abruptio placenta; placenta previa (2 sources) Antepartum hemorrhage; Translations: [Hemorrhage in early , unspecified] 01-11-2024 Episodic Immunizations and screening for infectious disease (5 sources) Patient encounter status; Translations: [Encounter for screening for human papillomavirus (HPV)] Episodic Menstrual disorders (20 sources) Oligomenorrhea; Translations: [Oligomenorrhea, unspecified] Onset: 07-23-2009 07-23-2009 Chronic Other complications of (3 sources) with inconclusive viability, not applicable or unspecified; Translations: [ with inconclusive viability] Onset: 01-11-2024 01-09-2024 Episodic Other complications of (1 source) Pain in female pelvis; Translations: [Other specified related conditions, unspecified trimester] 01-11-2024 Episodic Other endocrine disorders (20 sources) Polycystic ovary syndrome; Translations: [Polycystic ovarian syndrome] Onset: 07-23-2009 07-23-2009 Chronic Other endocrine disorders (1 source) Polycystic ovarian syndrome; Translations: [PCOS (polycystic ovarian syndrome)] Onset: 07-23-2009 Chronic Other female genital disorders (2 sources) History of recurrent miscarriage - not ; Translations: [Recurrent loss] Episodic Other nutritional; endocrine; and metabolic disorders (16 sources) Severe obesity; Translations: [Morbid (severe) obesity [...] (morbid obesity) (HCC)] Onset: 12-09-2022 Chronic Other screening for suspected conditions (not mental disorders or infectious disease) (2 sources) Cancer cervix screening status; Translations: [Encounter for screening for malignant neoplasm of cervix] Episodic Past or Other Problems Problem Classification Problem Date Documented Da te Episodic/Chronic Ectopic (20 sources) Ectopic ; Translations: [Unspecified ectopic without intrauterine ] Onset: 12-13-2019 12-13-2019 Episodic Other complications of (12 sources) Obesity; Translations: [Obesity complicating , unspecified trimester] Onset: 06-29-2018 Resolved: 11-27-2018 11-27-2018 Chronic Other complications of (12 sources) Uterine leiomyoma; Translations: [Maternal care for benign tumor of corpus uteri, unspecified trimester] Onset: 11-14-2018 Resolved: 11-27-2018 11-27-2018 Episodic Other and delivery including normal (17 sources) with uncertain dates; Translations: [Encounter for supervision of normal , unspecified, first trimester] Onset: 10-19-2018 Resolved: 11-27-2018 11-27-2018 Episodic Other skin disorders (20 sources) H/O: breast problem; Translations: [Personal history of diseases of the skin and subcutaneous tissue] Onset: 06-29-2018 06-29-2018 Episodic Residual codes; unclassified (20 sources) Family history of cystic fibrosis; Translations: [Family history of other endocrine, nutritional and metabolic diseases] Onset: 06-29-2018 10-19-2018 Episodic Residual codes; unclassified (12 sources) Gestation period, 5 weeks; Translations: [Less than 8 weeks gestation of ] Onset: 06-29-2018 Resolved: 11-27-2018 11-27-2018 Episodic Residual codes; unclassified (2 sources) Bone marrow donor; Translations: [Bone marrow donor] Onset: 05-30-2023 Episodic Results Test Name Value Interpretation Reference Range Facility B-HCG SerPl-aCncon 4 HCG.beta subunit Qn 1238.0 m[IU]/mL High <5.0 [facility] Comment on above: Order Comment: Speci men Type: BLOOD SPECIMENOrdering Facility: [facility] Address: [address] [place] [address] Result Comment: ANDREW TITATIVE HCG NORMAL RANGES Weeks of Gestation (Weeks Since LMP) 3 Weeks (5.8-71.2 mIU/mL) 4 Weeks (9.5-750 mIU/mL) 5 Weeks (217-7138 mIU/mL) 6 Weeks (158-68955 mIU/mL) 7 Weeks (3697-297790 mIU/mL) 8 Weeks (41475-200776 mIU/mL) 9 Weeks (68445-113308 mIU/mL) 10 Weeks (40786-376010 mIU/mL) 12 Weeks (67492-152666 mIU/mL) Referenced to 4th IS of [facility] Performed By: #### 2 1198-7 ####[facility] LABCLIA [id number] [facility] [id number] [place] [address] [place] Examination level ultrasound on 01-11-2024 Indication rule out ectopic Impression of unknown location. Bleeding in early . Pelvic pain in . Ultrasound Consultation small anechoic fluid area in endometrium but can't definitively call it a gestational sac it measures 0.26x0.20x0.25cm. the Endometrial thickness is 11.71mm . The left ovary has multiple small follicles at the periphery which can be seen with Polycystic ovarian syndrome The right ovary contains what appears to be a complex cyst that has a classic ring of fire appearance surrounding it but is avascular internally. this likely represents a hemorrhagic corpus luteum cyst. There is a small amount of free fluid in the culdesac. Recommendations ectopic can't be ruled out as no definitive Gestational sac is identified. Follow HCG levels and correlate findings clinically. Follow up as needed. Dr. Briceno Evaluated the patient at [facility] ER. Maternal Assessment Height 170 cm Height (ft) 5 ft Height (in) 7 in Method Transvaginal ultrasound examination Dietrich . Number of embryos: 1 Dating LMP on: 12/07/2023 GA by LMP 4 w + 6 d JANEY by LMP: 09/12/2024 Assigned: based on the LMP, selected on 01/10/2024 Assigned GA 4 w + 6 d Assigned JANEY: 09/12/2024 Assessment Possible 2.6x2.0x2.5mm gestational sac in the endometrium Maternal Structures Uterus / Cervix Uterus: Visualized Uterus length 78 mm Uterus width 46 mm Uterus height 29 mm Uterus Vol 53.1 cm Endometrial thickness, total 11.7 mm Ovaries / Tubes / Adnexa Rt ovary: Visualized Rt ovary D1 37 mm Rt ovary D2 38 mm Rt ovary D3 48 mm Rt ovary Vol 34.8 cm Rt ovarian corpus luteum: hemorrhagic Lt ovary: Visualized Lt ovary D1 38 mm Lt ovary D2 29 mm Lt ovary D3 23 mm Lt ovary Vol 13.2 cm Performed By: Margarette Hill RDMS, RVT Read By: Brianna Mendenhall M.D. MATERNAL MEDICINE [facility] Erum 01-10-2024 JALEELN Telephone (OBGYWM) CLAY CRISTINA ([id number]) 1990 F Date Time Provider Department 01/10/24 MAYANK SQUIRES During your visit today, we recorded the following information about you: Loan Barnard RN 01/10/2024 9:28 AM Signed Please file order for ultrasound for R/O ectopic. Margarette said that you and Dr Briceno are aware of this patient- Mayank Dumas MD 01/10/2024 10:58 AM Signed Filed Mayank Squires MD Allergies As of Date: 01/10/2024 Noted Allergy Reaction SEASONAL ALLERGIES 07/10/2014 5 - Intolerance Date Reviewed: 10/07/2023 Reviewed by: Emiliana Koroma MA - Fully Assessed Reason for Visit: Orders [681] Primary Visit Diagnosis:Early stage of [Z34.90] Order(s):OBSTETRIC ULTRASOUND [facility] [[id number]] Order #: [id number]: 1 FUTURE Prescriptions as of 01/10/2024 - metFORMIN ER (GLUCOPHAGE XR) 500 mg [...] by mouth. Problem List As Of Date 01/10/2024 Noted Resolved Oligomenorrhea [N91.5] 07/23/2009 PCOS (Polycystic [...] to excess calories w*12/09/2022 Encounter Status:Closed by MARGARETTE ANTHONY on 01/10/24 Normal [facility] Examination level ultrasound on 01-10-2024 Radiology Study observation (narrative) [facility] B-HCG SerPl-aCncon 4 HCG.beta subunit Qn 389.0 m[IU]/mL High <5.0 [facility] Comment on above: Order Comment: Speci men Type: BLOOD SPECIMENOrdering Facility: [facility] Address: [address] [place] [address] Result Comment: ANDREW TITATIVE HCG NORMAL RANGES Weeks of Gestation (Weeks Since LMP) 3 Weeks (5.8-71.2 mIU/mL) 4 Weeks (9.5-750 mIU/mL) 5 Weeks (217-7138 mIU/mL) 6 Weeks (158-31889 mIU/mL) 7 Weeks (3697-179981 mIU/mL) 8 Weeks (91054-330100 mIU/mL) 9 Weeks (37695-745638 mIU/mL) 10 Weeks (36107-307323 mIU/mL) 12 Weeks (90941-527348 mIU/mL) Referenced to 4th IS of [facility] Performed By: #### 2 1198-7 ####[facility] LABCLIA [id number] [place] [address] [place] B-HCG [facility] 4 HCG.beta subunit Qn 250.9 m[IU]/mL High <5.0 C [facility] Comment on above: Order Comment: Speci men Type: BLOOD SPECIMENOrdering Facility: [facility] Address: [address] [place] [address] Result Comment: ANDREW TITATIVE HCG NORMAL RANGES Weeks of Gestation (Weeks Since LMP) 3 Weeks (5.8-71.2 mIU/mL) 4 Weeks (9.5-750 mIU/mL) 5 Weeks (217-7138 mIU/mL) 6 Weeks (158-55032 mIU/mL) 7 Weeks (3697-478989 mIU/mL) 8 Weeks (41342-363741 mIU/mL) 9 Weeks (49903-182720 mIU/mL) 10 Weeks (63680-344330 mIU/mL) 12 Weeks (17363-885834 mIU/mL) Referenced to 4th IS of [facility] Performed By: #### 2 1198-7 ####[facility] LABCLIA [id number] [place] [id number] [place] B-HCG SerPl-aCncon HCG.beta subunit Qn 99.2 m[IU]/mL High <5.0 Cl [facility] Comment on above: Order Comment: Speci men Type: BLOOD SPECIMENOrdering Facility: [facility] Address: [facility] [place] [address] Result Comment: ANDREW TITATIVE HCG NORMAL RANGES Weeks of Gestation (Weeks Since LMP) 3 Weeks (5.8-71.2 mIU/mL) 4 Weeks (9.5-750 mIU/mL) 5 Weeks (217-7138 mIU/mL) 6 Weeks (158-13712 mIU/mL) 7 Weeks (3697-549880 mIU/mL) 8 Weeks (89782-393635 mIU/mL) 9 Weeks (10377-208724 mIU/mL) 10 Weeks (70656-297949 mIU/mL) 12 Weeks (94868-041221 mIU/mL) Referenced to 4th IS of [facility] Performed By: #### 2 1198-7 ####[facility] LABIA [id number] [place] [address] [place] Erum 2024 CNPN Telephone (REIBD) CLAY CRISTINA ([id number]) 1990 F Date Time Provider Department 01/03/24 [...] Leone RN 2024 9:31 AM Pattie Patino APRN.HOOKER OFF 2024 11:09 AM Signed Reviewed history, intake and most recent plan from primary MAGEN provider. Plan: # of quants: standing (ectopic) additional meds needed: none schedule VV with HERNAN Healthy Guide sent with plan. Pattie Patino APRN.HOOKER OFF 2024 11:06 AM Allergies As of Date: 2024 Noted Allergy Reaction SEASONAL ALLERGIES 07/10/2014 5 - Intolerance Date Reviewed: 10/07/2023 Reviewed by: Emiliana Koroma MA - Fully Assessed Reason for Visit: pos preg test [Other] Primary Visit Diagnosis:Positive test [Z32.01] Order(s):HCG QUANTITATIVE [SQHCGQT] Order #: [id number] STANDING Prescriptions as of 2024 - metFORMIN [...] Encounter Status:Closed by PATTIE PATINO on 01/03/24 [facility] CNOVon 10-07-2023 CNOV Office Visit (REIBD) CLAY CRISTINA ([id number]) 1990 F Date Time Provider Department 10/07/23 [...] Count Sperm M 1.00 % Motile Sperm (%CO + %EXTENDED DAY TEACHER) >=40 % 8 (L) Washing Solution Enhance [...] with more than 50% of the total [id number]-mj-xyyg time of the visit in counseling / coordination of care. I spent a total of 40 minutes on the date of the service which included preparing to see the patient, [id number] patient care, completing clinical documentation, obtaining and/or [...] medical abbreviati (more content not included)... Normal [facility] CNOVon 08-25-2023 CNOV Office Visit (OBGYWM ) CRISTINACLAY GRIFFIN ([id number]) 1990 F Date Time Provider Department 08/25/23 8:40 AM ANTONIA BRICENO OBGYWM During your visit today, we recorded the following information about you: Blood pressure Weight Height Last Period 120/80 120.9 kg 1.689 m 07/20/23 Antonia Briceno MD 08/25/2023 2:37 PM Signed Motor Setter offered: Patient declines. 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 Normal [facility] HIGH RISK HUMAN PAPILLOMA BELLA (HPV), PCR FOR DETECTION AND GENOTYPINGon 08-25-2023 HPV 16 Ag Ql (Unsp spec) Not detected Normal Not detec yao [facility] Comment on above: Order Comment: Speci men Type: FLUID SPECIMENOrdering Facility: [facility] Address: [address] [place] [address] Performed By: #### H PVHRT ####[facility] LABCLIA [id number] [place] [address] [place]#### [id number] ####[facility]ORY[facility]IA [id number] [place] [address] [place] [facility] LABCLIA [id number] [place] [address] [place] HPV 18 Ag Ql (Unsp spec) Not detected Normal Not detec yao [facility] Comment on above: Order Comment: Speci men Type: FLUID SPECIMENOrdering Facility: [facility] Address: [address] [place] [address] Performed By: #### H PVHRT ####[facility] LABCLIA [id number] [place] [address] [place]#### [id number] ####[facility] LABORATORYCLIA [id number] [address] STATES OF [facility] LABCLIA [id number] [place] [address] [place] HPV 31+33+35+39+45+51+52+56+ 58+59+66+68 DNA PAULINA+probe Ql (Cvx) Not detected Normal Not detected [facility] Comment on above: Order Comment: Speci men Type: FLUID SPECIMENOrdering Facility: [facility] Address: [address] [place] [address] Performed By: #### H PVHRT ####[facility] LABCLIA [id number] [place] [address] [place]#### [id number] ####[facility] LABORATORYCLIA [id number] [address] STATES OF [facility] LABCLIA [id number] [place] [address] [place] PAP TESTon 08-25-2023 ADEQUACY Satisfactory for interpretation. Normal [facility] Comment on above: Order Comment: Speci men Type: FLUID SPECIMENOrdering Facility: [facility] Address: [address] [place] [address] Performed By: #### H PVHRT ####[facility] LABCLIA [id number] [place] [address] [place]#### [id number] ####[facility]ORATORYCLIA [id number] [place] [address] [place] [facility] LABCLIA [id number] [place] [address] [place] CASE REPORT Normal [facility] Comment on above: Order Comment: Speci men Type: FLUID SPECIMENOrdering Facility: [facility] Address: [address] [place] [address] Result Comment: Gyne cologic Cytology Report Case: [id number] Authorizing Provider: Antonia Briceno MD Collected: 08/25/2023 09:30 AM Ordering Location: OB/Gynecology Received: 08/25/2023 12:00 PM First Screen: [place], [place], [place], ASCP Specimen: Pap Test, ThinPrep, Cervix Performed By: #### H PVHRT ####[facility] LABCLIA [id number] [place] [address] [place]#### [id number] ####[facility] LABORATORYCLIA [id number] [place] [address] [place] [facility] LABCLIA [id number] [place] [address] [place] CLINICAL HISTORY, CYTOLOGY, AEROLOGIST Routine Exam Normal [facility] Comment on above: Order Comment: Speci men Type: FLUID SPECIMENOrdering Facility: [facility] Address: [address] [place] [address] Performed By: #### H PVHRT ####[facility] LABCLIA [id number] [place] [address] [place]#### [id number] ####[facility] LABORATORYCLIA [id number] [place] [address] [place] [facility] LABCLIA [id number] [place] [address] [place] FINAL PERFORMING LAB Normal [facility] Comment on above: Order Comment: Speci men Type: FLUID SPECIMENOrdering Facility: [facility] Address: [address] [place] [address] Result Comment: Tech nical component, talent acquisition administrator screening performed at [facility], [address], [facility] [address] CLIA# [id number] Diagnostic interpretation performed at [facility], [address], [place] [id number] CLIA# [id number] Applications Support Specialist: Alice Arango M.D. Performed By: #### H PVHRT ####[facility] LABCLIA [id number] [place] [address] [place]#### [id number] ####[facility] LABORATORYCLIA [id number] [place] [address] [place] AMER[facility] LABCLIA [id number] [place] [address] [place] HPV REFLEX Yes HPV Normal [facility] Comment on above: Order Comment: Speci men Type: FLUID SPECIMENOrdering Facility: [facility] Address: [address] [place] [address] Performed By: #### H PVHRT ####[facility] LABCLIA [id number] [place] [address] [place]#### [id number] ####[facility] LABORATORYCLIA [id number] [place] [address] [place] [facility] LABCLIA [id number] [place] [address] [place] INTERPRETATION, CYTOLOGY, AEROLOGIST Normal [facility] Comment on above: Order Comment: Speci men Type: FLUID SPECIMENOrdering Facility: [facility] Address: [address] [place] [address] Result Comment: Nega tive for intraepithelial lesion or malignancy. Performed By: #### H PVHRT ####[facility] LABCLIA [id number] [place] [address] [place]#### [id number] ####[facility] LABORATORYCLIA [id number] [place] [address] [place] [facility] LABCLIA [id number] [place] [address] [place] LMP 07/20/2023 Normal [facility] Comment on above: Order Comment: Speci men Type: FLUID SPECIMENOrdering Facility: [facility] Address: [address] [place] [address] Performed By: #### H PVHRT ####[facility] LABCLIA [id number] [place] [address] [place]#### [id number] ####[facility] LABORATORYCLIA [id number] [place] [address] [place] [facility] LABCLIA [id number] [place] [address] [place] PAP DISCLAIMER COMMENT The Pap Smear is a screening test for cervical cancer. False negative results occur with all screening tests, emphasizing the need for rescreening at recommended intervals, and clinical correlation. Normal [facility] Comment on above: Order Comment: Speci men Type: FLUID SPECIMENOrdering Facility: [facility] Address: [address] [place] [address] Performed By: #### H PVHRT ####[facility] LABCLIA [id number] [place] [address] [place]#### [id number] ####[facility] LABORATORYCLIA [id number] [place] [address] [place] AMERICAP[facility] LABCLIA [id number] [place] [address] [place] PAP CHOKER SETTER COMMENT This specimen has be en analyzed by the ThinPrep Imaging System, an automated imaging and review system, which assists the laboratory in evaluating cells on ThinPrep Pap tests. Following automated imaging, selected munguia from every slide are reviewed by a talent acquisition administrator. Normal [facility] Comment on above: Order Comment: Speci men Type: FLUID SPECIMENOrdering Facility: [facility] Address: [address] [place] [address] Performed By: #### H PVHRT ####[facility] LABCLIA [id number] [address]#### [id number] ####[facility] LABORATORYCLIA [id number] [address] LABCLIA [id number] [address] Rejection Notificationon Reason see below [facility] Comment on above: Result Comment: Unab le to perform testing; no specimen received. To perform testing the specimen will need to be recollected. No spec Performed By: #### P TT #### MD JANETH TURNER ([id number]) [facility] [address] [place] [address] Rejected Test sicsc [facility] Comment on above: Performed By: #### P TT #### MD JANETH TURNER ([id number]) [facility] ([facility] [address] [place] [address] Cytomegalovirus Antibody, Ig Mon 06-01-2023 CMV Ab IgM <8.0 Normal <=29.9 [facility] Comment on above: Result Comment: [...] Cellular and Tissue-Based Products (HCT/P). Performed By: [facility] [address] [place] [address] Applications Support Specialist: Ray Kennedy MD, PhD CLIA Number: [id number] Performed By: #### P TT #### MD JANETH TURNER ([id number]) [facility] ([facility] [address] [place] [address] Gwen-Whalen Virus Antibody Panel 1on 06-01-2023 EBV Ab To Early (D) Ag IgG <5.0 Normal 0.0-10.9 [facility] Comment on above: Result Comment: INTE RPRETIVE INFORMATION: Gwen-Whalen Virus Antibody to Early D Antigen (EA-D), IgG 8.9 U/mL or less........Not Detected 9.0-10.9 U/mL...........Indeterminate - Repeat testing in 10-14 days may be helpful. 11.0 U/mL or greater....Detected Performed By: [facility] [address] [place] [address] Applications Support Specialist: Ray Kennedy MD, PhD CLIA Number: [id number] Performed By: #### P TT #### MD JANETH TURNER ([id number]) [facility] ([facility] [address] [place] [address] EBV Ab To Nuclear Ag IgG 297.0 U/mL High 0.0-21.9 [facility] Comment on above: Result Comment: INTE RPRETIVE INFORMATION: Gwen-Whalen Virus Antibody to Nuclear Antigen, IgG 17.9 U/mL or less.......Not Detected 18.0-21.9 U/mL..........Indeterminate - Repeat testing in 10-14 days may be helpful. 22.0 U/mL or greater....Detected Performed By: #### P TT #### MD JANETH TURNER ([id number]) [facility] ([facility]) [address] [place] [address] EBV Ab To Viral Capsid Ag IgG 135.0 U/mL High 0.0-21.9 [facility] Comment on above: Result Comment: INTE RPRETIVE INFORMATION: Gwen-Whalen Virus Antibody to Viral Capsid Antigen, IgG 17.9 U/mL or less.......Not Detected 18.0-21.9 U/mL..........Indeterminate - Repeat testing in 10-14 days may be helpful. 22.0 U/mL or greater....Detected Performed By: #### P TT #### MD JANETH TURNER ([id number]) [facility] ([address] EBV Ab To Viral Capsid Ag IgM <10.0 Normal 0.0-43.9 [facility] Comment on above: Result Comment: INTE RPRETIVE INFORMATION: Gwen-Whalen Virus Antibody to Viral Capsid Antigen, IgM 35.9 U/mL or less.......Not Detected 36.0-43.9 U/mL..........Indeterminate - Repeat testing in 10-14 days may be helpful. 44.0 U/mL or greater....Detected Performed By: #### P TT #### MD JANETH TURNER ([id number]) [facility] ([facility]) [address] [place] [address] Toxoplasma gondii Ab, IgMon 06-01-2023 Toxoplasma gondii Ab, IgM <3.0 Normal <=7.9 [facility] Comment on above: Result Comment: [...] post-infection. This test is performed using the DiaSoIQ Elite LIAISON. As suggested by the CDC, any [...] the amount of antibody present. Performed By: [facility] [address] [place] [address] Applications Support Specialist: Ray Kennedy MD, PhD CLIA Number: [id number] Performed By: #### P TT #### MD JANETH TURNER ([id number]) [facility] ([facility]) [address] [place] [address] Varicella Zoster Virus Abs, IgG and IgMon 06-01-2023 Varicella-Zoster Virus Ab, IgG 297.5 IV [facility] Comment on above: Result Comment: INTE [...] #### P TT #### MD JANETH TURNER ([id number]) [facility] ([facility]) [address] [place] [address] Varicella-Zoster Virus Ab, IgM 0.17 ISR Normal <=0.90 [facility] Comment on above: Result Comment: [...] 12 months post-infection or immunization. Performed By: [facility] [address] [place] [id number] Applications Support Specialist: Ray Kennedy MD, PhD CLIA Number: [id number] Performed By: #### P TT #### MD JANETH TURNER ([id number]) [facility] ([facility]) [address] [place] [address] [place] Cytomegalovirus Antibody, Ig Bowen 05-31-2023 CMV Ab IgG <0.20 Normal <=0.70 [facility] Comment on above: Result Comment: [...] laboratory at the same time. Performed By: [facility] [address] [place], [place] [id number] Applications Support Specialist: Ray Kennedy MD, PhD CLIA Number: [id number] Performed By: #### P T #### MD JANETH TURNER ([id number]) [facility] ([facility]) [address] [place] [address] [place] HCV by Quant NAATon 05-31-19 HCV Qnt by NAAT Interp Not detected Normal Not Detecte d [facility] Comment on above: Result Comment: [...] and Cellular Tissue-Based Products (HCT/P). Performed By: [facility] [address] [place] [address] Applications Support Specialist: Ray Kennedy MD, PhD CLIA Number: [id number] Performed By: #### P T #### MD JANETH TURNER ([id number]) [facility] ([facility]) [address] [place] [address] HCV Qnt by NAAT IU/mL Not detected Normal [facility] Comment on above: Performed By: #### P T #### MD JANETH TURNER ([id number]) [facility] ([facility]) [address] [place] [address] HCV Qnt by NAAT log IU/mL Not detected Normal [facility] Comment on above: Performed By: #### P T #### MD JANETH TURNER ([id number]) [facility] ([facility]) [address] [place] [address] HSV 1,2 Abs, IgG, IgMon 05-19 HSV Type 1/2 Combined Ab, IgG 0.27 IV Normal [facility] Comment on above: Result Comment: [...] #### P T #### MD JANETH TURNER ([id number]) [facility] ([facility]) [address] [place] [address] HSV Type 1/2 Combined Ab, IgM by LISA 0.99 IV High <=0.89 [facility] Comment on above: Result Comment: [...] more than 12 months post-infection. Performed By: [facility] [address] [place] [address] Applications Support Specialist: Ray Kennedy MD, PhD CLIA Number: [id number] Performed By: #### P T #### MD JANETH TURNER ([id number]) [facility] ([facility]) [address] [place] [address] Hepatitis Be Abon 05-31-2023 Hepatitis Be Ab Negative Normal Negative [facility] Comment on above: Result Comment: Perf ormed By: [facility] [address] [place] [address] Applications Support Specialist: Ray Kennedy MD, PhD CLIA Number: [id number] Performed By: #### P T #### MD JANETH TURNER ([id number]) [facility] ([facility]) [address] [place] [address] Toxoplasma gondii Ab, IgGon 05-31-2023 Toxoplasma gondii Ab, IgG <3.0 Normal <=8.8 [facility] Comment on above: Result Comment: [...] the amount of antibody present. Performed By: [facility] [address] [place] [address] Applications Support Specialist: Ray Kennedy MD, PhD CLIA Number: [id number] Performed By: #### P TT #### MD JANETH TURNER ([id number]) [facility] ([facility]) [address] [place] [address] APTTon 05-30-2023 aPTT Coag (Bld) [Time] 29.2 s [facility] Comment on above: Therapeutic range: 7 3.0 - 102.0 sec Effective 06-15- 9:00am EST Please note reference ranges have changed for PTT Testing. Bilirubin Directon Bilirubin.indirect [Mass/Vol] mg/dL Normal 0.0-0.3 [facility] Comment on above: Performed By: #### B ILID #### MD JANETH TURNER ([id number]) [facility] ([facility]) [address] [id number] [facility] Bilirubin Indirecton 024 Bilirubin Indirect see below Normal 0.0-1.0 [facility] Comment on above: Result Comment: Roxanna rect Bilirubin cannot be calculated since Total Bilirubin and/or Direct Bilirubin is below measurable range. Performed By: #### B LUIS #### MD JANETH TURNER ([id number]) [facility] ([facility]) [address] Bilirubin, Directon 05-30-19 24 Bilirubin.direct [Mass/Vol] mg/dL 0.0 - 0.3 mg/dL [facility] CBC W Auto Differential pane l (Bld)on 05-30-2023 Basophils (Bld) [#/Vol] 0.1 10*3/uL 0.0 - 0.2 K/uL [facility] Basophils/100 WBC (Bld) 0.7 % B ON [facility] Eosinophils (Bld) [#/Vol] 0.4 10*3/uL 0.0 - 0.6 K/uL [facility] Eosinophils/100 WBC (Bld) 3.3 % [facility] Erythrocyte distribution width (RBC) [Entitic vol] 14.1 % 12.4 - 15.4 % [facility] Hematocrit (Bld) [Volume fraction] 41.5 % 36.0 - 48.0 % [facility] Hemoglobin (Bld) [Mass/Vol] 14.2 g/dL 12.0 - 16.0 g/dL [facility] Lymphocytes (Bld) [#/Vol] 3.6 10*3/uL 1.0 - 5.1 K/uL [facility] Lymphocytes/100 WBC (Bld) 32.2 % [facility] MCH (RBC) [Entitic mass] 28.8 pg 26. 0 - 34.0 pg [facility] MCHC (RBC) [Mass/Vol] 34.1 g/dL 31.0 - 36.0 g/dL [facility] MCV (RBC) [Entitic vol] 84.4 fL 80.0 - 100.0 fL [facility] Monocytes (Bld) [#/Vol] 0.7 10*3/uL 0.0 - 1.3 K/uL [facility] Monocytes/100 WBC (Bld) 6.0 % B ON [facility] Neutrophils (Bld) [#/Vol] 6.4 10*3/uL 1.7 - 7.7 K/uL [facility] Neutrophils/100 WBC (Bld) 57.8 % [facility] Platelet mean volume (Bld) [Entitic vol] 8.3 fL 5.0 - 10.5 fL [facility] Platelets (Bld) [#/Vol] 342 10*3/uL 135 - 450 K/uL [facility] RBC (Bld) [#/Vol] 4.92 10*6/uL [facility] WBC (Bld) [#/Vol] 11.0 10*3/uL 4.0 - 11.0 K/uL [facility] CBC With Platelet and Differ entialon 05-30-2023 Basophils (Bld) [#/Vol] 0.1 10*3/uL Normal 0.0-0.2 [facility] Comment on above: Performed By: #### C YEISON #### MD JANETH TURNER ([id number]) [facility] ([facility]) [address] [place] [address] [place] Basophils/100 WBC (Bld) 0.7 % Normal [facility] Comment on above: Performed By: #### C BCWD #### MD JANETH TURNER ([id number]) [facility] ([facility]) [address] [place] [address] [place] Eosinophils (Bld) [#/Vol] 0.4 10*3/uL Normal 0.0-0.6 [facility] Comment on above: Performed By: #### C ALEKSEYWD #### MD JANETH TURNER ([id number]) [facility] ([facility]) [address] [place] [address] [place] Eosinophils/100 WBC (Bld) 3.3 % Normal [facility] Comment on above: Performed By: #### C BCWD #### MD JANETH TURNER ([id number]) [facility] ([facility]) [address] [place] [address] Erythrocyte distribution width (RBC) [Ratio] 14.1 % Normal 12.4-15.4 [facility] Comment on above: Performed By: #### C BCWD #### MD JANETH TURNER ([id number]) [facility] ([facility]) [address] [place] [address] Hematocrit (Bld) [Volume fraction] 41.5 % Normal 36.0-48.0 [facility] Comment on above: Performed By: #### C BCWD #### MD JAENTH TURNER ([id number]) [facility] ([facility]) [address] [place] [address] Hemoglobin (Bld) [Mass/Vol] 14.2 g/dL Normal 12.0-16.0 [facility] Comment on above: Performed By: #### C BCWD #### MD JANETH TURNER ([id number]) [facility] ([facility]) [address] [place] [address] Lymphocytes (Bld) [#/Vol] 3.6 10*3/uL Normal 1.0-5.1 [facility] Comment on above: Performed By: #### C BCWD #### MD JANETH TURNER ([id number]) [facility] ([facility]) [address] [place] [address] Lymphocytes/100 WBC (Bld) 32.2 % Normal [facility] Comment on above: Performed By: #### C BCWD #### MD JANETH TURNER ([id number]) [facility] ([facility]) [address] [place] [address] MCH (RBC) [Entitic mass] 28.8 pg Normal 26.0-34.0 [facility] Comment on above: Performed By: #### C BCWD #### MD JANETH TURNER ([id number]) [facility] ([facility]) [address] [place] [address] MCHC (RBC) [Mass/Vol] 34.1 g/dL Normal 31.0-36.0 [facility] Comment on above: Performed By: #### C BCWD #### MD JANETH TURNER ([id number]) [facility] ([facility]) [address] [place] [address] MCV (RBC) [Entitic vol] 84.4 fL Normal 80.0-100.0 [facility] Comment on above: Performed By: #### C BCWD #### MD JANETH TURNER ([id number]) [facility] ([facility]) [address] [place] [address] Monocytes (Bld) [#/Vol] 0.7 10*3/uL Normal 0.0-1.3 [facility] Comment on above: Performed By: #### C BCWD #### MD JANETH TURNER ([id number]) [facility] ([facility]) [address] [place] [address] Monocytes/100 WBC (Bld) 6.0 % Normal [facility] Comment on above: Performed By: #### C BCWD #### MD JANETH TURNER ([id number]) [facility] ([facility] [address] [place] [address] Neutrophils (Bld) [#/Vol] 6.4 10*3/uL Normal 1.7-7.7 [facility] Comment on above: Performed By: #### C BCWD #### MD JANETH TURNER ([id number]) [facility] ([facility] [address] [place] [address] Neutrophils/100 WBC (Bld) 57.8 % Normal [facility] Comment on above: Performed By: #### C BCWD #### MD JANETH TURNER ([id number]) [facility] ([facility]) [address] [place] [address] Platelet mean volume (Bld) [Entitic vol] 8.3 fL Normal 5.0-10.5 [facility] Comment on above: Performed By: #### C BCWD #### MD JANETH TURNER ([id number]) [facility] [address] [place] [address] Platelets (Bld) [#/Vol] 342 10*3/uL Normal 135-450 [facility] Comment on above: Performed By: #### C BCWD #### MD JANETH TURNER ([id number]) [facility] ([facility] [address] [place] [address] RBC (Bld) [#/Vol] 4.92 10*6/uL Normal 4.00-5.20 [facility] Comment on above: Performed By: #### C BCWD #### MD JANETH TURNER ([id number]) [facility] ([facility] [address] [place] [address] WBC (Bld) [#/Vol] 11.0 10*3/uL Normal 4.0-11.0 [facility] Comment on above: Performed By: #### C BCWD #### MD JANETH TURNER ([id number]) [facility] ([facility] [address] [place] [address] Comprehensive Metabolic Pane l reflex Mgon 05-30-2023 Albumin [Mass/Vol] 4.2 g/dL Normal 3.4-5.0 [facility] Comment on above: Performed By: #### C MPX #### MD JANETH TURNER ([id number]) [facility] ([facility] [address] [place] [address] Albumin/Globulin [Mass ratio] 1.7 {ratio} Normal 1.1-2.2 [facility] Comment on above: Performed By: #### C MPX #### MD JANETH TURNER ([id number]) [facility] ([facility] [address] [place] [address] ALP [Catalytic activity/Vol] 49 U/L Normal 40-129 [facility] Comment on above: Performed By: #### C MPX #### MD JANETH TURNER ([id number]) [facility] ([facility]) [address] [place], [place] [id number] [place] [address] ALT [Catalytic activity/Vol] 38 U/L Normal 10-40 [facility] Comment on above: Performed By: #### C MPX #### MD JANETH TURNER ([id number]) [facility] ([facility] [address] [place] [address] Anion gap [Moles/Vol] 12 mmol/L Normal 3-16 [facility] Comment on above: Performed By: #### C MPX #### MD JANETH TURNER ([id number]) [facility] ([facility] [address] [place] [address] AST [Catalytic activity/Vol] 21 U/L Normal 15-37 [facility] Comment on above: Performed By: #### C MPX #### MD JANETH TURNER ([id number]) [facility] ([facility] [address] [place] [address] Bilirubin [Mass/Vol] 0.4 mg/dL Normal 0.0-1.0 [facility] Comment on above: Performed By: #### C MPX #### MD JANETH TURNER ([id number]) [facility] ([facility] [address] [place] [address] Calcium [Mass/Vol] 9.3 mg/dL Normal 8.3-10.6 [facility] Comment on above: Performed By: #### C MPX #### MD JANETH TURNER ([id number]) [facility] ([facility] [address] [place] [address] [place] Chloride [Moles/Vol] 100 mmol/L Normal 99-110 [facility] Comment on above: Performed By: #### C MPX #### MD JANETH TURNER ([id number]) [facility] ([facility] [address] [place] [address] [place] CO2 [Moles/Vol] 24 mmol/L Normal 21-32 [facility] Comment on above: Performed By: #### C MPX #### MD JANETH TURNER ([id number]) [facility] ([facility]) [address] Creatinine [Mass/Vol] 0.7 mg/dL Normal 0.6-1.1 [facility] Comment on above: Performed By: #### C MPX #### MD JANETH TURNER ([id number]) [facility] ([facility] [address] [place] [address] GFR >60 Normal >60 [facility] Comment on above: Result Comment: Beena atric [...] #### C MPX #### MD JANETH TURNER ([id number]) [facility] ([facility] [address] [place] [address] Glucose [Mass/Vol] 120 mg/dL High 70-99 [facility] Comment on above: Performed By: #### C MPX #### MD JANETH TURNER ([id number]) [facility] ([facility] [address] [place] [address] Magnesium [Moles/Vol] 4.2 mmol/L Normal 3.5-5.1 [facility] Comment on above: Performed By: #### C MPX #### MD JANETH TURNER ([id number]) [facility] ([facility] [address] [place] [address] [place] Protein [Mass/Vol] 6.7 g/dL Normal 6.4-8.2 [facility] Comment on above: Performed By: #### C MPX #### MD JANETH TURNER ([id number]) [facility] ([facility]) [address] [place] [address] [place] Sodium [Moles/Vol] 136 mmol/L Normal 136-145 [facility] Comment on above: Performed By: #### C MPX #### MD JANETH TURNER ([id number]) [facility] [address] [place] [address] Urea nitrogen [Mass/Vol] 12 mg/dL Normal 7-20 [facility] Comment on above: Performed By: #### C MPX #### MD JANETH TURNER ([id number]) [facility] [address] [place] [address] Comprehensive metabolic 2000 panelon 05-30-2023 Albumin [Mass/Vol] 4.2 g/dL 3.4 - 5.0 g/dL [facility] Albumin/Globulin [Mass ratio] 1.7 {ratio} 1.1 - 2.2 [facility] ALP [Catalytic activity/Vol] 49 U/L 40 - 129 U/L [facility] ALT [Catalytic activity/Vol] 38 U/L 10 - 40 U/L [facility] Anion gap [Moles/Vol] 12 mmol/L 3 - 16 [facility] AST [Catalytic activity/Vol] 21 U/L 15 - 37 U/L [facility] Bilirubin [Mass/Vol] 0.4 mg/dL 0.0 - 1 .0 mg/dL [facility] Calcium [Mass/Vol] 9.3 mg/dL 8.3 - 10. 6 mg/dL [facility] Chloride [Moles/Vol] 100 mmol/L 99 - 11 0 mmol/L [facility] CO2 [Moles/Vol] 24 mmol/L 21 - 32 mmol/L [facility] Creatinine [Mass/Vol] 0.7 mg/dL 0.6 - 1.1 mg/dL [facility] GFR/1.73 sq M.predicted CKD-EPI (S/P/Bld) [Vol rate/Area] 60 - [facility] Comment on above: Pediatric calculator link https://www.kidney.org/professionals/kdoqi/gfr_calculatorped [...] 120 mg/dL High 70 - 99 mg/dL [facility] [employer] Potassium [Moles/Vol] 4.2 mmol/L 3.5 - 5.1 mmol/L [facility] [employer] Protein [Mass/Vol] 6.7 g/dL 6.4 - 8.2 g/dL [facility] Sodium [Moles/Vol] 136 mmol/L 136 - 145 mmol/L [facility] Urea nitrogen [Mass/Vol] 12 mg/dL 7 - 20 mg/d L [facility] HCG Quanton 05-30-2023 HCG Quant <5.0 Normal <5.0 [facility] Comment on above: Result Comment: Male : <5.0 mIU/ml : Note: HCG Interpretation is based on gestational age vs. LMP. Gestational Age Expected HCG values (mIU/ml) 0.2-1 week 5-50 1-2 weeks 50-500 2-3 weeks 100-5000 3-4 weeks 500-10,000 4-5 weeks 1000-50,000 5-6 weeks 10,000-100,000 6-8 weeks 15,000-200,000 2-3 months 10,000-100,000 Performed By: #### H CGQ #### MD JANETH TURNER ([id number]) [facility] ([facility]) [address] [place] [address] HCG.beta subunit IA 3rd IS Q non 05-30-2023 HCG.beta subunit Qn m[IU]/mL [facility] [employer] Comment on above: Male: <5.0 mIU/ml : Note: HCG Interpretation is based on gestational age vs. LMP. Gestational Age Expected HCG values (mIU/ml) 0.2-1 week 5-50 1-2 weeks 50-500 2-3 weeks 100-5000 3-4 weeks 500-10,000 4-5 weeks 1000-50,000 5-6 weeks 10,000-100,000 6-8 weeks 15,000-200,000 2-3 months 10,000-100,000 [facility] Hepatitis A Antibody IgMon 0 05-30-2023 Hepatitis A Antibody IgM Non-Reactive Normal Non-react dai [facility] Comment on above: Performed By: #### P T #### MD JANETH TURNER ([id number]) [facility] [address] [place] [address] [place] Hepatitis A Antibody, IgMon 05-30-2023 HAV IgM IA Ql Non-Reactive Non-reactive [facility] Hepatitis B Surface Abon Hepatitis B Surface Ab 29.34 mIU/mL Normal [facility] Comment on above: Result Comment: <8.5 = Negative >=8.5 and <11.5 = Indeterminate >=11.5 = Positive (Immune) Performed By: #### P T #### MD JANETH TURNER ([id number]) [facility] [address] [place] [address] Hepatitis B Surface Antibody on 05-30-2023 HBV surface Ab IA Qn 29.34 m[IU]/mL mIU/mL [facility] Comment on above: <8.5 = Negative >=8.5 and <11.5 = Indeterminate >=11.5 = Positive (Immune) Hepatitis C Antibodyon 05-29 HCV Ab IA Ql Non-Reactive Non-reactive [facility] Hepatitis C Antibody Non-Reactive Normal Non-reactive [facility] Comment on above: Performed By: #### P T #### MD JANETH TURNER ([id number]) [facility] [address] [place] [address] Indirect Bilirubinon 024 Bilirubin.indirect [Mass/Vol] see below 0.0 - 1.0 mg/dL [facility] Comment on above: Indirect Bilirubin c annot be calculated since Total Bilirubin and/or Direct Bilirubin is below measurable range. Lactate Dehydrogenaseon 05-19 LDH Lactate to pyruvate reaction [Catalytic activity/Vol] 193 U/L High 100 - 190 U/L [facility] CustEx LDH [Catalytic activity/Vol] 193 U/L High 100-190 [facility] Comment on above: Performed By: #### L DH #### MD JANETH TURNER ([id number]) [facility] [address] [place] [address] No Panel Informationon 05-29 [facility] Interpretation and review of laboratory results Abnormal [facility] Interpretation and review of laboratory results Abnormal [facility]ITALFilmTrack [facility]Contin[facility] PT Coag (PPP) [Time]on 05-29 INR Coag (PPP) [Relative time] 0.92 {INR} 0.84 - 1.16 [facility] [employer] Comment on above: Effective 06/15/22 at 09:00am EST Normal: 0.84 - 1.16 Therapeutic: 2.0 - 3.0 Pros. Valve: 2.5 - 3.5 AMI: 2.0 - 3.0 Partial Thromboplastin Timeo n 05-30-2023 aPTT Coag (Bld) [Time] 29.2 s Normal 22.7-35.9 [facility] Comment on above: Result Comment: Ther apeutic range: 73.0 - 102.0 sec Effective 06-15-22 9:00am EST Please note reference ranges have changed for PTT Testing. Performed By: #### P TT #### MD JANETH TURNER ([id number]) [facility] [address] [place] [address] Phosphoruson 05-30-2023 Phosphate [Mass/Vol] 3.4 mg/dL 2.5 - 4 .9 mg/dL [facility] Phosphate [Mass/Vol] 3.4 mg/dL Normal 2.5-4.9 [facility] Comment on above: Performed By: #### P HOS #### MD JANETH TURNER ([id number]) [facility] [address] [place] [address] Prothrombin Timeon INR Coag (PPP) [Relative time] 0.92 {INR} Normal 0.84-1.16 [facility] Comment on above: Result Comment: Effe ctive 06/15/22 at 09:00am EST Normal: 0.84 - 1.16 Therapeutic: 2.0 - 3.0 Pros. Valve: 2.5 - 3.5 AMI: 2.0 - 3.0 Performed By: #### P T #### MD JANETH TURNER ([id number]) [facility] ([facility]) [address] [place] [address] PT Coag (PPP) [Time] 12.3 s Normal 11.5-14.8 [facility] Comment on above: Result Comment: Effe ctive 06-15-22 09:00am EST Please note reference ranges have changed for PT and INR Testing. Performed By: #### P T #### MD JANETH TURNER ([id number]) [facility] [address] [place] [address] Protime-INRon 05-30-2023 PT Coag (PPP) [Time] 12.3 s [facility] Comment on above: Effective 06-15-22 09 :00am EST Please note reference ranges have changed for PT and INR Testing. TYPE AND SCREENon 05-30-2023 Blood group antibody screen Ql Negative [facility] Type and Screen Capture 3 sc rn cellon 05-30-2023 ABO and Rh group Nom (Bld) Blood group B Rh(D) positive Normal [facility] Comment on above: Performed By: #### P T #### MD JANETH TURNER ([id number]) [facility] ([facility]) [address] [place] [address] Antibody 3 Cell Scrn Capture Negative Normal [facility] Comment on above: Performed By: #### P T #### MD JANETH TURNER ([id number]) [facility] [address] [place] [address] Uric Acidon 05-30-2023 Urate [Mass/Vol] 5.9 mg/dL 2.6 - 6.0 mg/dL [facility] Urate [Mass/Vol] 5.9 mg/dL Normal 2.6-6.0 [facility] Comment on above: Performed By: #### U GUERO #### MD JANETH TURNER ([id number]) [facility] [address] [place] [address] Urinalysis complete W Reflex Culture panel (U)on 05-30-2023 Bilirubin Ql (U) Negative Negative [facility] Clarity (U) Clear Clear [facility] Color (U) Yellow Straw/Yellow [facility] Glucose Auto test strip (U) [Mass/Vol] Negative Negative mg/dL [facility] Hemoglobin Auto test strip Ql (U) Negative Negative [facility] Ketones (U) [Mass/Vol] Negative Negat dai mg/dL [facility] Leukocyte esterase Auto test strip Ql (U) SMALL Abnormal Negative [facility] Nitrite Auto test strip Ql (U) Negative Negative [facility] pH (U) 6.5 [pH] 5.0 - 8.0 [facility] Protein (U) [Mass/Vol] Negative Negat dai mg/dL [facility] Specific gravity (U) [Rel density] 1.010 1.005 - 1.030 [facility] Urinalysis dipstick W Reflex Microscopic panel (U) YES [facility] Urinalysis specimen collection method Nom (U) Voided [facility] Urobilinogen Qn (U) 0.2 [facility] Urinalysis microscopic panel (Urine sed)on 05-30-2023 Bacteria LM Ql (Urine sed) 3+ Abnormal None Seen /HPF [facility] RBC LM.HPF (Urine sed) [#/Area] 0-2 [facility] WBC LM.HPF (Urine sed) [#/Area] 3-5 [facility] Urinalysis with Reflex to Cu ltureon 05-30-2023 Urinalysis complete W Reflex Culture panel (U) Not Indicated [facility] Urinalysis, reflex to cultur rosemary 05-30-2023 Urine Reflexed to Culture Not Indicated Normal [facility] Comment on above: Performed By: #### P T #### MD JANETH TURNER ([id number]) [facility] [address] [place] [address] Bilirubin Ql (U) Negative Normal Negative [facility] Comment on above: Performed By: #### P T #### MD JANETH TURNER ([id number]) [facility] [address] [place] [address] Clarity (U) Clear Normal Clear [facility] Comment on above: Performed By: #### P T #### MD JANETH TURNER ([id number]) [facility] [address] [place] [address] Color (U) Yellow Normal Straw/Yellow [facility] Comment on above: Performed By: #### P T #### MD JANETH TURNER ([id number]) [facility] [address] [place] [address] Glucose Ql (U) Negative Normal Negative [facility] Comment on above: Performed By: #### P T #### MD JANETH TURNER ([id number]) [facility] [address] [place] [address] Hemoglobin Ql (U) Negative Normal Negative [facility] Comment on above: Performed By: #### P T #### MD JANETH TURNER ([id number]) [facility] [address] [place] [address] Ketones Ql (U) Negative Normal Negative [facility] Comment on above: Performed By: #### P T #### MD JANETH TURNER ([id number]) [facility] [address] [place] [address] Leukocyte esterase Test strip Ql (U) SMALL Abnormal Negative [facility] Comment on above: Performed By: #### P T #### MD JANETH TURNER ([id number]) [facility]) [address] [place] [address] Microscopic Exam Performed YES Normal [facility] Comment on above: Performed By: #### P T #### MD JANETH TURNER ([id number]) [facility]) [address] [place] [address] Nitrite Ql (U) Negative Normal Negative [facility] Comment on above: Performed By: #### P T #### MD JANETH TURNER ([id number]) [facility] ([facility]) [address] [place] [address] pH (U) 6.5 [pH] Normal 5.0 - 8.0 [facility] Comment on above: Performed By: #### P T #### MD JANETH TURNER ([id number]) [facility] ([facility]) [address] [place] [address] Protein Ql (U) Negative Normal Negative [facility] Comment on above: Performed By: #### P T #### MD JANETH TURNER ([id number]) [facility] ([facility]) [address] [place] [address] Specific gravity (U) [Rel density] 1.010 Normal 1.005 - 1.030 [facility] Comment on above: Performed By: #### P T #### MD JANETH TURNER ([id number]) [facility] ([facility]) [address] [place] [address] Urobilinogen Qn (U) 0.2 {Pamela'U}/dL Normal <2.0 [facility] Comment on above: Performed By: #### P T #### MD JANETH TURNER ([id number]) [facility] ([facility]) [address] [place] [address] Urine Type Voided Normal [facility] Comment on above: Performed By: #### P T #### MD JANETH TURNER ([id number]) [facility] ([facility]) [address] [place] [address] Urine Microscopicon 05-30-19 24 Urine Bacteria 3+ /HPF Abnormal None Seen [facility] Comment on above: Performed By: #### P T #### MD JANETH TURNER ([id number]) [facility] ([facility]) [address], [place] [id number] [place] [address] Urine RBC 0-2 Normal 0-4 [facility] Comment on above: Performed By: #### P T #### MD JANETH TURNER ([id number]) [facility] ([facility]) [address], [place] [address] [place] [address] Urine WBC 3-5 Normal 0-5 [facility] Comment on above: Performed By: #### P T #### MD JANETH TURNER ([id number]) [facility] ([facility]) [address], [place] [address] [place] [address] Comprehensive metabolic 2000 panelon 04-04-2023 Albumin [Mass/Vol] 4.2 g/dL Normal 3.9-4.9 [facility] Comment on above: Order Comment: Speci men Type: BLOOD SPECIMENOrdering Facility: [facility] Address: [address] [place] [address] Performed By: #### 2 4323-8 ####[facility] LABCLIA [id number] [place] [address] [place] ALP [Catalytic activity/Vol] 41 U/L Normal 34-123 [facility] Comment on above: Order Comment: Speci men Type: BLOOD SPECIMENOrdering Facility: [facility] Address: [address] [place] [address] Performed By: #### 2 4323-8 ####[facility] LABCLIA [id number] [place] [address] [place] ALT [Catalytic activity/Vol] 59 U/L High 7-38 [facility] Comment on above: Order Comment: Speci men Type: BLOOD SPECIMENOrdering Facility: [facility] Address: [address] [place] [address] Performed By: #### 2 4323-8 ####[facility] LABCLIA [id number] [place] [address] [place] Anion gap [Moles/Vol] 10 mmol/L Normal 9-18 [facility] Comment on above: Order Comment: Speci men Type: BLOOD SPECIMENOrdering Facility: [facility] Address: [address] [place] [address] Performed By: #### 2 4323-8 ####[facility] LABCLIA [id number] [place] [address] [place] AST [Catalytic activity/Vol] 29 U/L Normal 13-35 [facility] Comment on above: Order Comment: Speci men Type: BLOOD SPECIMENOrdering Facility: [facility] Address: [address] [place] [address] Performed By: #### 2 4323-8 ####[facility] LABCLIA [id number] [place] [address] [place] Bilirubin [Mass/Vol] 0.4 mg/dL Normal 0.2-1.3 [facility] Comment on above: Order Comment: Speci men Type: BLOOD SPECIMENOrdering Facility: [facility] Address: [address] [place] [address] Performed By: #### 2 4323-8 ####[facility] LABCLIA [id number] [place] [address] [place] Calcium [Mass/Vol] 9.4 mg/dL Normal 8.5-10.2 [facility] Comment on above: Order Comment: Speci men Type: BLOOD SPECIMENOrdering Facility: [facility] Address: [address] [place] [address] Performed By: #### 2 4323-8 ####[facility] LABCLIA [id number] [place] [address] [place] Chloride [Moles/Vol] 105 mmol/L Normal 97-105 [facility] Comment on above: Order Comment: Speci men Type: BLOOD SPECIMENOrdering Facility: [facility] Address: [address] [place] [address] Performed By: #### 2 4323-8 ####[facility] LABCLIA [id number] [place] [address] [place] CO2 [Moles/Vol] 25 mmol/L Normal 22-30 [facility] Comment on above: Order Comment: Speci men Type: BLOOD SPECIMENOrdering Facility: [facility] Address: [address] [place] [address] Performed By: #### 2 4323-8 ####[facility] LABCLIA [id number] [place] [address] [place] Creatinine [Mass/Vol] 0.80 mg/dL Normal 0.58-0.96 [facility] Comment on above: Order Comment: Speci men Type: BLOOD SPECIMENOrdering Facility: [facility] Address: [address] [place] [address] Performed By: #### 2 4323-8 ####[facility] LABIA [id number] [place] [address] [place] Creatinine and Glomerular filtration rate.predicted panel (S/P/Bld) 101 mL/min/1.73m??? Normal >=60 [facility] Comment on above: Order Comment: Speci men Type: BLOOD SPECIMENOrdering Facility: [facility] Address: [address] [place] [address] Result Comment: Ligia mated Glomerular Filtration Rate [...] actual GFR. Performed By: #### 2 4323-8 ####[facility] LABCLIA [id number] [place] [address] [place] Glucose [Mass/Vol] 102 mg/dL High 74-99 [facility] Comment on above: Order Comment: Speci men Type: BLOOD SPECIMENOrdering Facility: [facility] Address: [address] [place] [address] Result Comment: The [place] Diabetes Association (ADA) provides guidance for cutoff [...] Standards of Medical Care in Diabetes 2016, [place] [employer]. Diabetes Care. 2016.39(Suppl 1). Performed By: #### 2 4323-8 ####[facility] LABCLIA [id number] [place] [address] [place] Potassium [Moles/Vol] 4.2 mmol/L Normal 3.7-5.1 [facility] Comment on above: Order Comment: Speci men Type: BLOOD SPECIMENOrdering Facility: [facility] Address: [address] [place] [address] Performed By: #### 2 4323-8 ####[facility] LABCLIA [id number] [place] [address] [place] Protein [Mass/Vol] 6.8 g/dL Normal 6.3-8.0 [facility] Comment on above: Order Comment: Speci men Type: BLOOD SPECIMENOrdering Facility: [facility] Address: [address] [place] [address] Performed By: #### 2 4323-8 ####[facility] LABCLIA [id number] [place] [address] [place] Sodium [Moles/Vol] 140 mmol/L Normal 136-144 [facility] Comment on above: Order Comment: Speci men Type: BLOOD SPECIMENOrdering Facility: [facility] Address: [address] [place] [id number] Performed By: #### 2 4323-8 ####[facility] LABCLIA [id number] [address] [address] [place] Urea nitrogen [Mass/Vol] 12 mg/dL Normal 7-21 [facility] Comment on above: Order Comment: Speci men Type: BLOOD SPECIMENOrdering Facility: [facility] Address: [address] [place] [address] Performed By: #### 2 4323-8 ####[facility] LABCLIA [id number] [address] [address] [place] Comprehensive metabolic 2000 panelon 03-07-2023 Albumin [Mass/Vol] 4.2 g/dL Normal 3.9-4.9 [facility] Comment on above: Order Comment: Speci men Type: BLOOD SPECIMENOrdering Facility: [facility] Address: [address] [place] [address] Performed By: #### 2 4323-8 ####[facility] JOSE ANTONIOST JOHNSBURY HOSPITALWNCLIA [id number] [place] [address] [place] ALP [Catalytic activity/Vol] 42 U/L Normal 34-123 [facility] Comment on above: Order Comment: Speci men Type: BLOOD SPECIMENOrdering Facility: [facility] Address: [address] [place] [address] Performed By: #### 2 4323-8 ####[facility]IO MILLTOWNCLIA [id number] [place] [address] [place] ALT [Catalytic activity/Vol] 73 U/L High 7-38 [facility] Comment on above: Order Comment: Speci men Type: BLOOD SPECIMENOrdering Facility: [facility] Address: [address] [place] [address] Performed By: #### 2 4323-8 ####[facility] MILLTOWNCLIA [id number] [place] [address] [place] Anion gap [Moles/Vol] 9 mmol/L Normal 9-18 [facility] Comment on above: Order Comment: Speci men Type: BLOOD SPECIMENOrdering Facility: [facility] Address: [address] [place] [address] Performed By: #### 2 4323-8 ####[facility] HOSPITALWNCLIA [id number] [place] [address] [place] AST [Catalytic activity/Vol] 29 U/L Normal 13-35 [facility] Comment on above: Order Comment: Speci men Type: BLOOD SPECIMENOrdering Facility: [facility] Address: [address] [place] [address] Performed By: #### 2 4323-8 ####[facility]ENTERA [id number] [place] [address] [place] Bilirubin [Mass/Vol] 0.3 mg/dL Normal 0.2-1.3 [facility] Comment on above: Order Comment: Speci men Type: BLOOD SPECIMENOrdering Facility: [facility] Address: [address] [place] [address] Performed By: #### 2 4323-8 ####[facility]CL[facility] [id number] [place] [address] [place] Calcium [Mass/Vol] 9.7 mg/dL Normal 8.5-10.2 [facility] Comment on above: Order Comment: Speci men Type: BLOOD SPECIMENOrdering Facility: [facility] Address: [address] [place] [address] Performed By: #### 2 4323-8 ####[facility] ORLANDONCA [id number] [place] [address] [place] Chloride [Moles/Vol] 106 mmol/L High 97-105 [facility] Comment on above: Order Comment: Speci men Type: BLOOD SPECIMENOrdering Facility: [facility] Address: [address] [place] [id number] Performed By: #### 2 4323-8 ####[facility]ONCL[facility] [id number] [place] [address] [place] CO2 [Moles/Vol] 27 mmol/L Normal 22-30 [facility] Comment on above: Order Comment: Speci men Type: BLOOD SPECIMENOrdering Facility: [facility] Address: [address] [place] [address] Performed By: #### 2 4323-8 ####[facility] ORLANDONCLI [id number] [place] [address] [place] Creatinine [Mass/Vol] 0.83 mg/dL Normal 0.58-0.96 [facility] Comment on above: Order Comment: Speci men Type: BLOOD SPECIMENOrdering Facility: [facility] Address: [address] [place] [address] Performed By: #### 2 4323-8 ####[facility]CLIA [id number] [place] [address] [place] Creatinine and Glomerular filtration rate.predicted panel (S/P/Bld) 97 mL/min/1.73m??? Normal >=60 [facility] Comment on above: Order Comment: Speci men Type: BLOOD SPECIMENOrdering Facility: [facility] Address: [address] [place] [address] Result Comment: Ligia mated Glomerular Filtration Rate [...] actual GFR. Performed By: #### 2 4323-8 ####[facility] HOS[facility]ITALWNCLIA [id number] [place] [address] [place] Glucose [Mass/Vol] 81 mg/dL Normal 74-99 [facility] Comment on above: Order Comment: Speci men Type: BLOOD SPECIMENOrdering Facility: [facility] Address: [address] [place] [address] Result Comment: The [place] Diabetes Association (ADA) provides guidance for cutoff [...] Standards of Medical Care in Diabetes 2016, [place] [employer]. Diabetes Care. 2016.39(Suppl 1). Performed By: #### 2 4323-8 ####[facility] CENTERRowdy [id number] [place] [address] [place] Potassium [Moles/Vol] 3.8 mmol/L Normal 3.7-5.1 [facility] Comment on above: Order Comment: Speci men Type: BLOOD SPECIMENOrdering Facility: [facility] Address: [address] [place] [address] Performed By: #### 2 4323-8 ####[facility] [id number] [place] [address] [place] Protein [Mass/Vol] 6.7 g/dL Normal 6.3-8.0 [facility] Comment on above: Order Comment: Speci men Type: BLOOD SPECIMENOrdering Facility: [facility] Address: [address] [place] [address] Performed By: #### 2 4323-8 ####[facility] HOSPITALLI [id number] [place] [address] [place] Sodium [Moles/Vol] 142 mmol/L Normal 136-144 [facility] Comment on above: Order Comment: Speci men Type: BLOOD SPECIMENOrdering Facility: [facility] Address: [address] [place] [address] Performed By: #### 2 4323-8 ####[facility] ANTONIOST JOHNSBURY HOSPITALWCTLIA [id number] [address] STATES OF [facility] Urea nitrogen [Mass/Vol] 13 mg/dL Normal 7-21 [facility] Comment on above: Order Comment: Speci men Type: BLOOD SPECIMENOrdering Facility: [facility] Address: [place] [address] Performed By: #### 2 4323-8 ####[facility] AN[facility]IO DEBRABEDFORD REGIONAL MEDICAL CENTERLIA [id number] [address] OF [facility] XR HYSTEROSALPINGOGRAMon [facility] CNOVon 07-24-2020 CNOV Office Visit (WHREBA ) CLAY CRISTINA ([id number]) 1990 F Date Time Provider Department 07/24/20 [...] which included preparing to see the patient, [id number] patient care, completing clinical documentation, counseling and [...] cyst [N94.9] Hirsutism [L68.0] Order(s):PELVIC US WHI [[id number]] Order #: [id number]: 1 TESTOSTERONE TOTAL [SQTESTO] Order #: [id number] FUTURE DHEA-S BLD [SQDHEAS] Order #: [id number] FUTURE Prescriptions as of 07/24/2020 Sig: PEPCID [...] Encounter Status:Closed by LOYDA VALENZUELA on 07/27/20 [facility] [place] 06-09-2020 [facility] Telephone (WHRA) LAYACLAY Reno ([id number]) 1990 F Date Time Provider Department 06/09/20 [...] drive to , as she lives in [place]. Will call the patient back once the [...] MTX. Patient prefers MTX. Called Kaitlynn at [place] - [phone] - no answer due to the late hour. I will call first thing tomorrow to see if they can arrange for MTX for patient closer to home. Ankita Chaudhari APRN.JALEEL June 09, 2020 5:31 PM Ankita Chaudhari APRN.JALEEL 06/10/2020 9:33 AM Signed spoke with Merly at [place], she will see if there is able to see this patient to administer MTX today. Await further response. Ankita Chaudhari APRN.JALEEL June 10, 2020 9:33 AM Ankita Chaudhari APRN.JALEEL 06/10/2020 10:33 AM Signed spoke with Merly, she is working on logistics of timing for mtx today spoke with Clay, she is aware. she can make herself available whenever it's ready. Ankita Chaudhari APRN.CNP June 10, 2020 10:33 AM [...] Status:Closed by ANKITA CHAUDHARI CNP on 06/30/20 [facility] [place] 06-05-2020 [facility] Telephone (WHREBA) CLAY CRISTINA ([id number]) 1990 F Date Time Provider Department 06/05/20 KATJA TIWARI (PA) WHRPETE During your visit today, we recorded the [...] she is going to get it at [facility], they will see the [place] order from her chart. Katja Tiwari PA-C June 05, 2020 11:45 AM Merly Carcamo RN 06/05/2020 12:19 PM Signed Patient scheduled today at 1:20pm in [place]. Merly Carcamo RN Allergies As of Date: 06/05/2020 Noted Allergy Reaction SEASONAL ALLERGIES 07/10/2014 5 - Intolerance Date Reviewed: 01/25/2020 Reviewed by: Cherelle Laird - Fully Assessed Reason for Visit: Abnormal labs [Other] Visit Diagnoses:Abnormal laboratory test [R89.9] in first trimester with history of ectopic [O09.11] Order(s):OBSTETRIC ULTRASOUND [facility] [[id number]] Order #: [id number]: 1 Prescriptions as of 06/05/2020 Sig: PROGESTERONE [...] Status:Closed by KATJA TIWARI PA-C on 06/05/20 [facility] Vital Signs Date Time Vital Sign Value Performing Clinician Faci lity 10-07-2023 11:29-0400 Body height 167.6 cm Diana Eastman MD Work Phone: [facility] 10-07-2023 11:29-0400 Body mass index (BMI) [Ratio] 43.87 kg/m2 Diana Eastman MD Work Phone: [facility] 10-07-2023 11:29-0400 Body weight 123.3 kg Diana Eastman MD Work Phone: [facility] 10-07-2023 11:29-0400 Diastolic blood pressure 94 mm[Hg] Diana Eastman MD Work Phone: [facility] 10-07-2023 11:29-0400 Heart rate 53 /min Diana Eastman MD Work Phone: [facility] 10-07-2023 11:29-0400 Systolic blood pressure 147 mm[Hg] Diana Eastman MD Work Phone: [facility] 08-25-2023 08:55-0400 Body height 168.9 cm Antonia Briceno MD Work Phone: [facility] 08-25-2023 08:55-0400 Body mass index (BMI) [Ratio] 42.39 kg/m2 Antonia Briceno MD Work Phone: [facility] 08-25-2023 08:55-0400 Body weight 120.93 kg Antonia Briceno MD Work Phone: [facility] 08-25-2023 08:55-0400 Diastolic blood pressure 80 mm[Hg] Antonia Briceno MD Work Phone: [facility] 08-25-2023 08:55-0400 Systolic blood pressure 120 mm[Hg] Antonia Briceno MD Work Phone: [facility] 07-05-2023 11:07-0400 Body mass index (BMI) [Ratio] 41.97 kg/m2 Denis Lagunas MD Work Phone: [facility] 07-05-2023 11:07-0400 Body weight 117.94 kg Denis Lagunas MD Work Phone: [facility] 06-07-2023 10:55-0400 Body weight 119.3 kg Denis Lagunas MD Work Phone: [facility] 05-30-2023 10:35-0400 Body height 168.9 cm Mhcz 1 [facility] [employer] [facility] [employer] 05-30-2023 10:35-0400 Body mass index (BMI) [Ratio] 43.57 kg/m2 Mhcz 1 [facility] [employer] 05-30-2023 10:35-0400 Body temperature 98.1 [degF] Mhcz 1 [facility] [employer] [facility] [employer] 05-30-2023 10:35-0400 Body weight 124.3 kg Mhcz 1 [facility] [employer] [facility] [employer] 05-30-2023 10:35-0400 Diastolic blood pressure 74 mm[Hg] Mhcz 1 [facility] [employer] 05-30-2023 10:35-0400 Heart rate 77 /min Mhcz 1 [facility] [employer] 05-30-2023 10:35-0400 Respiratory rate 18 /min Mhcz 1 [facility]PO[facility] 05-30-2023 10:35-0400 SaO2% (BldA) [Mass fraction] 100 % Mhcz 1 [facility] [employer] 05-30-2023 10:35-0400 Systolic blood pressure 131 mm[Hg] Mhcz 1 [facility] [employer] 04-05-2023 10:50-0500 Body weight 122.02 kg Denis Lagunas MD Work Phone: [facility] 03-08-2023 10:50-0500 Body weight 124.74 kg Denis Lagunas MD Work Phone: [facility] 02-08-2023 11:00-0500 Body weight 128.82 kg Denis Lagunas MD Work Phone: [facility] 10-22-2022 14:28-0400 Body height 167.6 cm Diana Eastman MD Work Phone: [facility] 10-22-2022 14:28-0400 Body weight 133.81 kg Diana Eastman MD Work Phone: [facility] 10-21-2021 09:52-0400 Body height 172.7 cm Antonia Briceno MD Work Phone: [facility] 10-21-2021 09:52-0400 Body weight 132.72 kg Antonia Briceno MD Work Phone: [facility] 10-21-2021 09:52-0400 Diastolic blood pressure 80 mm[Hg] Antonia Briceno MD Work Phone: [facility] 10-21-2021 09:52-0400 Systolic blood pressure 118 mm[Hg] Antonia Briceno MD Work Phone: [facility] Encounters Encounter Date Encounter Type Care Provider Facility Start: 01-12-2024 End: 01-12-2024 ambulatory Diana Eastman MD Work Phone: [facility] Start: 01-12-2024 End: 01-12-2024 Follow-up encounter Diana Eastman MD Work Phone: [facility] Comment on above: ER follow up Start: 01-11-2024 End: 01-11-2024 ambulatory Katja Tiwari PA-C Work Phone: [facility] Start: 01-10-2024 End: 01-10-2024 Telephone encounter Mayank Squires MD Work Phone: OB/Gynecology Comment on above: Orders Start: 01-10-2024 End: 01-10-2024 ambulatory LAILA WYATT Facility:[facility] Start: 01-10-2024 End: 01-10-2024 Patient encounter procedure [facility] Comment on above: Pelvic pain in pregn shahriar (Primary Dx); Early stage of ; of unknown anatomic location; Bleeding in early Start: 01-09-2024 End: 01-09-2024 Orders Only Pattie Patino APRN.CNP Work Phone: [facility] Comment on above: , location unknown (Primary Dx) Start: 01-07-2024 End: 01-07-2024 ambulatory LAILA WYATT Facility:[facility] Start: 01-05-2024 End: 01-05-2024 ambulatory PATTIE PATINO Facility:[facility] Start: 2024 End: 01-06-2024 ambulatory Diana [...] t est Start: 10-07-2023 End: 10-07-2023 [facility] Start: 10-07-2023 End: 10-07-2023 Patient encounter procedure Diana Eastman MD Work Phone: [facility] Comment on above: PCOS (polycystic ova giovanni syndrome) (Primary Dx) Start: 08-25-2023 End: 08-25-2023 [facility] Start: 08-25-2023 End: 08-25-2023 Patient encounter procedure Antonia Briceno MD Work Phone: OB/Gynecology Comment on above: Encounter for gyneco logical examination (general) (routine) without abnormal findings (Primary Dx); Screening for cervical cancer; Encounter for screening for human papillomavirus (HPV) Start: 08-25-2023 End: 08-25-2023 Patient encounter status Antonia Briceno MD Work Phone: [facility] Start: 07-19-2023 Refill Denis buchanan MD [...] with patient Denis Lagunas MD Work Phone: [facility] Start: 05-30-2023 End: 05-31-2023 ambulatory Physician Jaki [facility] Start: 05-30-2023 End: 05-30-2023 Subsequent hospital visit by physician [facility] [address] [place] [address] Start: 05-30-2023 End: 05-30-2023 ambulatory [facility] Start: 05-05-2023 End: 05-06-2023 ambulatory [facility] Start: 04-05-2023 End: 04-05-2023 Telemedicine consultation with patient Denis Lagunas MD Work Phone: [facility] Start: 04-05-2023 End: 04-05-2023 ambulatory Denis Lagunas MD Work Phone: Endocrinology Comment on above: PCOS (polycystic ova giovanni syndrome) (Primary Dx); Obesity, Class III, BMI >= 40 Start: 04-04-2023 End: 04-04-2023 ambulatory DENIS LAGUNAS Facility:[facility] Start: 03-08-2023 End: 03-08-2023 ambulatory Denis Lagunas MD Work Phone: Endocrinology Comment on above: Obesity, Class III, BMI >= 40 Start: 03-08-2023 End: 03-08-2023 Telemedicine consultation with patient Denis Lagunas MD Work Phone: [facility] Start: 03-07-2023 End: 03-07-2023 ambulatory DENIS LAGUNAS Facility:[facility] Start: 02-08-2023 End: 02-08-2023 ambulatory Denis Lagunas MD Work Phone: Endocrinology Comment on above: Obesity, Class III, BMI >= 40 (Primary Dx); PCOS (polycystic ovarian syndrome) Start: 02-08-2023 End: 02-08-2023 Telemedicine consultation with patient Denis Lagunas MD Work Phone: [facility] Start: 12-24-2022 ambulatory Diana Singh Work Phone: [facility] Comment on above: IUI hold Endocrine PCOS p navarroram Start: 12-24-2022 E-mail encounter fro m caregiver [facility] Provider [facility] Start: 12-23-2022 End: 12-23-2022 ambulatory Denis Lagunas MD Work Phone: [facility] Comment on above: PCOS (polycystic ova giovanni syndrome) (Primary Dx); Obesity, Class III, BMI >= 40 Start: 12-23-2022 End: 12-23-2022 Telemedicine consultation with patient Denis Lagunas MD Work Phone: [facility] Start: 12-09-2022 End: 12-09-2022 Patient encounter procedure Jenni Laurent APRN.CNP Work Phone: [facility] Comment on above: Encounter for artifi cial insemination (Primary Dx); Obesity, Class III, BMI >= 40 Start: 12-02-2022 ambulatory Diana Singh Work Phone: [facility] Comment on above: OPK Testing Start: 10-22-2022 End: 10-22-2022 Patient encounter procedure Diana Eastman MD Work Phone: [facility] Comment on above: PCOS (polycystic ova giovanni syndrome) (Primary Dx); Secondary amenorrhea; BMI 45.0-49.9, adult (HCC) Start: 03-16-2022 End: 03-16-2022 Patient encounter procedure [...] with patient Diana Eastman MD Work Phone: [facility] Start: 10-21-2021 End: 10-21-2021 Patient encounter [...] requested procedure Denis Lagunas MD Work Phone: [facility] Procedures Date Procedure Procedure Detail Performing Clinician Start: 01-10-2024 Us preg uterus after 1st trimest 1/ gestation Mayank Squires MD Work Phone: Start: 05-30-2023 Urinalysis microscop ic only [facility] [...] Treatment Date Care Activity Detail Author Start: 01-02-2067 RSV Vaccine (1 - 1-dose 75+ series) RSV Vaccine (1 - 1-dose 75+ series) [facility] Start: 08-24-2028 Screening for malignant neoplasm of cervix Cervical Cancer Screening [facility] Start: 10-21-2026 HPV TESTING HPV TESTING [facility] Start: 10-21-2026 PAP TESTING PAP TESTING [facility] Start: 10-21-2026 Screening for malignant neoplasm of cervix [facility] Start: 08-24-2024 End: 08-24-2024 Patient encounter procedure 08/24/2024 1:40 PM EDT Office Visit OB/Gynecology [address] [place] [address] Antonia Briceno MD [address] [place] [address] Annual OB/Gynecology Comment on above: Annual Start: 03-01-2024 End: 03-01-2024 Patient encounter procedure 03/01/2024 10:20 AM EST Routine Office Visit OB/Gynecology [address] [place] [address] Antonia Briceno MD [address] [place] [address] 1st OB OB/Gynecology Comment on above: 1st OB Start: 02-01-2024 End: 02-01-2024 Patient encounter procedure 02/01/2024 8:15 AM EST Initial Office Visit OB/Gynecology [address] [place] [address] Isis Raines APRN.HOOKER OFF [address] [place] [address] 1st OB (Dr. Eastman recommended first appointment be 8 weeks out from LMP) OB/Gynecology Comment on above: 1st OB (Dr. Eastman recommended first hernan ointment be 8 weeks out from LMP) Start: 01-11-2024 End: 01-11-2024 ambulatory 01/11/2024 7:15 AM EDT Results Only Jose Antonio Morales [facility] [address] [place] [address] Jose Antonio Morales [facility] Start: 01-10-2024 End: 01-09-2025 OBSTETRIC ULTRASOUND WHI OBSTETRIC ULTRASOUND WHI Anc Imaging Routine Early stage of Expected: 01/10/2024, Expires: 01/09/[address] [facility] Work Phone: Comment on above: Expected: 01/10/2024, Expires: Start: 01-10-2024 End: 01-10-2024 Patient encounter procedure 01/10/2024 8:30 AM EDT [facility] [address] [place] [address] Pattie Patino APRN.HOOKER OFF [address] [address] new preg visit [facility] Comment on above: new preg visit Start: 01-07-2024 End: 01-07-2024 [facility] Start: 01-05-2024 End: 01-05-2024 ambulatory 01/05/2024 7:30 AM EDT Results Only [facility] [address] [place] [address] [facility] Start: 11-20-2023 Covid-19 Vaccine ( season) Covid-19 Vaccine () [facility] Start: 11-20-2023 Influenza vaccination [facility] Start: 10-07-2023 End: 10-07-2023 Patient encounter procedure [facility] Comment on above: DISCUSS NEW PLAN DISCUSS NEW PLAN lm and sent my chart time changed/js Start: 08-25-2023 End: 08-25-2023 Patient encounter procedure 08/25/2023 8:40 AM EDT Office Visit OB/Gynecology [address] [place] [address] Antonia Briceno MD [address] [place] [address] Annual exam OB/Gynecology Comment on above: Annual exam Start: 03-21-2023 Behavioral Health Screening Behavioral Health Screening [facility] Start: 03-21-2023 Depression Assessment Depression Assessment [facility] Start: 03-08-2023 End: 06-07-2023 Comprehensive metabolic 2000 panel - Serum or Plasma COMP METABOLIC PANEL Lab Routine Obesity, Class III, BMI >= 40 Expected: 03/08/2023, Expires: 06/07/[address] [facility] Work Phone: Comment on above: Expected: 03/08/2023, Expires: Start: 02-08-2023 End: 05-10-2023 Comprehensive metabolic 2000 panel - Serum or Plasma COMP METABOLIC PANEL Lab Routine Obesity, Class III, BMI >= 40 Expected: 02/08/2023, Expires: 05/10/[address] [facility] Work Phone: Comment on above: Expected: 02/08/2023, Expires: 4 Start: 12-23-2022 End: 02-22-2023 ANTI MULLERIAN HORMONE ANTI MULLERIAN HORMONE Lab Routine PCOS (polycystic ovarian syndrome) Expected: 12/23/2022, Expires: 02/22/[address] [facility] Work Phone: Comment on above: Expected: 12/23/2022, Expires: 3 Start: 12-23-2022 End: 02-22-2023 Comprehensive metabolic 2000 panel - Serum or Plasma COMP METABOLIC PANEL Lab Routine PCOS (polycystic ovarian syndrome) Expected: 12/23/2022, Expires: 02/22/[address] [facility] Work Phone: Comment on above: Expected: 12/23/2022, Expires: 3 Start: 12-23-2022 End: 02-22-2023 DHEA-S BLD DHEA-S BLD Lab Routine PCOS (polycystic ovarian syndrome) Expected: 12/23/2022, Expires: 02/22/[address] [facility] Work Phone: Comment on above: Expected: 12/23/2022, Expires: 3 Start: 12-23-2022 End: 02-22-2023 Estradiol (E2) [Mass/volume] in Serum or Plasma ESTRADIOL-17B BLD Lab Routine PCOS (polycystic ovarian syndrome) Expected: 12/23/2022, Expires: 02/22/[address] [facility] Work Phone: Comment on above: Expected: 12/23/2022, Expires: 3 Start: 12-23-2022 End: 02-22-2023 Follitropin [Units/volume] in Serum or Plasma FSH BLD Lab Routine PCOS (polycystic ovarian syndrome) Expected: 12/23/2022, Expires: 02/22/[address] [facility] Work Phone: Comment on above: Expected: 12/23/2022, Expires: 3 Start: 12-23-2022 End: 02-22-2023 Hemoglobin A1c in Blood HGB A1C Lab Routine PCOS (polycystic ovarian syndrome) Expected: 12/23/2022, Expires: 02/22/[address] [facility] Work Phone: Comment on above: Expected: 12/23/2022, Expires: 3 Start: 12-23-2022 End: 02-22-2023 Lipid 1996 panel - Serum or Plasma LIPID PANEL BASIC Lab Routine PCOS (polycystic ovarian syndrome) Expected: 12/23/2022, Expires: 02/22/[address] [facility] Work Phone: Comment on above: Expected: 12/23/2022, Expires: 3 Start: 12-23-2022 End: 02-22-2023 Lutropin [Units/volume] in Serum or Plasma LUTEINIZING HORMONE Lab Routine PCOS (polycystic ovarian syndrome) Expected: 12/23/2022, Expires: 02/22/[address] [facility] Work Phone: Comment on above: Expected: 12/23/2022, Expires: 3 Start: 12-23-2022 End: 02-22-2023 Prolactin [Mass/volume] in Serum or Plasma PROLACTIN BLD Lab Routine PCOS (polycystic ovarian syndrome) Expected: 12/23/2022, Expires: 02/22/[address] [facility] Work Phone: Comment on above: Expected: 12/23/2022, Expires: 3 Start: 12-23-2022 End: 02-22-2023 Thyrotropin [Units/volume] in Serum or Plasma TSH BLD Lab Routine PCOS (polycystic ovarian syndrome) Expected: 12/23/2022, Expires: 02/22/[address] [facility] Work Phone: Comment on above: Expected: 12/23/2022, Expires: 3 Start: 12-23-2022 End: 02-22-2023 Thyroxine (T4) free [Mass/volume] in Serum or Plasma T4 FREE/FREE THYROX Lab Routine PCOS (polycystic ovarian syndrome) Expected: 12/23/2022, Expires: 02/22/[address] [facility] Work Phone: Comment on above: Expected: 12/23/2022, Expires: 3 Start: 11-19-2022 Covid-19 Vaccine () Covid-19 Vaccine () [facility] Start: 11-19-2022 COVID-19 Vaccine () COVID-19 Vaccine () [facility] Start: 11-19-2022 Influenza vaccination [facility] Start: 10-19-2022 Influenza vaccination Flu vaccine (#1) [facility] Start: 03-22-2022 End: 02-19-2023 Cath & saline/contrast sonohyster/hysterosalpi XR HYSTEROSALPINGOGRAM Radiology Routine Encounter for fertility testing Expected: 03/22/2022, Expires: 02/19/[address] [facility] Work Phone: Comment on above: Expected: 03/22/2022, Expires: 3 Start: 03-21-2022 DEPRESSION ASSESSMENT DEPRESSION ASSESSMENT [facility] Start: 01-02-2022 HPV TESTING HPV TESTING [facility] Start: 01-02-2022 Screening for malignant neoplasm of cervix [facility] Start: 11-19-2021 Influenza vaccination [facility] Start: 10-21-2021 End: 12-21-2021 Fasting glucose [Mass/volume] in Serum or Plasma GLUCOSE FASTING BLD Lab Routine Class 3 severe obesity with body mass index (BMI) of 40.0 to 44.9 in adult, unspecified obesity type, unspecified whether serious comorbidity present (HCC) PCOS (polycystic ovarian syndrome) Expected: 10/21/2021, Expires: 12/21/[address] [facility] Work Phone: Comment on above: Expected: 10/21/2021, Expires: 2 Start: 10-21-2021 End: 12-21-2021 Hemoglobin A1c in Blood HGB A1C Lab Routine Class 3 severe obesity with body mass index (BMI) of 40.0 to 44.9 in adult, unspecified obesity type, unspecified whether serious comorbidity present (HCC) PCOS (polycystic ovarian syndrome) Expected: 10/21/2021, Expires: 12/21/[address] [facility] Work Phone: Comment on above: Expected: 10/21/2021, Expires: 2 Start: 10-21-2021 End: 12-21-2021 Lipid 1996 panel - Serum or Plasma LIPID PANEL BASIC Lab Routine Class 3 severe obesity with body mass index (BMI) of 40.0 to 44.9 in adult, unspecified obesity type, unspecified whether serious comorbidity present (HCC) PCOS (polycystic ovarian syndrome) Expected: 10/21/2021, Expires: 12/21/[address] [facility] Work Phone: Comment on above: Expected: 10/21/2021, Expires: 2 Start: 03-21-2021 DEPRESSION ASSESSMENT DEPRESSION ASSESSMENT [facility] Start: 07-08-2020 COVID-19 VACCINE (4 - Booster) COVID-19 VACCINE (4 - Booster) [facility] Start: 06-04-2020 COVID-19 VACCINE (4 - Booster) COVID-19 VACCINE (4 - Booster) [facility] Start: 06-04-2020 COVID-19 VACCINE (4 - Pfizer series) COVID-19 VACCINE (4 - Pfizer series) [facility] Start: 04-23-2019 PAP TESTING PAP TESTING [facility] Start: 01-02-2013 Screening for malignant neoplasm of cervix Pap smear [facility] Start: 01-02-2011 DTaP/Tdap/Td vaccine (1 - Tdap) DTaP/Tdap/Td vaccine (1 - Tdap) [facility] Start: 01-02-2011 Hepatitis B Vaccine (1 of 3 - 19+ 3-dose series) Hepatitis B Vaccine (1 of 3 - 19+ 3-dose series) [facility] Start: 01-02-2011 SHINGRIX VACCINE (1 of 2) SHINGRIX VACCINE (1 of 2) [facility] Start: 01-02-2011 Urine microalbumin profile [facility] Start: 01-02-2010 Anxiety Screening Anxiety Screening [facility] Start: 01-02-2010 Depression Screening Depression Screening [facility] Start: 01-02-2010 HEPATITIS C SCREENING HEPATITIS C SCREENING [facility] Start: 01-02-2010 Hepatitis C screening [facility] Start: 01-02-2010 HIV SCREENING HIV SCREENING [facility] Start: 01-02-2010 HIV screening HIV Screening [facility] Start: 01-02-2007 HIV screening HIV screen [facility] Start: 2004 Adult depression screening assessment DEPRESSION SCREENING [facility] Start: 2004 Depression Screen Depression Screen [facility] Start: 01-02-1998 PNEUMOCOCCAL (1 - PCV) PNEUMOCOCCAL (1 - PCV) [facility] Start: 01-02-1993 Varicella vaccine (1 of 2 - 2-dose childhood series) Varicella vaccine (1 of 2 - 2-dose childhood series) [facility] Start: 1992 HEPATITIS B (1 of 3 - 3-dose series) HEPATITIS B (1 of 3 - 3-dose series) [facility] Start: 1992 Hepatitis B Vaccine (1 of 3 - 3-dose series) Hepatitis B Vaccine (1 of 3 - 3-dose series) [facility] End: 01-02-2025 Choriogonadotropin.beta subunit [Units/volume] in Serum or Plasma HCG QUANTITATIVE Lab STAT Positive test 3 Occurrences starting 2024 until 01/02/[address] [facility] Work Phone: Comment on above: 3 Occurrences starting 2024 until 01/02/2025 Choriogonadotropin.b eta subunit [Units/volume] in Serum or Plasma HCG QUANTITATIVE Lab STAT Positive test 2024 4:33 PM EDT [facility] End: 01-08-2025 Choriogonadotropin.beta subunit [Units/volume] in Serum or Plasma HCG QUANTITATIVE Lab Routine , location unknown Daily for 3 Occurrences starting 01/09/2024 until 01/08/[address] [facility] Work Phone: Comment on above: Daily for 3 Occurrences starting 024 until 01/08/2025 End: 05-30-2023 Cytomegalovirus Antibody, IgG [employer] Comment on above: One Time for 1 Occurrences starting 05/19 until 05/30/2023 End: 05-30-2023 Cytomegalovirus antibody, IgM [facility] Comment on above: One Time for 1 Occurrences starting 05/19 until 05/30/2023 End: 05-30-2023 Gwen whalen virus (EBV) antibody panel I [facility] Comment on above: One Time for 1 Occurrences starting 05/19 until 05/30/2023 End: 05-30-2023 Hepatitis B e antibody [facility] Comment on above: One Time for 1 Occurrences starting 05/19 until 05/30/2023 End: 05-30-2023 Hepatitis C RNA, quantitative, PCR [facility] Comment on above: One Time for 1 Occurrences starting 05/19 until 05/30/2023 End: 05-30-2023 Herpes simplex virus (HSV) I/II antibodies IgG & IgM [facility] Comment on above: One Time for 1 Occurrences starting 05/19 until 05/30/2023 End: 05-30-2023 MISCELLANEOUS SENDOUT 2 lavender and one red top tube. for HLA/CMV and antibody testing at [facility] [employer] MISCELLANEOUS SENDOUT 2 lavender and one red top tube. for HLA/CMV and antibody testing at [facility] [employer] Lab Routine One Time for 1 Occurrences starting 05/30/2023 until 05/30/2023 [facility] Work Phone: Comment on above: One Time for 1 Occurrences starting 05/19 until 05/30/2023 PAP FLUID CERVICAL SCREENING PAP FLUID CERVICAL SCREENING Lab Routine Encounter for gynecological examination (general) (routine) without abnormal findings Screening for cervical cancer Encounter for screening for human papillomavirus (HPV) 10/21/2021 10:27 AM EDT [facility] Work Phone: PAP TEST PAP TEST Lab Rou emma Encounter for gynecological examination (general) (routine) without abnormal findings Screening for cervical cancer Encounter for screening for human papillomavirus (HPV) 08/25/2023 9:30 AM EDT [facility] Work Phone: End: 05-30-2023 Sickle Cell Screen [facility] [employer] Comment on above: One Time for 1 Occurrences starting 05/19 until 05/30/2023 End: 05-30-2023 Toxoplasma gondii antibody, IgG [facility] [employer] Comment on above: One Time for 1 Occurrences starting 05/19 until 05/30/2023 End: 05-30-2023 Toxoplasma gondii antibody, IgM [facility] [employer] Comment on above: One Time for 1 Occurrences starting 05/19 until 05/30/2023 End: 05-30-2023 Varicella-Zoster virus (VZV) antibodies IgG & IgM [facility] [employer] Comment on above: One Time for 1 Occurrences starting 05/19 until 05/30/2023 [facility] Payers Date Payer Category Payer Unknown [id number] 2023 Unknown [id number] 2022 Unknown [id number] 2019 Unknown [employer] PPO OOS [id number] 2019-Present [phone] [facility] [id number] [place] [address] PPO [id number] 2019 Unknown [id number] 1995 Unknown [id number] 1995 Unknown [id number] 1995 Unknown [id number] Social History Date Type Detail Facility Start: 12-27-2011 End: 08-25-2023 Tobacco smoking status NHIS Never smoked tobacco [facility] Start: 10-31-2020 End: 01-11-2024 Alcohol intake Current non-drinker of alcohol (finding) [facility] Start: 1990 Sex Assigned At Female [facility] Start: 09-19-2021 End: 09-29-2021 Exposure to SARS-CoV-2 (event) Yes [facility] Start: 12-27-2011 End: 08-25-2023 Tobacco use and exposure Smokeless tobacco non-user [facility] Start: 10-22-2022 End: 10-07-2023 History of Social function [facility] Start: 10-22-2022 End: 10-07-2023 Tobacco use panel [facility] National Score (1-10 0), lower number is lower risk 69 [facility] Start: 07-23-2020 Gender identity Identifies as female gender (finding) [facility] Start: 07-23-2020 Sexual orientation Heterosexual (fin roxy) [facility] Tobacco smoking stat us NHIS Tobacco smoking consumption unknown [facility] Start: 1990 Sex Assigned At Not on file [facility] Clinical Notes 11-14-2018 to 01-11-2024 Katja Tiwari PA-C - 01/11/2024 3:07 PM EDTTelephone Encounter - Mayank Squires MD - 01/10/2024 10:57 AM EDTTelephone Encounter - Mayank Squires MD - 01/10/2024 10:57 AM EDTPatient Instructions Note Date & Type Note Facility 01-11-2024 Note HNO ID: [id number] Author: KATJA TIWARI PA-C Service: ? Author Type: Physician [employer] Operator Type: Progress Notes Filed: 01/12/2024 10:03 Note Text: History of ectopic: Yes History of SAB: Yes History of pelvic/abdominal surgeries: Yes LMP 12/07/23, fertility medications used this cycle letrozole, date of LH surge: Unsure, IUI done: No Latest Ref Rng 2024 01/05/2024 01/07/2024 hCG Quantitative, Blood <5.0 mIU/mL 99.2 (H) 250.9 (H) 389.0 (H) Legend: (H) High ED visit 01/08 OB scan 01/09 Impression of unknown location. Bleeding in early . Pelvic pain in . Ultrasound Consultation small anechoic fluid area in endometrium but can't definitively call it a gestational sac it measures 0.26x0.20x0.25cm. the Endometrial thickness is 11.71mm . The left ovary has multiple small follicles at the periphery which can be seen with Polycystic ovarian syndrome The right ovary contains what appears to be a complex cyst that has a classic ring of fire appearance surrounding it but is avascular internally. this likely represents a hemorrhagic corpus luteum cyst. There is a small amount of free fluid in the culdesac. Based on LMP, pt should be 5w0d today. hCG from today still pending. FYI: Dr. Eastman. Katja Tiwari PA-C January 11, 2024 3:10 PM Pt should be 5w1d today. hCG continues rising: Latest Ref Rng 2024 01/05/2024 01/07/2024 01/11/2024 hCG Quantitative, Blood <5.0 mIU/mL 99.2 (H) 250.9 (H) 389.0 (H) 1,238.0 (H) Legend: (H) High Per MyChart from today: I am still having spotting or light bleeding as well as some pain/discomfort in my low belly. Dr. Eastman, Dr. Valenzuela, please let me know if the pt should come in for another scan today/tomorrow or Tuesday, or any other instructions. Katja Tiwari PA-C January 12, 2024 10:02 AM [facility] 01-11-2024 History of Presen t illness Narrative History of ectopic: Yes History of SAB: Yes History of pelvic/abdominal surgeries: Yes LMP 12/07/23, fertility medications used this cycle letrozole, date of LH surge: Unsure, IUI done: No Latest Ref Rng 2024 01/05/2024 01/07/2024 hCG Quantitative, Blood <5.0 mIU/mL 99.2 (H) 250.9 (H) 389.0 (H) Legend: (H) High ED visit 01/08 OB scan 01/09 Impression of unknown location. Bleeding in early . Pelvic pain in . Ultrasound Consultation small anechoic fluid area in endometrium but can't definitively call it a gestational sac it measures 0.26x0.20x0.25cm. the Endometrial thickness is 11.71mm . The left ovary has multiple small follicles at the periphery which can be seen with Polycystic ovarian syndrome The right ovary contains what appears to be a complex cyst that has a classic ring of fire appearance surrounding it but is avascular internally. this likely represents a hemorrhagic corpus luteum cyst. There is a small amount of free fluid in the culdesac. Based on LMP, pt should be 5w0d today. hCG from today still pending. FYI: Dr. Eastman. Katja Tiwari PA-C January 11, 2024 3:10 PM documented in this encounter [facility] 01-10-2024 Telephone encounter Note Filed Mayank Squires MD [facility] 01-10-2024 Miscellaneous Notes Filed Mayank Squires MD Please file order for ultrasound for R/O ectopic. Margarette said that you and Dr Briceno are aware of this patient- Dr Jaren US documented in this encounter [facility] 01-10-2024 Telephone encounter Note Please file order for ultrasound for R/O ectopic. Margarette said that you and Dr Briceno are aware of this patient- Dr Jaren US [facility] 2024 Telephone encounter Note Reviewed history, intake and most recent plan from primary [facility] provider. Plan: # of quants: standing (ectopic) additional meds needed: none schedule VV with [facility] Healthy Guide sent with plan. Pattie Patino APRN.CNP 2024 11:06 AM [facility] Work Phone: 2024 Miscellaneous Notes Reviewed history, intake and most recent plan from primary [facility] provider. Plan: # of quants: standing (ectopic) additional meds needed: none schedule VV with [facility] Healthy Guide sent with plan. Pattie Patino APRN.CNP 2024 11:06 AM Patient [...] Pos preg test documented in this encounter [facility] 2024 Telephone encounter Note See TE for 01/02 Precious Leone RN 2024 9:31 AM [facility] 2024 Miscellaneous Notes See TE for 01/02 Precious Leone RN 2024 9:31 AM documented in this encounter [facility] 2024 Telephone encounter Note Patient calls [...] hcg Precious Leone RN 2024 9:31 AM [facility] 2024 Telephone encounter Note Pos preg test T [facility] 10-07-2023 History of Presen t illness [...] Count Sperm M 1.00 % Motile Sperm (%CO + %EXTENDED DAY TEACHER) >=40 % 8 (L) Washing Solution Enhance [...] with more than 50% of the total ykvs-oo-xqqf time of the visit in counseling / coordination of care. I spent a total of 40 minutes on the date of the service which included preparing to see the patient, ejry-py-zhzn patient care, completing clinical documentation, obtaining and/or [...] presence of Dr. Diana Eastman. Electronically signed, Luis Felipe Jimenez October 07, 2023 12:20 PM documented in this encounter [facility] 10-07-2023 Note HNO ID: [id number] Author: DIANA EASTMAN MD Service: ? Author [...] Count Sperm M 1.00 % Motile Sperm (%CO + %EXTENDED DAY TEACHER) >=40 % 8 (L) Washing Solution Enhance [...] focus to weight loss program with Dr. rBay, pt reports losing 30 pounds on phentermine, [...] with more than 50% of the total qajv-iv-prkv time of the visit in counseling / coordination of care. I spent a total of 40 minutes on the date of the service which included preparing to see the patient, pyfu-wh-unaa patient care, completing clinical documentation, obtaining and/or [...] Eastman. Electronically signed, (more content not included)... [facility] 08-25-2023 Instructions Antonia Briceno MD - 08/25/2023 [...] scratching at night. documented in this encounter [facility] 08-25-2023 Note HNO ID: [id number] Author: ANTONIA BRICENO MD Service: ? Author Type: Physician Type: Progress Notes Filed: 08/25/2023 14:37 Note Text: Motor Setter offered: Patient declines. Clay is a 33 year old who presents for an annual gynecologic exam without complaints. Has been working on weight loss. Menses: Induced by Provera. History of PCOS. 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 Author [...] 12/25/2022 HBA1C 5.3 08/11/[address] [facility] 07-05-2023 History of Presen t illness Narrative [...] plans to make an appointment with her lift supervisor. Patient Entered Data 02/07/2023 03/07/2023 06/06/2023 PROMIS [...] 07/05/2023 Obesity Questionnaire Difficulties following advice of queen producer No No No My appetite is well [...] Past Histories independently gathered by the clinical marketing support manager and the remaining scribed note accurately describes my personal service to the patient. I have communicated my name and active licensure. The patient's identity and physical location were verified at the time of this visit. Either the patient or their legal automotive sales representative has been informed of the risks and benefits of -- and alternatives to -- treatment through a remote evaluation and consents to proceed with the evaluation remotely. Denis Lagunas MD Endocrinology staff Pager: [phone] July 05, 2023 The documentation for this note was completed by Tessy Wyatt RD acting as scribe for Denis Lagunas MD. July 05, 2023 10:[address] documented in this encounter [facility] 07-05-2023 Note HNO ID: [id number] Author: DENIS MACHADO MD Service: ? Author [...] plans to make an appointment with her lift supervisor. Patient Entered Data 02/07/2023 03/07/2023 06/06/2023 PROMIS [...] 07/05/2023 Obesity Questionnaire Difficulties following advice of queen producer No No No My appetite is well [...] old female is here for PCOS Virtual [facility] program Recommendations - decrease phentermine, 37.5mg, to 1/2 tab daily. - take provera to start period (more content not included)... [facility] 07-01-2023 Instructions Tessy Wyatt, MARIO - 07/01/2023 1:53 PM EDT Thank you for choosing the [facility] Department of Endocrinology, Diabetes and Metabolism. Did you know that you need to call 48 hours in advance of your scheduled visit, if you are unable to make your appointment? [facility] thanks you for your commitment, because patients not showing to their appointment results in a lost opportunity for patients to receive world class health care at the [facility]. To Cancel an appointment, please choose one of the following: - Call the Appointment Call Center at [phone] - From [facility], Go to Appointments - Cancel Appts If [...] initial phase. Please either call me at [phone] or message me, to schedule your next mVSMA. documented in this encounter [facility] 06-07-2023 Note HNO ID: [id number] Author: ELOY NORRIS RD Service: ? Author [...] 12/25/2022 HBA1C 5.3 08/11/[address] [facility] 06-07-2023 History of Presen t illness Narrative [...] 06/06/2023 Obesity Questionnaire Difficulties following advice of queen producer No No No My appetite is well [...] old female is here for PCOS Virtual [facility] program Recommendations - continue phentermine. = continue current diet and exercise = continue current meds/OCP I agree with the Chief Complaint, ROS, and Past Histories independently gathered by the clinical marketing support manager and the remaining scribed note accurately describes my personal service to the patient. I have communicated my name and active licensure. The patient's identity and physical location were verified at the time of this visit. Either the patient or their legal automotive sales representative has been informed of the risks and benefits of -- and alternatives to -- treatment through a remote evaluation and consents to proceed with the evaluation remotely. Denis Lagunas MD Endocrinology staff Pager: [phone] June 07, 2023 The documentation for this [...] No Seizures: No documented in this encounter [facility] 06-07-2023 Note HNO ID: [id number] Author: DENIS MACHADO MD Service: ? Author [...] 06/06/2023 Obesity Questionnaire Difficulties following advice of queen producer No No No My appetite is well [...] Past Histories independently gathered by the clinical marketing support manager and the re (more content not included)... [facility] 06-07-2023 Instructions Tessy Wyatt, RD - 06/07/2023 8:03 AM EDT Thank you for choosing the [facility] Department of Endocrinology, Diabetes and Metabolism. [...] for an InBody analysis scan, please call [phone]. Looking for additional support? Join us for our monthly support group on the tuesday of every month from 6pm-7pm. This virtual group is for patients who would benefit from additional information from our providers to support their buttermaker continuous churn physical and mental health goals. Participants will receive support from other group members and providers. Email [email or web address] to be put on our mailing list and receive links to join the group. documented in this encounter [facility] 04-05-2023 Note HNO ID: [id number] Author: ELOY NORRIS RD Service: ? Author [...] 12/25/2022 HBA1C 5.3 08/11/[address] [facility] 04-05-2023 History of Presen t illness Narrative Patient attended a Weight Management [facility] and is currently using the Mediterranean nutrition [...] any difficulties following the advice of our queen producer? Yes No No Is your appetite well-controlled [...] old female is here for PCOS Virtual [employer] program Recommendations - she did not have [...] - she has an appointment with an EXTENDED DAY TEACHER tomorrow in her PCP's office. She was instructed to ask the EXTENDED DAY TEACHER about having an US of her liver. [...] Past Histories independently gathered by the clinical marketing support manager and the remaining scribed note accurately describes my personal service to the patient. I have communicated my name and active licensure. The patient's identity and physical location were verified at the time of this visit. Either the patient or their legal automotive sales representative has been informed of the risks and benefits of -- and alternatives to -- treatment through a remote evaluation and consents to proceed with the evaluation remotely. Denis Lagunas MD Endocrinology staff Pager: [phone] April 05, 2023 The documentation for this note was completed by Tessy Wyatt RD acting as scribe for Denis Lagunas MD. April 05, 2023 10:[address] documented in this encounter [facility] 04-05-2023 Note HNO ID: [id number] Author: DENIS MACHADO MD Service: ? Author [...] any difficulties following the advice of our queen producer? Yes No No Is your appetite well-controlled [...] Never used Substanc (more content not included)... [facility] 04-01-[address] - 04/01/2023 4:23 PM EST Thank you for choosing the [facility] Department of Endocrinology, Diabetes and Metabolism. [...] for an InBody analysis scan, please call [phone]. Looking for additional support? Join us for our monthly support group on the tuesday of every month from 6pm-7pm. This virtual group is for patients who would benefit from additional information from our providers to support their [facility] physical and mental health goals. Participants will receive support from other group members and providers. Email [email or web address] to be put on our mailing list and receive links to join the group. documented in this encounter [facility] 03-08-2023 History of Presen t illness [...] any difficulties following the advice of our queen producer? Yes No Is your appetite well-controlled at [...] old female is here for PCOS Virtual [facility] [employer] program Recommendations - she lost a little [...] Past Histories independently gathered by the clinical marketing support manager and the remaining scribed note accurately describes my personal service to the patient. I have communicated my name and active licensure. The patient's identity and physical location were verified at the time of this visit. Either the patient or their legal automotive sales representative has been informed of the risks and benefits of -- and alternatives to -- treatment through a remote evaluation and consents to proceed with the evaluation remotely. Denis Lagunas MD Endocrinology staff Pager: [phone] March 08, 2023 The documentation for this note was completed by Tessy Wyatt RD acting as scribe for Denis Lagunas MD. March 08, 2023 10:[address] documented in this encounter [facility] 03-08-2023 Note HNO ID: [id number] Author: Denis Machado MD Service: ? Author [...] any difficulties following the advice of our queen producer? Yes No Is your appetite well-controlled at [...] chest pain, h (more content not included)... [facility] 03-07-2023 Instructions Tessy Wyatt, MARIO - 03/07/2023 1:14 PM EST Thank you for choosing the [facility] Department of Endocrinology, Diabetes and Metabolism. [...] for an InBody analysis scan, please call [phone]. Looking for additional support? Join us for our monthly support group on the tuesday of every month from 6pm-7pm. This virtual group is for patients who would benefit from additional information from our providers to support their buttermaker continuous churn physical and mental health goals. Participants will receive support from other group members and providers. Email [email or web address] to be put on our mailing list and receive links to join the group. documented in this encounter [facility] 02-08-2023 Note HNO ID: [id number] Author: Eloy Norris RD Service: ? Author Type: Registered Dietitian Type: Progress Notes Filed: 02/08/2023 11:59 AM Note Text: Patient attended a Weight Management [facility] and is currently using the mediterranean nutrition plan. Topics discussed in group session include: Nutrition Basics Handouts provided: Basics of the Mediterranean Meal Plan Mediterranean Grocery List Comments: -met with MARIO 12/28/2022 -trying to eliminate pop and eat [...] 12/25/2022 HBA1C 5.3 08/11/[address] [facility] 02-08-2023 History of Presen t illness Narrative [...] any difficulties following the advice of our queen producer? Yes Is your appetite well-controlled at this [...] Past Histories independently gathered by the clinical marketing support manager and the remaining scribed note accurately describes my personal service to the patient. I have communicated my name and active licensure. The patient's identity and physical location were verified at the time of this visit. Either the patient or their legal automotive sales representative has been informed of the risks and benefits of -- and alternatives to -- treatment through a remote evaluation and consents to proceed with the evaluation remotely. Denis Lagunas MD Endocrinology staff Pager: [phone] February 08, 2023 The documentation for this [...] No Seizures: No documented in this encounter [facility] 02-08-2023 Note HNO ID: [id number] Author: Denis Machado MD Service: ? Author [...] any difficulties following the advice of our queen producer? Yes Is your appetite well-controlled at this [...] History Tobacco Use (more content not included)... [facility] 02-08-[address] - 02/08/2023 8:47 AM EST Thank you for choosing the [facility] Department of Endocrinology, Diabetes and Metabolism. [...] been placed for you to see the Radiological Metallurgist. Please call [phone], to schedule your Free Exercise Consult . To schedule an appointment for an InBody analysis scan, please call [phone]. Looking for additional support? Join us for our monthly support group on the tuesday of every month from 6pm-7pm. This virtual group is for patients who would benefit from additional information from our providers to support their buttermaker continuous churn physical and mental health goals. Participants will receive support from other group members and providers. Email [email or web address] to be put on our mailing list and receive links to join the group. documented in this encounter [facility] 12-23-2022 History of Presen t illness [...] she is interested will refer her to [facility]. = Exercise: REFER TO EXERCISE PHYSIOLOGY = PCOS labs ordered. = Metformin: continue 1000 mg bid. = discussed weight loss meds, she will think about it and let me know. = OCP: doing letrozole now with Provera Will see her in follow up in 1 month in [facility]. = a copy of this consultation was sent to consulting provider via EMR I spent 40 minutes in the visit, with more than 50% of the total tyvr-tj-oonz time of the visit in counseling / coordination of care. I have communicated my name and active licensure. The patient's identity and physical location were verified at the time of this visit. Either the patient or their legal automotive sales representative has been informed of the risks and benefits of -- and alternatives to -- treatment through a remote evaluation and consents to proceed with the evaluation remotely. Denis Lagunas MD Endocrinology staff Pager: [phone] December 23, 2022 documented in this encounter [facility] 12-09-2022 Procedure note [facility] IUI PROCEDURE NOTE Date: 12/09/2022 Primary Proceduralist: Jenni Laurent APRN.CNP Consents and Labels Consent Signed: Informed Consent obtained and on the chart, See Comment (Comment: eviewed and signed consent for IUI today in epic,verbal conset also, declined senior gis analyst) Labels Verified With Patient: Yes, See Comment (Comment: confirmed allpatient partner and specimen identifers with patient and lab) Indications: Clay Cristina, is a 32 year old female here today for intrauterine insemination. IUI # 1. Cycle Day: 16 Last menstrual period: 11/24/2022 [place] Protocol: UNIVERSAL PROTOCOL / SAFETY CHECKLIST Procedure [...] TIME: 11:04 PM documented in this encounter [facility] 12-09-2022 History of Presen t illness Narrative IUI Pre: 2.5 m/ml, 8% Post: 1.6 m/ml, 31% Insem#: 0.2 million IUI specimen released to provider Emilie Reyes December 09, 2022 12:25 PM documented in this encounter [facility] 12-02-2022 Miscellaneous Notes This patient gave [...] seven days of my reply. See the [employer] message reply for my assessment and plan. I spent a total of 5 minutes reviewing the patient's prior medical records and current request for medical advice, prescribing medications or ordering tests (if applicable), replying to the patient, and documenting the encounter. documented in this encounter [facility] 10-22-2022 History of Presen t illness [...] with more than 50% of the total peof-uw-zkln time of the visit in counseling / coordination of care. I spent a total of 40 minutes on the date of the service which included preparing to see the patient, brmu-mu-prdg patient care, completing clinical documentation, obtaining and/or [...] missed in proofreading. documented in this encounter [facility] 03-16-2022 History of Presen t illness [...] Site Marking, Correct Position (if applicable). Time: 2 Affirmation of Time Out: N/A Sign Out Discussion: Completed The cervix was prepped and grasped with a tenaculum. The canula was inserted into the cervix and contrast injected under fluoroscopic control. The procedure was performed without difficulty. Pt tolerated it well. Uterus: normal cavity Tubes: patent bilaterally Jose Luis Avila MD documented in this encounter [facility] 02-19-2022 History of Presen t illness [...] dated 10/31/[address] Loyda Valenzuela at [facility] Clay Cristina is a 30 year old.G [...] recommended myoinositol for PCOS, instructions sent via [employer] - ovulation induction plus timed intercourse x6 [...] missed in proofreading. documented in this encounter [facility] 10-21-2021 History of Presen t illness Narrative Motor Setter offered: Patient declinesGurinder Lopez is a 31 year old who presents for an annual gynecologic exam without complaints. Menses: Regular on Femara. Otherwise 42+ day cycles given known PCOS. Has used Provera in past Contraception: none HPV vaccine: Yes Last Pap: 04/23/2016 normal HPV: 03/22/2014 negative History of abnormal pap: Yes - ASCUS pap 2013 with negative HPV Last mammogram: never Sexually active: Yes Patient concerns for STD exposure: No. 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 Author Type: Physician Type: Progress Notes Filed: 07/27/2020 12:02 PM Note Text: Clay Reno Laya is a 30 year old.G 4 P [...] which included preparing to see the patient, zmzf-qb-jryi patient care, completing clinical documentation, counseling and educating the patient/family/caregiver and ordering medications, tests, or procedures. Loyda Valenzuela MD [facility] 06-04-2020 Note HNO ID: [id number] Author: Katja Tiwari (Pa) Service: ? Author Type: Physician Mortar Mixer Operator Type: Progress Notes Filed: 06/04/2020 5:02 PM Note Text: AMBULATORY TELEPHONE VISIT Clay Cristina has consented to this telephone encounter. Persons Present: patient Chief Complaint/Reason: hCG result HPI: hCG result is not back yet Data Reviewed: Most recent lab Assessment: Plan: F/u via Total Time Spent: 5 minutes Katja Tiwari PA-C June 04, 2020 5:00 PM [facility] 11-14-2018 History of Past i llness Narrative [...] ordered. TKRN Patient request for diagnostic testing 11/27/2018 Overview: 10/19/2018Patient desires nuchal ultrasound. TKRN [...] of this encounter (statuses as of 07/30/2021) [facility] History of Past illness Narrative* Problem [...] of this encounter (statuses as of 10/21/2021) [facility] History of Past illness Narrative* Problem Noted Date Resolved Date Uterine fibroid during , antepartum 11/27/2018 Overview: 11/09/18-There is a small intramural fibroid located in the fundal aspect that is 2.4 cm in greatest dimension. Seen on 7w0d US. Bekah Alcazar APRN.CNM with uncertain dates in first trimeste r 10/19/2018 11/27/2018 Overview: 11/09/18-JAENY 06/28/19 by 7w0d US. Bekah Alcazar APRN.MORENO 10/19/2018Patient had LMP 08/25/2018. History of irregular menses. Positive test at home 10/10. Negative at home test one week prior to that. History of miscarriage 06/2018. Denies any bleeding or pain. Discussed with Isis Raines. Quantitative HCG's ordered. TKRN Patient request for diagnostic testing 11/27/2018 Overview: 10/19/2018Patient desires nuchal ultrasound. TKRN [...] of this encounter (statuses as of 02/19/2022) [facility] History of Past illness Narrative* Problem [...] of this encounter (statuses as of 03/22/2022) [facility] History of Past illness Narrative* Problem [...] of this encounter (statuses as of 10/22/2022) [facility] History of Past illness Narrative* Problem [...] of this encounter (statuses as of 12/02/2022) [facility] History of Past illness Narrative* Problem [...] of this encounter (statuses as of 12/10/2022) [facility] History of Past illness Narrative* Problem [...] obese. Will need GCT after viable determined. SANDRINE 5 weeks gestation of 06/29/2018 11/27/2018 Overview: 06/29/2018 NOB at 5 wk gestation. Pt declines HCG quants at this time and will call if she has any symptoms. To return in 2-3 weeks for OB visit and first US for dating. SW documented as of this encounter (statuses as of 12/25/2022) [facility] History of Past illness Narrative* Problem Noted Date Diagnosed Date Resolved Date Uterine fibroid during , antepartum 9 11/27/2018 Overview: 11/09/18-There is a small intramural fibroid located in the fundal aspect that is 2.4 cm in greatest dimension. Seen on 7w0d US. Bekah Alcazar APRN.DOROTHEAM with uncertain mya es in first trimester [...] of this encounter (statuses as of 12/25/2022) [facility] History of Past illness Narrative* Problem Noted Date Diagnosed Date Resolved Date Uterine fibroid during , antepartum 9 11/27/2018 Overview: 11/09/18-There is a small intramural fibroid located in the fundal aspect that is 2.4 cm in greatest dimension. Seen on 7w0d US. Bekah Alcazar APRN.CNM with uncertain mya es in first trimester 10/19/2018 11/27/2018 Overview: 11/09/18-JANEY 06/28/19 by 7w0d US. Bekah Alcazar APRN.DOROTHEAM 10/19/2018Patient had LMP 08/25/2018. History of irregular [...] of this encounter (statuses as of 12/29/2022) [facility] History of Past illness Narrative* Problem [...] of this encounter (statuses as of 02/08/2023) [facility] of Past illness Narrative* Problem [...] of this encounter (statuses as of 03/09/2023) [facility] History of Past illness Narrative* Problem [...] of this encounter (statuses as of 06/07/2023) [facility] of Past illness Narrative* Problem [...] of this encounter (statuses as of 06/07/2023) [facility] note* Diagnosis Anovulation Female infertility associated with anovulation documented in this encounter [facility] note* Diagnosis Encounter for gynecological examination [...] associated with anovulation documented in this encounter [facility] note* Diagnosis Encounter for fertility testing- Primary Fertility testing Anovulation Female infertility associated with anovulation Recurrent loss without current PCOS (polycystic ovarian syndrome) Polycystic ovaries documented in this encounter [facility] note* Diagnosis Encounter for fertility testing- Primary Fertility testing Recurrent loss without current documented in this encounter [facility] note* Diagnosis PCOS (polycystic ovarian syndrome)- Primary Polycystic ovaries Secondary amenorrhea Absence of menstruation BMI 45.0-49.9, adult (HCC) Body Mass Index 45.0-49.9, adult documented in this encounter [facility] note* Diagnosis Treatment plan provided- Primary documented in this encounter [facility] note* Diagnosis Encounter for artificial insemination- Primary Artificial insemination Obesity, Class III, BMI >= 40 Morbid obesity documented in this encounter [facility] note* Diagnosis PCOS (polycystic ovarian syndrome)- Primary Polycystic ovaries Obesity, Class III, BMI >= 40 Morbid obesity documented in this encounter [facility] note* Diagnosis Treatment plan provided- Primary documented in this encounter [facility] note* Diagnosis Obesity, Class III, BMI >= 40- Primary Morbid obesity PCOS (polycystic ovarian syndrome) Polycystic ovaries documented in this encounter [facility] note* Diagnosis Obesity, Class III, BMI >= 40 Morbid obesity documented in this encounter [facility] note* Diagnosis PCOS (polycystic ovarian syndrome)- Primary Polycystic ovaries Obesity, Class III, BMI >= 40 Morbid obesity [facility]* Diagnosis PCOS (polycystic ovarian syndrome)- Primary Polycystic ovaries Class 3 severe obesity due to excess calories with body mass index (BMI) of 45.0 to 49.9 in adult, unspecified whether serious comorbidity present (HCC) documented in this encounter [facility] note* Diagnosis Obesity, Class III, BMI >= 40 Morbid obesity documented in this encounter [facility] note* Diagnosis Encounter for gynecological examination (general) (routine) without abnormal findings- Primary Screening for cervical cancer Screening for malignant neoplasm of the cervix Encounter for screening for human papillomavirus (HPV) Special screening examination for human papillomavirus (HPV) documented in this encounter [facility] note* Diagnosis PCOS (polycystic ovarian syndrome)- Primary Polycystic ovaries documented in this encounter [facility] note* Diagnosis Positive test- Primary examination or test, positive result documented in this encounter [facility] note* Diagnosis Procreation management investigation and testing- Primary Other investigation and testing for procreative management documented in this encounter [facility] note* Diagnosis , location unknown- Primary state, incidental documented in this encounter [facility] note* Diagnosis Early stage of - Primary state, incidental documented in this encounter [facility] note* Diagnosis Pelvic pain in - Primary Other specified complication of , unspecified as to episode of care Early stage of state, incidental of unknown anatomic location state, incidental Bleeding in early Unspecified hemorrhage in early , unspecified as to episode of care documented in this encounter [facility] note* Diagnosis Bleeding in early [O20.9]- Primary Unspecified hemorrhage in early , unspecified as to episode of care documented in this encounter [facility] for referral (narrative)* Diagnostic Procedure Only (Routine) - Pending Review Specialty Diagnoses / Procedures Referred By Arabella wilcox Referred To Contact XR IMAGING Diagnoses Encounter for fertility testing Procedures XR HYSTEROSALPINGOGRAM CATH & SALINE/CONTRAST SONOHYSTER/HYSTEROSALPI Diana Eastman MD [address] [place] [address] Xr Imaging Referral ID Status Reason Start Date Expiration Date Visits Requested Visits Authorized [id number] Pending Review Auto-Generat ed Referral 03/22/2022 03/21/2023 1 1 [facility] for referral (narrative)* Diagnostic Procedure Only (Routine) - Closed Specialty Diagnoses / Procedures Referred By Contac t Referred To Contact [facility] Diagnoses Early stage of Procedures OBSTETRIC ULTRASOUND WHI US PREG UTERUS AFTER 1ST TRIMEST GESTATION Mayank Squires MD [address] [place] [address] [facility] [address] [place] [address] Referral ID Status Reason Start Date Expiration Date V isits Requested Visits Authorized [id number] Closed Auto-Generate d Referral 01/10/2024 01/09/2025 1 1 [facility] Summary Purpose Family History No Family History [...] (MNT) MEDICAL NUTRITION ASSMT&IVNTJ INDIV EACH 15 ND MEDICAL NUTRITION ASSMT&IVNTJ INDIV EACH 15 ND MEDICAL NUTRITION ASSMT&IVNTJ INDIV EACH 15 ND MEDICAL NUTRITION ASSMT&IVNTJ INDIV EACH 15 ND Denis Machado MD [address] [place] [address] Referral ID Status Reason Start Date Expiration Date Visits Requested Visits Authorized [id number] Authorized PCP Requested Referral 12/23/2022 12/23/2023 1 1 Additional Source Comments INFORMATION SOURCE (unrecogn ized section and content) DATE CREATED AUTHOR 07/29/2020 [facility] DATE CREATED AUTHOR AUTHOR'S ORGANIZ ATION 05/22/2023 [facility] DATE CREATED AUTHOR AUTHOR'S ORGANIZ ATION 06/04/2023 [facility] DATE CREATED AUTHOR AUTHOR'S ORGANIZ ATION 10/19/2023 [facility] DATE CREATED AUTHOR AUTHOR'S ORGANIZ ATION 01/12/2024 [facility] Source Comments (unrecognize d section and content) In the event this informatio n is protected by the Federal Confidentiality of Alcohol and Drug Abuse Patient Records regulations: The Federal rules restrict any use of the information to criminally investigate or prosecute any alcohol or drug abuse patient.[facility] the event this information is protected by the Federal Confidentiality of Alcohol and Drug Abuse Patient Records regulations: The Federal rules restrict any use of the information to criminally investigate or prosecute any alcohol or drug abuse patient.[facility] the event this information is protected by the Federal Confidentiality of Alcohol and Drug Abuse Patient Records regulations: The Federal rules restrict any use of the information to criminally investigate or prosecute any alcohol or drug abuse patient.[facility] the event this information is protected by the Federal Confidentiality of Alcohol and Drug Abuse Patient Records regulations: The Federal rules restrict any use of the information to criminally investigate or prosecute any alcohol or drug abuse patient.[facility] the event this information is protected by the Federal Confidentiality of Alcohol and Drug Abuse Patient Records regulations: The Federal rules restrict any use of the information to criminally investigate or prosecute any alcohol or drug abuse patient.[facility] the event this information is protected by the Federal Confidentiality of Alcohol and Drug Abuse Patient Records regulations: The Federal rules restrict any use of the information to criminally investigate or prosecute any alcohol or drug abuse patient.[facility] the event this information is protected by the Federal Confidentiality of Alcohol and Drug Abuse Patient Records regulations: The Federal rules restrict any use of the information to criminally investigate or prosecute any alcohol or drug abuse patient.[facility] the event this information is protected by the Federal Confidentiality of Alcohol and Drug Abuse Patient Records regulations: The Federal rules restrict any use of the information to criminally investigate or prosecute any alcohol or drug abuse patient.[facility] the event this information is protected by the Federal Confidentiality of Alcohol and Drug Abuse Patient Records regulations: The Federal rules restrict any use of the information to criminally investigate or prosecute any alcohol or drug abuse patient.[facility] the event this information is protected by the Federal Confidentiality of Alcohol and Drug Abuse Patient Records regulations: The Federal rules restrict any use of the information to criminally investigate or prosecute any alcohol or drug abuse patient.[facility] the event this information is protected by the Federal Confidentiality of Alcohol and Drug Abuse Patient Records regulations: The Federal rules restrict any use of the information to criminally investigate or prosecute any alcohol or drug abuse patient.[facility] the event this information is protected by the Federal Confidentiality of Alcohol and Drug Abuse Patient Records regulations: The Federal rules restrict any use of the information to criminally investigate or prosecute any alcohol or drug abuse patient.[facility] the event this information is protected by the Federal Confidentiality of Alcohol and Drug Abuse Patient Records regulations: The Federal rules restrict any use of the information to criminally investigate or prosecute any alcohol or drug abuse patient.[facility] the event this information is protected by the Federal Confidentiality of Alcohol and Drug Abuse Patient Records regulations: The Federal rules restrict any use of the information to criminally investigate or prosecute any alcohol or drug abuse patient.[facility] the event this information is protected by the Federal Confidentiality of Alcohol and Drug Abuse Patient Records regulations: The Federal rules restrict any use of the information to criminally investigate or prosecute any alcohol or drug abuse patient.[facility] the event this information is protected by the Federal Confidentiality of Alcohol and Drug Abuse Patient Records regulations: The Federal rules restrict any use of the information to criminally investigate or prosecute any alcohol or drug abuse patient.[facility] the event this information is protected by the Federal Confidentiality of Alcohol and Drug Abuse Patient Records regulations: The Federal rules restrict any use of the information to criminally investigate or prosecute any alcohol or drug abuse patient.[facility] the event this information is protected by the Federal Confidentiality of Alcohol and Drug Abuse Patient Records regulations: The Federal rules restrict any use of the information to criminally investigate or prosecute any alcohol or drug abuse patient.[facility] the event this information is protected by the Federal Confidentiality of Alcohol and Drug Abuse Patient Records regulations: The Federal rules restrict any use of the information to criminally investigate or prosecute any alcohol or drug abuse patient.[facility] the event this information is protected by the Federal Confidentiality of Alcohol and Drug Abuse Patient Records regulations: The Federal rules restrict any use of the information to criminally investigate or prosecute any alcohol or drug abuse patient.[facility] the event this information is protected by the Federal Confidentiality of Alcohol and Drug Abuse Patient Records regulations: The Federal rules restrict any use of the information to criminally investigate or prosecute any alcohol or drug abuse patient.[facility] the event this information is protected by the Federal Confidentiality of Alcohol and Drug Abuse Patient Records regulations: The Federal rules restrict any use of the information to criminally investigate or prosecute any alcohol or drug abuse patient.[facility] the event this information is protected by the Federal Confidentiality of Alcohol and Drug Abuse Patient Records regulations: The Federal rules restrict any use of the information to criminally investigate or prosecute any alcohol or drug abuse patient.[facility] the event this information is protected by the Federal Confidentiality of Alcohol and Drug Abuse Patient Records regulations: The Federal rules restrict any use of the information to criminally investigate or prosecute any alcohol or drug abuse patient.[facility] the event this information is protected by the Federal Confidentiality of Alcohol and Drug Abuse Patient Records regulations: The Federal rules restrict any use of the information to criminally investigate or prosecute any alcohol or drug abuse patient.[facility] the event this information is protected by the Federal Confidentiality of Alcohol and Drug Abuse Patient Records regulations: The Federal rules restrict any use of the information to criminally investigate or prosecute any alcohol or drug abuse patient.[facility] Reason for Visit (unrecogniz ed section and content) Reason Comments Rx Refills Reason Comments Well Woman Reason Comments Infertility Specialty Diagnoses / Procedures Referred By Arabella t Referred To Contact [facility] Diagnoses Infertility counseling infertility consult Procedures OFFICE CONSULTATION NEW/ESTAB PATIENT 40 MIN infertility consult Diana Eastman [address] [place] [address] [facility] [address] [place] [id number] Referral ID Status Reason Start Date Expiration Date Visits Requested Visits Authorized [id number] Authorized Benefit Check 01/22/2022 03/20/2022 99 99 Specialty Diagnoses / Procedures Referred By [facility] t Referred To Contact XR IMAGING Diagnoses Encounter for fertility testing Procedures XR HYSTEROSALPINGOGRAM CATH & SALINE/CONTRAST SONOHYSTER/HYSTEROSALPI HYSTEROSALPINGOGRAPHY RS&I URINE TEST Diana Eastman MD [address] [place] [address] Xr Imaging Referral ID Status Reason Start Date Expiration Date Visits Requested Visits Authorized [id number] Authorized Benefit Check 03/22/2022 03/21/2023 4 4 Reason Comments Establish Care Specialty Diagnoses / Procedures Referred By [facility] t Referred To Contact [facility] Diagnoses Encounter for other procreative management Procedures ARTIFIC INSEMINATION INTRAUTERIN OFFICE/OUTPATIENT ESTABLISHED MOD MDM 30-39 [place] [address] [place] [address] [facility] [address] [address] [place] [address] Referral ID Status Reason Start Date Expiration Date V isits Requested Visits Authorized [id number] Closed Benefit Check 10/22/2022 01/20/2023 4 1 Reason Comments Weight Problem Reason Comments Medical Weight Management Reason Onset Date Comments Refill Request 07/19/2023 Reason Comments Infertility Reason Comments pos preg test Reason Comments Orders Reason Comments AEROLOGIST Ultrasound Specialty Diagnoses / Procedures Referred By [facility] Referred To Contact [facility] Diagnoses Early stage of Procedures OBSTETRIC ULTRASOUND WHI US PREG UTERUS AFTER 1ST TRIMEST GESTATION Mayank Squires MD [address] [place] [address] [facility] [address] [place] [address] Referral ID Status Reason Start Date Expiration Date V isits Requested Visits Authorized [id number] Closed Auto-Generate d Referral 01/10/2024 01/09/2025 1 1 Care Teams (unrecognized sec tion and content) Document Management Analyst Relationship Specialty Start Date End Date Laila Wyatt PCP - General Family Practice 04/20/11 Document Management Analyst Relationship Specialty Start Date End Date Laila Wyatt PCP - General Family Practice 04/20/11 Document Management Analyst Relationship Specialty Start Date End Date Laila Wyatt PCP - General Family Medicine 04/20/11 Document Management Analyst Relationship Specialty Start Date End Date Laila Wyatt PCP - General Family Medicine 04/20/11 Document Management Analyst Relationship Specialty Start Date End Date Laila Wyatt PCP - General Family Medicine 04/20/11 Document Management Analyst Relationship Specialty Start Date End Date Laila Wyatt PCP - General Family Medicine 04/20/11 Document Management Analyst Relationship Specialty Start Date End Date Laila Wyatt PCP - General Family Medicine 04/20/11 Document Management Analyst Relationship Specialty Start Date End Date Laila Wyatt PCP - General Family Medicine 04/20/11 Document Management Analyst Relationship Specialty Start Date End Date Laila Wyatt PCP - General Family Medicine 04/20/11 Document Management Analyst Relationship Specialty Start Date End Date Laila Wyatt PCP - General Family Medicine 04/20/11 Document Management Analyst Relationship Specialty Start Date End Date Laila Wyatt PCP - General Family Medicine 04/20/11 Document Management Analyst Relationship Specialty Start Date End Date Laila Wyatt PCP - General Family Medicine 04/20/11 Document Management Analyst Relationship Specialty Start Date End Date Laila Wyatt PCP - [facility] Family Medicine 04/20/11 Document Management Analyst Relationship Specialty Start Date End Date Laila Wyatt PCP - [facility] Family [facility] 04/20/11 Document Management Analyst Relationship Specialty Start Date End Date Laila Wyatt PCP - [facility] Family [facility] 04/20/11 Document Management Analyst Relationship Specialty Start Date End Date Laila Wyatt PCP [facility] Family [facility] 04/20/11 Document Management Analyst Relationship Specialty Start Date End Date Laila Wyatt PCP General Family Medicine 04/20/11 Document Management Analyst Relationship Specialty Start Date End Date Laila Wyatt PCP [facility] 04/20/11 FOR RECORDS PERTAINING TO PATIENTS WHO [...] BE BASED ON THE PRIMARY CLINICAL RECORDS. [facility] [employer] [facility]. provides no warranty or guarantee of the accuracy or completeness of information in this document.
[2024-01-13] MEDS: Ondansetron 4 MG/2 ML Vial IV (18:06)
--- NOTE | 2024-01-13 18:26 | PCM.HP.BLA ---
History and Physical Date of Admission: 01/13/24 presents with complaints of increased pain on right side, no N/v. pt is currently being followed for of unknown location. had ultrasound at [facility] with findings of Corpus luteum cyst and appropriately rising HCG levels- following with [facility]. pt states pain today got severe, 12/28. pt has h/o 2 previous ectopic pregnancies treated with MTX in past. pt reports this was achieved with letrozole. PSX: lap cholecystectomy, tonsillectomy, PMH: PCOS, GERD, Obesity Assessment & Plan Assessment/Plan (1) , location unknown: (2) RLQ abdominal pain: (3) Ruptured left tubal ectopic causing hemoperitoneum: PLAN: Plan with RLQ pain Hemoperitoneum- ruptured ectopic 1) discussed surgical intervention with patient- reviewed diagnostic laparoscopy, possible salpingectomy, possible oophorectomy, removal of ectopic . reviewed with patient that despite appropriately rising HCG levels this is concerning for rupture ectopic and surgical intervention warranted. pt agrees to proceed at this time. 2) risks of surgery were reviewed with patient include but not limited to anesthesia, bleeding, infection, injury to pelvic structures including bladder, bowel, vessels. If there is a heterotopic this could potentially cause harm to viable . pt verbalized understanding. pt understands she may need removal of tube or ovary which could impact future fertility. 3) OR team was notified 4) plan for dc home after surgery if stable.
--- NOTE | 2024-01-13 18:55 | DCINST_ITS ---
Discharge Instructions Diet Discharge Diet: No restrictions Activity May resume sexual activity in: 2 weeks Lifting Restrictions: 20-25 lbs Dressing / Incision Call your doctor if your incision/area has: Continuous Slow Oozing, Sudden Increased Bleeding, Increased Pain/ Swelling, Increased Redness, Foul Smelling Discharge and Swelling at the incision site Call your doctor if you observe: Fever of 101 or Higher, Inability to urinate, Inability to have a bowel movement, Using more than 1 pad per hour and Uncontrolled pain Additional Dressing/Incision Instructions:: You have skin glue over your incision sites, do not pick off. You may shower and let the soap and water run over the incision sites and dab dry. Follow Up Care Please Follow Up With: Brianna Mendenhall MD When: 1-2 weeks post OP if you need an appointment please call [phone] Test Results: Test results from this visit will be discussed in further detail at your follow- up appointment, if applicable. Discharge Plan Dx/Rx/DC Orders Clinical Impression: Ruptured ectopic , Pelvic pain Disposition Disposition: Acute Care Hospital [facility] Discharge Date/Time: 01/13/24 18:54
--- NOTE | 2024-01-13 18:56 | PCM.OPRPT ---
Operative Report (Standard) Operative Information Surgery/Procedure Performed: Laparscopic right salpingectomy with removal of right ruptured ectopic and evacuation of hemoperitoneum Surgeon: Brianna Mendenhall Date of Procedure: 01/13/24 Procedure Start Time: 19:33 Procedure Stop Time: 20:09 Pre-Operative Diagnosis: of unknown location, hemoperitoneum, RLQ pain, Rupture ectopic Post-Operative Diagnosis: same- right ectopic Select all DRAINS/GRAFTS/IMPLANTS that apply: None Type of Anesthesia: General and Local Estimated Blood Loss: <5cc, Fluids Replaced: 1200cc Specimen collected: Yes Description of specimen(s) removed: right fallopian tube and ectopic Description of surgery: After informed consent was obtained patient was taken to the operating room she was placed in supine position she was given anesthesia. She was then placed in the [facility] stirrups and she was prepped and draped in normal sterile fashion. Bladder was drained prior to the start of procedure. At this time attention was turned to the vaginal portion where weighted speculum placed at posterior fornix vagina single-tooth tenaculum was used to gently grasp the internal the cervix. [place] manipulator placed. Legs then placed in parallel with the abdomen the tenaculum and the weighted speculum were removed. 2 towel clamps were placed at level of umbilicus. Marcaine was injected infraumbilical and a small incision was made. The 5 mm trocar was placed under direct visualization. CO2 gas was used to insufflate the intra-abdominal cavity. large hemoperinteonum appreciated. At this time then the LLQ and RLQ ports were placed First Marcaine was injected and small incision was made a knife and the 5 mm trocars were placed. At this time suction was used to evacuated hemoperinteonum - approximately 150cc, active bleeding note from right ruptured ectopic. At this time the right fallopian tube was removed with ligasure- starting at the cornua and working way to ectopic which was bleeding actively and dilated. the tube and ectopic were removed completely. The right ovary and posterior CDS had filmy adhesions that were taken down with ligasure. The specimen was placed in 5mm endocatch bag and removed from LLQ port- it was extended to allow for easy removal- fascia extended with arie. This was then closed with pb tejada and 0-vicryl. Excellent hemostasis noted, pelvic irrigated and suctioned. The gas was desufflated on from the intra-abdominal cavity. The trochars were removed. Skin was closed using 4-0 Monocryl in a subcutaneous fashion. Dermabond glue was placed. Instrument lap and needle counts were correct ?2. The uterine manipulator was removed along with the tenaculum. Vaginal sweep was performed it was negative. There were no complications anticipated normal postoperative course for this patient. Surgical Findings: hemoperitoneum 150cc, right ruptured ectopic- active bleeding. Chief Environmental Commitment Officer attending ambulatory care: Yes Mineralogy Professor: Nisha Arnold Tasks completed by personalized living assistant: Opening & closing, Trocar (insertion and removal ), Retracting and Other (manipulating camera) Additional store administrative assistant?: No Complications Complications: No Admit VTE Documentation VTE Present on Admission: Yes VTE Mechan Device Prophylaxis: SCD's VTE Pharm Prophylaxis ordered?: No Reason prophylaxis not ordered: Treatment Not Indicated
--- NOTE | 2024-01-13 19:00 | PCM.PRE.AN2 ---
ASA Classification* ASA Classification ASA Classification: 3 Assessment & Plan Anesthesia* Anesthesia Assessment Anesthesia Assessment: Discussed sedation and/or anesthesia options, risks, benefits, and alternatives with patient/parents/legal guardian/POA. Questions invited. The patient/parents/legal guardian/POA seems to understand and agrees to proceed with anesthesia plan. Reviewed the physical assessment, medical history, allergy history and patient home medications list prior to surgery/procedure/anesthetic and documented any changes. Performed airway and anesthesia risk assessments. Anesthesia Type Anesthesia Type: General Anesthesia Focused Assessment* Temperature: 97.6 F Pulse Rate: 99 Blood Pressure: 143/84 Respiratory Rate: 18 Pulse Ox: 96 Airway Assessment Mouth opens: >3 cm Mallampati Score: II Focused Labs Anesthesia Preop lab: CBC WBC 11.7 K/mm3 (4.4-11.0) H 01/09/24 10:38 RBC 5.04 M/mm3 (4.2-5.4) 01/09/24 10:38 Hgb 13.3 g/dL (12.0-15.0) 01/13/24 16:47 Hct 41.1 % (37-47) 01/13/24 16:47 Plt Count 457 K/mm3 (150-450) H 01/09/24 10:38 CHEMISTRY Potassium 3.8 mmol/L (3.5-5.1) 08/02/19 22:30 Sodium 140 mmol/L (136-145) 08/02/19 22:30 BUN 9 mg/dL (7-18) 08/02/19 22:30 Creatinine 0.73 mg/dL (0.55-1.02) 08/02/19 22:30 Glucose 105 mg/dL (74-106) 08/02/19 22:30 TSH 1.10 uIU/mL (0.358-3.74) 12/24/13 12:18 COAG HCG, Quant 1977 mIU/mL (1-3) H 01/13/24 16:47 Pre-Assessment Diagnosis/Proposed Procedure Planned Operative Procedure(s): laproscopic removal ectopic Anesthesia History Anesthesia History - yeast cake cutter: Anesthesia History - yeast cake cutter Hx Hospitalization No 05/30/20 21:28 Any Problems With Anesthesia No 07/11/14 16:00 Cholinesterase deficiency No 07/11/14 16:00 You/Your Family Experience No 07/11/14 16:00 fever (hyperthermia) with Relationship Recent Exposure to Contagious No 07/15/14 06:17 Disease Does patient have nerve No 07/11/14 16:00 stimulator Patient instructed to have device shut off --Does patient have Pacemaker or ICD? When Was Last Pacemaker Check QUESTION #4 FULL TEXT: You/Your Family Experience fever (hyperthermia) with Anesthesia Last Oral Intake Last Oral intake: Last Oral Intake NPO since Meds taken in AM with sips of water? Meds patient instructed to take am of surgery PONV PONV - yeast cake cutter: PONV - yeast cake cutter Female HX of Motion Sickness HX of N/V After Surgery Non-Smoker Duration of Surgery greater than 60 minutes Number of Risk Factors PONV Score Height & Weight Height & Weight: Anesthesia: Height & Weight Height 5 ft 6 in 01/13/24 15:21 Weight: 123.014 kg 01/13/24 15:21 Body Mass Index (BMI) 43.7 01/13/24 15:21 Respiratory Assessment Respiratory Assessment - yeast cake cutter: Respiratory Tract Infection Hx - yeast cake cutter Hx Respiratory Tract Infection No 07/11/14 16:00 STOP Sleep Apnea STOP Sleep Apnea - yeast cake cutter: STOP Sleep Apnea - yeast cake cutter Hx Hypertension No 09/09/23 07:00 Hx Sleep Apnea No 05/30/20 21:28 CPAP No 07/15/14 08:00 BIPAP No 07/11/14 16:00 Do you snore loudly (louder than talking or can be heard Do you often feel tired/ fatigued/ sleepy during daytime? Has anyone observed you stop breathing during sleep? STOP Results QUESTION #5 FULL TEXT : Do you snore loudly (louder than talking or can be heard through closed doors)? 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 Specify any problems Hx of Preganancy in last 3 Months Nurse Filling Out Transfusion & Questions: Date: Time: Patient unable to answer at this time (ie. confused, unrespo /Reproduction History /Reproductive History - yeast cake cutter: /Reproductive Hx- yeast cake cutter Hx Now Yes 01/13/24 15:20 Gestational Age (in weeks): EDC: Hx Hx Para Hx Section SAB No 01/13/24 15:21 PFS Home Medications ?Medication ?Instructions ?Recorded ?Last Taken ?Type vit 122-ferrous fumarate 1 ea PO DAILY 05/30/20 Unknown History 27 mg iron-folic acid 800 mcg tablet metformin 500 mg tablet,extended mg PO 01/09/24 Unknown History release 24 hr Allergy/AdvReac Type Severity Reaction Status Date / Time No Known Allergies Allergy Verified 01/13/24 15:20 Social History Smoking Status: Never smoker Review of Systems (Anesthesia) ROS Narrative System reviewed and no additional complaints, except as documented.
--- NOTE | 2024-01-13 19:15 | FAL_PTH ---
PATHOLOGY RESULTS PATIENT: CLAY CRISTINA LOC: [facility] [place] U#:[id number] AGE/SX: 34/F ROOM: RE01/13/[address]: Dr. Brianna Mendenhall, MDDOB: 1990 BED: DIS: 01/13/2024 SPEC #: [id number] RECD: 01/16/24 07:12 STATUS: SHARIF MALLORY #: [id number] PADMINI: 01/13/24 19:[address]: Brianna Mendenhall DEPT: SURGICAL PATHOLOGY RECD BY: Melissa Stahl ENTERED: 01/16/24 09:18 SP TYPE: ECTOPIC OTHR DR: Dr. Laila Lima MD Tissues: ECTOPIC PREG Procedures: Surgery Specimen Level IV HEADER OPERATION: Laparoscopic, removal ectopic , right salpingectomy PRE-OP DIAGNOSIS: Ruptured right ectopic TISSUE SUBMITTED: Right fallopian tube and ectopic MICROSCOPIC DIAGNOSIS Right fallopian tube and ectopic , salpingectomy: Fallopian tube and blood clots with decidua and immature chorionic villi (ectopic ). Satya 01/17/2024 MICROSCOPIC DESCRIPTION Slides are reviewed. GROSS DESCRIPTION Received in fixative is one container labeled with the patient's name and designated Right fallopian tube and ectopic . The specimen consists of a ruptured fallopian tube measuring 6.5cm in length and 0.7 to 2.0cm in diameter. Fimbrial end is identified. Fallopian tube is ruptured in the middle. Also present in the container is a piece of blood clot measuring 6.0 x 4.0 x 2.5cm. tissue is not identified. Quality Control Clerk sections are submitted in four cassettes as follows: 1&2-fallopian tube, 3&4- blood clot. 01/16/2024 TC:5 CPT:49423
[2024-01-13] MEDS: Bupivacaine Mpf 0.5% 30 ML VIAL (20:01)
--- OUTSIDE RECORDS SUMMARY | 2024-01-13 20:15 | XMS RPT_ITS | CCD ---
Author Organization [facility] Care Team Providers Care Resource Director Name Role Phone Jose Alejandroiff, Laila Cole Primary Care Provider TORI LIANG Referring Unavailable No Family, Physician Primary Care Unavailable Unavailable Primary Care Provider Unavailabl e No Family, Physician Primary Care Unavailable Jolliff, Laila Cole Primary Care Provider [phone] Jose Alejandroiff, Laila Cole Primary Care Provider [phone] SHAW MONZON Attending Unavailable No Family, Physician Primary Care Unavailable JOLLIFF, LAILA COLE Primary Care Unavailable JOLLIFF, LAILA OCLE Primary Care Unavailable MINDZORA, PATTIE Referring Unavailable [...] [SEASONAL ALLERGIES] Allergy to substance 07-10-2014 Intolerance [facility] Medications Current Medications Medication Drug Class(es) [...] Obesity, Class III, BMI 40-49.9 (morbid obesity) ([facility]) 1/2 tab daily for 8 weeks 15 [...] HCG.beta subunit Qn 1238.0 m[IU]/mL High <5.0 [facility] Comment on above: Order Comment: Speci men Type: BLOOD SPECIMENOrdering Facility: [facility] Address: [address] [place] [address] Result Comment: ANDREW TITATIVE HCG NORMAL RANGES Weeks of Gestation (Weeks Since LMP) 3 Weeks (5.8-71.2 mIU/mL) 4 Weeks (9.5-750 mIU/mL) 5 Weeks (217-7138 mIU/mL) 6 Weeks (158-77558 mIU/mL) 7 Weeks (3697-253103 mIU/mL) 8 Weeks (98399-151638 mIU/mL) 9 Weeks (96498-866885 mIU/mL) 10 Weeks (64879-400995 mIU/mL) 12 Weeks (26270-485585 mIU/mL) Referenced to 4th IS of [facility] Performed By: #### 2 1198-7 ####[facility] LABCLIA [id number] [facility] [id number] [place] [address] [place] Examination level ultrasound [...] needed. Dr. Briceno Evaluated the patient at [facility] ER. Maternal Assessment Height 170 cm Height [...] Read By: Brianna Mendenhall M.D. MATERNAL MEDICINE [facility] Erum 01-10-2024 JALEELN Telephone (OBGYWM) CLAY CRISTINA ([id number]) 1990 F Date Time Provider Department 01/10/24 [...] Visit Diagnosis:Early stage of [Z34.90] Order(s):OBSTETRIC ULTRASOUND [facility] [[id number]] Order #: [id number]: 1 FUTURE Prescriptions as of 01/10/2024 - [...] Status:Closed by MARGARETTE ANTHONY on 01/10/[address] [facility] Examination level ultrasound on 01-10-2024 Radiology Study observation (narrative) Noelle singh [facility] B-HCG SerPl-aCncon 4 HCG.beta subunit Qn 389.0 m[IU]/mL High <5.0 [facility] Comment on above: Order Comment: Speci men Type: BLOOD SPECIMENOrdering Facility: [facility] Address: [address] [place] [address] Result Comment: ANDREW TITATIVE HCG NORMAL RANGES Weeks of Gestation (Weeks Since LMP) 3 Weeks (5.8-71.2 mIU/mL) 4 Weeks (9.5-750 mIU/mL) 5 Weeks (217-7138 mIU/mL) 6 Weeks (158-31481 mIU/mL) 7 Weeks (3697-785064 mIU/mL) 8 Weeks (85126-541652 mIU/mL) 9 Weeks (40739-328772 mIU/mL) 10 Weeks (50899-275226 mIU/mL) 12 Weeks (28658-079124 mIU/mL) Referenced to 4th IS of [facility] Performed By: #### 2 1198-7 ####[facility] LABCLIA [id number] [place] [address] [place] B-HCG [facility] 4 HCG.beta subunit Qn 250.9 m[IU]/mL High <5.0 C [facility] Comment on above: Order Comment: Speci men Type: BLOOD SPECIMENOrdering Facility: [facility] Address: [address] [place] [address] Result Comment: ANDREW TITATIVE HCG NORMAL RANGES Weeks of Gestation (Weeks Since LMP) 3 Weeks (5.8-71.2 mIU/mL) 4 Weeks (9.5-750 mIU/mL) 5 Weeks (217-7138 mIU/mL) 6 Weeks (158-28166 mIU/mL) 7 Weeks (3697-650137 mIU/mL) 8 Weeks (37913-765106 mIU/mL) 9 Weeks (31016-743784 mIU/mL) 10 Weeks (82270-402342 mIU/mL) 12 Weeks (40524-408541 mIU/mL) Referenced to 4th IS of [facility] Performed By: #### 2 1198-7 ####[facility] LABCLIA [id number] [place] [id number] [place] B-HCG SerPl-aCncon HCG.beta subunit Qn 99.2 m[IU]/mL High <5.0 Cl [facility] Comment on above: Order Comment: Speci men Type: BLOOD SPECIMENOrdering Facility: [facility] Address: [facility] [place] [address] Result Comment: ANDREW TITATIVE HCG NORMAL RANGES Weeks of Gestation (Weeks Since LMP) 3 Weeks (5.8-71.2 mIU/mL) 4 Weeks (9.5-750 mIU/mL) 5 Weeks (217-7138 mIU/mL) 6 Weeks (158-49925 mIU/mL) 7 Weeks (3697-048447 mIU/mL) 8 Weeks (82217-315327 mIU/mL) 9 Weeks (36230-538889 mIU/mL) 10 Weeks (80966-049939 mIU/mL) 12 Weeks (66832-836811 mIU/mL) Referenced to 4th IS of [facility] Performed By: #### 2 1198-7 ####[facility] LABIA [id number] [place] [address] [place] Erum 2024 CNPN Telephone (REIBD) CLAY CRISTINA ([id number]) 1990 F Date Time Provider Department 01/03/24 [...] Leone RN 2024 9:31 AM Pattie Patino APRN.LITHOGRAPHIC ARTIST 2024 11:09 AM Signed Reviewed history, intake and most recent plan from primary MAGEN provider. Plan: # of quants: standing (ectopic) additional meds needed: none schedule VV with HERNAN Healthy Guide sent with plan. Pattie Patino APRN.LITHOGRAPHIC ARTIST 2024 11:06 AM Allergies As of Date: 2024 Noted Allergy Reaction SEASONAL ALLERGIES 07/10/2014 5 - Intolerance Date Reviewed: 10/07/2023 Reviewed by: Emiliana Koroma MA - Fully Assessed Reason for Visit: pos preg test [Other] Primary Visit Diagnosis:Positive test [Z32.01] Order(s):HCG QUANTITATIVE [SQHCGQT] Order #: [id number] STANDING Prescriptions as of 2024 - metFORMIN [...] Encounter Status:Closed by PATTIE PATINO on 01/03/24 [facility] CNOVon 10-07-2023 CNOV Office Visit (REIBD) CLAY CRISTINA ([id number]) 1990 F Date Time Provider Department 10/07/23 [...] Count Sperm M 1.00 % Motile Sperm (%AR + %CHISEL TRIMMER) >=40 % 8 (L) Washing Solution Enhance [...] with more than 50% of the total nfdy-zr-ynyt time of the visit in counseling / coordination of care. I spent a total of 40 minutes on the date of the service which included preparing to see the patient, dzst-kc-kzxp patient care, completing clinical documentation, obtaining and/or [...] medical abbreviati (more content not included)... Normal [facility] CNOVon 08-25-2023 CNOV Office Visit (OBGYWM ) CRISTINACLAY GRIFFIN ([id number]) 1990 F Date Time Provider Department 08/25/23 8:40 AM ANTONIA BRICENO OBGYWM During your visit today, we recorded the following information about you: Blood pressure Weight Height Last Period 120/80 120.9 kg 1.689 m 07/20/23 Antonia Briceno MD 08/25/2023 2:37 PM Signed Ceramic Engineer offered: Patient declines. Clay is a [...] L0 SAB2 IAB0 Ectopic2 Multiple0 Live Births0 Platform Software Engineer History LMP: 07/20/2023, Having periods Age at Menarche: Age at First : Age at Menopause: Platform Software Engineer History Comments: Sexual Activity: Yes; Male Contraception: [...] external genitalia normal, normal Bartholin's glands, urethra, Franklinton's glands, no vulvar lesions, no cervical lesions, [...] most i (more content not included)... Normal [facility] HIGH RISK HUMAN PAPILLOMA BELLA (HPV), PCR FOR DETECTION AND GENOTYPINGon 08-25-2023 HPV 16 Ag Ql (Unsp spec) Not detected Normal Not detec yao [facility] Comment on above: Order Comment: Speci men Type: FLUID SPECIMENOrdering Facility: [facility] Address: [address] [place] [address] Performed By: #### H PVHRT ####[facility] LABCLIA [id number] [place] [address] [place]#### [id number] ####[facility]ORY[facility]IA [id number] [place] [address] [place] [facility] LAB[facility] [id number] [place] [address] [place] HPV 18 Ag Ql (Unsp spec) Not detected Normal Not detec yao [facility] Comment on above: Order Comment: Speci men Type: FLUID SPECIMENOrdering Facility: [facility] Address: [address] [place] [address] Performed By: #### H PVHRT ####[facility] LABCLIA [id number] [place] [address] [place]#### [id number] ####[facility]ORATORYCLIA [id number] [address] STATES OF [facility] LABCLIA [id number] [place] [address] [place] HPV 31+33+35+39+45+51+52+56+ 58+59+66+68 DNA PAULINA+probe Ql (Cvx) Not detected Normal Not detected [facility] Comment on above: Order Comment: Speci men Type: FLUID SPECIMENOrdering Facility: [facility] Address: [address] [place] [address] Performed By: #### H PVHRT ####[facility] LABCLIA [id number] [place] [address] [place]#### [id number] ####[facility]ORATORYCLIA [id number] [address] STATES OF [facility] LABCLIA [id number] [place] [address] [place] PAP TESTon 08-25-2023 ADEQUACY Satisfactory for interpretation. Normal [facility] Comment on above: Order Comment: Speci men Type: FLUID SPECIMENOrdering Facility: [facility] Address: [address] [place] [address] Performed By: #### H PVHRT ####[facility] LABCLIA [id number] [place] [address] [place]#### [id number] ####[facility]ORATORYCLIA [id number] [place] [address] [place] [facility] LABCLIA [id number] [place] [address] [place] CASE REPORT Normal [facility] Comment on above: Order Comment: Speci men Type: FLUID SPECIMENOrdering Facility: [facility] Address: [address] [place] [address] Result Comment: Gyne cologic Cytology Report Case: [id number] Authorizing Provider: Antonia Briceno MD Collected: 08/25/2023 09:30 AM Ordering Location: OB/Gynecology Received: 08/25/2023 12:00 PM First Screen: [place], [place], [place], ASCP Specimen: Pap Test, ThinPrep, Cervix Performed By: #### H PVHRT ####[facility] LABCLIA [id number] [place] [address] [place]#### [id number] ####[facility]ORATORYCLIA [id number] [place] [address] [place] [facility] LABCLIA [id number] [place] [address] [place] CLINICAL HISTORY, CYTOLOGY, WELDING MACHINE ASSEMBLER Routine Exam Normal [facility] Comment on above: Order Comment: Speci men Type: FLUID SPECIMENOrdering Facility: [facility] Address: [address] [place] [address] Performed By: #### H PVHRT ####[facility] LABCLIA [id number] [place] [address] [place]#### [id number] ####[facility] LABORATORYCLIA [id number] [place] [address] [place] [facility] LABCLIA [id number] [place] [address] [place] FINAL PERFORMING LAB [facility] Comment on above: Order Comment: Speci men Type: FLUID SPECIMENOrdering Facility: [facility] Address: [address] [place] [address] Result Comment: Tech nical component, golf range attendant screening performed at [facility], [address], [place] [address] CLIA# [id number] Diagnostic interpretation performed at [facility], [address], [place] [id number] CLIA# [id number] Licensed Practical Nurse Clinic Nurse: Alice Arango M.D. Performed By: #### H PVHRT ####[facility] LABCLIA [id number] [place] [address] [place]#### [id number] ####[facility] LABORATORYCLIA [id number] [place] [address] [place] [facility] LABCLIA [id number] [place] [address] [place] HPV REFLEX Yes HPV Normal [facility] Comment on above: Order Comment: Speci men Type: FLUID SPECIMENOrdering Facility: [facility] Address: [address] [place] [address] Performed By: #### H PVHRT ####[facility] LABCLIA [id number] [place] [address] [place]#### [id number] ####[facility] LABORATORYCLIA [id number] [place] [address] [place] [facility] LABCLIA [id number] [place] [address] [place] INTERPRETATION, CYTOLOGY, WELDING MACHINE ASSEMBLER Normal [facility] Comment on above: Order Comment: Speci men Type: FLUID SPECIMENOrdering Facility: [facility] Address: [address] [place] [address] Result Comment: Nega tive for intraepithelial lesion or malignancy. Performed By: #### H PVHRT ####[facility] LABCLIA [id number] [place] [address] [place]#### [id number] ####[facility] LABORATORYCLIA [id number] [place] [address] [place] [facility] LABCL[facility] [id number] [place] [address] [place] LMP 07/20/[address] [facility] Comment on above: Order Comment: Speci men Type: FLUID SPECIMENOrdering Facility: [facility] Address: [address] [place] [address] Performed By: #### H PVHRT ####[facility] LABCLIA [id number] [place] [address] [place]#### [id number] ####[facility] LABORATORYCLIA [id number] [place] [address] [place] [facility] LABCL[facility] [id number] [place] [address] [place] PAP DISCLAIMER COMMENT The Pap Smear is a screening test for cervical cancer. False negative results occur with all screening tests, emphasizing the need for rescreening at recommended intervals, and clinical correlation. Normal [facility] Comment on above: Order Comment: Speci men Type: FLUID SPECIMENOrdering Facility: [facility] Address: [address] [place] [address] Performed By: #### H PVHRT ####[facility] LABCLIA [id number] [place] [address] [place]#### [id number] ####[facility] LABORATORYCLIA [id number] [place] [address] [place] [facility] LABCLIA [id number] [place] [address] [place] PAP JBOSS DEVELOPER COMMENT This specimen has be en analyzed by the ThinPrep Imaging System, an automated imaging and review system, which assists the laboratory in evaluating cells on ThinPrep Pap tests. Following automated imaging, selected munguia from every slide are reviewed by a golf range attendant. Normal [facility] Comment on above: Order Comment: Speci men Type: FLUID SPECIMENOrdering Facility: [facility] Address: [address] [place] [address] Performed By: #### H PVHRT ####[facility] LABCLIA [id number] [address]#### [id number] ####[facility]ORATORYCLIA [id number] [address] LABCLIA [id number] [address] Rejection Notificationon Reason see below [facility] Comment on above: Result Comment: Unab le to perform testing; no specimen received. To perform testing the specimen will need to be recollected. No spec Performed By: #### P TT #### MD JANETH TURNER ([id number]) [facility] ([facility]) [address] [place] [address] Rejected Test sicsc [facility] Comment on above: Performed By: #### P TT #### MD JANETH TURNER ([id number]) [facility] ([facility]) [address] [place] [address] Cytomegalovirus Antibody, Ig Mon 06-01-2023 CMV Ab IgM <8.0 Normal <=29.9 [facility] Comment on above: Result Comment: INTE RPRETIVE [...] Cellular and Tissue-Based Products (HCT/P). Performed By: [facility] [address] [place] [address] Licensed Practical Nurse Clinic Nurse: Ray Kennedy MD, PhD CLIA Number: [id number] Performed By: #### P TT #### MD AJNETH TURNER ([id number]) [facility] ([facility]) [address] [place] [address] Gwen-Whalen Virus Antibody Panel 1on 06-01-2023 EBV Ab To Early (D) Ag IgG <5.0 Normal 0.0-10.9 [facility] Comment on above: Result Comment: INTE RPRETIVE INFORMATION: Gwen-Whalen Virus Antibody to Early D Antigen (EA-D), IgG 8.9 U/mL or less........Not Detected 9.0-10.9 U/mL...........Indeterminate - Repeat testing in 10-14 days may be helpful. 11.0 U/mL or greater....Detected Performed By: [facility] [address] [place] [address] Licensed Practical Nurse Clinic Nurse: Ray Kennedy MD, PhD CLIA Number: [id number] Performed By: #### P TT #### MD JANETH TURNER ([id number]) [facility] ([facility]) [address] [place] [address] EBV Ab To Nuclear Ag IgG 297.0 U/mL High 0.0-21.9 [facility] Comment on above: Result Comment: INTE RPRETIVE INFORMATION: Gwen-Whalen Virus Antibody to Nuclear Antigen, IgG 17.9 U/mL or less.......Not Detected 18.0-21.9 U/mL..........Indeterminate - Repeat testing in 10-14 days may be helpful. 22.0 U/mL or greater....Detected Performed By: #### P TT #### MD JANETH UTRNER ([id number]) [facility] ([facility]) [address] [place] [address] EBV Ab To Viral Capsid Ag IgG 135.0 U/mL High 0.0-21.9 [facility] Comment on above: Result Comment: INTE RPRETIVE INFORMATION: Gwen-Whalen Virus Antibody to Viral Capsid Antigen, IgG 17.9 U/mL or less.......Not Detected 18.0-21.9 U/mL..........Indeterminate - Repeat testing in 10-14 days may be helpful. 22.0 U/mL or greater....Detected Performed By: #### P TT #### MD JANETH TURNER ([id number]) [facility] ([address] EBV Ab To Viral Capsid Ag IgM <10.0 Normal 0.0-43.9 [facility] Comment on above: Result Comment: INTE RPRETIVE INFORMATION: Gwen-Whalen Virus Antibody to Viral Capsid Antigen, IgM 35.9 U/mL or less.......Not Detected 36.0-43.9 U/mL..........Indeterminate - Repeat testing in 10-14 days may be helpful. 44.0 U/mL or greater....Detected Performed By: #### P TT #### MD JANETH TURNER ([id number]) [facility] ([facility]) [address] [place] [address] Toxoplasma gondii Ab, IgMon 06-01-2023 Toxoplasma gondii Ab, IgM <3.0 Normal <=7.9 [facility] Comment on above: Result Comment: INTE RPRETIVE [...] post-infection. This test is performed using the DiaSomiDrive LIAISON. As suggested by the CDC, any [...] the amount of antibody present. Performed By: [facility] [address] [place] [address] Licensed Practical Nurse Clinic Nurse: Ray Kennedy MD, PhD CLIA Number: [id number] Performed By: #### P TT #### MD JANETH TURNER ([id number]) [facility] ([facility]) [address] [place] [address] Varicella Zoster Virus Abs, IgG and IgMon 06-01-2023 Varicella-Zoster Virus Ab, IgG 297.5 IV [facility] Comment on above: Result Comment: INTE RPRETIVE [...] #### P TT #### MD JANETH TURNER ([id number]) [facility] ([facility]) [address] [place] [address] Varicella-Zoster Virus Ab, IgM 0.17 ISR Normal <=0.90 [facility] Comment on above: Result Comment: INTE RPRETIVE [...] 12 months post-infection or immunization. Performed By: [facility] [address] [place] [address] Licensed Practical Nurse Clinic Nurse: Ray Kennedy MD, PhD CLIA Number: [id number] Performed By: #### P TT #### MD JANETH TURNER ([id number]) [facility] ([facility]) [address] [place] [address] [place] Cytomegalovirus Antibody, Ig Bowen 05-31-2023 CMV Ab IgG <0.20 Normal <=0.70 [facility] Comment on above: Result Comment: INTE RPRETIVE [...] laboratory at the same time. Performed By: [facility] [address] [place], [place] [address] Licensed Practical Nurse Clinic Nurse: Ray Kennedy MD, PhD CLIA Number: [id number] Performed By: #### P T #### MD JANETH TURNER ([id number]) [facility] ([facility]) [address] [place] [address] [place] HCV by Quant NAATon 05-31-19 HCV Qnt by NAAT Interp Not detected Normal Not Detecte d [facility] Comment on above: Result Comment: INTE RPRETIVE [...] and Cellular Tissue-Based Products (HCT/P). Performed By: [facility] [address] [place] [address] Licensed Practical Nurse Clinic Nurse: Ray Kennedy MD, PhD CLIA Number: [id number] Performed By: #### P T #### MD JANETH TURNER ([id number]) [facility] ([facility]) [address] [place] [address] HCV Qnt by NAAT IU/mL Not detected Normal [facility] Comment on above: Performed By: #### P T #### MD JANETH TURNER ([id number]) [facility] ([facility]) [address] [place] [address] HCV Qnt by NAAT log IU/mL Not detected Normal [facility] Comment on above: Performed By: #### P T #### MD JANETH TURNER ([id number]) [facility] ([facility]) [address] [place] [address] HSV 1,2 Abs, IgG, IgMon 05-19 HSV Type 1/2 Combined Ab, IgG 0.27 IV Normal [facility] Comment on above: Result Comment: INTE RPRETIVE [...] #### P T #### MD JANETH TURNER ([id number]) [facility] ([facility]) [address] [place] [address] HSV Type 1/2 Combined Ab, IgM by LISA 0.99 IV High <=0.89 [facility] Comment on above: Result Comment: INTE RPRETIVE [...] more than 12 months post-infection. Performed By: [facility] [address] [place] [address] Licensed Practical Nurse Clinic Nurse: Ray Kennedy MD, PhD CLIA Number: [id number] Performed By: #### P T #### MD JANETH TURNER ([id number]) [facility] ([facility]) [address] [place] [address] Hepatitis Be Abon 05-31-2023 Hepatitis Be Ab Negative Normal Negative [facility] Comment on above: Result Comment: Perf ormed By: [facility] [address] [place] [address] Licensed Practical Nurse Clinic Nurse: Ray Kennedy MD, PhD CLIA Number: [id number] Performed By: #### P T #### MD JANETH TURNER ([id number]) [facility] ([facility]) [address] [place] [address] Toxoplasma gondii Ab, IgGon 05-31-2023 Toxoplasma gondii Ab, IgG <3.0 Normal <=8.8 [facility] Comment on above: Result Comment: INTE RPRETIVE [...] the amount of antibody present. Performed By: [facility] [address] [place] [address] Licensed Practical Nurse Clinic Nurse: Ray Kennedy MD, PhD CLIA Number: [id number] Performed By: #### P TT #### MD JANETH TURNER ([id number]) [facility] ([facility]) [address] [place] [address] APTTon 05-30-2023 aPTT Coag (Bld) [Time] 29.2 s [facility] Comment on above: Therapeutic range: 7 3.0 - 102.0 sec Effective 06-15- 9:00am EST Please note reference ranges have changed for PTT Testing. Bilirubin Directon Bilirubin.indirect [Mass/Vol] mg/dL Normal 0.0-0.3 [facility] Comment on above: Performed By: #### B ILID #### MD JANETH TURNER ([id number]) [facility] ([facility]) [address] [place] [id number] [facility] Bilirubin Indirecton 024 Bilirubin Indirect see below Normal 0.0-1.0 [facility] Comment on above: Result Comment: Roxanna rect Bilirubin cannot be calculated since Total Bilirubin and/or Direct Bilirubin is below measurable range. Performed By: #### B LUIS #### MD JANETH TURNER ([id number]) [facility] ([facility]) [address] [address] Bilirubin, Directon 05-30-19 24 Bilirubin.direct [Mass/Vol] mg/dL 0.0 - 0.3 mg/dL [facility] CBC W Auto Differential pane l (Bld)on 05-30-2023 Basophils (Bld) [#/Vol] 0.1 10*3/uL 0.0 - 0.2 K/uL [facility] Basophils/100 WBC (Bld) 0.7 % [facility] Eosinophils (Bld) [#/Vol] 0.4 10*3/uL 0.0 - 0.6 K/uL [facility] Eosinophils/100 WBC (Bld) 3.3 % [facility] Erythrocyte distribution width (RBC) [Entitic vol] 14.1 % 12.4 - 15.4 % [facility] Hematocrit (Bld) [Volume fraction] 41.5 % 36.0 - 48.0 % [facility] Hemoglobin (Bld) [Mass/Vol] 14.2 g/dL 12.0 - 16.0 g/dL [facility] Lymphocytes (Bld) [#/Vol] 3.6 10*3/uL 1.0 - 5.1 K/uL [facility] Lymphocytes/100 WBC (Bld) 32.2 % [facility] MCH (RBC) [Entitic mass] 28.8 pg 26. 0 - 34.0 pg [facility] MCHC (RBC) [Mass/Vol] 34.1 g/dL 31.0 - 36.0 g/dL [facility] MCV (RBC) [Entitic vol] 84.4 fL 80.0 - 100.0 fL [facility] Monocytes (Bld) [#/Vol] 0.7 10*3/uL 0.0 - 1.3 K/uL [facility] Monocytes/100 WBC (Bld) 6.0 % [facility] Neutrophils (Bld) [#/Vol] 6.4 10*3/uL 1.7 - 7.7 K/uL [facility] Neutrophils/100 WBC (Bld) 57.8 % [facility] Platelet mean volume (Bld) [Entitic vol] 8.3 fL 5.0 - 10.5 fL [facility] Platelets (Bld) [#/Vol] 342 10*3/uL 135 - 450 K/uL [facility] RBC (Bld) [#/Vol] 4.92 10*6/uL [facility] WBC (Bld) [#/Vol] 11.0 10*3/uL 4.0 - 11.0 K/uL [facility] CBC With Platelet and Differ entialon 05-30-2023 Basophils (Bld) [#/Vol] 0.1 10*3/uL Normal 0.0-0.2 [facility] Comment on above: Performed By: #### C YEISON #### MD JANETH TURNER ([id number]) [facility] ([facility]) [address] [place] [address] [place] Basophils/100 WBC (Bld) 0.7 % Normal [facility] Comment on above: Performed By: #### C BCWD #### MD JANETH TURNER ([id number]) [facility] ([facility]) [address] [place] [address] [place] Eosinophils (Bld) [#/Vol] 0.4 10*3/uL Normal 0.0-0.6 [facility] Comment on above: Performed By: #### C ALEKSEYWD #### MD JANETH TURNER ([id number]) [facility] ([facility]) [address] [place] [address] [place] Eosinophils/100 WBC (Bld) 3.3 % Normal [facility] Comment on above: Performed By: #### C BCWD #### MD JANETH TURNER ([id number]) [facility] ([facility]) [address] [place] [address] Erythrocyte distribution width (RBC) [Ratio] 14.1 % Normal 12.4-15.4 [facility] Comment on above: Performed By: #### C BCWD #### MD JANETH TURNER ([id number]) [facility] ([facility]) [address] [place] [address] Hematocrit (Bld) [Volume fraction] 41.5 % Normal 36.0-48.0 [facility] Comment on above: Performed By: #### C BCWD #### MD JANETH TURNER ([id number]) [facility] ([facility]) [address] [place] [address] Hemoglobin (Bld) [Mass/Vol] 14.2 g/dL Normal 12.0-16.0 [facility] Comment on above: Performed By: #### C BCWD #### MD JANETH TURNER ([id number]) [facility] ([facility]) [address] [place] [address] Lymphocytes (Bld) [#/Vol] 3.6 10*3/uL Normal 1.0-5.1 [facility] Comment on above: Performed By: #### C BCWD #### MD JANETH TURNER ([id number]) [facility] ([facility]) [address] [place] [address] Lymphocytes/100 WBC (Bld) 32.2 % Normal [facility] Comment on above: Performed By: #### C BCWD #### MD JANETH TURNER ([id number]) [facility] ([facility]) [address] [place] [address] MCH (RBC) [Entitic mass] 28.8 pg Normal 26.0-34.0 [facility] Comment on above: Performed By: #### C BCWD #### MD JANETH TURNER ([id number]) [facility] ([facility]) [address] [place] [address] MCHC (RBC) [Mass/Vol] 34.1 g/dL Normal 31.0-36.0 [facility] Comment on above: Performed By: #### C BCWD #### MD JANETH TURNER ([id number]) [facility] ([facility]) [address] [place] [address] MCV (RBC) [Entitic vol] 84.4 fL Normal 80.0-100.0 [facility] Comment on above: Performed By: #### C BCWD #### MD JANETH TURNER ([id number]) [facility] ([facility]) [address] [place] [address] Monocytes (Bld) [#/Vol] 0.7 10*3/uL Normal 0.0-1.3 [facility] Comment on above: Performed By: #### C BCWD #### MD JANETH TURNER ([id number]) [facility] ([facility]) [address] [place] [address] Monocytes/100 WBC (Bld) 6.0 % Normal [facility] Comment on above: Performed By: #### C BCWD #### MD JANETH TURNER ([id number]) [facility] ([facility]) [address] [place] [address] Neutrophils (Bld) [#/Vol] 6.4 10*3/uL Normal 1.7-7.7 [facility] Comment on above: Performed By: #### C BCWD #### MD JANETH TURNER ([id number]) [facility] ([facility]) [address] [place] [address] Neutrophils/100 WBC (Bld) 57.8 % Normal [facility] Comment on above: Performed By: #### C BCWD #### MD JANETH TURNER ([id number]) [facility] ([facility]) [address] [place] [address] Platelet mean volume (Bld) [Entitic vol] 8.3 fL Normal 5.0-10.5 [facility] Comment on above: Performed By: #### C BCWD #### MD JANETH TURNER ([id number]) [facility] [address] [place] [address] Platelets (Bld) [#/Vol] 342 10*3/uL Normal 135-450 [facility] Comment on above: Performed By: #### C BCWD #### MD JANETH TURNER ([id number]) [facility] ([facility]) [address] [place] [address] RBC (Bld) [#/Vol] 4.92 10*6/uL Normal 4.00-5.20 [facility] Comment on above: Performed By: #### C BCWD #### MD JANETH TURNER ([id number]) [facility] ([facility]) [address] [place] [address] WBC (Bld) [#/Vol] 11.0 10*3/uL Normal 4.0-11.0 [facility] Comment on above: Performed By: #### C BCWD #### MD JANETH TURNER ([id number]) [facility] ([facility]) [address] [place] [address] Comprehensive Metabolic Pane l reflex Mgon 05-30-2023 Albumin [Mass/Vol] 4.2 g/dL Normal 3.4-5.0 [facility] Comment on above: Performed By: #### C MPX #### MD JANETH TURNER ([id number]) [facility] ([facility]) [address] [place] [address] Albumin/Globulin [Mass ratio] 1.7 {ratio} Normal 1.1-2.2 [facility] Comment on above: Performed By: #### C MPX #### MD JANETH TURNER ([id number]) [facility] ([facility]) [address] [place] [address] ALP [Catalytic activity/Vol] 49 U/L Normal 40-129 [facility] Comment on above: Performed By: #### C MPX #### MD JANETH TURNER ([id number]) [facility] ([facility]) [address] [place], [place] [id number] [place] [address] ALT [Catalytic activity/Vol] 38 U/L Normal 10-40 [facility] Comment on above: Performed By: #### C MPX #### MD JANETH TURNER ([id number]) [facility] ([facility]) [address] [place] [address] Anion gap [Moles/Vol] 12 mmol/L Normal 3-16 [facility] Comment on above: Performed By: #### C MPX #### MD JANETH TURNER ([id number]) [facility] ([facility]) [address] [place] [address] AST [Catalytic activity/Vol] 21 U/L Normal 15-37 [facility] Comment on above: Performed By: #### C MPX #### MD JANETH TURNER ([id number]) [facility] ([facility]) [address] [place] [address] Bilirubin [Mass/Vol] 0.4 mg/dL Normal 0.0-1.0 [facility] Comment on above: Performed By: #### C MPX #### MD JANETH TURNER ([id number]) [facility] ([facility]) [address] [place] [address] Calcium [Mass/Vol] 9.3 mg/dL Normal 8.3-10.6 [facility] Comment on above: Performed By: #### C MPX #### MD JANETH TURNER ([id number]) [facility] ([facility]) [address] [place] [address] [place] Chloride [Moles/Vol] 100 mmol/L Normal 99-110 [facility] Comment on above: Performed By: #### C MPX #### MD JANETH TURNER ([id number]) [facility] ([facility]) [address] [place] [address] [place] CO2 [Moles/Vol] 24 mmol/L Normal 21-32 [facility] Comment on above: Performed By: #### C MPX #### MD JANETH TURNER ([id number]) [facility] ([facility]) [address] Creatinine [Mass/Vol] 0.7 mg/dL Normal 0.6-1.1 [facility] Comment on above: Performed By: #### C MPX #### MD JANETH TURNER ([id number]) [facility] ([facility]) [address] [place] [address] GFR >60 Normal >60 [facility] Comment on above: Result Comment: Beena atric [...] #### C MPX #### MD JANETH TURNER ([id number]) [facility] ([facility]) [address] [place] [address] Glucose [Mass/Vol] 120 mg/dL High 70-99 [facility] Comment on above: Performed By: #### C MPX #### MD JANETH TURNER ([id number]) [facility] ([facility]) [address] [place] [address] Magnesium [Moles/Vol] 4.2 mmol/L Normal 3.5-5.1 [facility] Comment on above: Performed By: #### C MPX #### MD JANETH TURNER ([id number]) [facility] ([facility]) [address] [place] [address] [place] Protein [Mass/Vol] 6.7 g/dL Normal 6.4-8.2 [facility] Comment on above: Performed By: #### C MPX #### MD JANETH TURNER ([id number]) [facility] ([facility]) [address] [place] [address] [place] Sodium [Moles/Vol] 136 mmol/L Normal 136-145 [facility] Comment on above: Performed By: #### C MPX #### MD JANETH TURNER ([id number]) [facility] [address] [place] [address] Urea nitrogen [Mass/Vol] 12 mg/dL Normal 7-20 [facility] Comment on above: Performed By: #### C MPX #### MD JANETH TURNER ([id number]) [facility] [address] [place] [address] Comprehensive metabolic 2000 panelon 05-30-2023 Albumin [Mass/Vol] 4.2 g/dL 3.4 - 5.0 g/dL [facility] Albumin/Globulin [Mass ratio] 1.7 {ratio} 1.1 - 2.2 [facility] ALP [Catalytic activity/Vol] 49 U/L 40 - 129 U/L [facility] ALT [Catalytic activity/Vol] 38 U/L 10 - 40 U/L [facility] Anion gap [Moles/Vol] 12 mmol/L 3 - 16 [facility] AST [Catalytic activity/Vol] 21 U/L 15 - 37 U/L [facility] Bilirubin [Mass/Vol] 0.4 mg/dL 0.0 - 1 .0 mg/dL [facility] Calcium [Mass/Vol] 9.3 mg/dL 8.3 - 10. 6 mg/dL [facility] Chloride [Moles/Vol] 100 mmol/L 99 - 11 0 mmol/L [facility] CO2 [Moles/Vol] 24 mmol/L 21 - 32 mmol/L [facility] Creatinine [Mass/Vol] 0.7 mg/dL 0.6 - 1.1 mg/dL [facility] GFR/1.73 sq M.predicted CKD-EPI (S/P/Bld) [Vol rate/Area] 60 - [facility] Comment on above: Pediatric calculator link [...] 120 mg/dL High 70 - 99 mg/dL [facility] [employer] Potassium [Moles/Vol] 4.2 mmol/L 3.5 - 5.1 mmol/L [facility] [employer] Protein [Mass/Vol] 6.7 g/dL 6.4 - 8.2 g/dL [facility] Sodium [Moles/Vol] 136 mmol/L 136 - 145 mmol/L [facility] Urea nitrogen [Mass/Vol] 12 mg/dL 7 - 20 mg/d L [facility] HCG Quanton 05-30-2023 HCG Quant <5.0 Normal <5.0 [facility] Comment on above: Result Comment: Male : <5.0 mIU/ml : Note: HCG Interpretation is based on gestational age vs. LMP. Gestational Age Expected HCG values (mIU/ml) 0.2-1 week 5-50 1-2 weeks 50-500 2-3 weeks 100-5000 3-4 weeks 500-10,000 4-5 weeks 1000-50,000 5-6 weeks 10,000-100,000 6-8 weeks 15,000-200,000 2-3 months 10,000-100,000 Performed By: #### H CGQ #### MD JANETH TURNER ([id number]) [facility] ([facility]) [address] [place] [address] HCG.beta subunit IA 3rd IS Q non 05-30-2023 HCG.beta subunit Qn m[IU]/mL [facility] [employer] Comment on above: Male: <5.0 mIU/ml : Note: HCG Interpretation is based on gestational age vs. LMP. Gestational Age Expected HCG values (mIU/ml) 0.2-1 week 5-50 1-2 weeks 50-500 2-3 weeks 100-5000 3-4 weeks 500-10,000 4-5 weeks 1000-50,000 5-6 weeks 10,000-100,000 6-8 weeks 15,000-200,000 2-3 months 10,000-100,000 [facility] Hepatitis A Antibody IgMon 0 05-30-2023 Hepatitis A Antibody IgM Non-Reactive Normal Non-react dai [facility] Comment on above: Performed By: #### P T #### MD JANETH TURNER ([id number]) [facility] [address] [place] [address] [place] Hepatitis A Antibody, IgMon 05-30-2023 HAV IgM IA Ql Non-Reactive Non-reactive [facility] Hepatitis B Surface Abon Hepatitis B Surface Ab 29.34 mIU/mL Normal [facility] Comment on above: Result Comment: <8.5 = Negative >=8.5 and <11.5 = Indeterminate >=11.5 = Positive (Immune) Performed By: #### P T #### MD JANETH TURNER ([id number]) [facility] [address] [place] [address] Hepatitis B Surface Antibody on 05-30-2023 HBV surface Ab IA Qn 29.34 m[IU]/mL mIU/mL [facility] Comment on above: <8.5 = Negative >=8.5 and <11.5 = Indeterminate >=11.5 = Positive (Immune) Hepatitis C Antibodyon 05-29 HCV Ab IA Ql Non-Reactive Non-reactive [facility] Hepatitis C Antibody Non-Reactive Normal Non-reactive [facility] Comment on above: Performed By: #### P T #### MD JANETH TURNER ([id number]) [facility] [address] [place] [address] Indirect Bilirubinon 024 Bilirubin.indirect [Mass/Vol] see below 0.0 - 1.0 mg/dL [facility] Comment on above: Indirect Bilirubin c annot be calculated since Total Bilirubin and/or Direct Bilirubin is below measurable range. Lactate Dehydrogenaseon 05-19 LDH Lactate to pyruvate reaction [Catalytic activity/Vol] 193 U/L High 100 - 190 U/L [facility] My[employer] LDH [Catalytic activity/Vol] 193 U/L High 100-190 [facility] Comment on above: Performed By: #### L DH #### MD JANETH TURNER ([id number]) [facility] [address] [place] [address] No Panel Informationon 05-29 [facility] Interpretation and review of laboratory results Abnormal [facility] Interpretation and review of laboratory results Abnormal [email or web address] PT Coag (PPP) [Time]on 05-29 INR Coag (PPP) [Relative time] 0.92 {INR} 0.84 - 1.16 [facility] [employer] Comment on above: Effective 06/15/22 at 09:00am EST Normal: 0.84 - 1.16 Therapeutic: 2.0 - 3.0 Pros. Valve: 2.5 - 3.5 AMI: 2.0 - 3.0 Partial Thromboplastin Timeo n 05-30-2023 aPTT Coag (Bld) [Time] 29.2 s Normal 22.7-35.9 [facility] Comment on above: Result Comment: Ther apeutic range: 73.0 - 102.0 sec Effective 06-15-22 9:00am EST Please note reference ranges have changed for PTT Testing. Performed By: #### P TT #### MD JANETH TURNER ([id number]) [facility] [address] [place] [address] Phosphoruson 05-30-2023 Phosphate [Mass/Vol] 3.4 mg/dL 2.5 - 4 .9 mg/dL [facility] Phosphate [Mass/Vol] 3.4 mg/dL Normal 2.5-4.9 [facility] Comment on above: Performed By: #### P HOS #### MD JANETH TURNER ([id number]) [facility] [address] [place] [address] Prothrombin Timeon INR Coag (PPP) [Relative time] 0.92 {INR} Normal 0.84-1.16 [facility] Comment on above: Result Comment: Effe ctive 06/15/22 at 09:00am EST Normal: 0.84 - 1.16 Therapeutic: 2.0 - 3.0 Pros. Valve: 2.5 - 3.5 AMI: 2.0 - 3.0 Performed By: #### P T #### MD JANETH TURNER ([id number]) [facility] ([facility]) [address] [place] [address] PT Coag (PPP) [Time] 12.3 s Normal 11.5-14.8 [facility] Comment on above: Result Comment: Effe ctive 06-15-22 09:00am EST Please note reference ranges have changed for PT and INR Testing. Performed By: #### P T #### MD JANETH TURNER ([id number]) [facility] ([facility]) [address] [place] [address] Protime-INRon 05-30-2023 PT Coag (PPP) [Time] 12.3 s [facility] Comment on above: Effective 06-15-22 09 :00am EST Please note reference ranges have changed for PT and INR Testing. TYPE AND SCREENon 05-30-2023 Blood group antibody screen Ql Negative [facility] Type and Screen Capture 3 sc rn cellon 05-30-2023 ABO and Rh group Nom (Bld) Blood group B Rh(D) positive Normal [facility] Comment on above: Performed By: #### P T #### MD JANETH TURNER ([id number]) [facility] ([facility]) [address] [place] [address] Antibody 3 Cell Scrn Capture Negative Normal [facility] Comment on above: Performed By: #### P T #### MD JANETH TURNER ([id number]) [facility] ([facility]) [address] [place] [address] Uric Acidon 05-30-2023 Urate [Mass/Vol] 5.9 mg/dL 2.6 - 6.0 mg/dL [facility] Urate [Mass/Vol] 5.9 mg/dL Normal 2.6-6.0 [facility] Comment on above: Performed By: #### U GUERO #### MD JANETH TURNER ([id number]) [facility] [address] [place] [address] Urinalysis complete W Reflex Culture panel (U)on 05-30-2023 Bilirubin Ql (U) Negative Negative [facility] Clarity (U) Clear Clear [facility] Color (U) Yellow Straw/Yellow [facility] Glucose Auto test strip (U) [Mass/Vol] Negative Negative mg/dL [facility] Hemoglobin Auto test strip Ql (U) Negative Negative [facility] Ketones (U) [Mass/Vol] Negative Negat dai mg/dL [facility] Leukocyte esterase Auto test strip Ql (U) SMALL Abnormal Negative [facility] Nitrite Auto test strip Ql (U) Negative Negative [facility] pH (U) 6.5 [pH] 5.0 - 8.0 [facility] Protein (U) [Mass/Vol] Negative Negat dai mg/dL [facility] Specific gravity (U) [Rel density] 1.010 1.005 - 1.030 [facility] Urinalysis dipstick W Reflex Microscopic panel (U) YES [facility] Urinalysis specimen collection method Nom (U) Voided [facility] Urobilinogen Qn (U) 0.2 [facility] Urinalysis microscopic panel (Urine sed)on 05-30-2023 Bacteria LM Ql (Urine sed) 3+ Abnormal None Seen /HPF [facility] RBC LM.HPF (Urine sed) [#/Area] 0-2 [facility] WBC LM.HPF (Urine sed) [#/Area] 3-5 [facility] Urinalysis with Reflex to Cu ltureon 05-30-2023 Urinalysis complete W Reflex Culture panel (U) Not Indicated [facility] Urinalysis, reflex to cultur rosemary 05-30-2023 Urine Reflexed to Culture Not Indicated Normal [facility] Comment on above: Performed By: #### P T #### MD JANETH TURNER ([id number]) [facility] [address] [place] [address] Bilirubin Ql (U) Negative Normal Negative [facility] Comment on above: Performed By: #### P T #### MD JANETH TURNER ([id number]) [facility] ([facility]) [address] [place] [address] Clarity (U) Clear Normal Clear [facility] Comment on above: Performed By: #### P T #### MD JANETH TURNER ([id number]) [facility] ([facility]) [address] [place] [address] Color (U) Yellow Normal Straw/Yellow [facility] Comment on above: Performed By: #### P T #### MD JANETH TURNER ([id number]) [facility] ([facility]) [address] [place] [address] Glucose Ql (U) Negative Normal Negative [facility] Comment on above: Performed By: #### P T #### MD JANETH TURNER ([id number]) [facility] ([facility]) [address] [place] [address] Hemoglobin Ql (U) Negative Normal Negative [facility] Comment on above: Performed By: #### P T #### MD JAENTH TURNER ([id number]) [facility] ([facility]) [address] [place] [address] Ketones Ql (U) Negative Normal Negative [facility] Comment on above: Performed By: #### P T #### MD JANETH TURNER ([id number]) [facility] ([facility]) [address] [place] [address] Leukocyte esterase Test strip Ql (U) SMALL Abnormal Negative [facility] Comment on above: Performed By: #### P T #### MD JANETH TURNER ([id number]) [facility] ([facility]) [address] [place] [address] Microscopic Exam Performed YES Normal [facility] Comment on above: Performed By: #### P T #### MD JANETH TURNER ([id number]) [facility] ([facility]) [address] [place] [address] Nitrite Ql (U) Negative Normal Negative [facility] Comment on above: Performed By: #### P T #### MD JANETH TURNER ([id number]) [facility] ([facility]) [address] [place] [address] pH (U) 6.5 [pH] Normal 5.0 - 8.0 [facility] Comment on above: Performed By: #### P T #### MD JANETH TURNER ([id number]) [facility] ([facility]) [address] [place] [address] Protein Ql (U) Negative Normal Negative [facility] Comment on above: Performed By: #### P T #### MD JANETH TURNER ([id number]) [facility] ([facility]) [address] [place] [address] Specific gravity (U) [Rel density] 1.010 Normal 1.005 - 1.030 [facility] Comment on above: Performed By: #### P T #### MD JANETH TURNER ([id number]) [facility] ([facility]) [address] [place] [address] Urobilinogen Qn (U) 0.2 {Pamela'U}/dL Normal <2.0 [facility] Comment on above: Performed By: #### P T #### MD JANETH TURNER ([id number]) [facility] ([facility]) [address] [place] [address] Urine Type Voided Normal [facility] Comment on above: Performed By: #### P T #### MD JANETH TURNER ([id number]) [facility] ([facility]) [address] [place] [address] Urine Microscopicon 05-30-19 24 Urine Bacteria 3+ /HPF Abnormal None Seen [facility] Comment on above: Performed By: #### P T #### MD JANETH TURNER ([id number]) [facility] ([facility]) [address] [place], [place] [id number] [place] [address] Urine RBC 0-2 Normal 0-4 [facility] Comment on above: Performed By: #### P T #### MD JANETH TURNER ([id number]) [facility] ([facility]) [address], [place] [address] [place] [address] Urine WBC 3-5 Normal 0-5 [facility] Comment on above: Performed By: #### P T #### MD JANETH TURNER ([id number]) [facility] ([facility]) [address], [place] [id number] [place] [address] Comprehensive metabolic 2000 panelon 04-04-2023 Albumin [Mass/Vol] 4.2 g/dL Normal 3.9-4.9 [facility] Comment on above: Order Comment: Speci men Type: BLOOD SPECIMENOrdering Facility: [facility] Address: [address] [place] [address] Performed By: #### 2 4323-8 ####[facility] LABCLIA [id number] [place] [address] [place] ALP [Catalytic activity/Vol] 41 U/L Normal 34-123 [facility] Comment on above: Order Comment: Speci men Type: BLOOD SPECIMENOrdering Facility: [facility] Address: [address] [place] [address] Performed By: #### 2 4323-8 ####[facility] LABCLIA [id number] [place] [address] [place] ALT [Catalytic activity/Vol] 59 U/L High 7-38 [facility] Comment on above: Order Comment: Speci men Type: BLOOD SPECIMENOrdering Facility: [facility] Address: [address] [place] [address] Performed By: #### 2 4323-8 ####[facility] LABCLIA [id number] [place] [address] [place] Anion gap [Moles/Vol] 10 mmol/L Normal 9-[address] [facility] Comment on above: Order Comment: Speci men Type: BLOOD SPECIMENOrdering Facility: [facility] Address: [address] [place] [address] Performed By: #### 2 4323-8 ####[facility] LABCLIA [id number] [place] [address] [place] AST [Catalytic activity/Vol] 29 U/L Normal 13-35 [facility] Comment on above: Order Comment: Speci men Type: BLOOD SPECIMENOrdering Facility: [facility] Address: [address] [place] [address] Performed By: #### 2 4323-8 ####[facility] LABCLIA [id number] [place] [address] [place] Bilirubin [Mass/Vol] 0.4 mg/dL Normal 0.2-1.3 [facility] Comment on above: Order Comment: Speci men Type: BLOOD SPECIMENOrdering Facility: [facility] Address: [address] [place] [address] Performed By: #### 2 4323-8 ####[facility] LABCLIA [id number] [place] [address] [place] Calcium [Mass/Vol] 9.4 mg/dL Normal 8.5-10.2 [facility] Comment on above: Order Comment: Speci men Type: BLOOD SPECIMENOrdering Facility: [facility] Address: [address] [place] [address] Performed By: #### 2 4323-8 ####[facility] LABCLIA [id number] [place] [address] [place] Chloride [Moles/Vol] 105 mmol/L Normal 97-105 [facility] Comment on above: Order Comment: Speci men Type: BLOOD SPECIMENOrdering Facility: [facility] Address: [address] [place] [address] Performed By: #### 2 4323-8 ####[facility] LABCLIA [id number] [place] [address] [place] CO2 [Moles/Vol] 25 mmol/L Normal 22-30 [facility] Comment on above: Order Comment: Speci men Type: BLOOD SPECIMENOrdering Facility: [facility] Address: [address] [place] [address] Performed By: #### 2 4323-8 ####[facility] LABCLIA [id number] [place] [address] [place] Creatinine [Mass/Vol] 0.80 mg/dL Normal 0.58-0.[address] [facility] Comment on above: Order Comment: Speci men Type: BLOOD SPECIMENOrdering Facility: [facility] Address: [address] [place] [address] Performed By: #### 2 4323-8 ####[facility] LABIA [id number] [place] [address] [place] Creatinine and Glomerular filtration rate.predicted panel (S/P/Bld) 101 mL/min/1.73m??? Normal >=60 [facility] Comment on above: Order Comment: Speci men Type: BLOOD SPECIMENOrdering Facility: [facility] Address: [address] [place] [address] Result Comment: Ligia mated Glomerular Filtration Rate [...] actual GFR. Performed By: #### 2 4323-8 ####[facility] LABCLIA [id number] [place] [address] [place] Glucose [Mass/Vol] 102 mg/dL High 74-99 [facility] Comment on above: Order Comment: Speci men Type: BLOOD SPECIMENOrdering Facility: [facility] Address: [address] [place] [address] Result Comment: The [place] Diabetes Association (ADA) provides guidance for cutoff [...] Standards of Medical Care in Diabetes 2016, [place] [employer]. Diabetes Care. 2016.39(Suppl 1). Performed By: #### 2 4323-8 ####[facility] LABCLIA [id number] [place] [address] [place] Potassium [Moles/Vol] 4.2 mmol/L Normal 3.7-5.[address] [facility] Comment on above: Order Comment: Speci men Type: BLOOD SPECIMENOrdering Facility: [facility] Address: [address] [place] [address] Performed By: #### 2 4323-8 ####[facility] LABCLIA [id number] [place] [address] [place] Protein [Mass/Vol] 6.8 g/dL Normal 6.3-8.0 [facility] Comment on above: Order Comment: Speci men Type: BLOOD SPECIMENOrdering Facility: [facility] Address: [address] [place] [address] Performed By: #### 2 4323-8 ####[facility] LABCLIA [id number] [place] [address] [place] Sodium [Moles/Vol] 140 mmol/L Normal 136-144 [facility] Comment on above: Order Comment: Speci men Type: BLOOD SPECIMENOrdering Facility: [facility] Address: [address] [place] [id number] Performed By: #### 2 4323-8 ####[facility] LABCLIA [id number] [address] [address] [place] Urea nitrogen [Mass/Vol] 12 mg/dL Normal 7-21 [facility] Comment on above: Order Comment: Speci men Type: BLOOD SPECIMENOrdering Facility: [facility] Address: [address] [place] [address] Performed By: #### 2 4323-8 ####[facility] LABCLIA [id number] [address] [address] [place] Comprehensive metabolic 2000 panelon 03-07-2023 Albumin [Mass/Vol] 4.2 g/dL Normal 3.9-4.9 [facility] Comment on above: Order Comment: Speci men Type: BLOOD SPECIMENOrdering Facility: [facility] Address: [address] [place] [address] Performed By: #### 2 4323-8 ####[facility] JOSE ANTONIOMOUNT ASCUTNEY HOSPITALWNCLIA [id number] [place] [address] [place] ALP [Catalytic activity/Vol] 42 U/L Normal 34-123 [facility] Comment on above: Order Comment: Speci men Type: BLOOD SPECIMENOrdering Facility: [facility] Address: [address] [place] [address] Performed By: #### 2 4323-8 ####[facility] JOSE ANTONIO MILLTOWNCLIA [id number] [place] [address] [place] ALT [Catalytic activity/Vol] 73 U/L High 7-38 [facility] Comment on above: Order Comment: Speci men Type: BLOOD SPECIMENOrdering Facility: [facility] Address: [address] [place] [address] Performed By: #### 2 4323-8 ####[facility] JOSE ANTONIO MILLTOWNCLIA [id number] [place] [address] [place] Anion gap [Moles/Vol] 9 mmol/L Normal 9-[address] [facility] Comment on above: Order Comment: Speci men Type: BLOOD SPECIMENOrdering Facility: [facility] Address: [address] [place] [address] Performed By: #### 2 4323-8 ####[facility] HOSPITALWNCLIA [id number] [place] [address] [place] AST [Catalytic activity/Vol] 29 U/L Normal 13-35 [facility] Comment on above: Order Comment: Speci men Type: BLOOD SPECIMENOrdering Facility: [facility] Address: [address] [place] [address] Performed By: #### 2 4323-8 ####[facility] HOS[facility]ITALA [id number] [place] [address] [place] Bilirubin [Mass/Vol] 0.3 mg/dL Normal 0.2-1.3 [facility] Comment on above: Order Comment: Speci men Type: BLOOD SPECIMENOrdering Facility: [facility] Address: [address] [place] [address] Performed By: #### 2 4323-8 ####[facility]ITALNCLIA [id number] [place] [address] [place] Calcium [Mass/Vol] 9.7 mg/dL Normal 8.5-10.2 [facility] Comment on above: Order Comment: Speci men Type: BLOOD SPECIMENOrdering Facility: [facility] Address: [address] [place] [address] Performed By: #### 2 4323-8 ####[facility] HOSPITALNCA [id number] [place] [address] [place] Chloride [Moles/Vol] 106 mmol/L High 97-105 [facility] Comment on above: Order Comment: Speci men Type: BLOOD SPECIMENOrdering Facility: [facility] Address: [address] [place] [id number] Performed By: #### 2 4323-8 ####[facility]OSPITALNCLIA [id number] [place] [address] [place] CO2 [Moles/Vol] 27 mmol/L Normal 22-30 [facility] Comment on above: Order Comment: Speci men Type: BLOOD SPECIMENOrdering Facility: [facility] Address: [address] [place] [address] Performed By: #### 2 4323-8 ####[facility] HOSPITALNCLI [id number] [place] [address] [place] Creatinine [Mass/Vol] 0.83 mg/dL Normal 0.58-0.[address] [facility] Comment on above: Order Comment: Speci men Type: BLOOD SPECIMENOrdering Facility: [facility] Address: [address] [place] [address] Performed By: #### 2 4323-8 ####[facility]OSPITALNCLIA [id number] [place] [address] [place] Creatinine and Glomerular filtration rate.predicted panel (S/P/Bld) 97 mL/min/1.73m??? Normal >=60 [facility] Comment on above: Order Comment: Speci men Type: BLOOD SPECIMENOrdering Facility: [facility] Address: [address] [place] [address] Result Comment: Ligia mated Glomerular Filtration Rate [...] actual GFR. Performed By: #### 2 4323-8 ####[facility] HOSPITALWNCLIA [id number] [place] [address] [place] Glucose [Mass/Vol] 81 mg/dL Normal 74-99 [facility] Comment on above: Order Comment: Speci men Type: BLOOD SPECIMENOrdering Facility: [facility] Address: [address] [place] [address] Result Comment: The [place] Diabetes Association (ADA) provides guidance for cutoff [...] Standards of Medical Care in Diabetes 2016, [place] [employer]. Diabetes Care. 2016.39(Suppl 1). Performed By: #### 2 4323-8 ####[facility] HOSPITALRowdy [id number] [place] [address] [place] Potassium [Moles/Vol] 3.8 mmol/L Normal 3.7-5.[address] [facility] Comment on above: Order Comment: Speci men Type: BLOOD SPECIMENOrdering Facility: [facility] Address: [address] [place] [address] Performed By: #### 2 4323-8 ####[facility] [id number] [place] [address] [place] Protein [Mass/Vol] 6.7 g/dL Normal 6.3-8.0 [facility] Comment on above: Order Comment: Speci men Type: BLOOD SPECIMENOrdering Facility: [facility] Address: [address] [place] [address] Performed By: #### 2 4323-8 ####[facility] HOSPITALLI [id number] [place] [address] [place] Sodium [Moles/Vol] 142 mmol/L Normal 136-144 [facility] Comment on above: Order Comment: Speci men Type: BLOOD SPECIMENOrdering Facility: [facility] Address: [address] [place] [id number] Performed By: #### 2 4323-8 ####[facility] JOSE ANTONIOMOUNT ASCUTNEY HOSPITALWWILIA [id number] [address] STATES OF [facility] Urea nitrogen [Mass/Vol] 13 mg/dL Normal 7-21 [facility] Comment on above: Order Comment: Speci men Type: BLOOD SPECIMENOrdering Facility: [facility] Address: [place] [address] Performed By: #### 2 4323-8 ####[facility] JOSE ANTONIO DEBRAOAKLAWN PSYCHIATRIC CENTERLIA [id number] [address] OF [facility] XR HYSTEROSALPINGOGRAMon [facility] CNOVon 07-24-2020 CNOV Office Visit (WHREBA ) CLAY CRISTINA ([id number]) 1990 F Date Time Provider Department 07/24/20 [...] which included preparing to see the patient, [id number] patient care, completing clinical documentation, counseling and [...] cyst [N94.9] Hirsutism [L68.0] Order(s):PELVIC US WHI [[id number]] Order #: [id number]: 1 TESTOSTERONE TOTAL [SQTESTO] Order #: [id number] FUTURE DHEA-S BLD [SQDHEAS] Order #: [id number] FUTURE Prescriptions as of 07/24/2020 Sig: PEPCID [...] Encounter Status:Closed by LOYDA VALENZUELA on 07/27/20 [facility] [place] 06-09-2020 [facility] Telephone (WHRA) LAYACLAY Reno ([id number]) 1990 F Date Time Provider Department 06/09/20 [...] drive to , as she lives in [place]. Will call the patient back once the [...] MTX. Patient prefers MTX. Called Kaitlynn at [place] - [phone] - no answer due to the late hour. I will call first thing tomorrow to see if they can arrange for MTX for patient closer to home. Ankita Chaudhari APRN.JALEEL June 09, 2020 5:31 PM Ankita Chaudhari APRN.JALEEL 06/10/2020 9:33 AM Signed spoke with Merly at [place], she will see if there is able [...] Status:Closed by ANKITA CHAUDHARI CNP on 06/30/20 [facility] [place] 06-05-2020 [facility] Telephone (WHREBA) CLAY CRISTINA ([id number]) 1990 F Date Time Provider Department 06/05/20 [...] she is going to get it at [facility], they will see the [place] order from her chart. Katja Tiwari PA-C June 05, 2020 11:45 AM Merly Carcamo RN 06/05/2020 12:19 PM Signed Patient scheduled today at 1:20pm in [place]. Merly Carcamo RN Allergies As of Date: 06/05/2020 Noted Allergy Reaction SEASONAL ALLERGIES 07/10/2014 5 - Intolerance Date Reviewed: 01/25/2020 Reviewed by: Cherelle Laird - Fully Assessed Reason for Visit: Abnormal labs [Other] Visit Diagnoses:Abnormal laboratory test [R89.9] in first trimester with history of ectopic [O09.11] Order(s):OBSTETRIC ULTRASOUND [facility] [[id number]] Order #: [id number]: 1 Prescriptions as of 06/05/2020 Sig: PROGESTERONE [...] Status:Closed by KATJA TIWARI PA-C on 06/05/20 [facility] Vital Signs Date Time Vital Sign Value Performing Clinician Faci lity 10-07-2023 11:29-0400 Body height 167.6 cm Diana Eastman MD Work Phone: [facility] 10-07-2023 11:29-0400 Body mass index (BMI) [Ratio] 43.87 kg/m2 Diana Eastman MD Work Phone: [facility] 10-07-2023 11:29-0400 Body weight 123.3 kg Diana Eastman MD Work Phone: [facility] 10-07-2023 11:29-0400 Diastolic blood pressure 94 mm[Hg] Diana Eastman MD Work Phone: [facility] 10-07-2023 11:29-0400 Heart rate 53 /min Diana Eastman MD Work Phone: [facility] 10-07-2023 11:29-0400 Systolic blood pressure 147 mm[Hg] Diana Eastman MD Work Phone: [facility] 08-25-2023 08:55-0400 Body height 168.9 cm Antonia Brcieno MD Work Phone: [facility] 08-25-2023 08:55-0400 Body mass index (BMI) [Ratio] 42.39 kg/m2 Antonia Briceno MD Work Phone: [facility] 08-25-2023 08:55-0400 Body weight 120.93 kg Antonia Briceno MD Work Phone: [facility] 08-25-2023 08:55-0400 Diastolic blood pressure 80 mm[Hg] Antonia Briceno MD Work Phone: [facility] 08-25-2023 08:55-0400 Systolic blood pressure 120 mm[Hg] Antonia Briceno MD Work Phone: [facility] 07-05-2023 11:07-0400 Body mass index (BMI) [Ratio] 41.97 kg/m2 Denis Lagunas MD Work Phone: [facility] 07-05-2023 11:07-0400 Body weight 117.94 kg Denis Lagunas MD Work Phone: [facility] 06-07-2023 10:55-0400 Body weight 119.3 kg Denis Lagunas MD Work Phone: [facility] 05-30-2023 10:35-0400 Body height 168.9 cm Mhcz 1 [facility] [employer] [facility] [employer] 05-30-2023 10:35-0400 Body mass index (BMI) [Ratio] 43.57 kg/m2 Mhcz 1 [facility] [employer] 05-30-2023 10:35-0400 Body temperature 98.1 [degF] Mhcz 1 [facility] [employer] [facility] [employer] 05-30-2023 10:35-0400 Body weight 124.3 kg Mhcz 1 [facility] [employer] [facility] [employer] 05-30-2023 10:35-0400 Diastolic blood pressure 74 mm[Hg] Mhcz 1 [facility] [employer] 05-30-2023 10:35-0400 Heart rate 77 /min Mhcz 1 [facility] [employer] 05-30-2023 10:35-0400 Respiratory rate 18 /min Mhcz 1 [employer] 05-30-2023 10:35-0400 SaO2% (BldA) [Mass fraction] 100 % Mhcz 1 [facility] [employer] 05-30-2023 10:35-0400 Systolic blood pressure 131 mm[Hg] Mhcz 1 [facility] [employer] 04-05-2023 10:50-0500 Body weight 122.02 kg Denis Lagunas MD Work Phone: [facility] 03-08-2023 10:50-0500 Body weight 124.74 kg Denis Lagunas MD Work Phone: [facility] 02-08-2023 11:00-0500 Body weight 128.82 kg Denis Lagunas MD Work Phone: [facility] 10-22-2022 14:28-0400 Body height 167.6 cm Diana Eastman MD Work Phone: [facility] 10-22-2022 14:28-0400 Body weight 133.81 kg Diana Eastman MD Work Phone: [facility] 10-21-2021 09:52-0400 Body height 172.7 cm Antonia Briceno MD Work Phone: [facility] 10-21-2021 09:52-0400 Body weight 132.72 kg Antonia Briceno MD Work Phone: [facility] 10-21-2021 09:52-0400 Diastolic blood pressure 80 mm[Hg] Antonia Briceno MD Work Phone: [facility] 10-21-2021 09:52-0400 Systolic blood pressure 118 mm[Hg] Antonia Briceno MD Work Phone: [facility] Encounters Encounter Date Encounter Type Care [...] Start: 01-10-2024 End: 01-10-2024 ambulatory LAILA WYATT Facility:[facility] Start: 01-10-2024 End: 01-10-2024 Patient encounter procedure Installation And Service Technician [facility] Comment on above: Pelvic pain in pregn shahriar (Primary Dx); Early stage of ; of unknown anatomic location; Bleeding in early Start: 01-09-2024 End: 01-09-2024 Orders Only Pattie Patino APRN.CNP Work Phone: Reproductive Endocrinology Infertility Comment on above: , location unknown (Primary Dx) Start: 01-07-2024 End: 01-07-2024 ambulatory LAILA WYATT Facility:[facility] Start: 01-05-2024 End: 01-05-2024 ambulatory PATTIE PATINO Facility:[facility] Start: 2024 End: 01-06-2024 ambulatory Diana [...] t est Start: 10-07-2023 End: 10-07-2023 [facility] Start: 10-07-2023 End: 10-07-2023 Patient encounter procedure Diana Eastman MD Work Phone: Reproductive Endocrinology Infertility Comment on above: PCOS (polycystic ova giovanni syndrome) (Primary Dx) Start: 08-25-2023 End: 08-25-2023 [facility] Start: 08-25-2023 End: 08-25-2023 Patient encounter procedure Antonia Briceno MD Work Phone: OB/Gynecology Comment on above: Encounter for gyneco logical examination (general) (routine) without abnormal findings (Primary Dx); Screening for cervical cancer; Encounter for screening for human papillomavirus (HPV) Start: 08-25-2023 End: 08-25-2023 Patient encounter status Antonai Briceno MD Work Phone: [facility] Start: 07-19-2023 Refill Denis buchanan MD [...] with patient Denis Lagunas MD Work Phone: [facility] Start: 05-30-2023 End: 05-31-2023 ambulatory Physician Jaki [facility] Start: 05-30-2023 End: 05-30-2023 Subsequent hospital visit by physician [facility] [address] [place] [address] Start: 05-30-2023 End: 05-30-2023 ambulatory [facility] Start: 05-05-2023 End: 05-06-2023 ambulatory TORI [facility] Start: 04-05-2023 End: 04-05-2023 Telemedicine consultation with patient Denis Lagunas MD Work Phone: [facility] Start: 04-05-2023 End: 04-05-2023 ambulatory Denis Lagunas MD Work Phone: Endocrinology Comment on above: PCOS (polycystic ova giovanni syndrome) (Primary Dx); Obesity, Class III, BMI >= 40 Start: 04-04-2023 End: 04-04-2023 ambulatory DENIS LAGUNAS Facility:[facility] Start: 03-08-2023 End: 03-08-2023 ambulatory Denis Lagunas MD Work Phone: Endocrinology Comment on above: Obesity, Class III, BMI >= 40 Start: 03-08-2023 End: 03-08-2023 Telemedicine consultation with patient Denis Lagunas MD Work Phone: [facility] Start: 03-07-2023 End: 03-07-2023 ambulatory DENIS LAGUNAS Facility:[facility] Start: 02-08-2023 End: 02-08-2023 ambulatory Denis Lagunas MD Work Phone: Endocrinology Comment on above: Obesity, Class III, BMI >= 40 (Primary Dx); PCOS (polycystic ovarian syndrome) Start: 02-08-2023 End: 02-08-2023 Telemedicine consultation with patient Denis Lagunas MD Work Phone: [facility] Start: 12-24-2022 ambulatory Diana Singh Work Phone: Reproductive Endocrinology Infertility Comment on above: IUI hold Endocrine PCOS p navarroram Start: 12-24-2022 E-mail encounter fro m caregiver [facility] Provider [facility] Start: 12-23-2022 End: 12-23-2022 ambulatory Denis Lagunas MD Work Phone: [facility] Comment on above: PCOS (polycystic ova giovanni syndrome) (Primary Dx); Obesity, Class III, BMI >= 40 Start: 12-23-2022 End: 12-23-2022 Telemedicine consultation with patient Denis Lagunas MD Work Phone: [facility] Start: 12-09-2022 End: 12-09-2022 Patient [...] with patient Diana Eastman MD Work Phone: [facility] Start: 10-21-2021 End: 10-21-2021 Patient [...] requested procedure Denis Lagunas MD Work Phone: [facility] Procedures Date Procedure Procedure Detail Performing [...] 03-16-2022 Cath & saline/contra st sonohyster/hysterosalpi Diana Eastmna MD Work Phone: Plan of Treatment Date Care Activity Detail Author Start: 01-02-2067 RSV Vaccine (1 - 1-dose 75+ series) RSV Vaccine (1 - 1-dose 75+ series) [facility] Start: 08-24-2028 Screening for malignant neoplasm of cervix Cervical Cancer Screening [facility] Start: 10-21-2026 HPV TESTING HPV TESTING [facility] Start: 10-21-2026 PAP TESTING PAP TESTING [facility] Start: 10-21-2026 Screening for malignant neoplasm of cervix [facility] Start: 08-24-2024 End: 08-24-2024 Patient encounter procedure 08/24/2024 1:40 PM EDT Office Visit OB/Gynecology [address] [place] [address] Antonia Briceno MD [address] [place] [address] Annual OB/Gynecology Comment on above: Annual Start: 03-01-2024 End: 03-01-2024 Patient encounter procedure 03/01/2024 10:20 AM EST Routine Office Visit OB/Gynecology [address] [place] [address] Antonia Briceno MD [address] [place] [address] 1st OB OB/Gynecology Comment on above: 1st OB Start: 02-01-2024 End: 02-01-2024 Patient encounter procedure 02/01/2024 8:15 AM EST Initial Office Visit OB/Gynecology [address] [place] [address] Isis Raines APRN.LITHOGRAPHIC ARTIST [address] [place] [address] 1st OB (Dr. Eastman recommended first appointment be 8 weeks out from LMP) OB/Gynecology Comment on above: 1st OB (Dr. Eastman recommended first hernan ointment be 8 weeks out from LMP) Start: 01-11-2024 End: 01-11-2024 ambulatory 01/11/2024 7:15 AM EDT Results Only Jose Antonio Morales [facility] [address] [place] [address] Jose Antonio Morales [facility] Start: 01-10-2024 End: 01-09-2025 OBSTETRIC ULTRASOUND WHI OBSTETRIC ULTRASOUND WHI Anc Imaging Routine Early stage of Expected: 01/10/2024, Expires: 01/09/2025 [facility] Work Phone: Comment on above: Expected: 01/10/2024, Expires: Start: 01-10-2024 End: 01-10-2024 Patient encounter procedure 01/10/2024 8:30 AM EDT [facility] Endocrinology Infertility [address] [address] Pattie Patino APRN.LITHOGRAPHIC ARTIST [address] [address] new preg visit Reproductive Endocrinology Infertility Comment on above: new preg visit Start: 01-07-2024 End: 01-07-2024 [facility] Start: 01-05-2024 End: 01-05-2024 ambulatory 01/05/2024 7:30 AM EDT Results Only [facility] [address] [place] [address] [facility] Start: 11-20-2023 Covid-19 Vaccine ( season) Covid-19 Vaccine () [facility] Start: 11-20-2023 Influenza vaccination [facility] Start: 10-07-2023 End: 10-07-2023 Patient encounter procedure Reproductive Endocrinology Infertility Comment on above: DISCUSS NEW PLAN DISCUSS NEW PLAN lm and sent my chart time changed/js Start: 08-25-2023 End: 08-25-2023 Patient encounter procedure 08/25/2023 8:40 AM EDT Office Visit OB/Gynecology [address] [place] [address] Antonia Briceno MD [address] [place] [address] Annual exam OB/Gynecology Comment on above: Annual exam Start: 03-21-2023 Behavioral Health Screening Behavioral Health Screening [facility] Start: 03-21-2023 Depression Assessment Depression Assessment [facility] Start: 03-08-2023 End: 06-07-2023 Comprehensive metabolic 2000 panel - Serum or Plasma COMP METABOLIC PANEL Lab Routine Obesity, Class III, BMI >= 40 Expected: 03/08/2023, Expires: 06/07/2023 [facility] Work Phone: Comment on above: Expected: 03/08/2023, Expires: Start: 02-08-2023 End: 05-10-2023 Comprehensive metabolic 2000 panel - Serum or Plasma COMP METABOLIC PANEL Lab Routine Obesity, Class III, BMI >= 40 Expected: 02/08/2023, Expires: 05/10/2023 [facility] Work Phone: Comment on above: Expected: 02/08/2023, Expires: 4 Start: 12-23-2022 End: 02-22-2023 ANTI MULLERIAN HORMONE ANTI MULLERIAN HORMONE Lab Routine PCOS (polycystic ovarian syndrome) Expected: 12/23/2022, Expires: 02/22/2023 [facility] Work Phone: Comment on above: Expected: 12/23/2022, Expires: 3 Start: 12-23-2022 End: 02-22-2023 Comprehensive metabolic 2000 panel - Serum or Plasma COMP METABOLIC PANEL Lab Routine PCOS (polycystic ovarian syndrome) Expected: 12/23/2022, Expires: 02/22/2023 [facility] Work Phone: Comment on above: Expected: 12/23/2022, Expires: 3 Start: 12-23-2022 End: 02-22-2023 DHEA-S BLD DHEA-S BLD Lab Routine PCOS (polycystic ovarian syndrome) Expected: 12/23/2022, Expires: 02/22/2023 [facility] Work Phone: Comment on above: Expected: 12/23/2022, Expires: 3 Start: 12-23-2022 End: 02-22-2023 Estradiol (E2) [Mass/volume] in Serum or Plasma ESTRADIOL-17B BLD Lab Routine PCOS (polycystic ovarian syndrome) Expected: 12/23/2022, Expires: 02/22/2023 [facility] Work Phone: Comment on above: Expected: 12/23/2022, Expires: 3 Start: 12-23-2022 End: 02-22-2023 Follitropin [Units/volume] in Serum or Plasma FSH BLD Lab Routine PCOS (polycystic ovarian syndrome) Expected: 12/23/2022, Expires: 02/22/2023 [facility] Work Phone: Comment on above: Expected: 12/23/2022, Expires: 3 Start: 12-23-2022 End: 02-22-2023 Hemoglobin A1c in Blood HGB A1C Lab Routine PCOS (polycystic ovarian syndrome) Expected: 12/23/2022, Expires: 02/22/2023 [facility] Work Phone: Comment on above: Expected: 12/23/2022, Expires: 3 Start: 12-23-2022 End: 02-22-2023 Lipid 1996 panel - Serum or Plasma LIPID PANEL BASIC Lab Routine PCOS (polycystic ovarian syndrome) Expected: 12/23/2022, Expires: 02/22/2023 [facility] Work Phone: Comment on above: Expected: 12/23/2022, Expires: 3 Start: 12-23-2022 End: 02-22-2023 Lutropin [Units/volume] in Serum or Plasma LUTEINIZING HORMONE Lab Routine PCOS (polycystic ovarian syndrome) Expected: 12/23/2022, Expires: 02/22/2023 [facility] Work Phone: Comment on above: Expected: 12/23/2022, Expires: 3 Start: 12-23-2022 End: 02-22-2023 Prolactin [Mass/volume] in Serum or Plasma PROLACTIN BLD Lab Routine PCOS (polycystic ovarian syndrome) Expected: 12/23/2022, Expires: 02/22/2023 [facility] Work Phone: Comment on above: Expected: 12/23/2022, Expires: 3 Start: 12-23-2022 End: 02-22-2023 Thyrotropin [Units/volume] in Serum or Plasma TSH BLD Lab Routine PCOS (polycystic ovarian syndrome) Expected: 12/23/2022, Expires: 02/22/2023 [facility] Work Phone: Comment on above: Expected: 12/23/2022, Expires: 3 Start: 12-23-2022 End: 02-22-2023 Thyroxine (T4) free [Mass/volume] in Serum or Plasma T4 FREE/FREE THYROX Lab Routine PCOS (polycystic ovarian syndrome) Expected: 12/23/2022, Expires: 02/22/2023 [facility] Work Phone: Comment on above: Expected: 12/23/2022, Expires: 3 Start: 11-19-2022 Covid-19 Vaccine () Covid-19 Vaccine () [facility] Start: 11-19-2022 COVID-19 Vaccine () COVID-19 Vaccine () [facility] Start: 11-19-2022 Influenza vaccination [facility] Start: 10-19-2022 Influenza vaccination Flu vaccine (#1) [facility] Start: 03-22-2022 End: 02-19-2023 Cath & saline/contrast sonohyster/hysterosalpi XR HYSTEROSALPINGOGRAM Radiology Routine Encounter for fertility testing Expected: 03/22/2022, Expires: 02/19/2023 [facility] Work Phone: Comment on above: Expected: 03/22/2022, Expires: 3 Start: 03-21-2022 DEPRESSION ASSESSMENT DEPRESSION ASSESSMENT [facility] Start: 01-02-2022 HPV TESTING HPV TESTING [facility] Start: 01-02-2022 Screening for malignant neoplasm of cervix [facility] Start: 11-19-2021 Influenza vaccination [facility] Start: 10-21-2021 End: 12-21-2021 Fasting glucose [Mass/volume] in Serum or Plasma GLUCOSE FASTING BLD Lab Routine Class 3 severe obesity with body mass index (BMI) of 40.0 to 44.9 in adult, unspecified obesity type, unspecified whether serious comorbidity present (HCC) PCOS (polycystic ovarian syndrome) Expected: 10/21/2021, Expires: 12/21/2021 [facility] Work Phone: Comment on above: Expected: 10/21/2021, Expires: 2 Start: 10-21-2021 End: 12-21-2021 Hemoglobin A1c in Blood HGB A1C Lab Routine Class 3 severe obesity with body mass index (BMI) of 40.0 to 44.9 in adult, unspecified obesity type, unspecified whether serious comorbidity present (HCC) PCOS (polycystic ovarian syndrome) Expected: 10/21/2021, Expires: 12/21/2021 [facility] Work Phone: Comment on above: Expected: 10/21/2021, Expires: 2 Start: 10-21-2021 End: 12-21-2021 Lipid 1996 panel - Serum or Plasma LIPID PANEL BASIC Lab Routine Class 3 severe obesity with body mass index (BMI) of 40.0 to 44.9 in adult, unspecified obesity type, unspecified whether serious comorbidity present (HCC) PCOS (polycystic ovarian syndrome) Expected: 10/21/2021, Expires: 12/21/2021 [facility] Work Phone: Comment on above: Expected: 10/21/2021, Expires: 2 Start: 03-21-2021 DEPRESSION ASSESSMENT DEPRESSION ASSESSMENT [facility] Start: 07-08-2020 COVID-19 VACCINE (4 - Booster) COVID-19 VACCINE (4 - Booster) [facility] Start: 06-04-2020 COVID-19 VACCINE (4 - Booster) COVID-19 VACCINE (4 - Booster) [facility] Start: 06-04-2020 COVID-19 VACCINE (4 - Pfizer series) COVID-19 VACCINE (4 - Pfizer series) [facility] Start: 04-23-2019 PAP TESTING PAP TESTING [facility] Start: 01-02-2013 Screening for malignant neoplasm of cervix Pap smear [facility] Start: 01-02-2011 DTaP/Tdap/Td vaccine (1 - Tdap) DTaP/Tdap/Td vaccine (1 - Tdap) [facility] Start: 01-02-2011 Hepatitis B Vaccine (1 of 3 - 19+ 3-dose series) Hepatitis B Vaccine (1 of 3 - 19+ 3-dose series) [facility] Start: 01-02-2011 SHINGRIX VACCINE (1 of 2) SHINGRIX VACCINE (1 of 2) [facility] Start: 01-02-2011 Urine microalbumin profile [facility] Start: 01-02-2010 Anxiety Screening Anxiety Screening [facility] Start: 01-02-2010 Depression Screening Depression Screening [facility] Start: 01-02-2010 HEPATITIS C SCREENING HEPATITIS C SCREENING [facility] Start: 01-02-2010 Hepatitis C screening [facility] Start: 01-02-2010 HIV SCREENING HIV SCREENING [facility] Start: 01-02-2010 HIV screening HIV Screening [facility] Start: 01-02-2007 HIV screening HIV screen [facility] Start: 2004 Adult depression screening assessment DEPRESSION SCREENING [facility] Start: 2004 Depression Screen Depression Screen [facility] Start: 01-02-1998 PNEUMOCOCCAL (1 - PCV) PNEUMOCOCCAL (1 - PCV) [facility] Start: 01-02-1993 Varicella vaccine (1 of 2 - 2-dose childhood series) Varicella vaccine (1 of 2 - 2-dose childhood series) [facility] Start: 1992 HEPATITIS B (1 of 3 - 3-dose series) HEPATITIS B (1 of 3 - 3-dose series) [facility] Start: 1992 Hepatitis B Vaccine (1 of 3 - 3-dose series) Hepatitis B Vaccine (1 of 3 - 3-dose series) [facility] End: 01-02-2025 Choriogonadotropin.beta subunit [Units/volume] in Serum or Plasma HCG QUANTITATIVE Lab STAT Positive test 3 Occurrences starting 2024 until 01/02/2025 [facility] Work Phone: Comment on above: 3 Occurrences starting 2024 until 01/02/2025 Choriogonadotropin.b eta subunit [Units/volume] in Serum or Plasma HCG QUANTITATIVE Lab STAT Positive test 2024 4:33 PM EDT [facility] End: 01-08-2025 Choriogonadotropin.beta subunit [Units/volume] in Serum or Plasma HCG QUANTITATIVE Lab Routine , location unknown Daily for 3 Occurrences starting 01/09/2024 until 01/08/2025 [facility] Work Phone: Comment on above: Daily for 3 Occurrences starting 024 until 01/08/2025 End: 05-30-2023 Cytomegalovirus Antibody, IgG [employer] Comment on above: One Time for 1 Occurrences starting 05/19 until 05/30/2023 End: 05-30-2023 Cytomegalovirus antibody, IgM [employer] Comment on above: One Time for 1 Occurrences starting 05/19 until 05/30/2023 End: 05-30-2023 Gwen whalen virus (EBV) antibody panel I [employer] Comment on above: One Time for 1 Occurrences starting 05/19 until 05/30/2023 End: 05-30-2023 Hepatitis B e antibody [employer] Comment on above: One Time for 1 Occurrences starting 05/19 until 05/30/2023 End: 05-30-2023 Hepatitis C RNA, quantitative, PCR [employer] Comment on above: One Time for 1 Occurrences starting 05/19 until 05/30/2023 End: 05-30-2023 Herpes simplex virus (HSV) I/II antibodies IgG & IgM [employer] Comment on above: One Time for 1 Occurrences starting 05/19 until 05/30/2023 End: 05-30-2023 MISCELLANEOUS SENDOUT 2 lavender and one red top tube. for HLA/CMV and antibody testing at [facility] [employer] MISCELLANEOUS SENDOUT 2 lavender and one red top tube. for HLA/CMV and antibody testing at [facility] [employer] [facility] [employer] Lab Routine One Time for 1 Occurrences starting 05/30/2023 until 05/30/2023 [employer] Work Phone: Comment on above: One Time for 1 Occurrences starting 05/19 until 05/30/2023 PAP FLUID CERVICAL SCREENING PAP FLUID CERVICAL SCREENING Lab Routine Encounter for gynecological examination (general) (routine) without abnormal findings Screening for cervical cancer Encounter for screening for human papillomavirus (HPV) 10/21/2021 10:27 AM EDT [facility] Work Phone: PAP TEST PAP TEST Lab Rou emma Encounter for gynecological examination (general) (routine) without abnormal findings Screening for cervical cancer Encounter for screening for human papillomavirus (HPV) 08/25/2023 9:30 AM EDT [facility] Work Phone: End: 05-30-2023 Sickle Cell Screen [facility] [employer] Comment on above: One Time for 1 Occurrences starting 05/19 until 05/30/2023 End: 05-30-2023 Toxoplasma gondii antibody, IgG [facility] Comment on above: One Time for 1 Occurrences starting 05/19 until 05/30/2023 End: 05-30-2023 Toxoplasma gondii antibody, IgM [facility] Comment on above: One Time for 1 Occurrences starting 05/19 until 05/30/2023 End: 05-30-2023 Varicella-Zoster virus (VZV) antibodies IgG & IgM [facility] Comment on above: One Time for 1 Occurrences starting 05/19 until 05/30/2023 [facility] Payers Date Payer Category Payer Unknown [id number] 2023 Unknown [id number] 2022 Unknown [id number] 2019 Unknown [employer] PPO OOS [id number] 2019-Present [phone] [facility] [address] [place] [address] PPO [id number] 2019 Unknown [id number] 1995 Unknown [id number] 1995 Unknown [id number] 1995 Unknown [id number] Social History Date Type Detail Facility Start: 12-27-2011 End: 08-25-2023 Tobacco smoking status NHIS Never smoked tobacco [facility] Start: 10-31-2020 End: 01-11-2024 Alcohol intake Current non-drinker of alcohol (finding) [facility] Start: 1990 Sex Assigned At Female [facility] Start: 09-19-2021 End: 09-29-2021 Exposure to SARS-CoV-2 (event) Yes [facility] Start: 12-27-2011 End: 08-25-2023 Tobacco use and exposure Smokeless tobacco non-user [facility] Start: 10-22-2022 End: 10-07-2023 History of Social function [facility] Start: 10-22-2022 End: 10-07-2023 Tobacco use panel [facility] National Score (1-10 0), lower number is lower risk 69 [facility] Start: 07-23-2020 Gender identity Identifies as female gender (finding) [facility] Start: 07-23-2020 Sexual orientation Heterosexual (fin roxy) [facility] Tobacco smoking stat us NHIS Tobacco smoking consumption unknown [facility] Start: 1990 Sex Assigned At Not on file [facility] Clinical Notes 11-14-2018 to 01-11-2024 Katja Tiwari PA-C - 01/11/2024 3:07 PM EDTTelephone Encounter - Mayank Squires MD - 01/10/2024 10:57 AM EDTTelephone Encounter - Mayank Squires MD - 01/10/2024 10:57 AM EDTPatient Instructions Note Date & Type Note Facility 01-11-2024 Note HNO ID: [id number] Author: KATJA TIWARI PA-C Service: ? Author Type: Physician Casting Operator Type: Progress Notes Filed: 01/12/2024 10:03 [...] Tiwari PA-C January 12, 2024 10:[address] [facility] 01-11-2024 History of Presen t illness Narrative [...] 2024 3:10 PM documented in this encounter [facility] 01-10-2024 Telephone encounter Note Filed Mayank Squires MD [facility] 01-10-2024 Miscellaneous Notes Filed Mayank Squires MD Please file order for ultrasound for R/O ectopic. Margarette said that you and Dr Briceno are aware of this patient- Dr Jaren US documented in this encounter [facility] 01-10-2024 Telephone encounter Note Please file order for ultrasound for R/O ectopic. Margarette said that you and Dr Briceno are aware of this patient- Dr Jaren US [facility] 2024 Telephone encounter Note Reviewed history, intake and most recent plan from primary [facility] provider. Plan: # of quants: standing (ectopic) additional meds needed: none schedule VV with [facility] Guide sent with plan. Pattie Patino APRN.CNP 2024 11:06 AM [facility] Work Phone: 2024 Miscellaneous Notes Reviewed [...] Pos preg test documented in this encounter [facility] 2024 Telephone encounter Note See TE for 01/02 Precious Leone RN 2024 9:31 AM [facility] 2024 Miscellaneous Notes See TE for 01/02 Precious Leone RN 2024 9:31 AM documented in this encounter [facility] 2024 Telephone encounter Note Patient calls [...] hcg Precious Leone RN 2024 9:31 AM [facility] 2024 Telephone encounter Note Pos preg test T [facility] 10-07-2023 History of Presen t illness [...] Count Sperm M 1.00 % Motile Sperm (%AR + %CHISEL TRIMMER) >=40 % 8 (L) Washing Solution Enhance [...] with more than 50% of the total [id number]-[id number] time of the visit in counseling / coordination of care. I spent a total of 40 minutes on the date of the service which included preparing to see the patient, vuln-zu-nyan patient care, completing clinical documentation, obtaining and/or [...] 2023 12:20 PM documented in this encounter [facility] 10-07-2023 Note HNO ID: [id number] Author: DIANA EASTMAN MD Service: ? Author [...] Count Sperm M 1.00 % Motile Sperm (%AR + %CHISEL TRIMMER) >=40 % 8 (L) Washing Solution Enhance [...] with more than 50% of the total ffgg-dq-wnin time of the visit in counseling / coordination of care. I spent a total of 40 minutes on the date of the service which included preparing to see the patient, tqne-fd-viqv patient care, completing clinical documentation, obtaining and/or [...] Eastman. Electronically signed, (more content not included)... [facility] 08-25-2023 Instructions Antonia Briceno MD - 08/25/2023 [...] scratching at night. documented in this encounter [facility] 08-25-2023 Note HNO ID: [id number] Author: ANTONIA BRICENO MD Service: ? Author Type: Physician Type: Progress Notes Filed: 08/25/2023 14:37 Note Text: Ceramic Engineer offered: Patient declines. Clay is a [...] L0 SAB2 IAB0 Ectopic2 Multiple0 Live Births0 Platform Software Engineer History LMP: 07/20/2023, Having periods Age at Menarche: Age at First : Age at Menopause: Platform Software Engineer History Comments: Sexual Activity: Yes; Male Contraception: [...] external genitalia normal, normal Bartholin's glands, urethra, Franklinton's glands, no vulvar lesions, no cervical lesions, [...] or sooner as needed Antonia Briceno DO [facility] 08-25-2023 History of Presen t illness Narrative Ceramic Engineer offered: Patient declines. Clay is a [...] L0 SAB2 IAB0 Ectopic2 Multiple0 Live Births0 Platform Software Engineer History LMP: 07/20/2023, Having periods Age at Menarche: Age at First : Age at Menopause: Platform Software Engineer History Comments: Sexual Activity: Yes; Male Contraception: [...] external genitalia normal, normal Bartholin's glands, urethra, Franklinton's glands, no vulvar lesions, no cervical lesions, [...] Antonia Briceno DO documented in this encounter [facility] 07-20-2023 Telephone encounter Note Patient comment: [...] PSS NOTE: Patient needs scheduled appointment No [facility] 07-20-2023 Miscellaneous Notes Patient comment: I [...] scheduled appointment No documented in this encounter [facility] 07-05-2023 Note HNO ID: [id number] Author: ELOY NORRIS RD Service: ? Author [...] 12/25/2022 HBA1C 5.3 08/11/[address] [facility] 07-05-2023 History of Presen t illness Narrative [...] plans to make an appointment with her wire puller. Patient Entered Data 02/07/2023 03/07/2023 06/06/2023 PROMIS [...] 07/05/2023 Obesity Questionnaire Difficulties following advice of trade specialist No No No My appetite is well [...] Past Histories independently gathered by the clinical customer support manager and the remaining scribed note accurately describes my personal service to the patient. I have communicated my name and active licensure. The patient's identity and physical location were verified at the time of this visit. Either the patient or their legal airline security representative has been informed of the risks and benefits of -- and alternatives to -- treatment through a remote evaluation and consents to proceed with the evaluation remotely. Denis Lagunas MD Endocrinology staff Pager: [phone] July 05, 2023 The documentation for this note was completed by Tessy Wyatt RD acting as scribe for Denis Lagunas MD. July 05, 2023 10:[address] documented in this encounter [facility] 07-05-2023 Note HNO ID: [id number] Author: DENIS MACHADO MD Service: ? Author [...] plans to make an appointment with her wire puller. Patient Entered Data 02/07/2023 03/07/2023 06/06/2023 PROMIS [...] 07/05/2023 Obesity Questionnaire Difficulties following advice of trade specialist No No No My appetite is well [...] old female is here for PCOS Virtual [facility] program Recommendations - decrease phentermine, 37.5mg, to 1/2 tab daily. - take provera to start period (more content not included)... [facility] 07-01-2023 Instructions Tessy Wyatt, MARIO - 07/01/2023 1:53 PM EDT Thank you for choosing the [facility] Department of Endocrinology, Diabetes and Metabolism. Did you know that you need to call 48 hours in advance of your scheduled visit, if you are unable to make your appointment? The [facility] thanks you for your commitment, because patients not showing to their appointment results in a lost opportunity for patients to receive world class health care at the [facility]. To Cancel an appointment, please choose one of the following: - Call the Appointment Call Center at [phone] - From [facility], Go to Appointments - Cancel Appts [...] initial phase. Please either call me at [phone] or message me, to schedule your next mVSMA. documented in this encounter [facility] 06-07-2023 Note HNO ID: [id number] Author: ELOY NORRIS RD Service: ? Author [...] 12/25/2022 HBA1C 5.3 08/11/[address] [facility] 06-07-2023 History of Presen t illness Narrative [...] 06/06/2023 Obesity Questionnaire Difficulties following advice of trade specialist No No No My appetite is well [...] old female is here for PCOS Virtual [facility] program Recommendations - continue phentermine. = continue current diet and exercise = continue current meds/OCP I agree with the Chief Complaint, ROS, and Past Histories independently gathered by the clinical customer support manager and the remaining scribed note accurately describes my personal service to the patient. I have communicated my name and active licensure. The patient's identity and physical location were verified at the time of this visit. Either the patient or their legal airline security representative has been informed of the risks and benefits of -- and alternatives to -- treatment through a remote evaluation and consents to proceed with the evaluation remotely. Denis Lagunas MD Endocrinology staff Pager: [phone] June 07, 2023 The documentation for this [...] No Seizures: No documented in this encounter [facility] 06-07-2023 Note HNO ID: [id number] Author: DENIS MACHADO MD Service: ? Author [...] 06/06/2023 Obesity Questionnaire Difficulties following advice of trade specialist No No No My appetite is well [...] Past Histories independently gathered by the clinical customer support manager and the re (more content not included)... [facility] 06-07-2023 Instructions Tessy Wyatt, RD - 06/07/2023 8:03 AM EDT Thank you for choosing the [facility] Department of Endocrinology, Diabetes and Metabolism. [...] for an InBody analysis scan, please call [phone]. Looking for additional support? Join us for our monthly support group on the tuesday of every month from 6pm-7pm. This virtual group is for patients who would benefit from additional information from our providers to support their technician terminal and repeater physical and mental health goals. Participants will receive support from other group members and providers. Email [email or web address] to be put on our mailing list and receive links to join the group. documented in this encounter [facility] 04-05-2023 Note HNO ID: [id number] Author: ELOY NORRIS RD Service: ? Author [...] 12/25/2022 HBA1C 5.3 08/11/[address] [facility] 04-05-2023 History of Presen t illness Narrative Patient attended a Weight Management [facility] and is currently using the Mediterranean nutrition [...] any difficulties following the advice of our trade specialist? Yes No No Is your appetite well-controlled [...] old female is here for PCOS Virtual [employer] program Recommendations - she did not have [...] - she has an appointment with an CHISEL TRIMMER tomorrow in her PCP's office. She was instructed to ask the CHISEL TRIMMER about having an US of her liver. [...] Past Histories independently gathered by the clinical customer support manager and the remaining scribed note accurately describes my personal service to the patient. I have communicated my name and active licensure. The patient's identity and physical location were verified at the time of this visit. Either the patient or their legal airline security representative has been informed of the risks and benefits of -- and alternatives to -- treatment through a remote evaluation and consents to proceed with the evaluation remotely. Denis Lagunas MD Endocrinology staff Pager: [phone] April 05, 2023 The documentation for this note was completed by Tessy Wyatt RD acting as scribe for Denis Lagunas MD. April 05, 2023 10:[address] documented in this encounter [facility] 04-05-2023 Note HNO ID: [id number] Author: DENIS MACHADO MD Service: ? Author [...] any difficulties following the advice of our trade specialist? Yes No No Is your appetite well-controlled [...] Never used Substanc (more content not included)... [facility] 04-01-[address] - 04/01/2023 4:23 PM EST Thank you for choosing the [facility] Department of Endocrinology, Diabetes and Metabolism. [...] for an InBody analysis scan, please call [phone]. Looking for additional support? Join us for our monthly support group on the tuesday of every month from 6pm-7pm. This virtual group is for patients who would benefit from additional information from our providers to support their alf physical and mental health goals. Participants will receive support from other group members and providers. Email [email or web address] to be put on our mailing list and receive links to join the group. documented in this encounter [facility] 03-08-2023 History of Presen t illness [...] any difficulties following the advice of our trade specialist? Yes No Is your appetite well-controlled at [...] old female is here for PCOS Virtual [employer] program Recommendations - she lost a little [...] Past Histories independently gathered by the clinical customer support manager and the remaining scribed note accurately describes my personal service to the patient. I have communicated my name and active licensure. The patient's identity and physical location were verified at the time of this visit. Either the patient or their legal airline security representative has been informed of the risks and benefits of -- and alternatives to -- treatment through a remote evaluation and consents to proceed with the evaluation remotely. Denis Lagunas MD Endocrinology staff Pager: [phone] March 08, 2023 The documentation for this note was completed by Tessy Wyatt RD acting as scribe for Denis Lagunas MD. March 08, 2023 10:[address] documented in this encounter [facility] 03-08-2023 Note HNO ID: [id number] Author: Denis Machado MD Service: ? Author [...] any difficulties following the advice of our trade specialist? Yes No Is your appetite well-controlled at [...] chest pain, h (more content not included)... [facility] 03-07-2023 Instructions Tessy Wyatt, MARIO - 03/07/2023 1:14 PM EST Thank you for choosing the [facility] Department of Endocrinology, Diabetes and Metabolism. [...] for an InBody analysis scan, please call [phone]. Looking for additional support? Join us for our monthly support group on the tuesday of every month from 6pm-7pm. This virtual group is for patients who would benefit from additional information from our providers to support their technician terminal and repeater physical and mental health goals. Participants will receive support from other group members and providers. Email [email or web address] to be put on our mailing list and receive links to join the group. documented in this encounter [facility] 02-08-2023 Note HNO ID: [id number] Author: Eloy Norris RD Service: ? Author [...] 12/25/2022 HBA1C 5.3 08/11/[address] [facility] 02-08-2023 History of Presen t illness Narrative [...] any difficulties following the advice of our trade specialist? Yes Is your appetite well-controlled at this [...] Past Histories independently gathered by the clinical customer support manager and the remaining scribed note accurately describes my personal service to the patient. I have communicated my name and active licensure. The patient's identity and physical location were verified at the time of this visit. Either the patient or their legal airline security representative has been informed of the risks and benefits of -- and alternatives to -- treatment through a remote evaluation and consents to proceed with the evaluation remotely. Denis Lagunas MD Endocrinology staff Pager: [phone] February 08, 2023 The documentation for this [...] No Seizures: No documented in this encounter [facility] 02-08-2023 Note HNO ID: [id number] Author: Denis Machado MD Service: ? Author [...] any difficulties following the advice of our trade specialist? Yes Is your appetite well-controlled at this [...] History Tobacco Use (more content not included)... [facility] 02-08-[address] - 02/08/2023 8:47 AM EST Thank you for choosing the [facility] Department of Endocrinology, Diabetes and Metabolism. [...] been placed for you to see the Coatings Inspector. Please call [phone], to schedule your Free Exercise Consult . To schedule an appointment for an InBody analysis scan, please call [phone]. Looking for additional support? Join us for our monthly support group on the tuesday of every month from 6pm-7pm. This virtual group is for patients who would benefit from additional information from our providers to support their technician terminal and repeater physical and mental health goals. Participants will receive support from other group members and providers. Email [email or web address] to be put on our mailing list and receive links to join the group. documented in this encounter [facility] 12-23-2022 History of Presen t illness [...] she is interested will refer her to [facility]. = Exercise: REFER TO EXERCISE PHYSIOLOGY = PCOS labs ordered. = Metformin: continue 1000 mg bid. = discussed weight loss meds, she will think about it and let me know. = OCP: doing letrozole now with Provera Will see her in follow up in 1 month in [facility]. = a copy of this consultation was sent to consulting provider via EMR I spent 40 minutes in the visit, with more than 50% of the total gkqd-dy-mvnw time of the visit in counseling / coordination of care. I have communicated my name and active licensure. The patient's identity and physical location were verified at the time of this visit. Either the patient or their legal airline security representative has been informed of the risks and benefits of -- and alternatives to -- treatment through a remote evaluation and consents to proceed with the evaluation remotely. Denis Lagunas MD Endocrinology staff Pager: [phone] December 23, 2022 documented in this encounter [facility] 12-09-2022 Procedure note WHI MAGEN IUI PROCEDURE NOTE Date: 12/09/2022 Primary Proceduralist: Jenni Laurent APRN.CNP Consents and Labels Consent Signed: Informed Consent obtained and on the chart, See Comment (Comment: eviewed and signed consent for IUI today in epic,verbal conset also, declined bracelet and brooch maker) Labels Verified With Patient: Yes, See Comment (Comment: confirmed allpatient partner and specimen identifers with patient and lab) Indications: Clay Cristina, is a 32 year old female here today for intrauterine insemination. IUI # 1. Cycle Day: 16 Last menstrual period: 11/24/2022 [place] Protocol: UNIVERSAL PROTOCOL / SAFETY CHECKLIST Procedure [...] TIME: 11:04 PM documented in this encounter [facility] 12-09-2022 History of Presen t illness Narrative IUI Pre: 2.5 m/ml, 8% Post: 1.6 m/ml, 31% Insem#: 0.2 million IUI specimen released to provider Emilie Reyes December 09, 2022 12:25 PM documented in this encounter [facility] 12-02-2022 Miscellaneous Notes This patient gave [...] seven days of my reply. See the [employer] message reply for my assessment and plan. I spent a total of 5 minutes reviewing the patient's prior medical records and current request for medical advice, prescribing medications or ordering tests (if applicable), replying to the patient, and documenting the encounter. documented in this encounter [facility] 10-22-2022 History of Presen t illness [...] with more than 50% of the total ijqn-dj-yina time of the visit in counseling / coordination of care. I spent a total of 40 minutes on the date of the service which included preparing to see the patient, jywp-hh-caqj patient care, completing clinical documentation, obtaining and/or [...] missed in proofreading. documented in this encounter [facility] 03-16-2022 History of Presen t illness [...] Luis Avila MD documented in this encounter [facility] 02-19-2022 History of Presen t illness [...] dated 10/31/[address] Loyda Valenzuela at [facility] Clay Cristina is a 30 year old.G [...] recommended myoinositol for PCOS, instructions sent via [employer] - ovulation induction plus timed intercourse x6 [...] missed in proofreading. documented in this encounter [facility] 10-21-2021 History of Presen t illness Narrative Ceramic Engineer offered: Patient declinesGurinder Lopez is a 31 [...] L0 SAB2 IAB0 Ectopic2 Multiple0 Live Births0 Platform Software Engineer History LMP: 10/13/2021, Recent Age at Menarche: Age at First : Age at Menopause: Platform Software Engineer History Comments: Sexual Activity: Yes; Male Contraception: [...] external genitalia normal, normal Bartholin's glands, urethra, Franklinton's glands, no vulvar lesions, no cervical lesions, [...] Antonia Briceno DO documented in this encounter [facility] 07-30-2021 Miscellaneous Notes The following approved [...] 2021 12:35 PM documented in this encounter [facility] 07-24-2020 Note HNO ID: [id number] Author: Loyda Valenzuela MD Service: ? Author [...] which included preparing to see the patient, qvof-lf-qfis patient care, completing clinical documentation, counseling and educating the patient/family/caregiver and ordering medications, tests, or procedures. Loyda Valenzuela MD [facility] 06-04-2020 Note HNO ID: [id number] Author: Katja Tiwari (Pa) Service: ? Author Type: Physician Casting Operator Type: Progress Notes Filed: 06/04/2020 5:02 PM Note Text: AMBULATORY TELEPHONE VISIT Clay Cristina has consented to this telephone encounter. Persons Present: patient Chief Complaint/Reason: hCG result HPI: hCG result is not back yet Data Reviewed: Most recent lab Assessment: Plan: F/u via Total Time Spent: 5 minutes Katja Tiwari PA-C June 04, 2020 5:00 PM [facility] 11-14-2018 History of Past i llness [...] of this encounter (statuses as of 07/30/2021) [facility] History of Past illness Narrative* Problem [...] of this encounter (statuses as of 10/21/2021) [facility] History of Past illness Narrative* Problem [...] of this encounter (statuses as of 02/19/2022) [facility] History of Past illness Narrative* Problem [...] of this encounter (statuses as of 03/22/2022) [facility] History of Past illness Narrative* Problem [...] of this encounter (statuses as of 10/22/2022) [facility] History of Past illness Narrative* Problem [...] of this encounter (statuses as of 12/02/2022) [facility] History of Past illness Narrative* Problem [...] of this encounter (statuses as of 12/10/2022) [facility] History of Past illness Narrative* Problem [...] of this encounter (statuses as of 12/25/2022) [facility] History of Past illness Narrative* Problem [...] of this encounter (statuses as of 12/25/2022) [facility] History of Past illness Narrative* Problem [...] of this encounter (statuses as of 12/29/2022) [facility] History of Past illness Narrative* Problem [...] of this encounter (statuses as of 02/08/2023) [facility] History of Past illness Narrative* Problem [...] of this encounter (statuses as of 03/09/2023) [facility] History of Past illness Narrative* Problem [...] of this encounter (statuses as of 06/07/2023) [facility] History of Past illness Narrative* Problem [...] of this encounter (statuses as of 06/07/2023) [facility] note* Diagnosis Anovulation Female infertility associated with anovulation documented in this encounter [facility] note* Diagnosis Encounter for gynecological examination [...] associated with anovulation documented in this encounter [facility] note* Diagnosis Encounter for fertility testing- Primary Fertility testing Anovulation Female infertility associated with anovulation Recurrent loss without current PCOS (polycystic ovarian syndrome) Polycystic ovaries documented in this encounter [facility] note* Diagnosis Encounter for fertility testing- Primary Fertility testing Recurrent loss without current documented in this encounter [facility] note* Diagnosis PCOS (polycystic ovarian syndrome)- Primary Polycystic ovaries Secondary amenorrhea Absence of menstruation BMI 45.0-49.9, adult (HCC) Body Mass Index 45.0-49.9, adult documented in this encounter [facility] note* Diagnosis Treatment plan provided- Primary documented in this encounter [facility] note* Diagnosis Encounter for artificial insemination- Primary Artificial insemination Obesity, Class III, BMI >= 40 Morbid obesity documented in this encounter [facility] note* Diagnosis PCOS (polycystic ovarian syndrome)- Primary Polycystic ovaries Obesity, Class III, BMI >= 40 Morbid obesity documented in this encounter [facility] note* Diagnosis Treatment plan provided- Primary documented in this encounter [facility] note* Diagnosis Obesity, Class III, BMI >= 40- Primary Morbid obesity PCOS (polycystic ovarian syndrome) Polycystic ovaries documented in this encounter [facility] note* Diagnosis Obesity, Class III, BMI >= 40 Morbid obesity documented in this encounter [facility] note* Diagnosis PCOS (polycystic ovarian syndrome)- Primary Polycystic ovaries Obesity, Class III, BMI >= 40 Morbid obesity [facility] Diagnosis PCOS (polycystic ovarian syndrome)- Primary Polycystic ovaries Class 3 severe obesity due to excess calories with body mass index (BMI) of 45.0 to 49.9 in adult, unspecified whether serious comorbidity present (HCC) documented in this encounter [facility] note* Diagnosis Obesity, Class III, BMI >= 40 Morbid obesity documented in this encounter [facility] note* Diagnosis Encounter for gynecological examination (general) (routine) without abnormal findings- Primary Screening for cervical cancer Screening for malignant neoplasm of the cervix Encounter for screening for human papillomavirus (HPV) Special screening examination for human papillomavirus (HPV) documented in this encounter [facility] note* Diagnosis PCOS (polycystic ovarian syndrome)- Primary Polycystic ovaries documented in this encounter [facility] note* Diagnosis Positive test- Primary examination or test, positive result documented in this encounter [facility] note* Diagnosis Procreation management investigation and testing- Primary Other investigation and testing for procreative management documented in this encounter [facility] note* Diagnosis , location unknown- Primary state, incidental documented in this encounter [facility] note* Diagnosis Early stage of - Primary state, incidental documented in this encounter [facility] note* Diagnosis Pelvic pain in - Primary Other specified complication of , unspecified as to episode of care Early stage of state, incidental of unknown anatomic location state, incidental Bleeding in early Unspecified hemorrhage in early , unspecified as to episode of care documented in this encounter [facility] note* Diagnosis Bleeding in early [O20.9]- Primary Unspecified hemorrhage in early , unspecified as to episode of care documented in this encounter [facility] for referral (narrative)* Diagnostic Procedure Only (Routine) - Pending Review Specialty Diagnoses / Procedures Referred By Arabella wilcox Referred To Contact XR IMAGING Diagnoses Encounter for fertility testing Procedures XR HYSTEROSALPINGOGRAM CATH & SALINE/CONTRAST SONOHYSTER/HYSTEROSALPI Diana Eastman MD [address] [place] [address] Xr Imaging Referral ID Status Reason Start Date Expiration Date Visits Requested Visits Authorized [id number] Pending Review Auto-Generat ed Referral 03/22/2022 03/21/2023 1 1 [facility] for referral (narrative)* Diagnostic Procedure Only (Routine) - Closed Specialty Diagnoses / Procedures Referred By Contac t Referred To Contact [facility] Diagnoses Early stage of Procedures OBSTETRIC ULTRASOUND WHI US PREG UTERUS AFTER 1ST TRIMEST GESTATION Mayank Squires MD [address] [place] [address] [facility] [address] [place] [address] Referral ID Status Reason Start Date Expiration Date V isits Requested Visits Authorized [id number] Closed Auto-Generate d Referral 01/10/2024 01/09/2025 1 1 [facility] Summary Purpose Family History No Family [...] (MNT) MEDICAL NUTRITION ASSMT&IVNTJ INDIV EACH 15 [place] MEDICAL NUTRITION ASSMT&IVNTJ INDIV EACH 15 [place] MEDICAL NUTRITION ASSMT&IVNTJ INDIV EACH 15 [place] MEDICAL NUTRITION ASSMT&IVNTJ INDIV EACH 15 [place] Denis Machado MD [address] [place] [address] Referral ID Status Reason Start Date Expiration Date Visits Requested Visits Authorized [id number] Authorized PCP Requested Referral 12/23/2022 12/23/2023 1 1 Additional Source Comments INFORMATION SOURCE (unrecogn ized section and content) DATE CREATED AUTHOR 07/29/[address] [facility] DATE CREATED AUTHOR AUTHOR'S ORGANIZ ATION 05/22/2023 [facility] DATE CREATED AUTHOR AUTHOR'S ORGANIZ ATION 06/04/2023 [facility] DATE CREATED AUTHOR AUTHOR'S ORGANIZ ATION 10/19/2023 [facility] DATE CREATED AUTHOR AUTHOR'S ORGANIZ ATION 01/12/2024 [facility] Source Comments (unrecognize d section and content) In the event this informatio n is protected by the Federal Confidentiality of Alcohol and Drug Abuse Patient Records regulations: The Federal rules restrict any use of the information to criminally investigate or prosecute any alcohol or drug abuse patient.[facility] the event this information is protected by the Federal Confidentiality of Alcohol and Drug Abuse Patient Records regulations: The Federal rules restrict any use of the information to criminally investigate or prosecute any alcohol or drug abuse patient.[facility] the event this information is protected by the Federal Confidentiality of Alcohol and Drug Abuse Patient Records regulations: The Federal rules restrict any use of the information to criminally investigate or prosecute any alcohol or drug abuse patient.[facility] Hospital[facility] the event this information is protected by the Federal Confidentiality of Alcohol and Drug Abuse Patient Records regulations: The Federal rules restrict any use of the information to criminally investigate or prosecute any alcohol or drug abuse patient.[facility] Hospital[facility] the event this information is protected by the Federal Confidentiality of Alcohol and Drug Abuse Patient Records regulations: The Federal rules restrict any use of the information to criminally investigate or prosecute any alcohol or drug abuse patient.[facility] Hospital[facility] the event this information is protected by the Federal Confidentiality of Alcohol and Drug Abuse Patient Records regulations: The Federal rules restrict any use of the information to criminally investigate or prosecute any alcohol or drug abuse patient.[facility] HospitalIn the event this information is protected by the Federal Confidentiality of Alcohol and Drug Abuse Patient Records regulations: The Federal rules restrict any use of the information to criminally investigate or prosecute any alcohol or drug abuse patient.[facility] HospitalIn the event this information is protected by the Federal Confidentiality of Alcohol and Drug Abuse Patient Records regulations: The Federal rules restrict any use of the information to criminally investigate or prosecute any alcohol or drug abuse patient.[facility] HospitalIn the event this information is protected by the Federal Confidentiality of Alcohol and Drug Abuse Patient Records regulations: The Federal rules restrict any use of the information to criminally investigate or prosecute any alcohol or drug abuse patient.[facility] HospitalIn the event this information is protected by the Federal Confidentiality of Alcohol and Drug Abuse Patient Records regulations: The Federal rules restrict any use of the information to criminally investigate or prosecute any alcohol or drug abuse patient.[facility] HospitalIn the event this information is protected by the Federal Confidentiality of Alcohol and Drug Abuse Patient Records regulations: The Federal rules restrict any use of the information to criminally investigate or prosecute any alcohol or drug abuse patient.[facility] HospitalIn the event this information is protected by the Federal Confidentiality of Alcohol and Drug Abuse Patient Records regulations: The Federal rules restrict any use of the information to criminally investigate or prosecute any alcohol or drug abuse patient.[facility] HospitalIn the event this information is protected by the Federal Confidentiality of Alcohol and Drug Abuse Patient Records regulations: The Federal rules restrict any use of the information to criminally investigate or prosecute any alcohol or drug abuse patient.[facility] HospitalIn the event this information is protected by the Federal Confidentiality of Alcohol and Drug Abuse Patient Records regulations: The Federal rules restrict any use of the information to criminally investigate or prosecute any alcohol or drug abuse patient.[facility] HospitalIn the event this information is protected by the Federal Confidentiality of Alcohol and Drug Abuse Patient Records regulations: The Federal rules restrict any use of the information to criminally investigate or prosecute any alcohol or drug abuse patient.[facility] HospitalIn the event this information is protected by the Federal Confidentiality of Alcohol and Drug Abuse Patient Records regulations: The Federal rules restrict any use of the information to criminally investigate or prosecute any alcohol or drug abuse patient.[facility] the event this information is protected by the Federal Confidentiality of Alcohol and Drug Abuse Patient Records regulations: The Federal rules restrict any use of the information to criminally investigate or prosecute any alcohol or drug abuse patient.[facility] HospitalIn the event this information is protected by the Federal Confidentiality of Alcohol and Drug Abuse Patient Records regulations: The Federal rules restrict any use of the information to criminally investigate or prosecute any alcohol or drug abuse patient.[facility] HospitalIn the event this information is protected by the Federal Confidentiality of Alcohol and Drug Abuse Patient Records regulations: The Federal rules restrict any use of the information to criminally investigate or prosecute any alcohol or drug abuse patient.[facility] HospitalIn the event this information is protected by the Federal Confidentiality of Alcohol and Drug Abuse Patient Records regulations: The Federal rules restrict any use of the information to criminally investigate or prosecute any alcohol or drug abuse patient.[facility] HospitalIn the event this information is protected by the Federal Confidentiality of Alcohol and Drug Abuse Patient Records regulations: The Federal rules restrict any use of the information to criminally investigate or prosecute any alcohol or drug abuse patient.[facility] HospitalIn the event this information is protected by the Federal Confidentiality of Alcohol and Drug Abuse Patient Records regulations: The Federal rules restrict any use of the information to criminally investigate or prosecute any alcohol or drug abuse patient.[facility] HospitalIn the event this information is protected by the Federal Confidentiality of Alcohol and Drug Abuse Patient Records regulations: The Federal rules restrict any use of the information to criminally investigate or prosecute any alcohol or drug abuse patient.[facility] HospitalIn the event this information is protected by the Federal Confidentiality of Alcohol and Drug Abuse Patient Records regulations: The Federal rules restrict any use of the information to criminally investigate or prosecute any alcohol or drug abuse patient.[facility] HospitalIn the event this information is protected by the Federal Confidentiality of Alcohol and Drug Abuse Patient Records regulations: The Federal rules restrict any use of the information to criminally investigate or prosecute any alcohol or drug abuse patient.[facility] HospitalIn the event this information is protected by the Federal Confidentiality of Alcohol and Drug Abuse Patient Records regulations: The Federal rules restrict any use of the information to criminally investigate or prosecute any alcohol or drug abuse patient.[facility] Reason for Visit (unrecogniz ed section and content) Reason Comments Rx Refills Reason Comments Well Woman Reason Comments Infertility Specialty Diagnoses / Procedures Referred By Arabella t Referred To Contact [facility] Diagnoses Infertility counseling infertility consult Procedures OFFICE CONSULTATION NEW/ESTAB PATIENT 40 MIN infertility consult Diana Eastman [address] [place] [address] Vickie Us [facility] [address] [address] [place] [id number] Referral ID Status Reason Start Date Expiration Date Visits Requested Visits Authorized [id number] Authorized Benefit Check 01/22/2022 03/20/2022 99 99 Specialty Diagnoses / Procedures Referred By [facility] t Referred To Contact XR IMAGING Diagnoses Encounter for fertility testing Procedures XR HYSTEROSALPINGOGRAM CATH & SALINE/CONTRAST SONOHYSTER/HYSTEROSALPI HYSTEROSALPINGOGRAPHY RS&I URINE TEST Diana Eastman MD [address] [place] [address] Xr Imaging Referral ID Status Reason Start Date Expiration Date Visits Requested Visits Authorized [id number] Authorized Benefit Check 03/22/2022 03/21/2023 4 4 Reason Comments Establish Care Specialty Diagnoses / Procedures Referred By [facility] t Referred To Contact [facility] Diagnoses Encounter for other procreative management Procedures ARTIFIC INSEMINATION INTRAUTERIN OFFICE/OUTPATIENT ESTABLISHED MOD MDM 30-39 [place] [address] [place] [address] [facility] [address] [address] [place] [address] Referral ID Status Reason Start Date Expiration Date V isits Requested Visits Authorized [id number] Closed Benefit Check 10/22/2022 01/20/2023 4 1 Reason Comments Weight Problem Reason Comments Medical Weight Management Reason Onset Date Comments Refill Request 07/19/2023 Reason Comments Infertility Reason Comments pos preg test 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 [address] [facility] [address] [place] [address] Referral ID Status Reason Start Date Expiration Date V isits Requested Visits Authorized [id number] Closed Auto-Generate d Referral 01/10/2024 01/09/2025 1 1 Care Teams (unrecognized sec tion and content) Resource Director Relationship Specialty Start Date End Date Laila Wyatt PCP - General Family Practice 04/20/11 Resource Director Relationship Specialty Start Date End Date Laila Wyatt PCP - General Family Practice 04/20/11 Resource Director Relationship Specialty Start Date End Date Laila Wyatt PCP - General Family Medicine 04/20/11 Resource Director Relationship Specialty Start Date End Date Laila Wyatt PCP - General Family Medicine 04/20/11 Resource Director Relationship Specialty Start Date End Date Laila Wyatt PCP - General Family Medicine 04/20/11 Resource Director Relationship Specialty Start Date End Date Laila Wyatt PCP - General Family Medicine 04/20/11 Resource Director Relationship Specialty Start Date End Date Laila Wyatt PCP - General Family Medicine 04/20/11 Resource Director Relationship Specialty Start Date End Date Laila Wyatt PCP - General Family Medicine 04/20/11 Resource Director Relationship Specialty Start Date End Date Laila Wyatt PCP - General Family Medicine 04/20/11 Resource Director Relationship Specialty Start Date End Date Laila Wyatt PCP - General Family Medicine 04/20/11 Resource Director Relationship Specialty Start Date End Date Laila Wyatt PCP - General Family Medicine 04/20/11 Resource Director Relationship Specialty Start Date End Date Laila Wyatt PCP - General Family Medicine 04/20/11 Resource Director Relationship Specialty Start Date End Date Laila Wyatt PCP - [facility] Family Medicine 04/20/11 Resource Director Relationship Specialty Start Date End Date Laila Wyatt PCP - [facility] Family [facility] 04/20/11 Resource Director Relationship Specialty Start Date End Date Laila Wyatt PCP - [facility] Family [facility] 04/20/11 Resource Director Relationship Specialty Start Date End Date Laila Wyatt PCP [facility] Family [facility] 04/20/11 Resource Director Relationship Specialty Start Date End Date Laila Wyatt PCP General Family Medicine 04/20/11 Resource Director Relationship Specialty Start Date End Date Laila Wyatt PCP [facility] 04/20/11 FOR RECORDS PERTAINING TO PATIENTS WHO [...] BE BASED ON THE PRIMARY CLINICAL RECORDS. [facility] [employer] [facility]. provides no warranty or guarantee of the accuracy or completeness of information in this document.
--- OUTSIDE RECORDS SUMMARY | 2024-01-13 20:16 | XMS RPT_ITS | CCD ---
Author Organization [facility] Care Team Providers Care Bend Up Name Role Phone Jose Alejandroiff, Laila Cole Primary Care Provider TORI LIANG Referring Unavailable No Family, Physician Primary Care Unavailable Unavailable Primary Care Provider Unavailabl e No Family, Physician Primary Care Unavailable Jolliff, Laila Cole Primary Care Provider [phone] Jose Alejandroiff, Laila Cole Primary Care Provider [...] LAILA COLE Primary Care Unavailable ABED ALWAHAB, EDNIS Attending Unavailable JOLLIFF, LAILA COLE Primary Care [...] [SEASONAL ALLERGIES] Allergy to substance 07-10-2014 Intolerance [facility] Medications Current Medications Medication Drug Class(es) Dates [...] Obesity, Class III, BMI 40-49.9 (morbid obesity) ([facility]) 1/2 tab daily for 8 weeks 15 [...] HCG.beta subunit Qn 1238.0 m[IU]/mL High <5.0 [facility] Comment on above: Order Comment: Speci men Type: BLOOD SPECIMENOrdering Facility: [facility] Address: [address] [place] [address] Result Comment: ANDREW TITATIVE HCG NORMAL RANGES Weeks of Gestation (Weeks Since LMP) 3 Weeks (5.8-71.2 mIU/mL) 4 Weeks (9.5-750 mIU/mL) 5 Weeks (217-7138 mIU/mL) 6 Weeks (158-58362 mIU/mL) 7 Weeks (3697-876138 mIU/mL) 8 Weeks (25866-317340 mIU/mL) 9 Weeks (67790-195009 mIU/mL) 10 Weeks (31139-710980 mIU/mL) 12 Weeks (61428-337421 mIU/mL) Referenced to 4th IS of [facility] Performed By: #### 2 1198-7 ####[facility] LABCLIA [id number] [facility] [id number] [place] [address] [place] Examination level ultrasound [...] needed. Dr. Briceno Evaluated the patient at [facility] ER. Maternal Assessment Height 170 cm [...] Read By: Brianna Mendenhall M.D. MATERNAL MEDICINE [facility] Erum 01-10-2024 JALEELN Telephone (OBGYWM) CLAY CRISTINA ([id number]) 1990 F Date Time Provider Department 01/10/24 [...] Visit Diagnosis:Early stage of [Z34.90] Order(s):[facility] [[id number]] Order #: [id number]: 1 FUTURE Prescriptions as of 01/10/2024 - [...] Status:Closed by MARGARETTE ANTHONY on 01/10/24 Normal [facility] Examination level ultrasound on 01-10-2024 Radiology Study observation (narrative) Noelle singh [facility] B-HCG SerPl-aCncon 4 HCG.beta subunit Qn 389.0 m[IU]/mL High <5.0 [facility] Comment on above: Order Comment: Speci men Type: BLOOD SPECIMENOrdering Facility: [facility] Address: [address] [place] [address] Result Comment: ANDREW TITATIVE HCG NORMAL RANGES Weeks of Gestation (Weeks Since LMP) 3 Weeks (5.8-71.2 mIU/mL) 4 Weeks (9.5-750 mIU/mL) 5 Weeks (217-7138 mIU/mL) 6 Weeks (158-82173 mIU/mL) 7 Weeks (3697-309024 mIU/mL) 8 Weeks (27033-232265 mIU/mL) 9 Weeks (19407-328311 mIU/mL) 10 Weeks (09816-111181 mIU/mL) 12 Weeks (98849-532844 mIU/mL) Referenced to 4th IS of [facility] Performed By: #### 2 1198-7 ####[facility] LABCLIA [id number] [place] [address] [place] B-HCG [facility] 4 HCG.beta subunit Qn 250.9 m[IU]/mL High <5.0 C [facility] Comment on above: Order Comment: Speci men Type: BLOOD SPECIMENOrdering Facility: [facility] Address: [address] [place] [address] Result Comment: ANDREW TITATIVE HCG NORMAL RANGES Weeks of Gestation (Weeks Since LMP) 3 Weeks (5.8-71.2 mIU/mL) 4 Weeks (9.5-750 mIU/mL) 5 Weeks (217-7138 mIU/mL) 6 Weeks (158-33025 mIU/mL) 7 Weeks (3697-110587 mIU/mL) 8 Weeks (12184-338724 mIU/mL) 9 Weeks (59283-030347 mIU/mL) 10 Weeks (21244-263340 mIU/mL) 12 Weeks (23121-998831 mIU/mL) Referenced to 4th IS of [facility]IBSC Performed By: #### 2 1198-7 ####[facility] LABCLIA [id number] [place] [id number] [place] B-HCG SerPl-aCncon HCG.beta subunit Qn 99.2 m[IU]/mL High <5.0 Cl [facility] Comment on above: Order Comment: Speci men Type: BLOOD SPECIMENOrdering Facility: [facility] Address: [facility] [place] [address] Result Comment: ANDREW TITATIVE HCG NORMAL RANGES Weeks of Gestation (Weeks Since LMP) 3 Weeks (5.8-71.2 mIU/mL) 4 Weeks (9.5-750 mIU/mL) 5 Weeks (217-7138 mIU/mL) 6 Weeks (158-11968 mIU/mL) 7 Weeks (3697-472016 mIU/mL) 8 Weeks (25388-869792 mIU/mL) 9 Weeks (83123-477032 mIU/mL) 10 Weeks (06928-854411 mIU/mL) 12 Weeks (16087-348276 mIU/mL) Referenced to 4th IS of [facility] Performed By: #### 2 1198-7 ####[facility] LABIA [id number] [place] [address] [place] Erum 2024 CNPN Telephone (REIBD) CLAY CRISTINA ([id number]) 1990 F Date Time Provider Department 01/03/24 [...] Leone RN 2024 9:31 AM Pattie Patino APRN.[employer] 2024 11:09 AM Signed Reviewed history, intake and most recent plan from primary MAGEN provider. Plan: # of quants: standing (ectopic) additional meds needed: none schedule VV with HERNAN Healthy Guide sent with plan. Pattie Patino APRN.[employer] 2024 11:06 AM Allergies As of Date: 2024 Noted Allergy Reaction SEASONAL ALLERGIES 07/10/2014 5 - Intolerance Date Reviewed: 10/07/2023 Reviewed by: Emiliana Koroma MA - Fully Assessed Reason for Visit: pos preg test [Other] Primary Visit Diagnosis:Positive test [Z32.01] Order(s):HCG QUANTITATIVE [SQHCGQT] Order #: [id number] STANDING Prescriptions as of 2024 - metFORMIN [...] Encounter Status:Closed by PATTIE PATINO on 01/03/24 [facility] CNOVon 10-07-2023 CNOV Office Visit (REIBD) CLAY CRISTINA ([id number]) 1990 F Date Time Provider Department 10/07/23 [...] Count Sperm M 1.00 % Motile Sperm (%PA + %RESERVE OPERATOR) >=40 % 8 (L) Washing Solution Enhance [...] with more than 50% of the total cszh-zx-smaj time of the visit in counseling / coordination of care. I spent a total of 40 minutes on the date of the service which included preparing to see the patient, fcnq-gd-dgqi patient care, completing clinical documentation, obtaining and/or [...] medical abbreviati (more content not included)... Normal [facility] CNOVon 08-25-2023 CNOV Office Visit (OBGYWM ) CRISTINACLAY GRIFFIN ([id number]) 1990 F Date Time Provider Department 08/25/23 8:40 AM ANTONIA BRICENO OBGYWM During your visit today, we recorded the following information about you: Blood pressure Weight Height Last Period 120/80 120.9 kg 1.689 m 07/20/23 Antonia Briceno MD 08/25/2023 2:37 PM Signed Glove Stitcher offered: Patient declines. 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 Normal [facility] HIGH RISK HUMAN PAPILLOMA BELLA (HPV), PCR FOR DETECTION AND GENOTYPINGon 08-25-2023 HPV 16 Ag Ql (Unsp spec) Not detected Normal Not detec yao [facility] Comment on above: Order Comment: Speci men Type: FLUID SPECIMENOrdering Facility: [facility] Address: [address] [place] [address] Performed By: #### H PVHRT ####[facility] LABCLIA [id number] [place] [address] [place]#### [id number] ####[facility]ATORYCLIA [id number] [place] [address] [place] [facility] LABCLIA [id number] [place] [address] [place] HPV 18 Ag Ql (Unsp spec) Not detected Normal Not detec yao [facility] Comment on above: Order Comment: Speci men Type: FLUID SPECIMENOrdering Facility: [facility] Address: [address] [place] [address] Performed By: #### H PVHRT ####[facility] LABCLIA [id number] [place] [address] [place]#### [id number] ####[facility] LABORATORYCLIA [id number] [address] STATES OF [facility] LABCLIA [id number] [place] [address] [place] HPV 31+33+35+39+45+51+52+56+ 58+59+66+68 DNA PAULINA+probe Ql (Cvx) Not detected Normal Not detected [facility] Comment on above: Order Comment: Speci men Type: FLUID SPECIMENOrdering Facility: [facility] Address: [address] [place] [address] Performed By: #### H PVHRT ####[facility] LABCLIA [id number] [place] [address] [place]#### [id number] ####[facility] LABORATORYCLIA [id number] [address] STATES OF [facility] LABCLIA [id number] [place] [address] [place] PAP TESTon 08-25-2023 ADEQUACY Satisfactory for interpretation. Normal [facility] Comment on above: Order Comment: Speci men Type: FLUID SPECIMENOrdering Facility: [facility] Address: [address] [place] [address] Performed By: #### H PVHRT ####[facility] LABCLIA [id number] [place] [address] [place]#### [id number] ####[facility] LABORATORYCLIA [id number] [place] [address] [place] [facility] LABCLIA [id number] [place] [address] [place] CASE REPORT Normal [facility] Comment on above: Order Comment: Speci men Type: FLUID SPECIMENOrdering Facility: [facility] Address: [address] [place] [address] Result Comment: Gyne cologic Cytology Report Case: [id number] Authorizing Provider: Antonia Briceno MD Collected: 08/25/2023 09:30 AM Ordering Location: OB/Gynecology Received: 08/25/2023 12:00 PM First Screen: [place], [place], [place], ASCP Specimen: Pap Test, ThinPrep, Cervix Performed By: #### H PVHRT ####[facility] LABCLIA [id number] [place] [address] [place]#### [id number] ####[facility] LABORATORYCLIA [id number] [place] [address] [place] [facility] LABCLIA [id number] [place] [address] [place] CLINICAL HISTORY, CYTOLOGY, CUPROUS CHLORIDE OPERATOR Routine Exam Normal [facility] Comment on above: Order Comment: Speci men Type: FLUID SPECIMENOrdering Facility: [facility] Address: [address] [place] [address] Performed By: #### H PVHRT ####[facility] LABCLIA [id number] [place] [address] [place]#### [id number] ####[facility] LABORATORYCLIA [id number] [place] [address] [place] [facility] LABCLIA [id number] [place] [address] [place] FINAL PERFORMING LAB [facility] Comment on above: Order Comment: Speci men Type: FLUID SPECIMENOrdering Facility: [facility] Address: [address] [place] [address] Result Comment: Tech nical component, cigarette making examiner screening performed at [facility], [address], [place] [address] CLIA# [id number] Diagnostic interpretation performed at [facility], [address], [place] [id number] CLIA# [id number] Travel Occupational Therapist: Alice Arango M.D. Performed By: #### H PVHRT ####[facility] LABCLIA [id number] [place] [address] [place]#### [id number] ####[facility] LABORATORYCLIA [id number] [place] [address] [place] [facility] LABCLIA [id number] [place] [address] [place] HPV REFLEX Yes HPV Normal [facility] Comment on above: Order Comment: Speci men Type: FLUID SPECIMENOrdering Facility: [facility] Address: [address] [place] [address] Performed By: #### H PVHRT ####[facility] LABCLIA [id number] [place] [address] [place]#### [id number] ####[facility] LABORATORYCLIA [id number] [place] [address] [place] [facility] LABCLIA [id number] [place] [address] [place] INTERPRETATION, CYTOLOGY, CUPROUS CHLORIDE OPERATOR Normal [facility] Comment on above: Order Comment: Speci men Type: FLUID SPECIMENOrdering Facility: [facility] Address: [address] [place] [address] Result Comment: Nega tive for intraepithelial lesion or malignancy. Performed By: #### H PVHRT ####[facility] LABCLIA [id number] [place] [address] [place]#### [id number] ####[facility] LABORATORYCLIA [id number] [place] [address] [place] [facility] LABCLIA [id number] [place] [address] [place] LMP 07/20/2023 Normal [facility] Comment on above: Order Comment: Speci men Type: FLUID SPECIMENOrdering Facility: [facility] Address: [address] [place] [address] Performed By: #### H PVHRT ####[facility] LABCLIA [id number] [place] [address] [place]#### [id number] ####[facility] LABORATORYCLIA [id number] [place] [address] [place] [facility] LABCLIA [id number] [place] [address] [place] PAP DISCLAIMER COMMENT The Pap Smear is a screening test for cervical cancer. False negative results occur with all screening tests, emphasizing the need for rescreening at recommended intervals, and clinical correlation. Normal [facility] Comment on above: Order Comment: Speci men Type: FLUID SPECIMENOrdering Facility: [facility] Address: [address] [place] [address] Performed By: #### H PVHRT ####[facility] LABCLIA [id number] [place] [address] [place]#### [id number] ####[facility] LABORATORYCLIA [id number] [place] [address] [place] [facility] LABCLIA [id number] [place] [address] [place] PAP TRAINING ANALYST COMMENT This specimen has be en analyzed by the ThinPrep Imaging System, an automated imaging and review system, which assists the laboratory in evaluating cells on ThinPrep Pap tests. Following automated imaging, selected munguia from every slide are reviewed by a cigarette making examiner. Normal [facility] Comment on above: Order Comment: Speci men Type: FLUID SPECIMENOrdering Facility: [facility] Address: [address] [place] [address] Performed By: #### H PVHRT ####[facility] LABCLIA [id number] [address]#### [id number] ####[facility] LABORATORYCLIA [id number] [address] LABCLIA [id number] [address] Rejection Notificationon Reason see below [facility] Comment on above: Result Comment: Unab le to perform testing; no specimen received. To perform testing the specimen will need to be recollected. No spec Performed By: #### P TT #### MD JANETH TURNER ([id number]) [facility] ([facility]) [address] [place] [address] Rejected Test sicsc [facility] Comment on above: Performed By: #### P TT #### MD JANETH TURNER ([id number]) [facility] ([facility]) [address] [place] [address] Cytomegalovirus Antibody, Ig Mon 06-01-2023 CMV Ab IgM <8.0 Normal <=29.9 [facility] Comment on above: Result Comment: INTE RPRETIVE [...] Cellular and Tissue-Based Products (HCT/P). Performed By: [facility] [address] [place] [address] Travel Occupational Therapist: Ray Kennedy MD, PhD CLIA Number: [id number] Performed By: #### P TT #### MD JANETH TURNER ([id number]) [facility] ([facility]) [address] [place] [address] Gwen-Whalen Virus Antibody Panel 1on 06-01-2023 EBV Ab To Early (D) Ag IgG <5.0 Normal 0.0-10.9 [facility] Comment on above: Result Comment: INTE RPRETIVE INFORMATION: Gwen-Whalen Virus Antibody to Early D Antigen (EA-D), IgG 8.9 U/mL or less........Not Detected 9.0-10.9 U/mL...........Indeterminate - Repeat testing in 10-14 days may be helpful. 11.0 U/mL or greater....Detected Performed By: [facility] [address] [place] [address] Travel Occupational Therapist: Ray Kennedy MD, PhD CLIA Number: [id number] Performed By: #### P TT #### MD JANETH TURNER ([id number]) [facility] ([facility]) [address] [place] [address] EBV Ab To Nuclear Ag IgG 297.0 U/mL High 0.0-21.9 [facility] Comment on above: Result Comment: INTE RPRETIVE INFORMATION: Gwen-Whalen Virus Antibody to Nuclear Antigen, IgG 17.9 U/mL or less.......Not Detected 18.0-21.9 U/mL..........Indeterminate - Repeat testing in 10-14 days may be helpful. 22.0 U/mL or greater....Detected Performed By: #### P TT #### MD JANETH TURNER ([id number]) [facility] ([facility]) [address] [place] [address] EBV Ab To Viral Capsid Ag IgG 135.0 U/mL High 0.0-21.9 [facility] Comment on above: Result Comment: INTE RPRETIVE INFORMATION: Gwen-Whalen Virus Antibody to Viral Capsid Antigen, IgG 17.9 U/mL or less.......Not Detected 18.0-21.9 U/mL..........Indeterminate - Repeat testing in 10-14 days may be helpful. 22.0 U/mL or greater....Detected Performed By: #### P TT #### MD JANETH TURNER ([id number]) [facility] ([address] EBV Ab To Viral Capsid Ag IgM <10.0 Normal 0.0-43.9 [facility] Comment on above: Result Comment: INTE RPRETIVE INFORMATION: Gwen-Whalen Virus Antibody to Viral Capsid Antigen, IgM 35.9 U/mL or less.......Not Detected 36.0-43.9 U/mL..........Indeterminate - Repeat testing in 10-14 days may be helpful. 44.0 U/mL or greater....Detected Performed By: #### P TT #### MD JANETH TURNER ([id number]) [facility] ([facility]) [address] [place] [address] Toxoplasma gondii Ab, IgMon 06-01-2023 Toxoplasma gondii Ab, IgM <3.0 Normal <=7.9 [facility] Comment on above: Result Comment: INTE RPRETIVE [...] post-infection. This test is performed using the [employer] LIAISON. As suggested by the CDC, any [...] the amount of antibody present. Performed By: [facility] [address] [place] [address] Travel Occupational Therapist: Ray Kennedy MD, PhD CLIA Number: [id number] Performed By: #### P TT #### MD JANETH TURNER ([id number]) [facility] ([facility]) [address] [place] [address] Varicella Zoster Virus Abs, IgG and IgMon 06-01-2023 Varicella-Zoster Virus Ab, IgG 297.5 IV [facility] Comment on above: Result Comment: INTE [...] #### P TT #### MD JANETH TURNER ([id number]) [facility] ([facility]) [address] [place] [address] Varicella-Zoster Virus Ab, IgM 0.17 ISR Normal <=0.90 [facility] Comment on above: Result Comment: INTE RPRETIVE [...] 12 months post-infection or immunization. Performed By: [facility] [address] [place] [address] Travel Occupational Therapist: Ray Kennedy MD, PhD CLIA Number: [id number] Performed By: #### P TT #### MD JANETH TURNER ([id number]) [facility] ([facility]) [address] [place] [address] [place] Cytomegalovirus Antibody, Ig Bowen 05-31-2023 CMV Ab IgG <0.20 Normal <=0.70 [facility] Comment on above: Result Comment: INTE RPRETIVE [...] laboratory at the same time. Performed By: [facility] [address] [place], [place] [address] Travel Occupational Therapist: Ray Kennedy MD, PhD CLIA Number: [id number] Performed By: #### P T #### MD JANETH TURNER ([id number]) [facility] ([facility]) [address] [place] [address] [place] HCV by Quant NAATon 05-31-19 HCV Qnt by NAAT Interp Not detected Normal Not Detecte d [facility] Comment on above: Result Comment: INTE RPRETIVE [...] and Cellular Tissue-Based Products (HCT/P). Performed By: [facility] [address] [place] [address] Travel Occupational Therapist: Ray Kennedy MD, PhD CLIA Number: [id number] Performed By: #### P T #### MD JANETH TURNER ([id number]) [facility] ([facility]) [address] [place] [address] HCV Qnt by NAAT IU/mL Not detected Normal [facility] Comment on above: Performed By: #### P T #### MD JANETH TURNER ([id number]) [facility] ([facility]) [address] [place] [address] HCV Qnt by NAAT log IU/mL Not detected Normal [facility] Comment on above: Performed By: #### P T #### MD JANETH TURNER ([id number]) [facility] ([facility]) [address] [place] [address] HSV 1,2 Abs, IgG, IgMon 05-19 HSV Type 1/2 Combined Ab, IgG 0.27 IV Normal [facility] Comment on above: Result Comment: INTE RPRETIVE [...] #### P T #### MD JANETH TURNER ([id number]) [facility] ([facility]) [address] [place] [address] HSV Type 1/2 Combined Ab, IgM by LISA 0.99 IV High <=0.89 [facility] Comment on above: Result Comment: INTE RPRETIVE [...] more than 12 months post-infection. Performed By: [facility] [address] [place] [address] Travel Occupational Therapist: Ray Kennedy MD, PhD CLIA Number: [id number] Performed By: #### P T #### MD JANETH TURNER ([id number]) [facility] ([facility]) [address] [place] [address] Hepatitis Be Abon 05-31-2023 Hepatitis Be Ab Negative Normal Negative [facility] Comment on above: Result Comment: Perf ormed By: [facility] [address] [place] [address] Travel Occupational Therapist: Ray Kennedy MD, PhD CLIA Number: [id number] Performed By: #### P T #### MD JANETH TURNER ([id number]) [facility] ([facility]) [address] [place] [address] Toxoplasma gondii Ab, IgGon 05-31-2023 Toxoplasma gondii Ab, IgG <3.0 Normal <=8.8 [facility] Comment on above: Result Comment: INTE RPRETIVE [...] the amount of antibody present. Performed By: [facility] [address] [place] [address] Travel Occupational Therapist: Ray Kennedy MD, PhD CLIA Number: [id number] Performed By: #### P TT #### MD JANETH TURNER ([id number]) [facility] ([facility]) [address] [place] [address] APTTon 05-30-2023 aPTT Coag (Bld) [Time] 29.2 s [facility] Comment on above: Therapeutic range: 7 3.0 - 102.0 sec Effective 06-15- 9:00am EST Please note reference ranges have changed for PTT Testing. Bilirubin Directon Bilirubin.indirect [Mass/Vol] mg/dL Normal 0.0-0.3 [facility] Comment on above: Performed By: #### B ILID #### MD JANETH TURNER ([id number]) [facility] ([facility]) [address] [place] [id number] [facility] Bilirubin Indirecton 024 Bilirubin Indirect see below Normal 0.0-1.0 [facility] Comment on above: Result Comment: Roxanna rect Bilirubin cannot be calculated since Total Bilirubin and/or Direct Bilirubin is below measurable range. Performed By: #### B LUIS #### MD JANETH TURNER ([id number]) [facility] ([facility]) [address] Bilirubin, Directon 05-30-19 24 Bilirubin.direct [Mass/Vol] mg/dL 0.0 - 0.3 mg/dL [facility] CBC W Auto Differential pane l (Bld)on 05-30-2023 Basophils (Bld) [#/Vol] 0.1 10*3/uL 0.0 - 0.2 K/uL [facility] Basophils/100 WBC (Bld) 0.7 % B [facility] Eosinophils (Bld) [#/Vol] 0.4 10*3/uL 0.0 - 0.6 K/uL [facility] Eosinophils/100 WBC (Bld) 3.3 % [facility] Erythrocyte distribution width (RBC) [Entitic vol] 14.1 % 12.4 - 15.4 % [facility] Hematocrit (Bld) [Volume fraction] 41.5 % 36.0 - 48.0 % [facility] Hemoglobin (Bld) [Mass/Vol] 14.2 g/dL 12.0 - 16.0 g/dL [facility] Lymphocytes (Bld) [#/Vol] 3.6 10*3/uL 1.0 - 5.1 K/uL [facility] Lymphocytes/100 WBC (Bld) 32.2 % [facility] MCH (RBC) [Entitic mass] 28.8 pg 26. 0 - 34.0 pg [facility] MCHC (RBC) [Mass/Vol] 34.1 g/dL 31.0 - 36.0 g/dL [facility] MCV (RBC) [Entitic vol] 84.4 fL 80.0 - 100.0 fL [facility] Monocytes (Bld) [#/Vol] 0.7 10*3/uL 0.0 - 1.3 K/uL [facility] Monocytes/100 WBC (Bld) 6.0 % [facility] Neutrophils (Bld) [#/Vol] 6.4 10*3/uL 1.7 - 7.7 K/uL [facility] Neutrophils/100 WBC (Bld) 57.8 % [facility] Platelet mean volume (Bld) [Entitic vol] 8.3 fL 5.0 - 10.5 fL [facility] Platelets (Bld) [#/Vol] 342 10*3/uL 135 - 450 K/uL [facility] RBC (Bld) [#/Vol] 4.92 10*6/uL [facility] WBC (Bld) [#/Vol] 11.0 10*3/uL 4.0 - 11.0 K/uL [facility] CBC With Platelet and Differ entialon 05-30-2023 Basophils (Bld) [#/Vol] 0.1 10*3/uL Normal 0.0-0.2 [facility] Comment on above: Performed By: #### C YEISON #### MD JANETH TURNER ([id number]) [facility] ([facility]) [address] [place] [address] [place] Basophils/100 WBC (Bld) 0.7 % Normal [facility] Comment on above: Performed By: #### C BCWD #### MD JANETH TURNER ([id number]) [facility] ([facility]) [address] [place] [address] [place] Eosinophils (Bld) [#/Vol] 0.4 10*3/uL Normal 0.0-0.6 [facility] Comment on above: Performed By: #### C ALEKSEYWD #### MD JANETH TURNER ([id number]) [facility] ([facility]) [address] [place] [address] [place] Eosinophils/100 WBC (Bld) 3.3 % Normal [facility] Comment on above: Performed By: #### C BCWD #### MD JANETH TURNER ([id number]) [facility] ([facility]) [address] [place] [address] Erythrocyte distribution width (RBC) [Ratio] 14.1 % Normal 12.4-15.4 [facility] Comment on above: Performed By: #### C BCWD #### MD JANETH TURNER ([id number]) [facility] ([facility]) [address] [place] [address] Hematocrit (Bld) [Volume fraction] 41.5 % Normal 36.0-48.0 [facility] Comment on above: Performed By: #### C BCWD #### MD JANETH TURNER ([id number]) [facility] ([facility]) [address] [place] [address] Hemoglobin (Bld) [Mass/Vol] 14.2 g/dL Normal 12.0-16.0 [facility] Comment on above: Performed By: #### C BCWD #### MD JANETH TURNER ([id number]) [facility] ([facility]) [address] [place] [address] Lymphocytes (Bld) [#/Vol] 3.6 10*3/uL Normal 1.0-5.1 [facility] Comment on above: Performed By: #### C BCWD #### MD JANETH TURNER ([id number]) [facility] ([facility]) [address] [place] [address] Lymphocytes/100 WBC (Bld) 32.2 % Normal [facility] Comment on above: Performed By: #### C BCWD #### MD JANETH TURNER ([id number]) [facility] ([facility]) [address] [place] [address] MCH (RBC) [Entitic mass] 28.8 pg Normal 26.0-34.0 [facility] Comment on above: Performed By: #### C BCWD #### MD JANETH TURNER ([id number]) [facility] ([facility]) [address] [place] [address] MCHC (RBC) [Mass/Vol] 34.1 g/dL Normal 31.0-36.0 [facility] Comment on above: Performed By: #### C BCWD #### MD JANETH TURNER ([id number]) [facility] ([facility]) [address] [place] [address] MCV (RBC) [Entitic vol] 84.4 fL Normal 80.0-100.0 [facility] Comment on above: Performed By: #### C BCWD #### MD JANETH TURNER ([id number]) [facility] ([facility]) [address] [place] [address] Monocytes (Bld) [#/Vol] 0.7 10*3/uL Normal 0.0-1.3 [facility] Comment on above: Performed By: #### C BCWD #### MD JANETH TURNER ([id number]) [facility] ([facility]) [address] [place] [address] Monocytes/100 WBC (Bld) 6.0 % Normal [facility] Comment on above: Performed By: #### C BCWD #### MD JANETH TURNER ([id number]) [facility] ([facility]) [address] [place] [address] Neutrophils (Bld) [#/Vol] 6.4 10*3/uL Normal 1.7-7.7 [facility] Comment on above: Performed By: #### C BCWD #### MD AJNETH TURNER ([id number]) [facility] ([facility]) [address] [place] [address] Neutrophils/100 WBC (Bld) 57.8 % Normal [facility] Comment on above: Performed By: #### C BCWD #### MD JANETH TURNER ([id number]) [facility] ([facility]) [address] [place] [address] Platelet mean volume (Bld) [Entitic vol] 8.3 fL Normal 5.0-10.5 [facility] Comment on above: Performed By: #### C BCWD #### MD JANETH TURNER ([id number]) [facility] [address] [place] [address] Platelets (Bld) [#/Vol] 342 10*3/uL Normal 135-450 [facility] Comment on above: Performed By: #### C BCWD #### MD JANETH TURNER ([id number]) [facility] ([facility]) [address] [place] [address] RBC (Bld) [#/Vol] 4.92 10*6/uL Normal 4.00-5.20 [facility] Comment on above: Performed By: #### C BCWD #### MD JANETH TURNER ([id number]) [facility] ([facility]) [address] [place] [address] WBC (Bld) [#/Vol] 11.0 10*3/uL Normal 4.0-11.0 [facility] Comment on above: Performed By: #### C BCWD #### MD JANETH TURNER ([id number]) [facility] ([facility]) [address] [place] [address] Comprehensive Metabolic Pane l reflex Mgon 05-30-2023 Albumin [Mass/Vol] 4.2 g/dL Normal 3.4-5.0 [facility] Comment on above: Performed By: #### C MPX #### MD JANETH TURNER ([id number]) [facility] ([facility]) [address] [place] [address] Albumin/Globulin [Mass ratio] 1.7 {ratio} Normal 1.1-2.2 [facility] Comment on above: Performed By: #### C MPX #### MD JANETH TURNER ([id number]) [facility] ([facility]) [address] [place] [address] ALP [Catalytic activity/Vol] 49 U/L Normal 40-129 [facility] Comment on above: Performed By: #### C MPX #### MD JANETH TURNER ([id number]) [facility] ([facility]) [address] [place], [place] [id number] [place] [address] ALT [Catalytic activity/Vol] 38 U/L Normal 10-40 [facility] Comment on above: Performed By: #### C MPX #### MD JANETH TURNER ([id number]) [facility] ([facility]) [address] [place] [address] Anion gap [Moles/Vol] 12 mmol/L Normal 3-16 [facility] Comment on above: Performed By: #### C MPX #### MD JANETH TURNER ([id number]) [facility] ([facility]) [address] [place] [address] AST [Catalytic activity/Vol] 21 U/L Normal 15-37 [facility] Comment on above: Performed By: #### C MPX #### MD JANETH TURNER ([id number]) [facility] ([facility]) [address] [place] [address] Bilirubin [Mass/Vol] 0.4 mg/dL Normal 0.0-1.0 [facility] Comment on above: Performed By: #### C MPX #### MD JANETH TURNER ([id number]) [facility] ([facility]) [address] [place] [address] Calcium [Mass/Vol] 9.3 mg/dL Normal 8.3-10.6 [facility] Comment on above: Performed By: #### C MPX #### MD JANETH TURNER ([id number]) [facility] ([facility]) [address] [place] [address] [place] Chloride [Moles/Vol] 100 mmol/L Normal 99-110 [facility] Comment on above: Performed By: #### C MPX #### MD JANETH TURNER ([id number]) [facility] ([facility]) [address] [place] [address] [place] CO2 [Moles/Vol] 24 mmol/L Normal 21-32 [facility] Comment on above: Performed By: #### C MPX #### MD JANETH TURNER ([id number]) [facility] ([facility]) [address] Creatinine [Mass/Vol] 0.7 mg/dL Normal 0.6-1.1 [facility] Comment on above: Performed By: #### C MPX #### MD JANETH TURNER ([id number]) [facility] ([facility]) [address] [place] [address] GFR >60 Normal >60 [facility] Comment on above: Result Comment: Beena atric [...] #### C MPX #### MD JANETH TURNER ([id number]) [facility] ([facility]) [address] [place] [address] Glucose [Mass/Vol] 120 mg/dL High 70-99 [facility] Comment on above: Performed By: #### C MPX #### MD JANETH TURNER ([id number]) [facility] ([facility]) [address] [place] [address] Magnesium [Moles/Vol] 4.2 mmol/L Normal 3.5-5.1 [facility] Comment on above: Performed By: #### C MPX #### MD JANETH TURNER ([id number]) [facility] ([facility]) [address] [place] [address] [place] Protein [Mass/Vol] 6.7 g/dL Normal 6.4-8.2 [facility] Comment on above: Performed By: #### C MPX #### MD JANETH TURNER ([id number]) [facility] ([facility]) [address] [place] [address] [place] Sodium [Moles/Vol] 136 mmol/L Normal 136-145 [facility] Comment on above: Performed By: #### C MPX #### MD JANETH TURNER ([id number]) [facility] [address] [place] [address] Urea nitrogen [Mass/Vol] 12 mg/dL Normal 7-20 [facility] Comment on above: Performed By: #### C MPX #### MD JANETH TURNER ([id number]) [facility] [address] [place] [address] Comprehensive metabolic 2000 panelon 05-30-2023 Albumin [Mass/Vol] 4.2 g/dL 3.4 - 5.0 g/dL [facility]cred[facility]DE[facility] Albumin/Globulin [Mass ratio] 1.7 {ratio} 1.1 - 2.2 [facility] ALP [Catalytic activity/Vol] 49 U/L 40 - 129 U/L [facility] ALT [Catalytic activity/Vol] 38 U/L 10 - 40 U/L [facility] Anion gap [Moles/Vol] 12 mmol/L 3 - 16 [facility] AST [Catalytic activity/Vol] 21 U/L 15 - 37 U/L [facility] Bilirubin [Mass/Vol] 0.4 mg/dL 0.0 - 1 .0 mg/dL [facility] Calcium [Mass/Vol] 9.3 mg/dL 8.3 - 10. 6 mg/dL [facility] Chloride [Moles/Vol] 100 mmol/L 99 - 11 0 mmol/L [facility] CO2 [Moles/Vol] 24 mmol/L 21 - 32 mmol/L [facility] Creatinine [Mass/Vol] 0.7 mg/dL 0.6 - 1.1 mg/dL [facility] GFR/1.73 sq M.predicted CKD-EPI (S/P/Bld) [Vol rate/Area] 60 - PINF [facility] Comment on above: Pediatric calculator link https://www.kidney.org/professionals/kdoqi/gfr_calculatorped [...] 120 mg/dL High 70 - 99 mg/dL [facility] [employer] Potassium [Moles/Vol] 4.2 mmol/L 3.5 - 5.1 mmol/L [facility] [employer] Protein [Mass/Vol] 6.7 g/dL 6.4 - 8.2 g/dL [facility] Sodium [Moles/Vol] 136 mmol/L 136 - 145 mmol/L [facility] Urea nitrogen [Mass/Vol] 12 mg/dL 7 - 20 mg/d L [facility] HCG Quanton 05-30-2023 HCG Quant <5.0 Normal <5.0 [facility] Comment on above: Result Comment: Male : <5.0 mIU/ml : Note: HCG Interpretation is based on gestational age vs. LMP. Gestational Age Expected HCG values (mIU/ml) 0.2-1 week 5-50 1-2 weeks 50-500 2-3 weeks 100-5000 3-4 weeks 500-10,000 4-5 weeks 1000-50,000 5-6 weeks 10,000-100,000 6-8 weeks 15,000-200,000 2-3 months 10,000-100,000 Performed By: #### H CGQ #### MD JANETH TURNER ([id number]) [facility] ([facility]) [address] [place] [address] HCG.beta subunit IA 3rd IS Q non 05-30-2023 HCG.beta subunit Qn m[IU]/mL [facility] [employer] Comment on above: Male: <5.0 mIU/ml : Note: HCG Interpretation is based on gestational age vs. LMP. Gestational Age Expected HCG values (mIU/ml) 0.2-1 week 5-50 1-2 weeks 50-500 2-3 weeks 100-5000 3-4 weeks 500-10,000 4-5 weeks 1000-50,000 5-6 weeks 10,000-100,000 6-8 weeks 15,000-200,000 2-3 months 10,000-100,000 [facility] Hepatitis A Antibody IgMon 0 05-30-2023 Hepatitis A Antibody IgM Non-Reactive Normal Non-react dai [facility] Comment on above: Performed By: #### P T #### MD JANETH TURNER ([id number]) [facility] [address] [place] [address] [place] Hepatitis A Antibody, IgMon 05-30-2023 HAV IgM IA Ql Non-Reactive Non-reactive [facility] Hepatitis B Surface Abon Hepatitis B Surface Ab 29.34 mIU/mL Normal [facility] Comment on above: Result Comment: <8.5 = Negative >=8.5 and <11.5 = Indeterminate >=11.5 = Positive (Immune) Performed By: #### P T #### MD JANETH TURNER ([id number]) [facility] [address] [place] [address] Hepatitis B Surface Antibody on 05-30-2023 HBV surface Ab IA Qn 29.34 m[IU]/mL mIU/mL [facility] Comment on above: <8.5 = Negative >=8.5 and <11.5 = Indeterminate >=11.5 = Positive (Immune) Hepatitis C Antibodyon 05-29 HCV Ab IA Ql Non-Reactive Non-reactive [facility] Hepatitis C Antibody Non-Reactive Normal Non-reactive [facility] Comment on above: Performed By: #### P T #### MD JANETH TURNER ([id number]) [facility] [address] [place] [address] Indirect Bilirubinon 024 Bilirubin.indirect [Mass/Vol] see below 0.0 - 1.0 mg/dL [facility] Comment on above: Indirect Bilirubin c annot be calculated since Total Bilirubin and/or Direct Bilirubin is below measurable range. Lactate Dehydrogenaseon 05-19 LDH Lactate to pyruvate reaction [Catalytic activity/Vol] 193 U/L High 100 - 190 U/L [facility] [employer] LDH [Catalytic activity/Vol] 193 U/L High 100-190 [facility] Comment on above: Performed By: #### L DH #### MD JANETH TURNER ([id number]) [facility] [address] [place] [address] No Panel Informationon 05-29 [facility] Interpretation and review of laboratory results Abnormal [facility] Interpretation and review of laboratory results Abnormal [facility]ITALMakeover Solutions [facility] PT Coag (PPP) [Time]on 05-29 INR Coag (PPP) [Relative time] 0.92 {INR} 0.84 - 1.16 [facility] [employer] Comment on above: Effective 06/15/22 at 09:00am EST Normal: 0.84 - 1.16 Therapeutic: 2.0 - 3.0 Pros. Valve: 2.5 - 3.5 AMI: 2.0 - 3.0 Partial Thromboplastin Timeo n 05-30-2023 aPTT Coag (Bld) [Time] 29.2 s Normal 22.7-35.9 [facility] Comment on above: Result Comment: Ther apeutic range: 73.0 - 102.0 sec Effective 06-15-22 9:00am EST Please note reference ranges have changed for PTT Testing. Performed By: #### P TT #### MD JANETH TURNER ([id number]) [facility] [address] [place] [address] Phosphoruson 05-30-2023 Phosphate [Mass/Vol] 3.4 mg/dL 2.5 - 4 .9 mg/dL [facility] Phosphate [Mass/Vol] 3.4 mg/dL Normal 2.5-4.9 [facility] Comment on above: Performed By: #### P HOS #### MD JANETH TURNER ([id number]) [facility] [address] [place] [address] Prothrombin Timeon INR Coag (PPP) [Relative time] 0.92 {INR} Normal 0.84-1.16 [facility] Comment on above: Result Comment: Effe ctive 06/15/22 at 09:00am EST Normal: 0.84 - 1.16 Therapeutic: 2.0 - 3.0 Pros. Valve: 2.5 - 3.5 AMI: 2.0 - 3.0 Performed By: #### P T #### MD JANETH TURNER ([id number]) [facility] ([facility]) [address] [place] [address] PT Coag (PPP) [Time] 12.3 s Normal 11.5-14.8 [facility] Comment on above: Result Comment: Effe ctive 06-15-22 09:00am EST Please note reference ranges have changed for PT and INR Testing. Performed By: #### P T #### MD JANETH TURNER ([id number]) [facility] ([facility]) [address] [place] [address] Protime-INRon 05-30-2023 PT Coag (PPP) [Time] 12.3 s [facility] Comment on above: Effective 06-15-22 09 :00am EST Please note reference ranges have changed for PT and INR Testing. TYPE AND SCREENon 05-30-2023 Blood group antibody screen Ql Negative [facility] Type and Screen Capture 3 sc rn cellon 05-30-2023 ABO and Rh group Nom (Bld) Blood group B Rh(D) positive Normal [facility] Comment on above: Performed By: #### P T #### MD JANETH TURNER ([id number]) [facility] ([facility]) [address] [place] [address] Antibody 3 Cell Scrn Capture Negative Normal [facility] Comment on above: Performed By: #### P T #### MD JANETH TURNER ([id number]) [facility] ([facility]) [address] [place] [address] Uric Acidon 05-30-2023 Urate [Mass/Vol] 5.9 mg/dL 2.6 - 6.0 mg/dL [facility] Urate [Mass/Vol] 5.9 mg/dL Normal 2.6-6.0 [facility] Comment on above: Performed By: #### U GUERO #### MD JANETH TURNER ([id number]) [facility] [address] [place] [address] Urinalysis complete W Reflex Culture panel (U)on 05-30-2023 Bilirubin Ql (U) Negative Negative [facility] Clarity (U) Clear Clear [facility] Color (U) Yellow Straw/Yellow [facility] Glucose Auto test strip (U) [Mass/Vol] Negative Negative mg/dL [facility] Hemoglobin Auto test strip Ql (U) Negative Negative [facility] Ketones (U) [Mass/Vol] Negative Negat dai mg/dL [facility] Leukocyte esterase Auto test strip Ql (U) SMALL Abnormal Negative [facility] Nitrite Auto test strip Ql (U) Negative Negative [facility] pH (U) 6.5 [pH] 5.0 - 8.0 [facility] Protein (U) [Mass/Vol] Negative Negat dai mg/dL [facility] Specific gravity (U) [Rel density] 1.010 1.005 - 1.030 [facility] Urinalysis dipstick W Reflex Microscopic panel (U) YES [facility] Urinalysis specimen collection method Nom (U) Voided [facility] Urobilinogen Qn (U) 0.2 NINF [facility] Urinalysis microscopic panel (Urine sed)on 05-30-2023 Bacteria LM Ql (Urine sed) 3+ Abnormal None Seen /HPF [facility] RBC LM.HPF (Urine sed) [#/Area] 0-2 [facility] WBC LM.HPF (Urine sed) [#/Area] 3-5 [facility] Urinalysis with Reflex to Cu ltureon 05-30-2023 Urinalysis complete W Reflex Culture panel (U) Not Indicated [facility] Urinalysis, reflex to cultur rosemary 05-30-2023 Urine Reflexed to Culture Not Indicated Normal [facility] Comment on above: Performed By: #### P T #### MD JANETH TURNER ([id number]) [facility] [address] [place] [address] Bilirubin Ql (U) Negative Normal Negative [facility] Comment on above: Performed By: #### P T #### MD JANETH TURNER ([id number]) [facility] ([facility]) [address] [place] [address] Clarity (U) Clear Normal Clear [facility] Comment on above: Performed By: #### P T #### MD JANETH TURNER ([id number]) [facility] ([facility]) [address] [place] [address] Color (U) Yellow Normal Straw/Yellow [facility] Comment on above: Performed By: #### P T #### MD JANETH TURNER ([id number]) [facility] ([facility]) [address] [place] [address] Glucose Ql (U) Negative Normal Negative [facility] Comment on above: Performed By: #### P T #### MD JANETH TURNER ([id number]) [facility] ([facility]) [address] [place] [address] Hemoglobin Ql (U) Negative Normal Negative [facility] Comment on above: Performed By: #### P T #### MD JANETH TURNER ([id number]) [facility] ([facility]) [address] [place] [address] Ketones Ql (U) Negative Normal Negative [facility] Comment on above: Performed By: #### P T #### MD JANETH TURNER ([id number]) [facility] ([facility]) [address] [place] [address] Leukocyte esterase Test strip Ql (U) SMALL Abnormal Negative [facility] Comment on above: Performed By: #### P T #### MD JANETH TURNER ([id number]) [facility] ([facility]) [address] [place] [address] Microscopic Exam Performed YES Normal [facility] Comment on above: Performed By: #### P T #### MD JANETH TURNER ([id number]) [facility] ([facility]) [address] [place] [address] Nitrite Ql (U) Negative Normal Negative [facility] Comment on above: Performed By: #### P T #### MD JANETH TURNER ([id number]) [facility] ([facility]) [address] [place] [address] pH (U) 6.5 [pH] Normal 5.0 - 8.0 [facility] Comment on above: Performed By: #### P T #### MD JANETH TURNER ([id number]) [facility] ([facility]) [address] [place] [address] Protein Ql (U) Negative Normal Negative [facility] Comment on above: Performed By: #### P T #### MD JANETH TURNER ([id number]) [facility] ([facility]) [address] [place] [address] Specific gravity (U) [Rel density] 1.010 Normal 1.005 - 1.030 [facility] Comment on above: Performed By: #### P T #### MD JANETH TURNER ([id number]) [facility] ([facility]) [address] [place] [address] Urobilinogen Qn (U) 0.2 {Pamela'U}/dL Normal <2.0 [facility] Comment on above: Performed By: #### P T #### MD JANETH TURNER ([id number]) [facility] ([facility]) [address] [place] [address] Urine Type Voided Normal [facility] Comment on above: Performed By: #### P T #### MD JANETH TURNER ([id number]) [facility] ([facility]) [address] [place] [address] Urine Microscopicon 05-30-19 24 Urine Bacteria 3+ /HPF Abnormal None Seen [facility] Comment on above: Performed By: #### P T #### MD JANETH TURNER ([id number]) [facility] ([facility]) [address], [place] [id number] [place] [address] Urine RBC 0-2 Normal 0-4 [facility] Comment on above: Performed By: #### P T #### MD JANETH TURNER ([id number]) [facility] ([facility]) [address], [place] [id number] [place] [address] Urine WBC 3-5 Normal 0-5 [facility] Comment on above: Performed By: #### P T #### MD JANETH TURNER ([id number]) [facility] ([facility]) [address], [place] [address] [place] [address] Comprehensive metabolic 2000 panelon 04-04-2023 Albumin [Mass/Vol] 4.2 g/dL Normal 3.9-4.9 [facility] Comment on above: Order Comment: Speci men Type: BLOOD SPECIMENOrdering Facility: [facility] Address: [address] [place] [address] Performed By: #### 2 4323-8 ####[facility] LABCLIA [id number] [place] [address] [place] ALP [Catalytic activity/Vol] 41 U/L Normal 34-123 [facility] Comment on above: Order Comment: Speci men Type: BLOOD SPECIMENOrdering Facility: [facility] Address: [address] [place] [address] Performed By: #### 2 4323-8 ####[facility] LABCLIA [id number] [place] [address] [place] ALT [Catalytic activity/Vol] 59 U/L High 7-38 [facility] Comment on above: Order Comment: Speci men Type: BLOOD SPECIMENOrdering Facility: [facility] Address: [address] [place] [address] Performed By: #### 2 4323-8 ####[facility] LABCLIA [id number] [place] [address] [place] Anion gap [Moles/Vol] 10 mmol/L Normal 9-18 [facility] Comment on above: Order Comment: Speci men Type: BLOOD SPECIMENOrdering Facility: [facility] Address: [address] [place] [address] Performed By: #### 2 4323-8 ####[facility] LABCLIA [id number] [place] [address] [place] AST [Catalytic activity/Vol] 29 U/L Normal 13-35 [facility] Comment on above: Order Comment: Speci men Type: BLOOD SPECIMENOrdering Facility: [facility] Address: [address] [place] [address] Performed By: #### 2 4323-8 ####[facility] LABCLIA [id number] [place] [address] [place] Bilirubin [Mass/Vol] 0.4 mg/dL Normal 0.2-1.3 [facility] Comment on above: Order Comment: Speci men Type: BLOOD SPECIMENOrdering Facility: [facility] Address: [address] [place] [address] Performed By: #### 2 4323-8 ####[facility] LABCLIA [id number] [place] [address] [place] Calcium [Mass/Vol] 9.4 mg/dL Normal 8.5-10.2 [facility] Comment on above: Order Comment: Speci men Type: BLOOD SPECIMENOrdering Facility: [facility] Address: [address] [place] [address] Performed By: #### 2 4323-8 ####[facility] LABCLIA [id number] [place] [address] [place] Chloride [Moles/Vol] 105 mmol/L Normal 97-105 [facility] Comment on above: Order Comment: Speci men Type: BLOOD SPECIMENOrdering Facility: [facility] Address: [address] [place] [address] Performed By: #### 2 4323-8 ####[facility] LABCLIA [id number] [place] [address] [place] CO2 [Moles/Vol] 25 mmol/L Normal 22-30 [facility] Comment on above: Order Comment: Speci men Type: BLOOD SPECIMENOrdering Facility: [facility] Address: [address] [place] [address] Performed By: #### 2 4323-8 ####[facility] LABCLIA [id number] [place] [address] [place] Creatinine [Mass/Vol] 0.80 mg/dL Normal 0.58-0.96 [facility] Comment on above: Order Comment: Speci men Type: BLOOD SPECIMENOrdering Facility: [facility] Address: [address] [place] [address] Performed By: #### 2 4323-8 ####[facility] LABIA [id number] [place] [address] [place] Creatinine and Glomerular filtration rate.predicted panel (S/P/Bld) 101 mL/min/1.73m??? Normal >=60 [facility] Comment on above: Order Comment: Speci men Type: BLOOD SPECIMENOrdering Facility: [facility] Address: [address] [place] [address] Result Comment: Ligia mated Glomerular Filtration Rate [...] actual GFR. Performed By: #### 2 4323-8 ####[facility] LABCLIA [id number] [place] [address] [place] Glucose [Mass/Vol] 102 mg/dL High 74-99 [facility] Comment on above: Order Comment: Speci men Type: BLOOD SPECIMENOrdering Facility: [facility] Address: [address] [place] [address] Result Comment: The [place] Diabetes Association (ADA) provides guidance for cutoff [...] Standards of Medical Care in Diabetes 2016, [place] Diabetes Association. Diabetes Care. 2016.39(Suppl 1). Performed By: #### 2 4323-8 ####[facility] LABCLIA [id number] [place] [address] [place] Potassium [Moles/Vol] 4.2 mmol/L Normal 3.7-5.1 [facility] Comment on above: Order Comment: Speci men Type: BLOOD SPECIMENOrdering Facility: [facility] Address: [address] [place] [address] Performed By: #### 2 4323-8 ####[facility] LABCLIA [id number] [place] [address] [place] Protein [Mass/Vol] 6.8 g/dL Normal 6.3-8.0 [facility] Comment on above: Order Comment: Speci men Type: BLOOD SPECIMENOrdering Facility: [facility] Address: [address] [place] [address] Performed By: #### 2 4323-8 ####[facility] LABCLIA [id number] [place] [address] [place] Sodium [Moles/Vol] 140 mmol/L Normal 136-144 [facility] Comment on above: Order Comment: Speci men Type: BLOOD SPECIMENOrdering Facility: [facility] Address: [address] [place] [id number] Performed By: #### 2 4323-8 ####[facility] LABCLIA [id number] [address] [address] [place] Urea nitrogen [Mass/Vol] 12 mg/dL Normal 7-21 [facility] Comment on above: Order Comment: Speci men Type: BLOOD SPECIMENOrdering Facility: [facility] Address: [address] [place] [address] Performed By: #### 2 4323-8 ####[facility] LABCLIA [id number] [address] [address] [place] Comprehensive metabolic 2000 panelon 03-07-2023 Albumin [Mass/Vol] 4.2 g/dL Normal 3.9-4.9 [facility] Comment on above: Order Comment: Speci men Type: BLOOD SPECIMENOrdering Facility: [facility] Address: [address] [place] [address] Performed By: #### 2 4323-8 ####[facility]IO[facility] HOSPITALWNCLIA [id number] [place] [address] [place] ALP [Catalytic activity/Vol] 42 U/L Normal 34-123 [facility] Comment on above: Order Comment: Speci men Type: BLOOD SPECIMENOrdering Facility: [facility] Address: [address] [place] [address] Performed By: #### 2 4323-8 ####[facility] MILLTOWNCLIA [id number] [place] [address] [place] ALT [Catalytic activity/Vol] 73 U/L High 7-38 [facility] Comment on above: Order Comment: Speci men Type: BLOOD SPECIMENOrdering Facility: [facility] Address: [address] [place] [address] Performed By: #### 2 4323-8 ####[facility] MILLTOWNCLIA [id number] [place] [address] [place] Anion gap [Moles/Vol] 9 mmol/L Normal 9-18 [facility] Comment on above: Order Comment: Speci men Type: BLOOD SPECIMENOrdering Facility: [facility] Address: [address] [place] [address] Performed By: #### 2 4323-8 ####[facility]ASTWNCLIA [id number] [place] [address] [place] AST [Catalytic activity/Vol] 29 U/L Normal 13-35 [facility] Comment on above: Order Comment: Speci men Type: BLOOD SPECIMENOrdering Facility: [facility] Address: [address] [place] [address] Performed By: #### 2 4323-8 ####[facility] HOSPITALA [id number] [place] [address] [place] Bilirubin [Mass/Vol] 0.3 mg/dL Normal 0.2-1.3 [facility] Comment on above: Order Comment: Speci men Type: BLOOD SPECIMENOrdering Facility: [facility] Address: [address] [place] [address] Performed By: #### 2 4323-8 ####[facility] CENTERNCLIA [id number] [place] [address] [place] Calcium [Mass/Vol] 9.7 mg/dL Normal 8.5-10.2 [facility] Comment on above: Order Comment: Speci men Type: BLOOD SPECIMENOrdering Facility: [facility] Address: [address] [place] [address] Performed By: #### 2 4323-8 ####[facility] CENTERNCA [id number] [place] [address] [place] Chloride [Moles/Vol] 106 mmol/L High 97-105 [facility] Comment on above: Order Comment: Speci men Type: BLOOD SPECIMENOrdering Facility: [facility] Address: [address] [id number] Performed By: #### 2 4323-8 ####[facility]ENTERNCLIA [id number] [place] [address] [place] CO2 [Moles/Vol] 27 mmol/L Normal 22-30 [facility] Comment on above: Order Comment: Speci men Type: BLOOD SPECIMENOrdering Facility: [facility] Address: [address] [place] [address] Performed By: #### 2 4323-8 ####[facility] CENTERNCLI [id number] [place] [address] [place] Creatinine [Mass/Vol] 0.83 mg/dL Normal 0.58-0.96 [facility] Comment on above: Order Comment: Speci men Type: BLOOD SPECIMENOrdering Facility: [facility] Address: [address] [place] [address] Performed By: #### 2 4323-8 ####[facility]ENTERNCLIA [id number] [place] [address] [place] Creatinine and Glomerular filtration rate.predicted panel (S/P/Bld) 97 mL/min/1.73m??? Normal >=60 [facility] Comment on above: Order Comment: Speci men Type: BLOOD SPECIMENOrdering Facility: [facility] Address: [address] [place] [address] Result Comment: Ligia mated Glomerular Filtration Rate [...] GFR. Performed By: #### 2 4323-8 ####[facility]ASTWNCLIA [id number] [place] [address] [place] Glucose [Mass/Vol] 81 mg/dL Normal 74-99 [facility] Comment on above: Order Comment: Speci men Type: BLOOD SPECIMENOrdering Facility: [facility] Address: [address] [place] [address] Result Comment: The [place] Diabetes Association (ADA) provides guidance for cutoff [...] Standards of Medical Care in Diabetes 2016, [place] Diabetes Association. Diabetes Care. 2016.39(Suppl 1). Performed By: #### 2 4323-8 ####[facility] HOSPITALRowdy [id number] [place] [address] [place] Potassium [Moles/Vol] 3.8 mmol/L Normal 3.7-5.1 [facility] Comment on above: Order Comment: Speci men Type: BLOOD SPECIMENOrdering Facility: [facility] Address: [address] [place] [address] Performed By: #### 2 4323-8 ####[facility] [id number] [place] [address] [place] Protein [Mass/Vol] 6.7 g/dL Normal 6.3-8.0 [facility] Comment on above: Order Comment: Speci men Type: BLOOD SPECIMENOrdering Facility: [facility] Address: [address] [place] [address] Performed By: #### 2 4323-8 ####[facility]LI [id number] [place] [address] [place] Sodium [Moles/Vol] 142 mmol/L Normal 136-144 [facility] Comment on above: Order Comment: Speci men Type: BLOOD SPECIMENOrdering Facility: [facility] Address: [address] [place] [id number] Performed By: #### 2 4323-8 ####[facility]IO[facility]OTTAGE HOSPITALWLALIA [id number] [address] STATES OF [facility] Urea nitrogen [Mass/Vol] 13 mg/dL Normal 7-21 [facility] Comment on above: Order Comment: Speci men Type: BLOOD SPECIMENOrdering Facility: [facility] Address: [place] [address] Performed By: #### 2 4323-8 ####[facility] DEBRAWABASH COUNTY HOSPITALLIA [id number] [address] OF [facility] XR HYSTEROSALPINGOGRAMon [facility] CNOVon 07-24-2020 CNOV Office Visit (WHREBA ) CLAY CRISTINA ([id number]) 1990 F Date Time Provider Department 07/24/20 [...] which included preparing to see the patient, [id number] patient care, completing clinical documentation, counseling and [...] cyst [N94.9] Hirsutism [L68.0] Order(s):PELVIC US WHI [[id number]] Order #: [id number]: 1 TESTOSTERONE TOTAL [SQTESTO] Order #: [id number] FUTURE DHEA-S BLD [SQDHEAS] Order #: [id number] FUTURE Prescriptions as of 07/24/2020 Sig: PEPCID [...] Status:Closed by LOYDA VALENZUELA on 07/27/20 [facility] [place] 06-09-2020 [facility] Telephone (WHRA) LAYACLAY Reno ([id number]) 1990 F Date Time Provider Department 06/09/20 [...] drive to , as she lives in [place]. Will call the patient back once the [...] MTX. Patient prefers MTX. Called Kaitlynn at [place] - [phone] - no answer due to the late hour. I will call first thing tomorrow to see if they can arrange for MTX for patient closer to home. Ankita Chaudhari APRN.JALEEL June 09, 2020 5:31 PM Ankita Chaudhari APRN.JALEEL 06/10/2020 9:33 AM Signed spoke with Merly at [place], she will see if there is able [...] by ANKITA CHAUDHARI CNP on 06/30/20 [facility] [place] 06-05-2020 [facility] Telephone (WHREBA) CLAY CRISTINA ([id number]) 1990 F Date Time Provider Department 06/05/20 [...] she is going to get it at [facility], they will see the [place] order from her chart. Katja Tiwari PA-C June 05, 2020 11:45 AM Merly Carcamo RN 06/05/2020 12:19 PM Signed Patient scheduled today at 1:20pm in [place]. Merly Carcamo RN Allergies As of Date: 06/05/2020 Noted Allergy Reaction SEASONAL ALLERGIES 07/10/2014 5 - Intolerance Date Reviewed: 01/25/2020 Reviewed by: Cherelle Laird - Fully Assessed Reason for Visit: Abnormal labs [Other] Visit Diagnoses:Abnormal laboratory test [R89.9] in first trimester with history of ectopic [O09.11] Order(s):[facility] [[id number]] Order #: [id number]: 1 Prescriptions as of 06/05/2020 Sig: PROGESTERONE [...] by KATJA TIWARI PA-C on 06/05/20 [facility] Vital Signs Date Time Vital Sign Value Performing Clinician Faci lity 10-07-2023 11:29-0400 Body height 167.6 cm Diana Eastman MD Work Phone: [facility] 10-07-2023 11:29-0400 Body mass index (BMI) [Ratio] 43.87 kg/m2 Diana Eastman MD Work Phone: [facility] 10-07-2023 11:29-0400 Body weight 123.3 kg Diana Eastman MD Work Phone: [facility] 10-07-2023 11:29-0400 Diastolic blood pressure 94 mm[Hg] Diana Eastman MD Work Phone: [facility] 10-07-2023 11:29-0400 Heart rate 53 /min Diana Eastman MD Work Phone: [facility] 10-07-2023 11:29-0400 Systolic blood pressure 147 mm[Hg] Diana Eastman MD Work Phone: [facility] 08-25-2023 08:55-0400 Body height 168.9 cm Antonia Briceno MD Work Phone: [facility] 08-25-2023 08:55-0400 Body mass index (BMI) [Ratio] 42.39 kg/m2 Antonia Briceno MD Work Phone: [facility] 08-25-2023 08:55-0400 Body weight 120.93 kg Antonia Briceno MD Work Phone: [facility] 08-25-2023 08:55-0400 Diastolic blood pressure 80 mm[Hg] Antonia Briceno MD Work Phone: [facility] 08-25-2023 08:55-0400 Systolic blood pressure 120 mm[Hg] Antonia Briceno MD Work Phone: [facility] 07-05-2023 11:07-0400 Body mass index (BMI) [Ratio] 41.97 kg/m2 Denis Lagunas MD Work Phone: [facility] 07-05-2023 11:07-0400 Body weight 117.94 kg Denis Lagunas MD Work Phone: [facility] 06-07-2023 10:55-0400 Body weight 119.3 kg Denis Lagunas MD Work Phone: [facility] 05-30-2023 10:35-0400 Body height 168.9 cm Mhcz 1 [facility] [employer] [facility] [employer] 05-30-2023 10:35-0400 Body mass index (BMI) [Ratio] 43.57 kg/m2 Mhcz 1 [facility] [employer] 05-30-2023 10:35-0400 Body temperature 98.1 [degF] Mhcz 1 [facility] [employer] [facility] [employer] 05-30-2023 10:35-0400 Body weight 124.3 kg Mhcz 1 [facility] [employer] [facility] [employer] 05-30-2023 10:35-0400 Diastolic blood pressure 74 mm[Hg] Mhcz 1 [facility] [employer] 05-30-2023 10:35-0400 Heart rate 77 /min Mhcz 1 [facility] [employer] 05-30-2023 10:35-0400 Respiratory rate 18 /min Mhcz 1 [employer] 05-30-2023 10:35-0400 SaO2% (BldA) [Mass fraction] 100 % Mhcz 1 [facility] [employer] 05-30-2023 10:35-0400 Systolic blood pressure 131 mm[Hg] Mhcz 1 [facility] [employer] 04-05-2023 10:50-0500 Body weight 122.02 kg Denis Lagunas MD Work Phone: [facility] 03-08-2023 10:50-0500 Body weight 124.74 kg Denis Lagunas MD Work Phone: [facility] 02-08-2023 11:00-0500 Body weight 128.82 kg Denis Lagunas MD Work Phone: [facility] 10-22-2022 14:28-0400 Body height 167.6 cm Diana Eastman MD Work Phone: [facility] 10-22-2022 14:28-0400 Body weight 133.81 kg Diana Eastman MD Work Phone: [facility] 10-21-2021 09:52-0400 Body height 172.7 cm Antonia Briceno MD Work Phone: [facility] 10-21-2021 09:52-0400 Body weight 132.72 kg Antonia Briceno MD Work Phone: [facility] 10-21-2021 09:52-0400 Diastolic blood pressure 80 mm[Hg] Antonai Briceno MD Work Phone: [facility] 10-21-2021 09:52-0400 Systolic blood pressure 118 mm[Hg] Antonia Briceno MD Work Phone: [facility] Encounters Encounter Date Encounter Type Care Provider [...] Start: 01-10-2024 End: 01-10-2024 ambulatory LAILA WYATT Facility:[facility] Start: 01-10-2024 End: 01-10-2024 Patient encounter procedure 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 [facility] Comment on above: Pelvic pain in pregn shahriar (Primary Dx); Early stage of ; of unknown anatomic location; Bleeding in early Start: 01-09-2024 End: 01-09-2024 Orders Only Pattie Patino APRN.CNP Work Phone: Reproductive Endocrinology Inf[facility] Comment on above: , location unknown (Primary Dx) Start: 01-07-2024 End: 01-07-2024 ambulatory LAILA WYATT Facility:[facility] Start: 01-05-2024 End: 01-05-2024 ambulatory PATTIE PATINO Facility:[facility] Start: 2024 End: 01-06-2024 ambulatory Diana Eastman [...] t est Start: 10-07-2023 End: 10-07-2023 [facility] Start: 10-07-2023 End: 10-07-2023 Patient encounter procedure Diana Eastman MD Work Phone: [facility]ductive [facility]ocrinology [facility] Comment on above: PCOS (polycystic ova giovanni syndrome) (Primary Dx) Start: 08-25-2023 End: 08-25-2023 [facility] Start: 08-25-2023 End: 08-25-2023 Patient encounter procedure Antonia Briceno MD Work Phone: OB/Gynecology Comment on above: Encounter for gyneco logical examination (general) (routine) without abnormal findings (Primary Dx); Screening for cervical cancer; Encounter for screening for human papillomavirus (HPV) Start: 08-25-2023 End: 08-25-2023 Patient encounter status Antonia Briceno MD Work Phone: [facility] Start: 07-19-2023 Refill Denis buchanan MD Work [...] with patient Denis Lagunas MD Work Phone: [facility] Start: 05-30-2023 End: 05-31-2023 ambulatory Physician J[facility] Start: 05-30-2023 End: 05-30-2023 Subsequent hospital visit by physician [facility] [address] [place] [address] Start: 05-30-2023 End: 05-30-2023 ambulatory [facility] Start: 05-05-2023 End: 05-06-2023 ambulatory TORI [facility] Start: 04-05-2023 End: 04-05-2023 Telemedicine consultation with patient Denis Lagunas MD Work Phone: [facility] Start: 04-05-2023 End: 04-05-2023 ambulatory Denis Lagunas MD Work Phone: Endocrinology Comment on above: PCOS (polycystic ova giovanni syndrome) (Primary Dx); Obesity, Class III, BMI >= 40 Start: 04-04-2023 End: 04-04-2023 ambulatory DENIS LAGUNAS Facility:[facility] Start: 03-08-2023 End: 03-08-2023 ambulatory Denis Lagunas MD Work Phone: Endocrinology Comment on above: Obesity, Class III, BMI >= 40 Start: 03-08-2023 End: 03-08-2023 Telemedicine consultation with patient Denis Lagunas MD Work Phone: [facility] Start: 03-07-2023 End: 03-07-2023 ambulatory DENIS LAGUNAS Facility:[facility] Start: 02-08-2023 End: 02-08-2023 ambulatory Denis Lagunas MD Work Phone: Endocrinology Comment on above: Obesity, Class III, BMI >= 40 (Primary Dx); PCOS (polycystic ovarian syndrome) Start: 02-08-2023 End: 02-08-2023 Telemedicine consultation with patient Denis Lagunas MD Work Phone: [facility] Start: 12-24-2022 ambulatory Diana Singh Work Phone: Reproductive Endocrinology Infertility Comment on above: IUI hold Endocrine PCOS p navarroram Start: 12-24-2022 E-mail encounter fro m caregiver [facility] Provider [facility] Start: 12-23-2022 End: 12-23-2022 ambulatory Denis Lagunas MD Work Phone: [facility] Comment on above: PCOS (polycystic ova giovanni syndrome) (Primary Dx); Obesity, Class III, BMI >= 40 Start: 12-23-2022 End: 12-23-2022 Telemedicine consultation with patient Denis Lagunas MD Work Phone: [facility] Start: 12-09-2022 End: 12-09-2022 Patient [...] with patient Diana Eastman MD Work Phone: [facility] Start: 10-21-2021 End: 10-21-2021 Patient [...] requested procedure Denis Lagunas MD Work Phone: [facility] Procedures Date Procedure Procedure Detail Performing Clinician [...] RSV Vaccine (1 - 1-dose 75+ series) [facility] Start: 08-24-2028 Screening for malignant neoplasm of cervix Cervical Cancer Screening [facility] Start: 10-21-2026 HPV TESTING HPV TESTING [facility] Start: 10-21-2026 PAP TESTING PAP TESTING [facility] Start: 10-21-2026 Screening for malignant neoplasm of cervix [facility] Start: 08-24-2024 End: 08-24-2024 Patient encounter procedure 08/24/2024 1:40 PM EDT Office Visit OB/Gynecology [address] [place] [address] Antonia Briceno MD [address] [place] [address] Annual OB/Gynecology Comment on above: Annual Start: 03-01-2024 End: 03-01-2024 Patient encounter procedure 03/01/2024 10:20 AM EST Routine Office Visit OB/Gynecology [address] [place] [address] Antonia Briceno MD [address] [place] [address] 1st OB OB/Gynecology Comment on above: 1st OB Start: 02-01-2024 End: 02-01-2024 Patient encounter procedure 02/01/2024 8:15 AM EST Initial Office Visit OB/Gynecology [address] [place] [address] Isis Raines APRN.SUPER[employer]OR [employer] [address] [place] [address] 1st OB (Dr. Eastman recommended first appointment be 8 weeks out from LMP) OB/Gynecology Comment on above: 1st OB (Dr. Eastman recommended first hernan ointment be 8 weeks out from LMP) Start: 01-11-2024 End: 01-11-2024 ambulatory 01/11/2024 7:15 AM EDT Results Only Jose Antonio Morales [facility] [address] [place] [address] Jose Antonio Morales [facility] Start: 01-10-2024 End: 01-09-2025 OBSTETRIC ULTRASOUND [facility] OBSTETRIC ULTRASOUND [facility] Anc Imaging Routine Early stage of Expected: 01/10/2024, Expires: 01/09/2025 [facility] Work Phone: Comment on above: Expected: 01/10/2024, Expires: Start: 01-10-2024 End: 01-10-2024 Patient encounter procedure 01/10/2024 8:30 AM EDT [facility]ductive Endocrinology Inf[facility] [address] [place] [address] Pattie Patino APRN.SUPER[employer]OR [employer] [address] [place] [address] new preg visit [facility] Endocrinology [facility]ertility Comment on above: new preg visit Start: 01-07-2024 End: 01-07-2024 [facility] Start: 01-05-2024 End: 01-05-2024 ambulatory 01/05/2024 7:30 AM EDT [facility] [address] [place] [address] [facility] Start: 11-20-2023 Covid-19 Vaccine ( season) Covid-19 Vaccine () [facility] Start: 11-20-2023 Influenza vaccination [facility] Start: 10-07-2023 End: 10-07-2023 Patient encounter procedure Reproductive Endocrinology Infertility Comment on above: DISCUSS NEW PLAN DISCUSS NEW PLAN lm and sent my chart time changed/js Start: 08-25-2023 End: 08-25-2023 Patient encounter procedure 08/25/2023 8:40 AM EDT Office Visit OB/Gynecology [address] [place] [address] Antonia Briceno MD [address] [place] [address] Annual exam OB/Gynecology Comment on above: Annual exam Start: 03-21-2023 Behavioral Health Screening Behavioral Health Screening [facility] Start: 03-21-2023 Depression Assessment Depression Assessment [facility] Start: 03-08-2023 End: 06-07-2023 Comprehensive metabolic 2000 panel - Serum or Plasma COMP METABOLIC PANEL Lab Routine Obesity, Class III, BMI >= 40 Expected: 03/08/2023, Expires: 06/07/2023 [facility] Work Phone: Comment on above: Expected: 03/08/2023, Expires: Start: 02-08-2023 End: 05-10-2023 Comprehensive metabolic 2000 panel - Serum or Plasma COMP METABOLIC PANEL Lab Routine Obesity, Class III, BMI >= 40 Expected: 02/08/2023, Expires: 05/10/2023 [facility] Work Phone: Comment on above: Expected: 02/08/2023, Expires: 4 Start: 12-23-2022 End: 02-22-2023 ANTI MULLERIAN HORMONE ANTI MULLERIAN HORMONE Lab Routine PCOS (polycystic ovarian syndrome) Expected: 12/23/2022, Expires: 02/22/2023 [facility] Work Phone: Comment on above: Expected: 12/23/2022, Expires: 3 Start: 12-23-2022 End: 02-22-2023 Comprehensive metabolic 2000 panel - Serum or Plasma COMP METABOLIC PANEL Lab Routine PCOS (polycystic ovarian syndrome) Expected: 12/23/2022, Expires: 02/22/2023 [facility] Work Phone: Comment on above: Expected: 12/23/2022, Expires: 3 Start: 12-23-2022 End: 02-22-2023 DHEA-S BLD DHEA-S BLD Lab Routine PCOS (polycystic ovarian syndrome) Expected: 12/23/2022, Expires: 02/22/2023 [facility] Work Phone: Comment on above: Expected: 12/23/2022, Expires: 3 Start: 12-23-2022 End: 02-22-2023 Estradiol (E2) [Mass/volume] in Serum or Plasma ESTRADIOL-17B BLD Lab Routine PCOS (polycystic ovarian syndrome) Expected: 12/23/2022, Expires: 02/22/2023 [facility] Work Phone: Comment on above: Expected: 12/23/2022, Expires: 3 Start: 12-23-2022 End: 02-22-2023 Follitropin [Units/volume] in Serum or Plasma FSH BLD Lab Routine PCOS (polycystic ovarian syndrome) Expected: 12/23/2022, Expires: 02/22/2023 [facility] Work Phone: Comment on above: Expected: 12/23/2022, Expires: 3 Start: 12-23-2022 End: 02-22-2023 Hemoglobin A1c in Blood HGB A1C Lab Routine PCOS (polycystic ovarian syndrome) Expected: 12/23/2022, Expires: 02/22/2023 [facility] Work Phone: Comment on above: Expected: 12/23/2022, Expires: 3 Start: 12-23-2022 End: 02-22-2023 Lipid 1996 panel - Serum or Plasma LIPID PANEL BASIC Lab Routine PCOS (polycystic ovarian syndrome) Expected: 12/23/2022, Expires: 02/22/2023 [facility] Work Phone: Comment on above: Expected: 12/23/2022, Expires: 3 Start: 12-23-2022 End: 02-22-2023 Lutropin [Units/volume] in Serum or Plasma LUTEINIZING HORMONE Lab Routine PCOS (polycystic ovarian syndrome) Expected: 12/23/2022, Expires: 02/22/2023 [facility] Work Phone: Comment on above: Expected: 12/23/2022, Expires: 3 Start: 12-23-2022 End: 02-22-2023 Prolactin [Mass/volume] in Serum or Plasma PROLACTIN BLD Lab Routine PCOS (polycystic ovarian syndrome) Expected: 12/23/2022, Expires: 02/22/2023 [facility] Work Phone: Comment on above: Expected: 12/23/2022, Expires: 3 Start: 12-23-2022 End: 02-22-2023 Thyrotropin [Units/volume] in Serum or Plasma TSH BLD Lab Routine PCOS (polycystic ovarian syndrome) Expected: 12/23/2022, Expires: 02/22/2023 [facility] Work Phone: Comment on above: Expected: 12/23/2022, Expires: 3 Start: 12-23-2022 End: 02-22-2023 Thyroxine (T4) free [Mass/volume] in Serum or Plasma T4 FREE/FREE THYROX Lab Routine PCOS (polycystic ovarian syndrome) Expected: 12/23/2022, Expires: 02/22/2023 [facility] Work Phone: Comment on above: Expected: 12/23/2022, Expires: 3 Start: 11-19-2022 Covid-19 Vaccine () Covid-19 Vaccine () [facility] Start: 11-19-2022 COVID-19 Vaccine () COVID-19 Vaccine () [facility] Start: 11-19-2022 Influenza vaccination [facility] Start: 10-19-2022 Influenza vaccination Flu vaccine (#1) [facility] Start: 03-22-2022 End: 02-19-2023 Cath & saline/contrast sonohyster/hysterosalpi XR HYSTEROSALPINGOGRAM Radiology Routine Encounter for fertility testing Expected: 03/22/2022, Expires: 02/19/2023 [facility] Work Phone: Comment on above: Expected: 03/22/2022, Expires: 3 Start: 03-21-2022 DEPRESSION ASSESSMENT DEPRESSION ASSESSMENT [facility] Start: 01-02-2022 HPV TESTING HPV TESTING [facility] Start: 01-02-2022 Screening for malignant neoplasm of cervix [facility] Start: 11-19-2021 Influenza vaccination [facility] Start: 10-21-2021 End: 12-21-2021 Fasting glucose [Mass/volume] in Serum or Plasma GLUCOSE FASTING BLD Lab Routine Class 3 severe obesity with body mass index (BMI) of 40.0 to 44.9 in adult, unspecified obesity type, unspecified whether serious comorbidity present (HCC) PCOS (polycystic ovarian syndrome) Expected: 10/21/2021, Expires: 12/21/2021 [facility] Work Phone: Comment on above: Expected: 10/21/2021, Expires: 2 Start: 10-21-2021 End: 12-21-2021 Hemoglobin A1c in Blood HGB A1C Lab Routine Class 3 severe obesity with body mass index (BMI) of 40.0 to 44.9 in adult, unspecified obesity type, unspecified whether serious comorbidity present (HCC) PCOS (polycystic ovarian syndrome) Expected: 10/21/2021, Expires: 12/21/2021 [facility] Work Phone: Comment on above: Expected: 10/21/2021, Expires: 2 Start: 10-21-2021 End: 12-21-2021 Lipid 1996 panel - Serum or Plasma LIPID PANEL BASIC Lab Routine Class 3 severe obesity with body mass index (BMI) of 40.0 to 44.9 in adult, unspecified obesity type, unspecified whether serious comorbidity present (HCC) PCOS (polycystic ovarian syndrome) Expected: 10/21/2021, Expires: 12/21/2021 [facility] Work Phone: Comment on above: Expected: 10/21/2021, Expires: 2 Start: 03-21-2021 DEPRESSION ASSESSMENT DEPRESSION ASSESSMENT [facility] Start: 07-08-2020 COVID-19 VACCINE (4 - Booster) COVID-19 VACCINE (4 - Booster) [facility] Start: 06-04-2020 COVID-19 VACCINE (4 - Booster) COVID-19 VACCINE (4 - Booster) [facility] Start: 06-04-2020 COVID-19 VACCINE (4 - Pfizer series) COVID-19 VACCINE (4 - Pfizer series) [facility] Start: 04-23-2019 PAP TESTING PAP TESTING [facility] Start: 01-02-2013 Screening for malignant neoplasm of cervix Pap smear [facility] Start: 01-02-2011 DTaP/Tdap/Td vaccine (1 - Tdap) DTaP/Tdap/Td vaccine (1 - Tdap) [facility] Start: 01-02-2011 Hepatitis B Vaccine (1 of 3 - 19+ 3-dose series) Hepatitis B Vaccine (1 of 3 - 19+ 3-dose series) [facility] Start: 01-02-2011 SHINGRIX VACCINE (1 of 2) SHINGRIX VACCINE (1 of 2) [facility] Start: 01-02-2011 Urine microalbumin profile [facility] Start: 01-02-2010 Anxiety Screening Anxiety Screening [facility] Start: 01-02-2010 Depression Screening Depression Screening [facility] Start: 01-02-2010 HEPATITIS C SCREENING HEPATITIS C SCREENING [facility] Start: 01-02-2010 Hepatitis C screening [facility] Start: 01-02-2010 HIV SCREENING HIV SCREENING [facility] Start: 01-02-2010 HIV screening HIV Screening [facility] Start: 01-02-2007 HIV screening HIV screen [facility] Start: 2004 Adult depression screening assessment DEPRESSION SCREENING [facility] Start: 2004 Depression Screen Depression Screen [facility] Start: 01-02-1998 PNEUMOCOCCAL (1 - PCV) PNEUMOCOCCAL (1 - PCV) [facility] Start: 01-02-1993 Varicella vaccine (1 of 2 - 2-dose childhood series) Varicella vaccine (1 of 2 - 2-dose childhood series) [facility] Start: 1992 HEPATITIS B (1 of 3 - 3-dose series) HEPATITIS B (1 of 3 - 3-dose series) [facility] Start: 1992 Hepatitis B Vaccine (1 of 3 - 3-dose series) Hepatitis B Vaccine (1 of 3 - 3-dose series) [facility] End: 01-02-2025 Choriogonadotropin.beta subunit [Units/volume] in Serum or Plasma HCG QUANTITATIVE Lab STAT Positive test 3 Occurrences starting 2024 until 01/02/2025 [facility] Work Phone: Comment on above: 3 Occurrences starting 2024 until 01/02/2025 Choriogonadotropin.b eta subunit [Units/volume] in Serum or Plasma HCG QUANTITATIVE Lab STAT Positive test 2024 4:33 PM EDT [facility] End: 01-08-2025 Choriogonadotropin.beta subunit [Units/volume] in Serum or Plasma HCG QUANTITATIVE Lab Routine , location unknown Daily for 3 Occurrences starting 01/09/2024 until 01/08/2025 [facility] Work Phone: Comment on above: Daily for 3 Occurrences starting 024 until 01/08/2025 End: 05-30-2023 Cytomegalovirus Antibody, IgG [facility] [facility] Comment on above: One Time for 1 Occurrences starting 05/19 until 05/30/2023 End: 05-30-2023 Cytomegalovirus antibody, IgM [employer] Comment on above: One Time for 1 Occurrences starting 05/19 until 05/30/2023 End: 05-30-2023 Gwen whalen virus (EBV) antibody panel I [employer] Comment on above: One Time for 1 Occurrences starting 05/19 until 05/30/2023 End: 05-30-2023 Hepatitis B e antibody [employer] [facility] Comment on above: One Time for 1 Occurrences starting 05/19 until 05/30/2023 End: 05-30-2023 Hepatitis C RNA, quantitative, PCR [employer] [facility] Comment on above: One Time for 1 Occurrences starting 05/19 until 05/30/2023 End: 05-30-2023 Herpes simplex virus (HSV) I/II antibodies IgG & IgM [facility] Comment on above: One Time for 1 Occurrences starting 05/19 until 05/30/2023 End: 05-30-2023 MISCELLANEOUS SENDOUT 2 lavender and one red top tube. for HLA/CMV and antibody testing at [facility] MISCELLANEOUS SENDOUT 2 lavender and one red top tube. for HLA/CMV and antibody testing at [facility] Lab Routine One Time for 1 Occurrences starting 05/30/2023 until 05/30/2023 [facility] Work Phone: Comment on above: One Time for 1 Occurrences starting 05/19 until 05/30/2023 PAP FLUID CERVICAL SCREENING PAP FLUID CERVICAL SCREENING Lab Routine Encounter for gynecological examination (general) (routine) without abnormal findings Screening for cervical cancer Encounter for screening for human papillomavirus (HPV) 10/21/2021 10:27 AM EDT [facility] Work Phone: PAP TEST PAP TEST Lab Rou emma Encounter for gynecological examination (general) (routine) without abnormal findings Screening for cervical cancer Encounter for screening for human papillomavirus (HPV) 08/25/2023 9:30 AM EDT [facility] Work Phone: End: 05-30-2023 Sickle Cell Screen [facility] Comment on above: One Time for 1 Occurrences starting 05/19 until 05/30/2023 End: 05-30-2023 Toxoplasma gondii antibody, IgG [facility] Comment on above: One Time for 1 Occurrences starting 05/19 until 05/30/2023 End: 05-30-2023 Toxoplasma gondii antibody, IgM [facility] Comment on above: One Time for 1 Occurrences starting 05/19 until 05/30/2023 End: 05-30-2023 Varicella-Zoster virus (VZV) antibodies IgG & IgM [facility] Comment on above: One Time for 1 Occurrences starting 05/19 until 05/30/2023 [facility] Payers Date Payer Category Payer Unknown [id number] 2023 Unknown [id number] 2022 Unknown [id number] 2019 Unknown [employer] PPO OOS [id number] 2019-Present [phone] [facility] [address] [place] [address] PPO [id number] 2019 Unknown [id number] 1995 Unknown [id number] 1995 Unknown [id number] 1995 Unknown [id number] Social History Date Type Detail Facility Start: 12-27-2011 End: 08-25-2023 Tobacco smoking status NHIS Never smoked tobacco [facility] Start: 10-31-2020 End: 01-11-2024 Alcohol intake Current non-drinker of alcohol (finding) [facility] Start: 1990 Sex Assigned At Female [facility] Start: 09-19-2021 End: 09-29-2021 Exposure to SARS-CoV-2 (event) Yes [facility] Start: 12-27-2011 End: 08-25-2023 Tobacco use and exposure Smokeless tobacco non-user [facility] Start: 10-22-2022 End: 10-07-2023 History of Social function [facility] Start: 10-22-2022 End: 10-07-2023 Tobacco use panel [facility] National Score (1-10 0), lower number is lower risk 69 [facility] Start: 07-23-2020 Gender identity Identifies as female gender (finding) [facility] Start: 07-23-2020 Sexual orientation Heterosexual (fin roxy) [facility] Tobacco smoking stat us NHIS Tobacco smoking consumption unknown [facility] Start: 1990 Sex Assigned At Not on file B [facility] Clinical Notes 11-14-2018 to 01-11-2024 Katja Tiwari PA-C - 01/11/2024 3:07 PM EDTTelephone Encounter - Mayank Squires MD - 01/10/2024 10:57 AM EDTTelephone Encounter - Mayank Squires MD - 01/10/2024 10:57 AM EDTPatient Instructions Note Date & Type Note Facility 01-11-2024 Note HNO ID: [id number] Author: KATJA TIWARI PA-C Service: ? Author Type: Physician Lead Programmer Type: Progress Notes Filed: 01/12/2024 10:03 Note [...] Tiwari PA-C January 12, 2024 10:02 AM [facility] 01-11-2024 History of Presen t illness Narrative [...] 2024 3:10 PM documented in this encounter [facility] 01-10-2024 Telephone encounter Note Filed Mayank Squires MD [facility] 01-10-2024 Miscellaneous Notes Filed Mayank Squires MD Please file order for ultrasound for R/O ectopic. Margarette said that you and Dr Briceno are aware of this patient- Dr Jaren US documented in this encounter [facility] 01-10-2024 Telephone encounter Note Please file order for ultrasound for R/O ectopic. Margarette said that you and Dr Briceno are aware of this patient- Dr Jaren US [facility] 2024 Telephone encounter Note Reviewed history, intake and most recent plan from primary [facility] provider. Plan: # of quants: standing (ectopic) additional meds needed: none schedule VV with [facility] Healthy Guide sent with plan. Pattie Patino APRN.CNP 2024 11:06 AM [facility] Work Phone: 2024 Miscellaneous Notes Reviewed history, [...] Pos preg test documented in this encounter [facility] 2024 Telephone encounter Note See TE for 01/02 Precious Leone RN 2024 9:31 AM [facility] 2024 Miscellaneous Notes See TE for 01/02 Precious Leone RN 2024 9:31 AM documented in this encounter [facility] 2024 Telephone encounter Note Patient calls with [...] hcg Precious Leone RN 2024 9:31 AM [facility] 2024 Telephone encounter Note Pos preg test T [facility] 10-07-2023 History of Presen t illness Narrative [...] Count Sperm M 1.00 % Motile Sperm (%PA + %RESERVE OPERATOR) >=40 % 8 (L) Washing Solution Enhance W % Motile Sperm, Post >=50 % 31 (L) Undiff Round Cells Post Wash <1.00 M/mL 0.00 Final Volume mL 0.4 Total Sperm Count Post M 0.6 Total Motile Sperm M 0.2 Comment, Pre Wash Wash only. No gradient used Semen Comment 1 Clay Cristian Sperm Concentration Post M/mL 1.6 TREATMENT COURSE [...] with more than 50% of the total aabc-uq-abdl time of the visit in counseling / coordination of care. I spent a total of 40 minutes on the date of the service which included preparing to see the patient, bevl-mv-bnzk patient care, completing clinical documentation, obtaining and/or [...] 2023 12:20 PM documented in this encounter [facility] 10-07-2023 Note HNO ID: [id number] Author: DIANA EASTMAN MD Service: ? Author [...] Count Sperm M 1.00 % Motile Sperm (%PA + %RESERVE OPERATOR) >=40 % 8 (L) Washing Solution Enhance [...] with more than 50% of the total afua-cx-pajr time of the visit in counseling / coordination of care. I spent a total of 40 minutes on the date of the service which included preparing to see the patient, gyem-wz-ygze patient care, completing clinical documentation, obtaining and/or [...] Eastman. Electronically signed, (more content not included)... [facility] 08-25-2023 Instructions Antonia Briceno MD - 08/25/2023 [...] scratching at night. documented in this encounter [facility] 08-25-2023 Note HNO ID: [id number] Author: ANTONIA BRICENO MD Service: ? Author Type: Physician Type: Progress Notes Filed: 08/25/2023 14:37 Note Text: Glove Stitcher offered: Patient declines. 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 Comments: Sexual Activity: Yes; Male Contraception: [...] external genitalia normal, normal Bartholin's glands, urethra, [place]'s glands, no vulvar lesions, no cervical lesions, [...] Antonia Briceno DO documented in this encounter [facility] 07-20-2023 Telephone encounter Note Patient comment: I [...] PSS NOTE: Patient needs scheduled appointment No [facility] 07-20-2023 Miscellaneous Notes Patient comment: I assume [...] scheduled appointment No documented in this encounter [facility] 07-05-2023 Note HNO ID: [id number] Author: ELOY NORRIS RD Service: ? 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 Patient Entered Data 02/07/2023 03/07/2023 06/06/2023 PROMIS [...] 07/05/2023 Obesity Questionnaire Difficulties following advice of production leader No No No My appetite is well [...] Past Histories independently gathered by the clinical it application support analyst and the remaining scribed note accurately describes my personal service to the patient. I have communicated my name and active licensure. The patient's identity and physical location were verified at the time of this visit. Either the patient or their legal agency sales representative has been informed of the risks and benefits of -- and alternatives to -- treatment through a remote evaluation and consents to proceed with the evaluation remotely. Denis Lagunas MD Endocrinology staff Pager: [phone] July 05, 2023 The documentation for this note was completed by Tessy Wyatt RD acting as scribe for Denis Lagunas MD. July 05, 2023 10:[address] documented in this encounter [facility] 07-05-2023 Note HNO ID: [id number] Author: DENIS MACHADO MD Service: ? 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 Patient Entered Data 02/07/2023 03/07/2023 06/06/2023 PROMIS [...] 07/05/2023 Obesity Questionnaire Difficulties following advice of production leader No No No My appetite is well [...] old female is here for PCOS Virtual [facility] program Recommendations - decrease phentermine, 37.5mg, to 1/2 tab daily. - take provera to start period (more content not included)... [facility] 07-01-2023 Instructions Tessy Wyatt, MARIO - 07/01/2023 1:53 PM EDT Thank you for choosing the [facility] Department of Endocrinology, Diabetes and Metabolism. Did you know that you need to call 48 hours in advance of your scheduled visit, if you are unable to make your appointment? The Endocrinology and Metabolism [facility] thanks you for your commitment, because patients not showing to their appointment results in a lost opportunity for patients to receive world class health care at the [facility]. To Cancel an appointment, please choose one of the following: - Call the Appointment Call Center at [phone] - From [facility], Go to Appointments - Cancel Appts If [...] initial phase. Please either call me at [phone] or message me, to schedule your next mVSMA. documented in this encounter [facility] 06-07-2023 Note HNO ID: [id number] Author: ELOY NORRIS RD Service: ? Author [...] 12/25/2022 HBA1C 5.3 08/11/[address] [facility] 06-07-2023 History of Presen t illness Narrative [...] 06/06/2023 Obesity Questionnaire Difficulties following advice of production leader No No No My appetite is well [...] old female is here for PCOS Virtual [facility] program Recommendations - continue phentermine. = continue current diet and exercise = continue current meds/OCP I agree with the Chief Complaint, ROS, and Past Histories independently gathered by the clinical it application support analyst and the remaining scribed note accurately describes my personal service to the patient. I have communicated my name and active licensure. The patient's identity and physical location were verified at the time of this visit. Either the patient or their legal agency sales representative has been informed of the risks and benefits of -- and alternatives to -- treatment through a remote evaluation and consents to proceed with the evaluation remotely. Denis Lagunas MD Endocrinology staff Pager: [phone] June 07, 2023 The documentation for this [...] No Seizures: No documented in this encounter [facility] 06-07-2023 Note HNO ID: [id number] Author: DENIS MACHADO MD Service: ? Author [...] 06/06/2023 Obesity Questionnaire Difficulties following advice of production leader No No No My appetite is well [...] Past Histories independently gathered by the clinical it application support analyst and the re (more content not included)... [facility] 06-07-2023 Instructions Tessy Wyatt, RD - 06/07/2023 8:03 AM EDT Thank you for choosing the [facility] Department of Endocrinology, Diabetes and Metabolism. Our [...] for an InBody analysis scan, please call [phone]. Looking for additional support? Join us for our monthly support group on the tuesday of every month from 6pm-7pm. This virtual group is for patients who would benefit from additional information from our providers to support their middle or intermediate school principal physical and mental health goals. Participants will receive support from other group members and providers. Email [email or web address] to be put on our mailing list and receive links to join the group. documented in this encounter [facility] 04-05-2023 Note HNO ID: [id number] Author: ELOY NORRIS RD Service: ? Author [...] 12/25/2022 HBA1C 5.3 08/11/[address] [facility] 04-05-2023 History of Presen t illness Narrative Patient attended a Weight Management [facility] and is currently using the [place] [...] any difficulties following the advice of our production leader? Yes No No Is your appetite well-controlled [...] old female is here for PCOS Virtual Promuc program Recommendations - she did not have [...] - she has an appointment with an RESERVE OPERATOR tomorrow in her PCP's office. She was instructed to ask the RESERVE OPERATOR about having an US of her liver. [...] Past Histories independently gathered by the clinical it application support analyst and the remaining scribed note accurately describes my personal service to the patient. I have communicated my name and active licensure. The patient's identity and physical location were verified at the time of this visit. Either the patient or their legal agency sales representative has been informed of the risks and benefits of -- and alternatives to -- treatment through a remote evaluation and consents to proceed with the evaluation remotely. Denis Lagunas MD Endocrinology staff Pager: [phone] April 05, 2023 The documentation for this note was completed by Tessy Wyatt RD acting as scribe for Denis Lagunas MD. April 05, 2023 10:[address] documented in this encounter [facility] 04-05-2023 Note HNO ID: [id number] Author: DENIS MACHADO MD Service: ? Author [...] any difficulties following the advice of our production leader? Yes No No Is your appetite well-controlled [...] Never used Substanc (more content not included)... [facility] 04-01-[address] - 04/01/2023 4:23 PM EST Thank you for choosing the [facility] Department of Endocrinology, Diabetes and Metabolism. Our [...] for an InBody analysis scan, please call [phone]. Looking for additional support? Join us for our monthly support group on the tuesday of every month from 6pm-7pm. This virtual group is for patients who would benefit from additional information from our providers to support their senior care physical and mental health goals. Participants will receive support from other group members and providers. Email [email or web address] to be put on our mailing list and receive links to join the group. documented in this encounter [facility] 03-08-2023 History of Presen t illness Narrative [...] this visit. History of Present Illness Clay Cristnia is a 33 year old female with [...] any difficulties following the advice of our production leader? Yes No Is your appetite well-controlled at [...] old female is here for PCOS Virtual Promuc program Recommendations - she lost a little [...] Past Histories independently gathered by the clinical it application support analyst and the remaining scribed note accurately describes my personal service to the patient. I have communicated my name and active licensure. The patient's identity and physical location were verified at the time of this visit. Either the patient or their legal agency sales representative has been informed of the risks and benefits of -- and alternatives to -- treatment through a remote evaluation and consents to proceed with the evaluation remotely. Denis Lagunas MD Endocrinology staff Pager: [phone] March 08, 2023 The documentation for this note was completed by Tessy Wyatt RD acting as scribe for Denis Lagunas MD. March 08, 2023 10:[address] documented in this encounter [facility] 03-08-2023 Note HNO ID: [id number] Author: Denis Machado MD Service: ? Author [...] any difficulties following the advice of our production leader? Yes No Is your appetite well-controlled at [...] chest pain, h (more content not included)... [facility] 03-07-2023 Instructions Tessy Wyatt, MARIO - 03/07/2023 1:14 PM EST Thank you for choosing the [facility] Department of Endocrinology, Diabetes and Metabolism. Our [...] for an InBody analysis scan, please call [phone]. Looking for additional support? Join us for our monthly support group on the tuesday of every month from 6pm-7pm. This virtual group is for patients who would benefit from additional information from our providers to support their middle or intermediate school principal physical and mental health goals. Participants will receive support from other group members and providers. Email [email or web address] to be put on our mailing list and receive links to join the group. documented in this encounter [facility] 02-08-2023 Note HNO ID: [id number] Author: Eloy Norris RD Service: ? Author [...] 12/25/2022 HBA1C 5.3 08/11/[address] [facility] 02-08-2023 History of Presen t illness Narrative [...] any difficulties following the advice of our production leader? Yes Is your appetite well-controlled at this [...] Past Histories independently gathered by the clinical it application support analyst and the remaining scribed note accurately describes my personal service to the patient. I have communicated my name and active licensure. The patient's identity and physical location were verified at the time of this visit. Either the patient or their legal agency sales representative has been informed of the risks and benefits of -- and alternatives to -- treatment through a remote evaluation and consents to proceed with the evaluation remotely. Denis Lagunas MD Endocrinology staff Pager: [phone] February 08, 2023 The documentation for this [...] No Seizures: No documented in this encounter [facility] 02-08-2023 Note HNO ID: [id number] Author: Denis Machado MD Service: ? Author [...] any difficulties following the advice of our production leader? Yes Is your appetite well-controlled at this [...] History Tobacco Use (more content not included)... [facility] 02-08-[address] - 02/08/2023 8:47 AM EST Thank you for choosing the [facility] Department of Endocrinology, Diabetes and Metabolism. Our [...] been placed for you to see the Kiln Packer. Please call [phone], to schedule your Free Exercise Consult . To schedule an appointment for an InBody analysis scan, please call [phone]. Looking for additional support? Join us for our monthly support group on the tuesday of every month from 6pm-7pm. This virtual group is for patients who would benefit from additional information from our providers to support their middle or intermediate school principal physical and mental health goals. Participants will receive support from other group members and providers. Email [email or web address] to be put on our mailing list and receive links to join the group. documented in this encounter [facility] 12-23-2022 History of Presen t illness Narrative [...] she is interested will refer her to [facility]. = Exercise: REFER TO EXERCISE PHYSIOLOGY = PCOS labs ordered. = Metformin: continue 1000 mg bid. = discussed weight loss meds, she will think about it and let me know. = OCP: doing letrozole now with Provera Will see her in follow up in 1 month in [facility]. = a copy of this consultation was sent to consulting provider via EMR I spent 40 minutes in the visit, with more than 50% of the total uirk-wn-hbqi time of the visit in counseling / coordination of care. I have communicated my name and active licensure. The patient's identity and physical location were verified at the time of this visit. Either the patient or their legal agency sales representative has been informed of the risks and benefits of -- and alternatives to -- treatment through a remote evaluation and consents to proceed with the evaluation remotely. Denis Lagunas MD Endocrinology staff Pager: [phone] December 23, 2022 documented in this encounter [facility] 12-09-2022 Procedure note WHI MAGEN IUI PROCEDURE NOTE Date: 12/09/2022 Primary Proceduralist: Jenni Laurent APRN.CNP Consents and Labels Consent Signed: Informed Consent obtained and on the chart, See Comment (Comment: eviewed and signed consent for IUI today in epic,verbal conset also, declined quantitative strategy analyst) Labels Verified With Patient: Yes, See Comment (Comment: confirmed allpatient partner and specimen identifers with patient and lab) Indications: Clay Cristina, is a 32 year old female here today for intrauterine insemination. IUI # 1. Cycle Day: 16 Last menstrual period: 11/24/2022 [place] Protocol: UNIVERSAL PROTOCOL / SAFETY CHECKLIST Procedure [...] TIME: 11:04 PM documented in this encounter [facility] 12-09-2022 History of Presen t illness Narrative IUI Pre: 2.5 m/ml, 8% Post: 1.6 m/ml, 31% Insem#: 0.2 million IUI specimen released to provider Emilie Reyes December 09, 2022 12:25 PM documented in this encounter [facility] 12-02-2022 Miscellaneous Notes This patient gave consent [...] seven days of my reply. See the [employer] message reply for my assessment and plan. I spent a total of 5 minutes reviewing the patient's prior medical records and current request for medical advice, prescribing medications or ordering tests (if applicable), replying to the patient, and documenting the encounter. documented in this encounter [facility] 10-22-2022 History of Presen t illness Narrative [...] with more than 50% of the total fvlp-nw-qedg time of the visit in counseling / coordination of care. I spent a total of 40 minutes on the date of the service which included preparing to see the patient, sbwm-me-bppc patient care, completing clinical documentation, obtaining and/or [...] missed in proofreading. documented in this encounter [facility] 03-16-2022 History of Presen t illness Narrative [...] Luis Avila MD documented in this encounter [facility] 02-19-2022 History of Presen t illness Narrative [...] by Dr. Loyda Valenzuela at [facility] Clay Cristina is a 30 year old.G [...] recommended myoinositol for PCOS, instructions sent via [employer] - ovulation induction plus timed intercourse x6 [...] missed in proofreading. 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 Author [...] which included preparing to see the patient, gavc-fq-aaet patient care, completing clinical documentation, counseling and educating the patient/family/caregiver and ordering medications, tests, or procedures. Loyda Valenzuela MD [facility] 06-04-2020 Note HNO ID: [id number] Author: Katja Tiwari (Pa) Service: ? Author Type: Physician Lead Programmer Type: Progress Notes Filed: 06/04/2020 5:02 PM Note Text: AMBULATORY TELEPHONE VISIT Clay Cristina has consented to this telephone encounter. Persons Present: patient Chief Complaint/Reason: hCG result HPI: hCG result is not back yet Data Reviewed: Most recent lab Assessment: Plan: F/u via Total Time Spent: 5 minutes Katja Tiwari PA-C June 04, 2020 5:00 PM [facility] 11-14-2018 History of Past i llness [...] of this encounter (statuses as of 07/30/2021) [facility] History of Past illness Narrative* Problem Noted [...] of this encounter (statuses as of 10/21/2021) [facility] History of Past illness Narrative* Problem Noted [...] of this encounter (statuses as of 02/19/2022) [facility] History of Past illness Narrative* Problem Noted [...] of this encounter (statuses as of 03/22/2022) [facility] History of Past illness Narrative* Problem Noted [...] of this encounter (statuses as of 10/22/2022) [facility] History of Past illness Narrative* Problem Noted [...] of this encounter (statuses as of 12/02/2022) [facility] History of Past illness Narrative* Problem Noted [...] of this encounter (statuses as of 12/10/2022) [facility] History of Past illness Narrative* Problem Noted [...] of this encounter (statuses as of 12/25/2022) [facility] History of Past illness Narrative* Problem Noted [...] of this encounter (statuses as of 12/25/2022) [facility] History of Past illness Narrative* Problem Noted [...] of this encounter (statuses as of 12/29/2022) [facility] History of Past illness Narrative* Problem Noted [...] of this encounter (statuses as of 02/08/2023) [facility] History of Past illness Narrative* Problem Noted Date Diagnosed Date Resolved Date Uterine fibroid during , antepartum 9 11/27/2018 Overview: 11/09/18-There is a small intramural fibroid located in the fundal aspect that is 2.4 cm in greatest dimension. Seen on 7w0d US. Bekah Alcazar APRN.CNM with uncertain mya es in first trimester 10/19/2018 11/27/2018 Overview: 11/09/18-JANEY 06/28/19 by 7w0d US. Bekha Alcazar APRN.MORENO 10/19/2018Patient had LMP 08/25/2018. History [...] of this encounter (statuses as of 03/09/2023) [facility] History of Past illness Narrative* Problem Noted Date Diagnosed Date Resolved Date Uterine fibroid during , antepartum 9 11/27/2018 Overview: 11/09/18-There is a small intramural fibroid located in the fundal aspect that is 2.4 cm in greatest dimension. Seen on 7w0d US. Bekah Alcazar APRN.CNM with uncertain mya es in first trimester 10/19/2018 11/27/2018 Overview: 11/09/18-JANEY 06/28/19 by 7w0d US. Bekha Alcazar APRN.MORENO 10/19/2018Patient had LMP 08/25/2018. History [...] of this encounter (statuses as of 06/07/2023) [facility] History of Past illness Narrative* Problem Noted [...] of this encounter (statuses as of 06/07/2023) [facility] note* Diagnosis Anovulation Female infertility associated with anovulation documented in this encounter [facility] note* Diagnosis Encounter for gynecological examination [...] associated with anovulation documented in this encounter [facility] note* Diagnosis Encounter for fertility testing- Primary Fertility testing Anovulation Female infertility associated with anovulation Recurrent loss without current PCOS (polycystic ovarian syndrome) Polycystic ovaries documented in this encounter [facility] note* Diagnosis Encounter for fertility testing- Primary Fertility testing Recurrent loss without current documented in this encounter [facility] note* Diagnosis PCOS (polycystic ovarian syndrome)- Primary Polycystic ovaries Secondary amenorrhea Absence of menstruation BMI 45.0-49.9, adult (HCC) Body Mass Index 45.0-49.9, adult documented in this encounter [facility] note* Diagnosis Treatment plan provided- Primary documented in this encounter [facility] note* Diagnosis Encounter for artificial insemination- Primary Artificial insemination Obesity, Class III, BMI >= 40 Morbid obesity documented in this encounter [facility] note* Diagnosis PCOS (polycystic ovarian syndrome)- Primary Polycystic ovaries Obesity, Class III, BMI >= 40 Morbid obesity documented in this encounter [facility] note* Diagnosis Treatment plan provided- Primary documented in this encounter [facility] note* Diagnosis Obesity, Class III, BMI >= 40- Primary Morbid obesity PCOS (polycystic ovarian syndrome) Polycystic ovaries documented in this encounter [facility] note* Diagnosis Obesity, Class III, BMI >= 40 Morbid obesity documented in this encounter [facility] note* Diagnosis PCOS (polycystic ovarian syndrome)- Primary Polycystic ovaries Obesity, Class III, BMI >= 40 Morbid obesity documented in this encounter [facility]* Diagnosis PCOS (polycystic ovarian syndrome)- Primary Polycystic ovaries Class 3 severe obesity due to excess calories with body mass index (BMI) of 45.0 to 49.9 in adult, unspecified whether serious comorbidity present (HCC) documented in this encounter [facility] note* Diagnosis Obesity, Class III, BMI >= 40 Morbid obesity documented in this encounter [facility] note* Diagnosis Encounter for gynecological examination (general) (routine) without abnormal findings- Primary Screening for cervical cancer Screening for malignant neoplasm of the cervix Encounter for screening for human papillomavirus (HPV) Special screening examination for human papillomavirus (HPV) documented in this encounter [facility] note* Diagnosis PCOS (polycystic ovarian syndrome)- Primary Polycystic ovaries documented in this encounter [facility] note* Diagnosis Positive test- Primary examination or test, positive result documented in this encounter [facility] note* Diagnosis Procreation management investigation and testing- Primary Other investigation and testing for procreative management documented in this encounter [facility] note* Diagnosis , location unknown- Primary state, incidental documented in this encounter [facility] note* Diagnosis Early stage of - Primary state, incidental documented in this encounter [facility] note* Diagnosis Pelvic pain in - Primary Other specified complication of , unspecified as to episode of care Early stage of state, incidental of unknown anatomic location state, incidental Bleeding in early Unspecified hemorrhage in early , unspecified as to episode of care documented in this encounter [facility] note* Diagnosis Bleeding in early [O20.9]- Primary Unspecified hemorrhage in early , unspecified as to episode of care documented in this encounter [facility] for referral (narrative)* Diagnostic Procedure Only (Routine) - Pending Review Specialty Diagnoses / Procedures Referred By Arabella wilcox Referred To Contact XR IMAGING Diagnoses Encounter for fertility testing Procedures XR HYSTEROSALPINGOGRAM CATH & SALINE/CONTRAST SONOHYSTER/HYSTEROSALPI Diana Eastman MD [address] [place] [address] Xr Imaging Referral ID Status Reason Start Date Expiration Date Visits Requested Visits Authorized [id number] Pending Review Auto-Generat ed Referral 03/22/2022 03/21/2023 1 1 [facility] for referral (narrative)* Diagnostic Procedure Only (Routine) - Closed Specialty Diagnoses / Procedures Referred By Contac t Referred To Contact [facility] Diagnoses Early stage of Procedures OBSTETRIC ULTRASOUND WHI US PREG UTERUS AFTER 1ST TRIMEST GESTATION Mayank Squires MD [address] [place] [address] [facility] [address] [place] [address] Referral ID Status Reason Start Date Expiration Date V isits Requested Visits Authorized [id number] Closed Auto-Generate d Referral 01/10/2024 01/09/2025 1 1 [facility] Summary Purpose Family History No Family History [...] (MNT) MEDICAL NUTRITION ASSMT&IVNTJ INDIV EACH 15 [place] MEDICAL NUTRITION ASSMT&IVNTJ INDIV EACH 15 [place] MEDICAL NUTRITION ASSMT&IVNTJ INDIV EACH 15 [place] MEDICAL NUTRITION ASSMT&IVNTJ INDIV EACH 15 [place] Denis Machado MD [address] [place] [address] Referral ID Status Reason Start Date Expiration Date Visits Requested Visits Authorized [id number] Authorized PCP Requested Referral 12/23/2022 12/23/2023 1 1 Additional Source Comments INFORMATION SOURCE (unrecogn ized section and content) DATE CREATED AUTHOR 07/29/2020 [facility] DATE CREATED AUTHOR AUTHOR'S ORGANIZ ATION 05/22/2023 [facility] DATE CREATED AUTHOR AUTHOR'S ORGANIZ ATION 06/04/2023 [facility] DATE CREATED AUTHOR AUTHOR'S ORGANIZ ATION 10/19/2023 [facility] DATE CREATED AUTHOR AUTHOR'S ORGANIZ ATION 01/12/2024 [facility] Source Comments (unrecognize d section and content) In the event this informatio n is protected by the Federal Confidentiality of Alcohol and Drug Abuse Patient Records regulations: The Federal rules restrict any use of the information to criminally investigate or prosecute any alcohol or drug abuse patient.[facility] event this information is protected by the Federal Confidentiality of Alcohol and Drug Abuse Patient Records regulations: The Federal rules restrict any use of the information to criminally investigate or prosecute any alcohol or drug abuse patient.[facility] the event this information is protected by the Federal Confidentiality of Alcohol and Drug Abuse Patient Records regulations: The Federal rules restrict any use of the information to criminally investigate or prosecute any alcohol or drug abuse patient.[facility] the event this information is protected by the Federal Confidentiality of Alcohol and Drug Abuse Patient Records regulations: The Federal rules restrict any use of the information to criminally investigate or prosecute any alcohol or drug abuse patient.[facility] the event this information is protected by the Federal Confidentiality of Alcohol and Drug Abuse Patient Records regulations: The Federal rules restrict any use of the information to criminally investigate or prosecute any alcohol or drug abuse patient.[facility] the event this information is protected by the Federal Confidentiality of Alcohol and Drug Abuse Patient Records regulations: The Federal rules restrict any use of the information to criminally investigate or prosecute any alcohol or drug abuse patient.[facility] the event this information is protected by the Federal Confidentiality of Alcohol and Drug Abuse Patient Records regulations: The Federal rules restrict any use of the information to criminally investigate or prosecute any alcohol or drug abuse patient.[facility] the event this information is protected by the Federal Confidentiality of Alcohol and Drug Abuse Patient Records regulations: The Federal rules restrict any use of the information to criminally investigate or prosecute any alcohol or drug abuse patient.[facility] the event this information is protected by the Federal Confidentiality of Alcohol and Drug Abuse Patient Records regulations: The Federal rules restrict any use of the information to criminally investigate or prosecute any alcohol or drug abuse patient.[facility] the event this information is protected by the Federal Confidentiality of Alcohol and Drug Abuse Patient Records regulations: The Federal rules restrict any use of the information to criminally investigate or prosecute any alcohol or drug abuse patient.[facility] the event this information is protected by the Federal Confidentiality of Alcohol and Drug Abuse Patient Records regulations: The Federal rules restrict any use of the information to criminally investigate or prosecute any alcohol or drug abuse patient.[facility] the event this information is protected by the Federal Confidentiality of Alcohol and Drug Abuse Patient Records regulations: The Federal rules restrict any use of the information to criminally investigate or prosecute any alcohol or drug abuse patient.[facility] the event this information is protected by the Federal Confidentiality of Alcohol and Drug Abuse Patient Records regulations: The Federal rules restrict any use of the information to criminally investigate or prosecute any alcohol or drug abuse patient.[facility] the event this information is protected by the Federal Confidentiality of Alcohol and Drug Abuse Patient Records regulations: The Federal rules restrict any use of the information to criminally investigate or prosecute any alcohol or drug abuse patient.[facility] the event this information is protected by the Federal Confidentiality of Alcohol and Drug Abuse Patient Records regulations: The Federal rules restrict any use of the information to criminally investigate or prosecute any alcohol or drug abuse patient.[facility]ima[facility] the event this information is protected by the Federal Confidentiality of Alcohol and Drug Abuse Patient Records regulations: The Federal rules restrict any use of the information to criminally investigate or prosecute any alcohol or drug abuse patient.[facility] the event this information is protected by the Federal Confidentiality of Alcohol and Drug Abuse Patient Records regulations: The Federal rules restrict any use of the information to criminally investigate or prosecute any alcohol or drug abuse patient.[facility]ima[facility] the event this information is protected by the Federal Confidentiality of Alcohol and Drug Abuse Patient Records regulations: The Federal rules restrict any use of the information to criminally investigate or prosecute any alcohol or drug abuse patient.[facility]ima[facility] the event this information is protected by the Federal Confidentiality of Alcohol and Drug Abuse Patient Records regulations: The Federal rules restrict any use of the information to criminally investigate or prosecute any alcohol or drug abuse patient.[facility]ima[facility] the event this information is protected by the Federal Confidentiality of Alcohol and Drug Abuse Patient Records regulations: The Federal rules restrict any use of the information to criminally investigate or prosecute any alcohol or drug abuse patient.[facility]ima[facility] the event this information is protected by the Federal Confidentiality of Alcohol and Drug Abuse Patient Records regulations: The Federal rules restrict any use of the information to criminally investigate or prosecute any alcohol or drug abuse patient.[facility]ima[facility] the event this information is protected by the Federal Confidentiality of Alcohol and Drug Abuse Patient Records regulations: The Federal rules restrict any use of the information to criminally investigate or prosecute any alcohol or drug abuse patient.[facility]ima[facility] the event this information is protected by the Federal Confidentiality of Alcohol and Drug Abuse Patient Records regulations: The Federal rules restrict any use of the information to criminally investigate or prosecute any alcohol or drug abuse patient.[facility]ima[facility] the event this information is protected by the Federal Confidentiality of Alcohol and Drug Abuse Patient Records regulations: The Federal rules restrict any use of the information to criminally investigate or prosecute any alcohol or drug abuse patient.[facility]ima[facility] the event this information is protected by the Federal Confidentiality of Alcohol and Drug Abuse Patient Records regulations: The Federal rules restrict any use of the information to criminally investigate or prosecute any alcohol or drug abuse patient.[facility]imaIn the event this information is protected by the Federal Confidentiality of Alcohol and Drug Abuse Patient Records regulations: The Federal rules restrict any use of the information to criminally investigate or prosecute any alcohol or drug abuse patient.[facility] Reason for Visit (unrecogniz ed section and content) Reason Comments Rx Refills Reason Comments Well Woman Reason Comments Infertility Specialty Diagnoses / Procedures Referred By Arabella t Referred To Contact [facility]ODUCT[facility] ENDOCRINOLOGY & FERTILITY Diagnoses Infertility counseling infertility consult Procedures OFFICE CONSULTATION NEW/ESTAB PATIENT 40 MIN infertility consult Diana Eastman [address] [place] [address] Vickie Us [facility] [address] [address] [place] [id number] Referral ID Status Reason Start Date Expiration Date Visits Requested Visits Authorized [id number] Authorized Benefit Check 01/22/2022 03/20/2022 99 99 Specialty Diagnoses / Procedures Referred By [facility] t Referred To Contact XR IMAGING Diagnoses Encounter for fertility testing Procedures XR HYSTEROSALPINGOGRAM CATH & SALINE/CONTRAST SONOHYSTER/HYSTEROSALPI HYSTEROSALPINGOGRAPHY RS&I URINE TEST Diana Eastman MD [address] [place] [address] Xr Imaging Referral ID Status Reason Start Date Expiration Date Visits Requested Visits Authorized [id number] Authorized Benefit Check 03/22/2022 03/21/2023 4 4 Reason Comments Establish Care Specialty Diagnoses / Procedures Referred By [facility] t Referred To Contact REPRODUCTIVE ENDOCRINOLOGY & FERTILITY Diagnoses Encounter for other procreative management Procedures ARTIFIC INSEMINATION INTRAUTERIN OFFICE/OUTPATIENT ESTABLISHED MOD MDM 30-39 [place] [address] [place] [address] [facility] [address] [address] [place] [address] Referral ID Status Reason Start Date Expiration Date V isits Requested Visits Authorized [id number] Closed Benefit Check 10/22/2022 01/20/2023 4 1 Reason Comments Weight Problem Reason Comments Medical Weight Management Reason Onset Date Comments Refill Request 07/19/2023 Reason Comments Infertility Reason Comments pos preg test 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 [address] [facility] [address] [place] [address] Referral ID Status Reason Start Date Expiration Date V isits Requested Visits Authorized [id number] Closed Auto-Generate d Referral 01/10/2024 01/09/2025 1 1 Care Teams (unrecognized sec tion and content) Bend Up Relationship Specialty Start Date End Date Laila Wyatt PCP - General Family Practice 04/20/11 Bend Up Relationship Specialty Start Date End Date Laila Wyatt PCP - General Family Practice 04/20/11 Bend Up Relationship Specialty Start Date End Date Laila Wyatt PCP - General Family Medicine 04/20/11 Bend Up Relationship Specialty Start Date End Date Laila Wyatt PCP - General Family Medicine 04/20/11 Bend Up Relationship Specialty Start Date End Date Laila Wyatt PCP - General Family Medicine 04/20/11 Bend Up Relationship Specialty Start Date End Date Laila Wyatt PCP - General Family Medicine 04/20/11 Bend Up Relationship Specialty Start Date End Date Laila Wyatt PCP - General Family Medicine 04/20/11 Bend Up Relationship Specialty Start Date End Date Laila Wyatt PCP - General Family Medicine 04/20/11 Bend Up Relationship Specialty Start Date End Date Laila Wyatt PCP - General Family Medicine 04/20/11 Bend Up Relationship Specialty Start Date End Date Laila Wyatt PCP - General Family Medicine 04/20/11 Bend Up Relationship Specialty Start Date End Date Laila Wyatt PCP - General Family Medicine 04/20/11 Bend Up Relationship Specialty Start Date End Date Laila Wyatt PCP - General Family Medicine 04/20/11 Bend Up Relationship Specialty Start Date End Date Laila Wyatt PCP - [facility] 04/20/11 Bend Up Relationship Specialty Start Date End Date Laila Wyatt PCP - [facility] 04/20/11 Bend Up Relationship Specialty Start Date End Date Laila Wyatt PCP - [facility] 04/20/11 Bend Up Relationship Specialty Start Date End Date Laila Wyatt PCP [facility] 04/20/11 Bend Up Relationship Specialty Start Date End Date Laila Wyatt PCP General Family Medicine 04/20/11 Bend Up Relationship Specialty Start Date End Date Laila Wyatt PCP [facility] 04/20/11 FOR RECORDS PERTAINING TO PATIENTS [...] BE BASED ON THE PRIMARY CLINICAL RECORDS. [facility] [employer] [facility]. provides no warranty or guarantee of the accuracy or completeness of information in this document.
--- NOTE | 2024-01-13 20:30 | PCM.POST.ANE ---
Anesthesia: Postop Eval I Current Vital Signs Temperature: 97.2 F Pulse Rate: 75 Blood Pressure: 134/75 Respiratory Rate: 19 Pulse Ox: 100 Assessment Airway patent: Yes Spontaneous unlabored respirations: Yes nausea: No Vomiting: No Anesthesia Complication: No Fluid Hydration Crystalloid volume administer (ml): 1,200 Total IV fluid infused: 1,200 Progress Note Anesthesia document: Postop Eval 1 completed: No
--- NOTE | 2024-01-13 20:31 | POSTOPAN2_ITS ---
Anesthesia Postop Eval I Sum Postop Eval Completion status Anesthesia document: Postop Eval 1 completed: No Anesthesia Postop Eval I Summary Anesthesia Postop Eval I Summary: Anesthesia Postop Eval I: Assessment Summary Airway patent Yes 01/13/24 20:30 COOK SHORT ORDER.[email or web address] Spontaneous unlabored Yes 01/13/24 20:30 COOK SHORT ORDER.[email or web address] respirations Mental status nausea No 01/13/24 20:30 COOK SHORT ORDER.[email or web address] Vomiting No 01/13/24 20:30 COOK SHORT ORDER.JCOTE Anesthesia Postop Eval I: Fluid Summary Crystalloid volume administer 1,200 01/13/24 20:30 COOK SHORT ORDER.JCOTE (ml) Colloids volume administered ( ml) Blood Product volume administered (ml) Total IV fluid infused 1,200 01/13/24 20:30 COOK SHORT ORDER.JCOTE Anesthesia Postop Eval I: Summary Notes Anesthesia Complication No 01/13/24 20:30 COOK SHORT ORDER.JCOTE Anesthesia Complication Comment: Post-operative progress note Anesthesia: Postop Eval II Evaluation Mental status: Asleep Pain Level: 0 nausea: No Vomiting: No
--- NOTE | 2024-01-13 20:31 | PCM.POSTANE2 ---
Anesthesia Postop Eval I Sum Postop Eval Completion status Anesthesia document: Postop Eval 1 completed: No Anesthesia Postop Eval I Summary Anesthesia Postop Eval I Summary: Anesthesia Postop Eval I: Assessment Summary Airway patent Yes 01/13/24 20:30 PAINT [email or web address] Spontaneous unlabored Yes 01/13/24 20:30 PAINT SUPERVISOR.[email or web address] respirations Mental status nausea No 01/13/24 20:30 PAINT SUPERVISOR.[email or web address] Vomiting No 01/13/24 20:30 PAINT SUPERVISOR.[email or web address] Anesthesia Postop Eval I: Fluid Summary Crystalloid volume administer 1,200 01/13/24 20:30 PAINT SUPERVISOR.[email or web address] (ml) Colloids volume administered ( ml) Blood Product volume administered (ml) Total IV fluid infused 1,200 01/13/24 20:30 PAINT SUPERVISOR.JCOTE Anesthesia Postop Eval I: Summary Notes Anesthesia Complication No 01/13/24 20:30 PAINT SUPERVISOR.JCOTE Anesthesia Complication Comment: Post-operative progress note Anesthesia: Postop Eval II Evaluation Mental status: Asleep Pain Level: 0 nausea: No Vomiting: No
[2024-01-13] MEDS: HYDROcodone Bitartrate/Apap 5/325 Tablet PO (22:13)
== END 2024-01-13 23:19 | disposition home or self-care (01) ==
LOC: ED 18:45 → ACINP 20:11 → ED 20:13 → SDC 20:13 → ACINP 20:14
PROVIDERS: Emergency Provider Emergency Medicine; PCP Family Medicine; Visit Provider Obstetrics & Gynecology
PROC: 10T24ZZ Resection of Products of Conception, Ectopic, Percutaneous Endoscopic Approach (ICD-10-PCS; CPT 59150; principal; 2024-01-13 19:00)
DX: O00.102 Left tubal pregnancy without intrauterine pregnancy (principal); O99.611 Diseases of the digestive system complicating pregnancy, first trimester; K66.1 Hemoperitoneum; Z3A.01 Less than 8 weeks gestation of pregnancy
CPT/HCPCS: 59151; 76817; 84702; 85014; 85018; 88305; 99284; A4216; J2405

== ENCOUNTER 2024-05-07 21:59 | Emergency (ER) | payer BC, SELFPAY ==
[2024-05-07 21:59] VITALS: BP 163/90; PULSE 89; RESP 17; TEMP 37; O2SAT 98; BMI 44.6
[2024-05-08 00:17] VITALS: BP 156/96; PULSE 79; RESP 16; O2SAT 99
--- NOTE | 2024-05-08 00:28 | US_ITS ---
PROCEDURE: TRANSVAGINAL W/PREG US REASON FOR EXAM: 34-year-old female, vaginal bleeding in . COMPARISON: None. FINDINGS: Comments: Small hypoechoic fluid collection surrounding the gestational sac measuring 1.3 x 0.8 x 0.6 cm. Number of Gestational Sacs: 1 Gestational Sac Shape: Normal Number of Fetuses: 1 Heart Rate: 108 (average) Yolk Sac: Present and unremarkable. Placenta: Presently not well-visualized Amniotic Fluid Volume: Subjectively normal for gestational age. Uterine Abnormalities: Maternal uterus is unremarkable. Ovaries / Adnexa: Both maternal ovaries are visualized and unremarkable. DIMENSIONS: Parameter Measurement / EGA [place] Rump Length: 3.2 mL/6 weeks 1 day Gestational Sac: 1.3 cm/6 weeks 0 days Yolk Sac: 3.7 mm/N/A ESTIMATED GESTATIONAL AGE: By Ultrasound: 6 weeks 1 day By LMP: 6 weeks 4 days ESTIMATED DATE OF DELIVERY: By Ultrasound: 12/31/2024 By LMP: 12/28/2024 US/Transvaginal w/Preg US IMPRESSION: Small subchorionic hematoma. Otherwise unremarkable 1st trimester pelvic ultra sound. Reading Location: [id number]
[2024-05-08 01:04] LABS: Absolute Lymphocyte Count 4.73 X10^3/uL (0.83-4.51); Absolute Neutrophil Count 11.7 X10^3/uL (2.0-7.7); Basophil# 0.06 X10^3/uL; Basophil% 0.3 % (0-1); Eosinophil# 0.24 X10^3/uL; Eosinophils% 1.3 % (0-5); Hematocrit 41.9 % (37-47); Hemoglobin 13.7 g/dL (12.0-15.0); Lymphocyte # 4.73 X10^3/ul (0.83-4.51); Lymphocyte % 26.1 % (19-41); Mean Corp Hgb Conc 32.7 g/dL (32-36); Mean Corpuscular Hgb 27.6 pg (27.0-32.0); Mean Corpuscular Volume 84.5 fL (81-99); Mean Platelet Vol. 9.7 fl (6.2-12.0); Monocyte# 1.28 X10^3/uL; Monocyte% 7.1 % (0-10); NRBC Flagged by Analyzer 0 % (0-5); Neutrophil # 11.73 X10^3/uL (2.7-7.7); Neutrophil % 64.8 % (47-70); Platelet Count 363 K/mm3 (150-450); RBC Distribution Width CV 14.4 % (11.6-14.6); RBC Distribution Width SD 43.7 fl (35.1-43.9); Red Blood Count 4.96 M/mm3 (4.2-5.4); White Blood Count 18.1 K/mm3 (4.4-11.0)
--- NOTE | 2024-05-08 01:10 | EDS_ITS ---
HPI HPI - Female History of Present Illness Chief Complaint: Vag Bld, Preg Narrative Narrative: Chief complaint and HPI: Vaginal bleeding. 34-year-old female who is G6, P0, A5 presents for evaluation of vaginal bleeding. Patient is 6 weeks via last menstrual period as well as ultrasound. Patient has history of PCOS with 2 miscarriages and 3 ectopic pregnancies. Her last ectopic was in December which she ended up with surgery. Patient follows with the fertility clinic at [facility]. She states she has been on ovulation medication. Patient states she had a routine ultrasound today that showed a live intrauterine . She states they were slightly concerned because the heart rate was 99. She is scheduled for a new ultrasound in 1 week. Patient states she went to the grocery store and developed vaginal bleeding. She states the vaginal bleeding is slowing down. She endorses some mild pelvic cramping. She denies any nausea or vomiting. Denies any fever, chills or vaginal discharge. Review of systems: See HPI Medications: As listed on the chart Allergies: As listed on the chart PFSH: Per chart Vital signs: As listed on the chart. Reviewed. Physical exam: Gen: A&O x3, NAD Head: Normocephalic, atraumatic Eyes: No sclera icterus, conjunctiva clear ENT: Moist mucous membranes Neck: Trachea midline, No JVD CV: RRR, no murmurs, no peripheral edema Resp: Lungs CTA BL, no w/r/c GI: Abd soft, non-distended, non-tender, no r/r/g Pelvic: Normal external genitalia. No lesions, masses, or rashes appreciated. Minimal bleeding out of the cervical os. Cervical os is closed. She has some friable tissue around the os. No cervical motion tenderness appreciated. No sign of PID on examination. Musc: Full ROM, no deformity Skin: Warm, dry Neuro: Alert, oriented, grossly intact, sensation intact Psych: Cooperative, appropriate mood and affect [facility] Home Medications ?Medication ?Instructions ?Recorded ?Last Taken ?Type vit 122-ferrous fumarate 1 ea PO DAILY Unknown History 27 mg iron-folic acid 800 mcg tablet progesterone micronized 200 mg 200 mg vaginal QHS 04/21 10/12 Unknown History capsule cephalexin 500 mg capsule 500 mg PO Q6H 7 days #28 cap s 05/08/24 Unknown Rx Allergy/AdvReac Type Severity Reaction Status Date / Time No Known Allergies Allergy Verified 05/07/24 22:00 Social History Smoking Status: Never smoker EXAM Physical Exam Const Vital Signs: 05/07/24 21:59 05/08/24 00:17 05/08/24 02:00 Temperature 98.6 F Temperature Source Oral Pulse Rate 89 79 82 Respiratory Rate 17 16 18 Blood Pressure 163/90 H 156/96 H 140/82 H Blood Pressure Mean 114 116 101 Pulse Ox 98 99 96 Oxygen Delivery Method Room Air Room Air Room Air 05/08/24 04:08 Temperature 98.5 F Temperature Source Pulse Rate 82 Respiratory Rate 18 Blood Pressure 134/78 H Blood Pressure Mean 96 Pulse Ox 96 Oxygen Delivery Method MDM MDM MDM Narrative Medical decision making narrative: 34-year-old female who is G6, P0, A5 presents for evaluation of vaginal bleeding. Differential diagnosis includes but is not limited to incomplete , complete , bleeding in early , subchorionic hemorrhage, UTI, anemia. See physical exam findings. Vaginal bleeding workup ordered including labs and ultrasound. CBC with a leukocytosis of 18.1. No anemia. BMP with mild hypokalemia. No KENZIE. hCG quant is 20,696. UA is negative for UTI but positive for blood. This is consistent with vaginal bleeding. Patient does have 3+ bacteria therefore we will treat with Keflex for bacteriuria in . Patient is be positive. OB ultrasound shows small subchorionic hematoma. IUP. heart rate 108. Given patient's complicated history and her following with her fertility clinic with vaginal bleeding we will consult her fertility clinic with [facility]. I spoke with the resident for [facility]. She states they need to talk to the attending physician on-call. After multiple phone calls between the transfer line and our bilingual receptionist, attending is unable to be contacted. I was able to get a hold of the SHE[employer] SUPERVISOR fellow. She states that she is able to take the call as long as it is not a transfer. Patient was discussed and she was given all laboratory and imaging findings. Plan is for discharge home. Keep appointment next week for repeat ultrasound. Strict return precautions. Patient was educated on all the results and the plan. She confirmed understanding. I did advise her to have pelvic rest until follow-up with fertility clinic. She confirmed understanding. Return precautions explained. Patient discharged home on Keflex for bacteriuri a in . Impression: 1. Subchorionic hematoma 2. Vaginal bleeding in first trimester 3. Bacteria in Lab Data Labs: Laboratory Results - last 24 hr 05/08/24 05/08/24 00:55 01:08 WBC 18.1 H RBC 4.96 Hgb 13.7 Hct 41.9 MCV 84.5 MCH 27.6 MCHC 32.7 RDW Std Deviation 43.7 RDW Coeff of Roge 14.4 Plt Count 363 MPV 9.7 Immature Gran % (Auto) 0.400 Neut % (Auto) 64.8 Lymph % (Auto) 26.1 [place] % (Auto) 7.1 Eos % (Auto) 1.3 Baso % (Auto) 0.3 Absolute Neuts (auto) 11.7 H Absolute Lymphs (auto) 4.73 H Nucleated RBC % 0 Sodium 138 Potassium 3.4 L Chloride 108 H Carbon Dioxide 23.0 Anion Gap 7 BUN 7 Creatinine 0.60 Estim Creat Clear Calc 188.50 Est GFR (MDRD) Af Amer 147 Est GFR (MDRD) Non-Af 122 BUN/Creatinine Ratio 11.6 Glucose 104 Calcium 9.4 HCG, Quant 88696 H Urine Color Yellow Urine Clarity Sl. Cloudy Urine pH 6.0 Ur Specific [place] 1.025 Urine Protein 15 H Urine Glucose (UA) Normal Urine Ketones Negative Urine Occult Blood 150 H Urine Nitrite Negative Urine Bilirubin Negative Urine Urobilinogen Normal Ur Leukocyte Esterase Negative Urine RBC 5-10 SEEN Urine WBC 0-5 SEEN Ur Squamous Epith Cells 0-5 SEEN Urine Bacteria 3+ Urine Mucus 2+ Blood Type B POSITIVE ABO/Rh Cancelled A1 Subgroup Cancelled Rho(D) Tech Interpret Cancelled Radiography Diagnostic Testing: Clinical Impression(s) from Imaging Studies Obstetrics Ultrasound 05/08/24 00:28 IMPRESSION: Small subchorionic hematoma. Otherwise unremarkable 1st trimester pelvic ultrasound. Reading Location: [id number] Discharge Plan Triage Chief Complaint: Vag Bld, Preg ED Provider: Reilly Farmer Dx/Rx/DC Orders Clinical Impression: Subchorionic hemorrhage in first trimester Instructions: Vaginal Bleeding During Prescriptions: New cephalexin 500 mg capsule 500 mg PO Q6H 7 Days Qty: 28 0RF No Action [id number] acid 1 EACH tablet 1 ea PO DAILY progesterone micronized 200 mg capsule 200 mg vaginal QHS Primary Care Provider: Laila Lima Referrals: Laila Lima MD [Primary Care Provider] - 3-5 Days Activity Restrictions/Additional Instructions: Follow-up with your infertility SHE[employer] SUPERVISOR. Call to make an appointment. Pelvic rest. Return back to the ED if symptoms change or worsen. Print Language: Citizen Of [place] Disposition Disposition: Home, Self Care Discharge Date/Time: 05/08/24 04:18
[2024-05-08 01:17] LABS: Color, Urine Yellow (Yellow); Glucose, Dipstick Normal (Normal); Ketone-Dipstick Negative (Negative); Leukocyte Esterase-Dipstick Negative /ul (Negative); Nitrite-Dipstick Negative (Negative); Occult Blood-Urine 150 /ul (Negative); Protein-Dipstick 15 mg/dl (Negative); Specific Gravity, Urine 1.025 (1.002-1.030); Urine Bilirubin Dipstick Negative (Negative); Urine Clarity Sl. Cloudy (Clear); Urine Urobilinogen Normal (Normal)
[2024-05-08 01:18] LABS: Anion Gap 7 (5-15); BUN 7 mg/dL (7-18); BUN/Creat Ratio 11.6 RATIO (10-20); Calcium,Total 9.4 mg/dL (8.5-10.1); Chloride 108 mmol/L (98-107); EST Glomerular Filtration Rate 122 mL/min (>60); Est Glom Filt Rate - Afr Amer 147 mL/min (>60); Glucose 104 mg/dL (74-106); Potassium 3.4 mmol/L (3.5-5.1); Sodium Level 138 mmol/L (136-145)
[2024-05-08 02:00] VITALS: BP 140/82; PULSE 82; RESP 18; O2SAT 96
[2024-05-08 02:00] LABS: hCG Titer Quant., Serum 20696 mIU/mL (1-3)
[2024-05-08 02:17] LABS: Bacteria 3+ /hpf (None Seen); Mucous, Urine 2+ /hpf (<or=2+); Red Blood Cells-Urine 5-10 SEEN /hpf (0-5); Squamous Epithelial Cells - UA 0-5 SEEN /hpf (5-10); White Blood Cells 0-5 SEEN /hpf (0-5)
[2024-05-08 04:08] VITALS: BP 134/78; PULSE 82; RESP 18; TEMP 36.9; O2SAT 96
[2024-05-08] MEDS: Cephalexin 250 MG Capsule 500 MG PO (04:14)
== END 2024-05-08 04:18 | disposition home or self-care (01) ==
PROVIDERS: Emergency Provider Surgery; PCP Family Medicine; Visit Provider Surgery
DX: O20.8 Other hemorrhage in early pregnancy (principal); O26.891 Other specified pregnancy related conditions, first trimester; R10.2 Pelvic and perineal pain; O99.281 Endocrine, nutritional and metabolic diseases complicating pregnancy, first trimester; E87.6 Hypokalemia; R82.71 Bacteriuria; Z3A.01 Less than 8 weeks gestation of pregnancy
CPT/HCPCS: 76817; 80048; 81001; 84702; 85025; 86900; 86901; 99283; A4216

== ENCOUNTER 2024-12-21 09:40 | Inpatient (IN) | payer BC, SELFPAY ==
[2024-12-21] VITALS (23 sets, daily range): BP systolic 110–150; BP diastolic 50–112; PULSE 56–83; RESP 15–24; TEMP 36–37.4; O2SAT 94–100; BMI 44.8
[2024-12-21] MEDS: Lactated Ringers 1,000 ML 999 ML IV ×2 (09:55→11:00)
[2024-12-21 10:18] LABS: Hematocrit 34.6 % (37-47); Hemoglobin 11.5 g/dL (12.0-15.0); Immature Granulocytes Count 0.160 X10^3/uL (0.0-0.0); Mean Corp Hgb Conc 33.2 g/dL (32-36); Mean Corpuscular Volume 83.8 fL (81-99); Mean Platelet Vol. 10.7 fl (6.2-12.0); NRBC Flagged by Analyzer 0 % (0-5); Platelet Count 329 K/mm3 (150-450); RBC Distribution Width CV 14.7 % (11.6-14.6); RBC Distribution Width SD 44.2 fl (35.1-43.9); Red Blood Count 4.13 M/mm3 (4.2-5.4); White Blood Count 15.5 K/mm3 (4.4-11.0)
[2024-12-21 11:07] LABS: Syphilis Antibodies Nonreactive (Nonreactive)
[2024-12-21] MEDS: morphine PF (epidural) 5 MG/10 ML Vial IV (12:15)
--- NOTE | 2024-12-21 12:27 | HP.PCM_ITS ---
History and Physical Date of Admission: 12/21/24 Assessment & Plan Assessment/Plan (1) Marlon breech: (2) Gestational diabetes requiring insulin: (3) Supervision of high risk in third trimester: (4) Maternal obesity affecting , antepartum: (5) BMI greater than 40: (6) Advanced maternal age (AMA) in :
--- NOTE | 2024-12-21 12:27 | PCM.HP.BLA ---
History and Physical Date of Admission: 12/21/24 34-year-old female with history of recurrent loss at 39 weeks with gestational diabetes on insulin. Gestational diabetes well-controlled. Fetus in marcela breech position. Presents for primary section. She denies any gross vaginal bleeding leaking of fluid. Review of systems: General no fevers or chills heme no history of prolonged bleeding or easy bruising cardiac no chest pain or palpitations respiratory no shortness of breath or cough Physical exam: General awake and alert no acute distress Skin warm dry and intact Lungs clear to auscultation bilaterally Abdomen soft nontender nondistended gravid Extremities 1+ edema no clubbing or cyanosis Assessment & Plan Assessment/Plan (1) Marcela breech: PLAN: Risk-benefit and alternatives to primary section were discussed with patient her questions were answered to her satisfaction consent was signed and she desired to proceed. (2) Gestational diabetes requiring insulin: (3) Supervision of high risk in third trimester: (4) Maternal obesity affecting , antepartum: (5) BMI greater than 40: (6) Advanced maternal age (AMA) in :
[2024-12-21] MEDS: Cefazolin 1 GM/5 ML Vial 3 GM IV (12:45)
--- NOTE | 2024-12-21 13:14 | OP.PCM_ITS ---
Maternal Data Information Final JANEY: 12/21/24
--- NOTE | 2024-12-21 13:14 | EX.PCM.OBRPT ---
Maternal Data Information Final JANEY: 12/21/24 Gestational age: 39 0/7 Operative Report (OB) Procedure Details Date of Procedure: 12/21/24 Procedure Start Time: 12:35 Procedure Stop Time: 13:20 Time of Delivery: 12:40 Pre-Operative Diagnosis: Breech (marcela) Post-Operative Diagnosis: Same as Pre-operative diagnosis Classification: Scheduled Type of Anesthesia: Spinal Special Medications: Duramorph Antibiotic Given: Ancef 3 grams IV x1 Drain: Becker to straight drain Estimated Blood Loss: 800 Fluids Replaced: 900 Findings Description of surgery: The patient was taken to the operating room. She was prepped and draped in the dorsal supine position with a leftward tilt. A Pfannenstiel skin incision was made approximately 2 cm above the symphysis pubis and carried through to underlying layer fascia with the scalpel. The fascia was incised incised in the midline and extended laterally with the Luna scissors. The fascia was dissected off the rectus muscles with blunt and sharp dissection. The rectus muscles were in the midline and the peritoneum was entered bluntly. The peritoneal incision was stretched and the See O retractor was placed in the usual fashion. The uterine incision was made in a low transverse fashion with the scalpel and extended superiorly and inferiorly with blunt dissection. The amniotic membranes were ruptured bluntly and clear amniotic fluid returned. The 's buttocks were brought up to the incision and delivered, the legs were swept out individually, a tie was placed around the trunk of the and the arms were swept out individually and the head was delivered in a flexed position without any significant traction with fundal pressure in the standard fashion. The mouth and nares were bulb suctioned. The cord was clamped and cut as the was stimulated. Cord clamping was delayed. The infant was handed off to the waiting nursing staff. The placenta was delivered with fundal massage and gentle traction in the standard fashion. The uterus was left in situ. The cervix was dilated with a ring forcep. The uterine incision was closed with #1 Vicryl in a running locked fashion. The incision was examined and was found to be hemostatic. Hemablast was placed over the incision. The rectus muscles were examined and any bleeding was Bovie cauterized. The parietal peritoneum was closed with and 0 Vicryl running suture. The rectus fascia was examined and any bleeding was Bovie cauterized and the rectus fascia was closed with 1 Vicryl suture in a running standard fashion. Hemablast was placed over the rectus muscles and in the subcutaneous tissue. The subcutaneous tissue was examining and any bleeding was Bovie cauterized. The subcutaneous tissue was reapproximated with 3-0 Vicryl suture in 2 layers. The skin was closed in a subcuticular fashion by the DIESEL RETROFIT DESIGNER with me present in the labor and delivery suite. I performed the remainder of the procedure with assistance. All sponge, lap, and needle counts were correct. The patient was taken to her room for recovery in a stable condition. Surgical findings: normal uterus tubes and ovaries, normal placenta, vigorous female infant Presentation: Marcela Breech Amniotic Membrane Rupture Type: Artificial Amniotic Fluid Description: Clear Placental Delivery Description: Expressed Placenta Disposition: [facility] Specimen collected: No Cord Vessel Description: 3 Vessels Cord Entanglement: None Infant A gender: Female (1 minute): 6 (5 minute): 8 Delayed Cord Clamping: Yes Sterile Process Coordinator academic support coordinator: Yes Contact Center Manager: Eleanor Holt Tasks completed by first assistant manager: Closing, Hemostasis: Electrocautery and Retracting Additional news production assistant?: Yes Additional Family Support Specialist #2: Irene Jones MS4 Tasks completed by news production assistant #2: Closing Additional news production assistant?: No Complications Complications: No Admit VTE Documentation VTE Present on Admission: No VTE Mechan Device Prophylaxis: SCD's VTE Pharm Prophylaxis Ordered: Yes
--- NOTE | 2024-12-21 13:25 | PCM.POST.ANE ---
Anesthesia: Postop Eval I Current Vital Signs Temperature: 96.8 F Pulse Rate: 80 Blood Pressure: 110/75 Respiratory Rate: 18 Pulse Ox: 99 Oxygen Delivery Method: Room Air Assessment Airway patent: Yes Spontaneous unlabored respirations: Yes Mental status: Awake nausea: No Vomiting: No Anesthesia Complication: No Fluid Hydration Crystalloid volume administer (ml): 1,500 Total IV fluid infused: 1,500 Progress Note Anesthesia document: Postop Eval 1 completed: Yes
[2024-12-21] MEDS: Oxytocin 15 Units/NS 250ml 15 UNITS/250 ML IV.SOLN 83 UNITS IV (14:00)
[2024-12-21] MEDS: Ketorolac 30 MG/ML Syringe IV ×2 (14:22→20:20)
[2024-12-22] VITALS (15 sets, daily range): BP systolic 124–155; BP diastolic 75–85; PULSE 67–96; RESP 15–17; TEMP 36.6–36.7; O2SAT 96–98
[2024-12-22] MEDS: Ketorolac 30 MG/ML Syringe IV ×2 (03:31→10:13)
[2024-12-22] MEDS: 0.9% Saline Lock 10 ML Syringe IV (03:34)
--- NOTE | 2024-12-22 04:59 | PCM.PN.CNM ---
Subjective Subjective Patient seen at bedside. Denies headache, vision changes, SOB or CP. Ambulating and voiding without difficulty. but supplemented with formula due to baby's blood sugar level. Pain controlled at this time. Objective Data Objective Data Vital Signs: Vital Signs Temp Pulse Resp BP Pulse Ox O2 Del Method 98.0 F 67 15 124/76 H 97 Room Air 12/22/24 03:00 12/22/24 03:00 12/22/24 03:00 12/22/24 03:00 12/22/24 03:24 12/22/24 03:24 Oxygen Delivery Method Room Air Weight: 286 lb 6.087 oz Body Mass Index (BMI) 44.8 Intake & Output: Intake and Output for Last 24 Hours 12/20/24 12/21/24 12/22/24 23:59 23:59 23:59 Intake Total 2300 / 2300 Output Total 2450 / 2450 Balance -150 / -150 Lab / Micro Data Attestation: I reviewed the patient's lab results. 12/21/24 09:55 Labs: Laboratory Results - last 24 hr 12/21/24 09:55: WBC 15.5 H, RBC 4.13 L, Hgb 11.5 L, Hct 34.6 L, MCV 83.8, MCH 27.8, MCHC 33.2, RDW Std Deviation 44.2 H, RDW Coeff of Roge 14.7 H, Plt Count 329, MPV 10.7, Immature Gran % (Auto) 1.000 H, Neut % (Auto) 72.7 H, Lymph % (Auto) 17.8 L, [place] % (Auto) 6.7, Eos % (Auto) 1.4, Baso % (Auto) 0.4, Absolute Neuts (auto) 11.3 H, Absolute Lymphs (auto) 2.75, Nucleated RBC % 0, Syphilis Total Ab Nonreactive, Blood Type B POSITIVE, Antibody Screen NEGATIVE 12/21/24 15:46: POC Glucose 87 12/22/24 04:29: POC Glucose 102 ROS Eyes Eyes: Denies blurry vision, spots in vision or tunnel vision ENT HEENT: Denies dizziness or headache(s) Cardiovascular Cardiovascular: Reports systems reviewed and no addt'l complaints, except as documented, dizziness and dyspnea Respiratory/Chest Respiratory/Chest: Reports systems reviewed and no addt'l complaints, except as documented Gastrointestinal Gastrointestinal: Reports systems reviewed and no addt'l complaints, except as documented Genitourinary Genitourinary: Reports systems reviewed and no addt'l complaints, except as documented Neurologic Neurologic: Denies abnormal speech, dizziness, headache(s), syncope or vertigo Psychiatric Psychiatric: Reports systems reviewed and no addt'l complaints, except as documented Physical Exam Const alert and no apparent distress General Appearance: cooperative Orientation / Consciousness: awake, oriented to person and oriented to place Exam Limitations: no limitations HEENT normocephalic Eyes General Eye: normal appearance of both eyes Neck full ROM Chest Chest: symmetrical chest wall rise Resp normal respiratory effort, normal air movement and clear to auscultation bilaterally Auscultation: clear to auscultation bilaterally Cardio regular rate and regular rhythm GI normal to inspection, nondistended, normoactive bowel sounds Uterus Palpation: uterus fundus firm Extremity full ROM and no calf tenderness Skin no rashes or lesions noted Neuro oriented x3 Psych mental status grossly normal and activity/motor behavior normal Assessment & Plan (1) BMI greater than 40: (2) Gestational diabetes requiring insulin: (3) Status post primary low transverse section: (4) Anxiety: (5) Depression: PLAN: Plan POD 1 Primary C/S Breech Pain control Increase ambulation support
[2024-12-22] MEDS: Senna/Docusate Sodium 1 Tablet PO ×2 (10:13→18:13)
--- NOTE | 2024-12-22 13:52 | CASEMGMT ---
Social Work Assessment Labor and Delivery Unit Patient Address: [address] [place] [address] [place] [address] Phone number: [phone] Date of Referral: 12/21/2024 Time of Referral: 10:22 Referred By: Alyson Sales Date of Intervention: 12/22/2024? Time of Intervention: 13:52 Reason for Referral: Mental health and patient?s father is an alcoholic. History obtained from: Medical records and mother of baby (MOB). ? Household composition: MADIHA, ALEKS (Krishna, age 35) and their daughter, Aaron, born on 12/21/2024. Patient's parent/guardian status:? MOB described a positive relationship with the FOB. MOB and FOB have been together since 2007 and have been since 2017. ? Medical History: : 6, Para, now 1. MOB received PNC through [facility] beginning at 6 weeks and 5 days. Visits were observed to be routine. Apgars: 6,8 and 9. Weight: 6lbs, 7oz. Corporation Pilot: Dr. Presley Fernandez. ? Educational Status: MOB denied any issues or concerns with reading or writing. MOB earned her master?s in occupational therapy and the FOB earned his bachelor?s. Financial Status: MOB reported the household income is sufficient to meet the needs of her family at this time. MOB and FOB are both employed full-time. MOB is taking 8 weeks of maternity, and the FOB is taking 1 week of paternity leave. Supplies: MADIHA reported she has all of the supplies she needs for baby at this time including but not limited to: Car seat, bassinet, crib, diapers, bottles, breast pump and clothing. Childcare/Caregiver(s): Once the MOB returns to work, will be placed in daycare. Transportation: MOB reported she and the FOB are both licensed drivers with reliable vehicles to take baby to and from all medical appointments. No transportation issues identified. Programs/Agencies Involved: MADIHA reported she currently has a psychiatrist through the [facility] who prescribes her anxiety medication that the MOB sees virtually. ? Children Services/Legal Issues:? Denied. Behavioral Health Issues: ??Mental Health History:? MOB has a history of depression and anxiety and is on medication for anxiety. MOB reported she feels ?much better? and reported symptoms are currently being managed. MOB denied any mental health history with the FOB. ??Substance Use History: Denied. ?Family History: MOB reported her mother has a history of depression and her father is an alcoholic. MOB reported her father is in an assisted living facility so to the best of her knowledge, her father does not currently have access to alcohol. MOB denied any other known family history on her side or the FOB?s side of the family. ?Drug Screens: None obtained during this admission for the MOB or baby. ??Inclined Railway Operator administered the [place] Depression Scale (EPDS). MOB?s score was a 3. Inclined Railway Operator provided education the score and MOB verbalized she understood. Family/Social Stressors: MOB denied any current family/social stressors. Support Systems: Ample. MADIHA described her biggest supports as the FOB, her mother, the FOB?s father, brother and FOB?s [id number]. MOB also reported that she and the FOB have ?a lot of zoroastrianism people?. ?? Depression/Shaken Baby/Safe Sleeping: structural ironworker provided verbal and written education on PPD, increased risk factors for PPD, Safe Sleeping and Shaken Baby.? MOB verbalized an understanding. MOB reported she ?has a 2 week appointment with her psychiatrist already in the works just to check in once everyone is discharged. ? ASSESSMENT:? MOB provided consent to social work visit. At the time sr. social media & mobile manager arrived, MOB was sitting upright in the hospital bed, ?s maternal grandmother (MGM) was sitting close-by in a recliner and was in the crib sleeping. MOB was very engaged and cooperative. Baby slept throughout the entire assessment, therefore sr. social media & mobile manager did not observe any direct interaction with the MOB or MGM with . Inclined Railway Operator observed positive interaction between the MOB and ?s MGM. MOB presented with a bright affect and stated she won?t ever be afraid to ask for help if needed. At the end of the assessment, sr. social media & mobile manager requested to speak with the MOB alone which MOB and MGM were both agreeable to. MOB reported feeling safe at home and denied any previous or current domestic violence with the FOB. As sr. social media & mobile manager was leaving the room, the FOB arrived. Safe Plan of Care for infant related to substance use: N/A; not needed. ? PLAN:? Baby to be discharged home.? structural ironworker also provided written information on depression, depression resources and Help Me Grow. ?No other services requested or indicated. Nikki Servin, ORTHODONTIC TECHNICIAN ASSISTANT, WINDOW CUTTER
[2024-12-23 01:55] VITALS: BP 136/93; PULSE 83; RESP 16; TEMP 36.4; O2SAT 95
--- NOTE | 2024-12-23 06:33 | PCM.DC.SUM ---
Providers Date of Admission: 12/21/24 Primary Care Physician: Dr. Laila Lima MD Reason For Visit: PRIMARY Diagnosis Discharge Diagnosis (1) BMI greater than 40: Status: Acute (2) Gestational diabetes requiring insulin: Status: Acute Code(s): O24.414 - Gestational diabetes mellitus in , insulin controlled (3) Status post primary low transverse section: Status: Acute Code(s): Z98.891 - History of uterine scar from previous surgery (4) Anxiety: Status: Acute Code(s): F41.9 - Anxiety disorder, unspecified (5) Depression: Status: Acute Code(s): F32.A - Depression, unspecified Plan POD 2 Primary C/S Breech Pain control Increase ambulation support D/C home with follow up in office this week Medications at Discharge Home Medications vit 122-ferrous fumarate 27 mg iron-folic acid 800 mcg tablet 1 ea PO DAILY vitamin 05/30/20 escitalopram oxalate 10 mg tablet (Lexapro) 10 mg PO DAILY anxiety 12/21/24 omeprazole 20 mg capsule,delayed release 20 mg PO DAILY heartburn 12/21/24 acetaminophen 500 mg tablet 1,000 mg (2 x 500 mg) PO Q6H #0 tabs 12/23/24 ibuprofen 600 mg tablet 600 mg PO Q6H #0 tabs 12/23/24 oxycodone 5 mg tablet 5 - 10 mg (1 - 2 x 5 mg) PO Q4H PRN PRN Pain Score 4-10 #0 tabs 12/23/24 sennosides 8.6 mg-docusate sodium 50 mg tablet (Stimulant Laxative Plus) 1 - 2 tab PO DAILY #0 tabs 12/23/24 Hospital Course Operations section Procedures None Summary of Care Provided Minutes Spent on Discharge: 15 Hospital Course: Patient had section. Hospital course was uneventful. Physical Exam Narrative Patient seen at bedside. Pain is controlled. Ambulating and voiding without difficulty. Denies headache, dizziness, SOB, or CP. and supplementing with formula. Desires discharge home. Const alert and no apparent distress General Appearance: cooperative and comfortable Exam Limitations: no limitations HEENT normocephalic Eyes General Eye: normal appearance of both eyes Neck full ROM General: normal visual inspection Chest Chest: symmetrical chest wall rise Resp normal respiratory effort and normal air movement Effort and Inspection: symmetric chest movement Auscultation: clear to auscultation bilaterally Cardio regular rate and regular rhythm GI normal to inspection, nondistended, normoactive bowel sounds Back/Spine normal ROM Extremity full ROM and no calf tenderness General Extremity: normal exam except as noted Skin no rashes or lesions noted Wound Narrative: Dressing is dry and intact. Neuro CN's II-XII intact bilaterally Psych mental status grossly normal Weight / BMI Weight Weight: 286 lb 6.087 oz Body Mass Index (BMI) 44.8 ABG / Lab / Microbiology Data 12/21/24 09:55 D/C Instructions Discharge Activity: May Drive (2 weeks) and May Shower May resume sexual activity in: 6-8 weeks Weight Bearing Status: Weight bearing as tolerated Lifting Restricted to (Lbs): 25 Call your doctor if your incision/area has: Continuous Slow Oozing, Sudden Increased Bleeding, Increased Pain/ Swelling, Increased Redness, Foul Smelling Discharge and Swelling at the incision site Call your doctor if you observe: Fever of 101 or Higher, Numbness or Tingling, Using more than 1 pad per hour, Shortness of breath, Dizziness, Swelling in the ankles, Chest pain, Calf discomfort and Uncontrolled pain Suture Line Care: Avoid Pulling/Pushing Remove Dressing in: 5 days (Remove yourself or call office and schedule appointment for dressing removal.) DC O2, CPAP, BIPAP Needs Home O2 Discharge instructions: No When: 5 days for dressing removal or 2 weeks for post appointment. Meaningful Use Info Meaningful Use Meaningful Use Diagnoses (Choose all that apply): None applicable Discharge Plan Admission Admit Date/Time: 12/21/24 09:40 Primary Reason for Your Visit: Delivery Attending Provider: Alyson Sales Primary Care Provider: Laila Lima Discharge Orders/Prescriptions Prescriptions: New sennosides-docusate sodium [Stimulant Laxative Plus] 8.6-50 mg Tablet 1 - 2 tab PO DAILY Qty: 0 0RF acetaminophen 500 mg Tablet 1,000 mg PO Q6H Qty: 0 0RF ibuprofen 600 mg Tablet 600 mg PO Q6H Qty: 0 0RF oxycodone 5 mg Tablet 5 - 10 mg PO Q4H PRN PRN (Reason: Pain Score 4-10) Qty: 0 0RF Continued [id number] acid 1 EACH tablet 1 ea PO DAILY escitalopram oxalate [Lexapro] 10 mg tablet 10 mg PO DAILY omeprazole 20 mg capsule,delayed release(DR/EC) 20 mg PO DAILY Discontinued aspirin [Bettie Chewable Aspirin] 81 mg tablet,chewable 1 tab PO DAILY Humulin N NPH Insulin KwikPen 100 unit/mL (3 mL) insulin pen 18 unit subcut QPM Referrals / Follow Up: Laila Lima MD [Primary Care Provider, Family Practice] Disposition Disposition (needs filled in before D/C Order can be placed): Home, Self Care
--- NOTE | 2024-12-23 07:58 | DCINST_ITS ---
Discharge Instructions DC O2, CPAP, BIPAP needs Home O2 Discharge instructions: No Dressing / Incision May resume sexual activity in: 6-8 weeks Weight Bearing Status: Weight bearing as tolerated Dressing / Incision Call your doctor if your incision/area has: Continuous Slow Oozing, Sudden Increased Bleeding, Increased Pain/ Swelling, Increased Redness, Foul Smelling Discharge and Swelling at the incision site Call your doctor if you observe: Fever of 101 or Higher, Numbness or Tingling, Using more than 1 pad per hour, Shortness of breath, Dizziness, Swelling in the ankles, Chest pain, Calf discomfort and Uncontrolled pain Suture Line Care: Avoid Pulling/Pushing Follow Up Care Test Results: Test results from this visit will be discussed in further detail at your follow- up appointment, if applicable. Discharge Plan Admission Admit Date/Time: 12/21/24 09:40 Primary Reason for Your Visit: Delivery Attending Provider: Alyson Sales Primary Care Provider: Laila Lima Discharge Orders/Prescriptions Prescriptions: New sennosides-docusate sodium [Stimulant Laxative Plus] 8.6-50 mg Tablet 1 - 2 tab PO DAILY Qty: 0 0RF acetaminophen 500 mg Tablet 1,000 mg PO Q6H Qty: 0 0RF ibuprofen 600 mg Tablet 600 mg PO Q6H Qty: 0 0RF oxycodone 5 mg Tablet 5 - 10 mg PO Q4H PRN PRN (Reason: Pain Score 4-10) Qty: 0 0RF oxycodone 5 mg Tablet 5 - 10 mg PO Q4H PRN PRN (Reason: Pain Score 6-10) 3 Days Qty: 10 0RF Continued [id number] acid 1 EACH tablet 1 ea PO DAILY escitalopram oxalate [Lexapro] 10 mg tablet 10 mg PO DAILY omeprazole 20 mg capsule,delayed release(DR/EC) 20 mg PO DAILY Discontinued aspirin [Bettie Chewable Aspirin] 81 mg tablet,chewable 1 tab PO DAILY Humulin N NPH Insulin KwikPen 100 unit/mL (3 mL) insulin pen 18 unit subcut QPM Referrals / Follow Up: Laila Lima MD [Primary Care Provider, Family Practice] Disposition Disposition (needs filled in before D/C Order can be placed): Home, Self Care
[2024-12-23 09:23] VITALS: BP 125/84; PULSE 55; RESP 17; TEMP 36.7; O2SAT 97
[2024-12-23] MEDS: Senna/Docusate Sodium 1 Tablet PO (11:01)
[2024-12-23 14:20] VITALS: BP 146/81; PULSE 54; RESP 18; TEMP 36.7
--- NOTE | 2024-12-31 17:54 | NURSING ---
Follow up phone call completed. Pt is feeling well. She had her follow up appointment with her physician last week and the incision dressing was removed. Pt states that incision is looking good. Denies having a pain. States that bleeding has slowed down. She is currently exclusively pumping for but doesn't need to add any formula to the feeds. When asked patient about baby blues, she laughed and stated that she was sleep deprived. Encouraged mom to call her doctor if she didnt want to care for herself or the infant or had feelings of self harm. Pt stated understanding.
== END 2024-12-23 18:00 | disposition home or self-care (01) | DRG 788 ==
PROVIDERS: Admitting Provider Obstetrics & Gynecology; PCP Family Medicine; Referring Provider Obstetrics & Gynecology; Visit Provider Obstetrics & Gynecology
PROC: 10D00Z1 Extraction of Products of Conception, Low, Open Approach (ICD-10-PCS; CPT 59514; principal; 2024-12-21 11:45)
DX: O32.1XX0 Maternal care for breech presentation, not applicable or unspecified (principal); O26.23 Pregnancy care for patient with recurrent pregnancy loss, third trimester; F32.A Depression, unspecified; O24.424 Gestational diabetes mellitus in childbirth, insulin controlled; O99.214 Obesity complicating childbirth; F41.9 Anxiety disorder, unspecified; O99.344 Other mental disorders complicating childbirth; Z37.0 Single live birth; Z3A.39 39 weeks gestation of pregnancy; Z79.899 Other long term (current) drug therapy; Z87.59 Personal history of other complications of pregnancy, childbirth and the puerperium
CPT/HCPCS: 76815; 82962; 85025; 86780; 86850; 86900; 86901; 99221; A4216; G0378